=== PATIENT | male | born 1955 | race Caucasian/White ===

== ENCOUNTER 2020-12-14 08:55 | Outpatient (REF) | payer OTHER, SELFPAY ==
--- NOTE | ~2020-12-14 | XR_ITS ---
EXAMINATION: XR knee standing BI, XR knee LT 2V CLINICAL INFORMATION: Reason for Exam M25.569 - Pain in unspecified knee COMPARISON: None available at the time of this dictation. TECHNIQUE: Bilateral standing, left lateral patella sunrise view. FINDINGS: BONES: No fracture or dislocation is present. JOINTS: Mild narrowing of joint spaces suggest mild degenerative osteoarthritis. There are probably postoperative changes of from prior ACL repair. SOFT TISSUE: There is a small knee joint effusion. XR/XR knee LT 2V IMPRESSION: Mild degenerative osteoarthritis Small left knee joint effusion.
--- NOTE | ~2020-12-14 | XR_ITS ---
EXAMINATION: XR knee standing BI, XR knee LT 2V CLINICAL INFORMATION: Reason for Exam M25.569 - Pain in unspecified knee COMPARISON: None available at the time of this dictation. TECHNIQUE: Bilateral standing, left lateral patella sunrise view. FINDINGS: BONES: No fracture or dislocation is present. JOINTS: Mild narrowing of joint spaces suggest mild degenerative osteoarthritis. There are probably postoperative changes of from prior ACL repair. SOFT TISSUE: There is a small knee joint effusion. XR/XR knee standing BI IMPRESSION: Mild degenerative osteoarthritis Small left knee joint effusion.
== END 2020-12-14 08:56 | disposition home or self-care (01) ==
LOC: HO.HOSX 08:55
PROVIDERS: Visit Provider Orthopaedic Surgery
DX: M25.562 Pain in left knee (principal); M25.561 Pain in right knee; Z98.890 Other specified postprocedural states
CPT/HCPCS: 73560; 73565

== ENCOUNTER 2021-01-09 13:55 | Outpatient (REF) | payer OTHER, SELFPAY ==
--- NOTE | ~2021-01-09 | MR_ITS ---
EXAMINATION: MR KNEE WITHOUT CONTRAST, LEFT CLINICAL INFORMATION: Z98.890 - Other specified postprocedural states, history of ACL reconstruction. COMPARISON: None. TECHNIQUE: MRI of the knee without contrast was performed using routine sequences on a high-field scanner. FINDINGS: MENISCI: Medial Meniscus: There is a longitudinal tear along the peripheral, capsular margin of the posterior horn and body of the medial meniscus, consistent with a meniscocapsular injury/ramp lesion. Lateral Meniscus: There is absence of much of the posterior horn of the lateral meniscus near the root insertion, most likely the result of a prior meniscal tear status post partial meniscectomy. The posterior horn remains attached to the ligament of Howe. There is partial extrusion of the meniscal body. LIGAMENTS: Cruciate: ACL graft is completely disrupted at its mid substance with surrounding edema signal. Punctate foci marked metallic artifact in this region, consistent with prior surgery. PCL is intact. Collateral: Thickening of the MCL proximally may be due to scar tissue from prior surgery. LCL complex is normal. EXTENSOR MECHANISM: Quadriceps and patellar tendons are intact. Postsurgical changes of prior arthroscopy are evident within the Hoffa's fat pad. ARTICULAR CARTILAGE/BONE: Patellofemoral Compartment: Mild chondral surface irregularity is present at the lateral patellar facet. No discrete chondral defects. Trochlear cartilage appears normal. Normal trochlear morphology. Medial Compartment: Normal. Lateral Compartment: There is a small focal high-grade chondral defect at the lateral femoral condyle weightbearing surface measuring 4 x 5 mm in area with mild underlying marrow edema and cortical irregularity. Minimal chondral fissuring is present at the posterior margin of the lateral tibial plateau. No acute fractures. JOINT FLUID AND BURSAE: Small joint effusion. No Hooks's cyst. MR/MR knee LT wo con IMPRESSION: 1. Complete tear of the ACL graft. 2. Peripheral longitudinal meniscocapsular tear at the posterior horn and body of the medial meniscus, consistent with a ramp lesion. 3. Chronic defect in the posterior horn of the lateral meniscus at the root insertion from a prior partial meniscectomy. Meniscal body is partially extruded. No new tears. 4. Small 4 x 5 mm high-grade chondral defect at the lateral femoral condyle weightbearing surface. Minimal chondral fissuring at the posterior margin of the lateral tibial plateau. 5. Small joint effusion.
== END 2021-01-09 13:56 | disposition home or self-care (01) ==
LOC: HO.MRI 13:55
PROVIDERS: Visit Provider Orthopaedic Surgery
DX: Z98.890 Other specified postprocedural states (principal)
CPT/HCPCS: 73721

== ENCOUNTER → 2021-01-17 08:31 | Outpatient (BNVA) | payer OTHER, SELFPAY | PROVIDERS: PCP Internal Medicine Endocrinology, Diabetes & Metabolism; Visit Provider Orthopaedic Surgery ==

== ENCOUNTER 2021-03-15 08:12 | Outpatient (REF) | payer OTHER, SELFPAY ==
[2021-03-15 10:26] LABS: MANUAL DIFF FLAG NO
[2021-03-15 10:27] LABS: Eosinophils Absolute Auto 0.1 X10*3/uL (0.0-0.4); Eosinophils Percent Auto 2.6 % (0-4); Hematocrit 46.2 % (42-52); Hemoglobin 15.3 g/dl (14.0-18.0); Mean Corpuscular HGB Conc 33.1 g/dl (31.0-36.0); Mean Corpuscular Hemoglobin 30.8 pg (27.0-33.0); Mean Platelet Volume 9.1 fL (9.4-12.4); Monocytes Absolute Auto 0.5 X10*3/uL (0.1-1.2); Monocytes Percent Auto 11.5 % (2-11); Neutrophils Absolute Auto 2.5 X10*3/uL (2.0-8.3); Neutrophils Percent Auto 60.9 % (45-73); Platelet Count 226 X10*3/uL (160-400); Red Blood Count 4.97 X10*6/uL (4.60-5.80); Red Cell Distribution Width 13.8 % (11.0-16.0); White Blood Count 4.2 X10*3/uL (4.8-10.8)
[2021-03-15 11:23] LABS: Alanine Aminotransferase 22 U/L (0-40); Albumin Level 4.3 g/dL (3.5-5.0); Alkaline Phosphatase 78 U/L (39-117); Anion Gap 12 (12-20); Aspartate Amino Transferase 30 U/L (5-37); Bilirubin Total 0.6 mg/dL (0.0-1.0); Blood Urea Nitrogen 18 mg/dL (9-16); Calcium 9.6 mg/dL (8.4-10.2); Carbon Dioxide 30 mmol/L (22-29); Chloride 102 mmol/L (96-108); Cholesterol 184 mg/dL; Estimated Glomerular Filt Rate > 60; Glucose Fasting 91 mg/dL (60-99); HDL Cholesterol 55 mg/dL; LDL Cholesterol Calculated 119 mg/dl; Potassium 4.5 mmol/L (3.3-5.1); Sodium 139 mmol/L (135-145); Total Protein 7.4 g/dL (6.5-8.0); Triglycerides 53 mg/dL
[2021-03-15 11:36] LABS: TSH reflex Free T4 1.85 uIU/mL (0.32-4.0)
== END 2021-03-15 08:13 | disposition home or self-care (01) ==
LOC: HO.WFDLDS 08:12
PROVIDERS: Visit Provider Family Medicine
DX: Z00.00 Encounter for general adult medical examination without abnormal findings (principal)
CPT/HCPCS: 36415; 80053; 80061; 84443; 85025

== ENCOUNTER 2021-03-29 09:00 | Outpatient (RCR) | payer OTHER, SELFPAY | END 2021-07-19 14:48 | disposition home or self-care (01) | LOC: HO.PTWFD 09:00 | PROVIDERS: Visit Provider Orthopaedic Surgery | DX: T84.89XA Other specified complication of internal orthopedic prosthetic devices, implants and grafts, initial encounter (principal) | CPT/HCPCS: 97110; 97116; 97162; 97530 ==

== ENCOUNTER 2021-05-08 08:15 | Outpatient (REF) | payer OTHER, SELFPAY ==
[2021-05-08 10:23] LABS: MANUAL DIFF FLAG NO
[2021-05-08 10:28] LABS: Eosinophils Absolute Auto 0.1 X10*3/uL (0.0-0.4); Eosinophils Percent Auto 1.8 % (0-4); Hematocrit 44.1 % (42-52); Hemoglobin 14.7 g/dl (14.0-18.0); Imm Gran Abs Auto 0.01 X10*3/uL (0.00-0.03); Imm Gran Pct Auto 0.3 % (0.0-0.4); Lymphocytes Absolute Auto 0.8 X10*3/uL (1.2-4.9); Mean Corpuscular HGB Conc 33.3 g/dl (31.0-36.0); Mean Corpuscular Hemoglobin 31.4 pg (27.0-33.0); Mean Corpuscular Volume 94.2 fL (80-98); Mean Platelet Volume 9.1 fL (9.4-12.4); Monocytes Absolute Auto 0.5 X10*3/uL (0.1-1.2); Monocytes Percent Auto 11.9 % (2-11); Neutrophils Absolute Auto 2.5 X10*3/uL (2.0-8.3); Platelet Count 215 X10*3/uL (160-400); Red Blood Count 4.68 X10*6/uL (4.60-5.80); Red Cell Distribution Width 13.6 % (11.0-16.0); White Blood Count 3.9 X10*3/uL (4.8-10.8)
[2021-05-08 11:17] LABS: Erythrocyte Sedimentation Rate 77 MM/HR (0-15)
[2021-05-09 10:41] LABS: Myeloperoxidase Antibody <1.0 AI; Proteinase 3 PR3 Antibodies <1.0 AI
== END 2021-05-08 08:16 | disposition home or self-care (01) ==
LOC: HO.LAB 08:15
PROVIDERS: PCP Family Medicine; Visit Provider Hospitalist
DX: J45.50 Severe persistent asthma, uncomplicated (principal); J44.9 Chronic obstructive pulmonary disease, unspecified; B44.81 Allergic bronchopulmonary aspergillosis
CPT/HCPCS: 36415; 82785; 85025; 85652; 86003; 86021; 87070; 87205

== ENCOUNTER 2021-05-17 08:59 | Outpatient (REF) | payer OTHER, SELFPAY ==
[2021-05-22 15:11] LABS: Testosterone, Total 439 ng/dL (250-1100)
== END 2021-05-17 09:00 | disposition home or self-care (01) ==
LOC: HO.WFDLDS 08:59
PROVIDERS: PCP Family Medicine; Visit Provider Urology
DX: E29.1 Testicular hypofunction (principal)
CPT/HCPCS: 36415; 84403

== ENCOUNTER → 2021-05-29 08:23 | Outpatient (BNVA) | payer OTHER, SELFPAY | PROVIDERS: PCP Family Medicine; Visit Provider Urology ==

== ENCOUNTER 2021-06-18 09:08 | Outpatient (REF) | payer OTHER, SELFPAY ==
--- NOTE | ~2021-06-18 | XR_ITS ---
EXAMINATION: XR CHEST CLINICAL INFORMATION: COPD COMPARISON: None TECHNIQUE: 2 views of the chest were obtained. FINDINGS: The cardiac and mediastinal contours are normal. The lungs are well-inflated. There may be scarring or subsegmental atelectasis retrosternally on the lateral view. The lungs are otherwise clear. There is no pleural effusion or pneumothorax. There are old right anterior rib fractures. There are degenerative changes of the spine. XR/XR chest 2V IMPRESSION: Well-inflated lungs. Retrosternal scarring or subsegmental atelectasis seen on the lateral view.
== END 2021-06-18 09:09 | disposition home or self-care (01) ==
LOC: HO.XRAY 09:08
PROVIDERS: PCP Family Medicine; Visit Provider Hospitalist
DX: J45.50 Severe persistent asthma, uncomplicated (principal); B44.81 Allergic bronchopulmonary aspergillosis; J44.9 Chronic obstructive pulmonary disease, unspecified; Z79.899 Other long term (current) drug therapy
CPT/HCPCS: 71046

== ENCOUNTER 2021-06-26 08:56 | Outpatient (REF) | payer OTHER, SELFPAY ==
--- NOTE | 2021-06-26 10:07 | PFT_ITS ---
INDICATION: Asthma. SPIROMETRY: The FEV1 to FVC of 67% with an FEV1 of 2.03 L, which is 91% predicted and an FVC of 4.49 L, which is 100% predicted. No significant response to bronchodilators noted. Maximum voluntary ventilation 109% predicted. LUNG VOLUMES: Total lung capacity 101% predicted with a residual volume of 95% predicted. DIFFUSION CAPACITY: DLCO 76% predicted. Flow volume loop appears to be suggestive of a concavity of the expiratory limb, which is consistent with an obstructive physiology. COMPARISONS: None available. INTERPRETATION: There is an obstructive ventilatory defect consistent with mild COPD. The patient likely has asthma, COPD overlap syndrome. No significant response to bronchodilators noted. Normal maximum voluntary ventilation. Lung volumes are within normal limits. In addition to that, the patient does have a mild diffusion impairment. Clinical correlation warranted. MD SANDRA Berumen/CHANEL / [id number]
== END 2021-06-26 08:57 | disposition home or self-care (01) ==
LOC: HO.RESP 08:56
PROVIDERS: PCP Family Medicine; Visit Provider Hospitalist
DX: J44.9 Chronic obstructive pulmonary disease, unspecified (principal); B44.81 Allergic bronchopulmonary aspergillosis
CPT/HCPCS: 94060; 94727; 94729

== ENCOUNTER → 2021-08-14 08:56 | Outpatient (BNVA) | payer OTHER, SELFPAY | PROVIDERS: PCP Family Medicine; Visit Provider Hospitalist | DX: B44.81 Allergic bronchopulmonary aspergillosis (principal); J45.909 Unspecified asthma, uncomplicated; J44.9 Chronic obstructive pulmonary disease, unspecified ==

== ENCOUNTER 2021-08-22 06:27 | Day surgery (SDC) | payer OTHER, SELFPAY ==
[2021-08-21 09:19] VITALS: BMI 22.5
--- NOTE | 2021-08-21 09:34 | P.CONAN_ITS ---
Documented by User: Reena Zelaya NP 08/21/21 09:35 HPI - Anesthesia Eval Consult details Narrative: 65yo M for Bronchoscopy Fiberoptic PMFSH Active Problems Active Problems: All Active Problems (Updated 08/21/21 @ 09:24 by Abbie Juarez RN) Essential hypertension (Acute) Laboratory examination ordered as part of a routine general medical examination (Acute) Allergic bronchopulmonary aspergillosis (Acute) Asthma (Acute) Annual physical exam (Acute) Screening for prostate cancer (Acute) Screening for colon cancer (Acute) Hypogonadism in male (Acute) Asthma-COPD overlap syndrome (Acute) ABPA (allergic bronchopulmonary aspergillosis) (Acute) Asthma (Acute) ACL graft tear (Acute) Hx of anterior cruciate ligament tear reconstruction (Acute ~01/05/13) Past Medical History Medical History (Updated 08/21/21 @ 09:24 by Abbie Juarez RN) ABPA (allergic bronchopulmonary aspergillosis) ACL graft tear Asthma-COPD overlap syndrome Hypertension Surgical History Surgical History Hx of anterior cruciate ligament tear reconstruction (~01/05/13) Social History Social History Housing: House Alcohol intake: never Patient Tobacco Use Status: Never used Tobacco e-Cigarette/Vaping Use: Never Used Use of substances other than those prescribed or required for medical reasons: No Are you DNR?: No Advance Directives: No Advance Directives Information Provided: Yes Recently lost weight without trying: No Nutrition Risks: No Nutritional Risk service: No Current occupational status: retired Meds Allergies Allergy/AdvReac Type Severity Reaction Status Date / Time Doxycycline Hyclate Allergy Intermediate redness Uncoded 08/14/21 09:05 and itching Home Medications Medication Instructions Recorded Confirmed Last Taken Type fexofenadine 180 mg tablet 180 mg PO DAILY 12/14/20 Unknown History fluticasone propionate 50 1 spray INTRANASAL DAILY 12/14/20 Unknown History mcg/actuation nasal spray,suspension montelukast 10 mg tablet 10 mg PO BEDTIME 12/14/20 Unknown History pantoprazole 40 mg tablet,delayed 40 mg PO DAILY 12/14/20 Unknown History release triamterene 37.5 1 cap PO DAILY 12/14/20 Unknown History mg-hydrochlorothiazide 25 mg capsule immun glob G 8 SUBCUT 03/08/21 Unknown History gram/40mL(20%)-gly-IgA over 50 mcg/mL subcutaneous soln (Cuvitru) umeclidinium 62.5 mcg/actuation 1 inh INHALATION DAILY 05/08/21 Unknown History blister powder for inhalation (Incruse Ellipta) dupilumab 300 mg/2 mL subcutaneous mg SUBCUT 08/14/21 Unknown History syringe loteprednol etabonate 0.5 % eye drp OPHTHALMIC (EYE) 08/14/21 Unknown History gel drops Exam Exam Date and Time: August 21, 2021 0934 Height,Weight and Vital Signs: Height 5 ft 8 in Weight 67.132 kg Pertinent Lab Results Pertinent Lab Results: Laboratory Tests 03/15/21 05/08/21 08:50 09:55 WBC 3.9 L Hgb 14.7 Hct 44.1 Plt Count 215 Sodium 139 Potassium 4.5 Chloride 102 Carbon Dioxide 30 H BUN 18 H Creatinine 1.09 Narrative Narrative: PFT 06/2021 INTERPRETATION:? There is an obstructive ventilatory defect consistent with mild COPD.? The patient likely has asthma, COPD overlap syndrome.? No significant response to bronchodilators noted.? Normal maximum voluntary ventilation.? Lung volumes are within normal limits.? In addition to that, the patient does have a mild diffusion impairment.? Clinical correlation warranted. Assessment and Plan Assessment Anesthesia Assessment: Chart Reviewed Documented by User: Bruce Blackburn 08/22/21 07:46 [facility] Past Medical History Medical History (Updated 08/21/21 @ 09:24 by Abbie Juarez RN) ABPA (allergic bronchopulmonary aspergillosis) ACL graft tear Asthma-COPD overlap syndrome Hypertension Functional capacity: independent ambulation Family History Family history of problems with anesthesia: No Surgical History Surgical History Hx of anterior cruciate ligament tear reconstruction (~01/05/13) History of Problems with Anesthesia: No Social History Social History Housing: House Alcohol intake: never Patient Tobacco Use Status: Never used Tobacco e-Cigarette/Vaping Use: Never Used Use of substances other than those prescribed or required for medical reasons: No Are you DNR?: No Advance Directives: No Advance Directives Information Provided: Yes Recently lost weight without trying: No Nutrition Risks: No Nutritional Risk service: No Current occupational status: retired Meds Allergies Allergy/AdvReac Type Severity Reaction Status Date / Time Doxycycline Hyclate Allergy Intermediate redness Uncoded 08/14/21 09:05 and itching Home Medications Medication Instructions Recorded Confirmed Last Taken Type fexofenadine 180 mg tablet 180 mg PO DAILY 12/14/20 Unknown History fluticasone propionate 50 1 spray INTRANASAL DAILY 12/14/20 Unknown History mcg/actuation nasal spray,suspension montelukast 10 mg tablet 10 mg PO BEDTIME 12/14/20 Unknown History pantoprazole 40 mg tablet,delayed 40 mg PO DAILY 12/14/20 Unknown History release triamterene 37.5 1 cap PO DAILY 12/14/20 Unknown History mg-hydrochlorothiazide 25 mg capsule immun glob G 8 SUBCUT 03/08/21 Unknown History gram/40mL(20%)-gly-IgA over 50 mcg/mL subcutaneous soln (Cuvitru) umeclidinium 62.5 mcg/actuation 1 inh INHALATION DAILY 05/08/21 Unknown History blister powder for inhalation (Incruse Ellipta) dupilumab 300 mg/2 mL subcutaneous mg SUBCUT 08/14/21 Unknown History syringe loteprednol etabonate 0.5 % eye drp OPHTHALMIC (EYE) 08/14/21 Unknown History gel drops Exam Airway Mallampati Class: II TM Dist: >3cm Neck ROM: Full Loose/Missing/Broken Teeth: Yes Heart: rrr Lungs: bl breath sounds Assessment and Plan Final Anesthetic Review Family History of Problems with Anesthesia: No History of Problems with Anesthesia: No NPO: Yes ASA Class: III Final Preanesthetic Review: Meds/Allgs Chart Reviewed Patient Risk: Intermediate Procedure Risk: Intermediate Anesthetic Plan Anesthetic Plan: GA Disposition: Standard PACU
[2021-08-22] VITALS (9 sets, daily range): BP systolic 110–150; BP diastolic 50–92; PULSE 46–61; RESP 13–20; TEMP 36.2–36.6; O2SAT 97–100; BMI 22.1
[2021-08-22] MEDS: Lactated Ringers 1,000 ML 100 ML IVCONT (07:03)
[2021-08-22] MEDS: Albuterol/Iprat 2.5/0.5MG 3 ML AMPUL.NEB INHALE (07:33)
--- NOTE | 2021-08-22 07:35 | PC.NURSE ---
receiving resp treatment
--- NOTE | 2021-08-22 08:10 | MHC.SHP ---
Pre-Procedural Eval Section A Date of Service: 08/22/21 The patient is an INPATIENT: No Changes since office visit: Yes Patient answered all questions; No Cold of Flu in the past 2 weeks, No New Medical Problems and No Changes in Medication Section B Chief Complaint: aspergillosis Relevant Family History (Specify if Yes): No Allergies: Allergies Allergy/AdvReac Type Severity Reaction Status Date / Time Doxycycline Hyclate Allergy Intermediate redness Uncoded 08/14/21 09:05 and itching Plan I have reviewed the history and physical and performed a pertinent physical examination on my patient. No changes have occurred unless specified.
--- NOTE | 2021-08-22 09:27 | PM.OP ---
Brief Operative Note Date of Service: 08/22/21 Pre-op diagnosis: Asthma Post-op diagnosis: same Procedure: Bronchoscopy with BAL and brushigs Implants: Surgeon: Justin Conley MD Anesthesia: GLMA Was an Desizing Machine Operator Head End used for this Procedure?: No Estimated blood loss (mL): 0 Pathology: none sent Condition: stable Disposition: same day
--- NOTE | 2021-08-22 11:11 | OP_ITS ---
SURGEON: Justin Conley MD PREOPERATIVE DIAGNOSIS: Asthma. POSTOPERATIVE DIAGNOSIS: Asthma. PROCEDURE PERFORMED: Bronchoscopy with BAL and brushings and washings. ESTIMATED BLOOD LOSS: COMPLICATIONS: ANESTHESIA: ASSISTANTS: SPECIMENS: FOAM FABRICATOR: None. DESCRIPTION OF PROCEDURE: After the patient was adequately sedated and LMA in place, the flexible digital bronchoscope was inserted to the level of the larynx. The larynx appeared to be inflamed, likely from chronic coughing. The vocal cords did move symmetrically to the midline without any lesions or masses. After instilling lidocaine, the bronchoscope was then passed to the vocal cords to the level of the trachea. The trachea appeared to be patent with some evidence of chondromas and some evidence of chronic inflammation. After instilling additional lidocaine, the bronchoscope was then passed to the entire tracheobronchial tree that was examined up to the subsegmental level. The patient did again have evidence of chronic bronchitis, moderate amount of mucoid secretions primarily in the left mainstem bronchus, also in the right lower lobe. The bronchoscope was navigated to the lingula, where a BAL was done with 50 mL of normal saline recovering back around 20 mL, demonstrating clear fluid with mucus plugs noted. Subsequently after that, a microscopic brush was introduced into the left lower lobe, sent to microbiology. After that using washings, all the segments were washed with saline. The patient was noted to have a significant mucoid impaction in the right lower lobe. Could not be suctioned through the regular catheter, so therefore had to remove the bronchoscopy and clear the mucus out of the bronchoscopy that way. After that, we were able to clear out all the mucus out cleaning of the airways. Again, no endobronchial lesions or masses, although he did have blotches of areas of inflammation and chronic changes consistent with bronchiectasis, evidence of diverticula from the chronic airway disease as well noted. No significant trachea or bronchomalacia appreciated which is reassuring. The bronchoscope was then removed. The total endoscopic time approximately about 12 minutes. The patient tolerated the procedure well. Vital signs were stable throughout the procedure. INTERPRETATION: 1. Bronchoalveolar lavage from the left upper lobe. 2. Bilateral lung washings for both microbiology and cytology sent. 3. Left lower lobe microscopic brush. Justin Conley MD MR/MODL / [id number]
[2021-08-22 14:54] LABS: Neutrophils Bronchial 10 %; RBC Bronchial Washing 3 MM*3; WBC Bronchial Washing 46 MM*3
[2021-08-22 14:55] LABS: Lymphocytes Bronchial 11 %; Monocytes Bronchial 4 %; Other Bronchial 75 %
== END 2021-08-22 10:33 | disposition home or self-care (01) ==
PROVIDERS: PCP Family Medicine; Visit Provider Hospitalist
PROC: 0BJ08ZZ Inspection of Tracheobronchial Tree, Via Natural or Artificial Opening Endoscopic (ICD-10-PCS; CPT 31622; principal; 2021-08-22 08:00)
DX: B44.81 Allergic bronchopulmonary aspergillosis (principal); J45.50 Severe persistent asthma, uncomplicated; J44.9 Chronic obstructive pulmonary disease, unspecified; R09.3 Abnormal sputum; R07.89 Other chest pain; R70.0 Elevated erythrocyte sedimentation rate; Z79.899 Other long term (current) drug therapy; R09.89 Other specified symptoms and signs involving the circulatory and respiratory systems; U09.9 Post COVID-19 condition, unspecified
CPT/HCPCS: 31624; 31623; 87071; 87102; 87116; 87205; 88112; 89051; 94640; J0171; J2250; J2405; J3010

== ENCOUNTER → 2021-08-28 10:06 | Outpatient (BNVA) | payer OTHER, SELFPAY | PROVIDERS: PCP Family Medicine; Visit Provider Hospitalist ==

== ENCOUNTER 2021-10-04 10:27 | Outpatient (REF) | payer OTHER, SELFPAY ==
[2021-10-04 13:41] LABS: Blood Urea Nitrogen 22 mg/dL (9-16); Estimated Glomerular Filt Rate > 60
[2021-10-07 13:36] LABS: Immunoglobulin G 1181 mg/dL (600-1540)
== END 2021-10-04 10:28 | disposition home or self-care (01) ==
LOC: HO.WFDLDS 10:27
PROVIDERS: Visit Provider Allergy & Immunology
DX: D80.1 Nonfamilial hypogammaglobulinemia (principal)
CPT/HCPCS: 36415; 82565; 82784; 84520

== ENCOUNTER → 2021-10-08 10:07 | Outpatient (BNVA) | payer MEDICARE, OTHER, SELFPAY | PROVIDERS: PCP Family Medicine; Visit Provider Hospitalist | DX: J44.9 Chronic obstructive pulmonary disease, unspecified (principal); J45.50 Severe persistent asthma, uncomplicated; B44.81 Allergic bronchopulmonary aspergillosis | CPT/HCPCS: 99212 ==

== ENCOUNTER → 2021-11-14 10:38 | Outpatient (BNVA) | payer MEDICARE, OTHER, SELFPAY | PROVIDERS: PCP Family Medicine; Visit Provider Hospitalist | DX: Z23 Encounter for immunization (principal); J45.909 Unspecified asthma, uncomplicated | CPT/HCPCS: 90471; 90670; 99211 ==

== ENCOUNTER 2022-01-07 10:40 | Outpatient (REF) | payer MEDICARE, OTHER, SELFPAY ==
[2022-01-07 13:44] LABS: Blood Urea Nitrogen 26 mg/dL (9-16); Estimated Glomerular Filt Rate > 60
[2022-01-09 14:36] LABS: Immunoglobulin G 1128 mg/dL (600-1540)
== END 2022-01-07 10:41 | disposition home or self-care (01) ==
LOC: HO.WFDLDS 10:40
PROVIDERS: Visit Provider Allergy & Immunology
DX: D80.1 Nonfamilial hypogammaglobulinemia (principal)
CPT/HCPCS: 36415; 82565; 82784; 84520

== ENCOUNTER 2022-01-14 10:02 | Outpatient (REF) | payer MEDICARE, OTHER, SELFPAY ==
[2022-01-14 11:31] LABS: MANUAL DIFF FLAG NO
[2022-01-14 11:34] LABS: Basophils Absolute Auto 0.1 X10*3/uL (0.0-0.2); Basophils Percent Auto 1.2 % (0-2); Eosinophils Absolute Auto 0.1 X10*3/uL (0.0-0.4); Eosinophils Percent Auto 1.2 % (0-4); Hemoglobin 15.1 g/dl (14.0-18.0); Imm Gran Abs Auto 0.01 X10*3/uL (0.00-0.03); Imm Gran Pct Auto 0.2 % (0.0-0.4); Lymphocytes Absolute Auto 0.6 X10*3/uL (1.2-4.9); Lymphocytes Percent Auto 14.8 % (20-40); Mean Corpuscular HGB Conc 33.6 g/dl (31.0-36.0); Mean Corpuscular Hemoglobin 30.9 pg (27.0-33.0); Mean Corpuscular Volume 92.2 fL (80.0-98.0); Mean Platelet Volume 8.7 fL (9.4-12.4); Monocytes Absolute Auto 0.4 X10*3/uL (0.1-1.2); Monocytes Percent Auto 8.1 % (2-11); Neutrophils Absolute Auto 3.2 x10*3/uL (2.0-8.3); Neutrophils Percent Auto 74.5 % (45-73); Platelet Count 221 X10*3/uL (160-400); Red Blood Count 4.88 X10*6/uL (4.60-5.80); Red Cell Distribution Width 12.3 % (11.0-16.0); White Blood Count 4.3 X10*3/uL (4.8-10.8)
[2022-01-14 12:29] LABS: Erythrocyte Sedimentation Rate 6 MM/HR (0-15)
[2022-01-16 14:56] LABS: IgA 203 mg/dL (70-320); IgG 1227 mg/dL (600-1540); IgM 98 mg/dL (50-300)
[2022-01-20 14:36] LABS: Asperg fumigatus Precip Abs NEGATIVE (NEGATIVE); Micropoly faeni Abs NEGATIVE (NEGATIVE); Pigeon serum Abs NEGATIVE (NEGATIVE); Saccharo pora viridis Abs NEGATIVE (NEGATIVE); Thermo candidus Abs NEGATIVE (NEGATIVE); Thermoa vulgaris #1 NEGATIVE (NEGATIVE)
== END 2022-01-14 10:03 | disposition home or self-care (01) ==
LOC: HO.LAB 10:02
PROVIDERS: PCP Family Medicine; Visit Provider Hospitalist
DX: J45.50 Severe persistent asthma, uncomplicated (principal); J44.9 Chronic obstructive pulmonary disease, unspecified; B44.81 Allergic bronchopulmonary aspergillosis; R91.8 Other nonspecific abnormal finding of lung field; I10 Essential (primary) hypertension; Z88.1 Allergy status to other antibiotic agents
CPT/HCPCS: 36415; 82784; 82785; 85025; 85652; 86003; 86331; 86606; 86609; 99212

== ENCOUNTER 2022-04-09 10:38 | Outpatient (REF) | payer MEDICARE, OTHER, SELFPAY ==
[2022-04-09 15:02] LABS: TSH reflex Free T4 1.24 uIU/mL (0.32-4.0)
[2022-04-09 15:06] LABS: Alanine Aminotransferase 22 U/L (0-40); Albumin Level 4.2 g/dL (3.5-5.0); Alkaline Phosphatase 73 U/L (39-117); Anion Gap 13 (12-20); Aspartate Amino Transferase 28 U/L (5-37); Bilirubin Total 0.6 mg/dL (0.0-1.0); Blood Urea Nitrogen 20 mg/dL (9-16); Calcium 8.9 mg/dL (8.4-10.2); Carbon Dioxide 25 mmol/L (22-29); Chloride 105 mmol/L (96-108); Cholesterol 176 mg/dL; Estimated Glomerular Filt Rate 58; Glucose Fasting 111 mg/dL (60-99); HDL Cholesterol 55 mg/dL; LDL Cholesterol Calculated 109 mg/dl; Sodium 139 mmol/L (135-145); Triglycerides 60 mg/dL
[2022-04-09 15:12] LABS: Blood Urea Nitrogen 19 mg/dL (9-16); Estimated Glomerular Filt Rate > 60
[2022-04-11 11:22] LABS: Immunoglobulin G 1068 mg/dL (600-1540)
== END 2022-04-09 10:39 | disposition home or self-care (01) ==
LOC: HO.WFDLDS 10:38
PROVIDERS: Allergy & Immunology; Visit Provider Family Medicine
DX: D80.1 Nonfamilial hypogammaglobulinemia (principal)
CPT/HCPCS: 36415; 80053; 80061; 82565; 82784; 84443; 84520

== ENCOUNTER 2022-04-11 08:49 | Outpatient (REF) | payer MEDICARE, OTHER, SELFPAY ==
[2022-04-11 14:17] LABS: Cortisol Random 10.5 ug/dL
== END 2022-04-11 08:50 | disposition home or self-care (01) ==
LOC: HO.WFDLDS 08:49
PROVIDERS: Visit Provider Family Medicine
DX: Z00.00 Encounter for general adult medical examination without abnormal findings (principal)
CPT/HCPCS: 36415; 82533

== ENCOUNTER → 2022-05-26 12:58 | Outpatient (BNVA) | payer MEDICARE, OTHER, SELFPAY | PROVIDERS: PCP Family Medicine; Visit Provider Hospitalist | DX: J45.50 Severe persistent asthma, uncomplicated (principal); B44.81 Allergic bronchopulmonary aspergillosis; J44.9 Chronic obstructive pulmonary disease, unspecified | CPT/HCPCS: 99212 ==

== ENCOUNTER 2022-07-15 10:37 | Outpatient (REF) | payer MEDICARE, OTHER, SELFPAY ==
[2022-07-15 14:49] LABS: Blood Urea Nitrogen 22 mg/dL (9-16); Estimated Glomerular Filt Rate > 60
[2022-07-15 15:12] LABS: Prostate Specific Antigen Scr 0.74 ng/mL (<0.05-4.0)
[2022-07-16 14:47] LABS: Immunoglobulin G 1226 mg/dL (600-1540)
== END 2022-07-15 10:38 | disposition home or self-care (01) ==
LOC: HO.WFDLDS 10:37
PROVIDERS: Allergy & Immunology; Visit Provider Family Medicine
DX: Z12.5 Encounter for screening for malignant neoplasm of prostate (principal); D80.1 Nonfamilial hypogammaglobulinemia
CPT/HCPCS: 36415; 82565; 82784; 84153; 84520

== ENCOUNTER 2022-08-05 14:18 | Outpatient (REF) | payer MEDICARE, OTHER, SELFPAY ==
[2022-08-05 15:03] LABS: Influenza A PCR NEGATIVE (Negative); Influenza B PCR NEGATIVE (Negative); Resp Syncy Virus RNA Qual PCR NEGATIVE (Negative); SARS COV2 PCR INHOUSE NEGATIVE (Negative)
== END 2022-08-05 14:19 | disposition home or self-care (01) ==
LOC: HO.LNP 14:18
PROVIDERS: Visit Provider Nurse Practitioner Family
DX: Z20.822 Contact with and (suspected) exposure to COVID-19 (principal); J45.901 Unspecified asthma with (acute) exacerbation
CPT/HCPCS: 0241U

== ENCOUNTER 2022-08-09 11:24 | Emergency (ER) | payer MEDICARE, OTHER, SELFPAY ==
--- NOTE | ~2022-08-09 | XR_ITS ---
EXAMINATION: XR CHEST CLINICAL INFORMATION: Cough, difficulty breathing COMPARISON: 06/18/2021 TECHNIQUE: 2 views of the chest were obtained. FINDINGS: Lungs are well-inflated and without evidence of acute disease. Again noted is a linear opacity of focal scar in the retrosternal area, either within anterior right or left upper lobe. No airspace disease. Cardiac silhouette is normal size and contour. The pulmonary vascular pattern is normal. Skeletal findings include old healed fractures of right anterior fifth and sixth ribs. No acute osseous abnormality. XR/XR chest 2V IMPRESSION: No evidence of pneumonia. No acute cardiopulmonary findings compared to 06/18/2021.
[2022-08-09 11:32] VITALS: BP 172/85; PULSE 93; RESP 18; TEMP 36.7; O2SAT 98; BMI 22.1
--- NOTE | 2022-08-09 11:32 | ED_ITS ---
HPI - SOB/Dyspnea General Chief Complaint: General Medical Stated Complaint: diff breathing Time Seen by Provider: 08/09/22 14:49 Related Data Home Medications Medication Instructions Recorded Confirmed fexofenadine 180 mg tablet 180 mg PO DAILY 12/14/20 11/14/21 immun glob G 8 subcut 03/08/21 11/14/21 gram/40mL(20%)-gly-IgA over 50 mcg/mL subcutaneous soln (Cuvitru) loteprednol etabonate 0.5 % eye drp ophthalmic (eye) 08/14/21 11/14/21 gel drops tezepelumab-ekko 210 mg/1.91 mL 210 mg subcut Q4W 08/05/22 (110 mg/mL) subcutaneous syringe (Tezspire) Previous Rx's Medication Instructions Recorded fluticasone propionate 50 2 spray intranasal DAILY 90 days 01/14/22 mcg/actuation nasal #3 ea spray,suspension pantoprazole 40 mg tablet,delayed 40 mg PO DAILY 90 days #90 tabs 01/15/22 release triamterene 37.5 1 cap PO DAILY 90 days #90 caps 01/15/22 mg-hydrochlorothiazide 25 mg capsule budesonide 0.5 mg/2 mL suspension 0.5 mg (2 mL) inhalation BID #360 02/25/22 for nebulization mL montelukast 10 mg tablet 10 mg PO BEDTIME 90 days #90 tabs 02/25/22 roflumilast 500 mcg tablet 500 mcg PO DAILY #30 tabs 05/26/22 (Daliresp) albuterol sulfate 90 mcg/actuation 2 puff inhalation Q4-6H PRN 05/27/22 aerosol inhaler (ProAir HFA) shortness of breath or wheezing 30 days #8.5 grams sodium chloride 3 % for 4 ml inhalation BID 30 days #240 mL 05/27/22 nebulization Incruse Ellipta 62.5 mcg/actuation 1 inh inhalation DAILY #30 ea 06/09/22 powder for inhalation (umeclidinium) albuterol sulfate 2.5 mg/3 mL 2.5 mg (3 mL) inhalation Q4H PRN 06/09/22 (0.083 %) solution for nebulization for wheezing #525 mL diltiazem HCl 180 mg 180 mg PO DAILY 3 months #90 caps 06/09/22 capsule,extended release 24 hr arformoterol 15 mcg/2 mL solution 2 ml inhalation Q12H #120 mL 07/08/22 for nebulization prednisone 20 mg tablet 40 mg PO DAILY 5 days #10 tabs 08/05/22 prednisone 20 mg tablet See Taper PO DAILY #35 tabs 08/09/22 Allergies Allergy/AdvReac Type Severity Reaction Status Date / Time Doxycycline Hyclate Allergy Intermediate redness Uncoded 08/05/22 09:38 and itching PMFSH Past Medical History Medical History ABPA (allergic bronchopulmonary aspergillosis) Asthma-COPD overlap syndrome Hypertension Surgical History History of bronchoscopy (~2020) History of repair of anterior cruciate ligament of left knee (~2012) Social History Social History Housing: House Alcohol intake: never Patient Tobacco Use Status: Never used Tobacco Smoked in Last 30 Days: No e-Cigarette/Vaping Use: Never Used Second Hand Smoke Exposure: No Use of substances other than those prescribed or required for medical reasons: No Advance Directives: No service: No Current occupational status: retired Current occupational exposures/hazards: No Cognitive needs: No Hearing needs: No Vision needs: No Physical Exam Vital Signs: Vital Signs: Last Vital Signs Temp 98.2 F 08/09/22 15:15 Pulse 62 08/09/22 16:44 Resp 16 08/09/22 16:44 BP 145/86 H 08/09/22 16:44 Pulse Ox 98 08/09/22 16:44 O2 Del Method 08/09/22 16:44 BMI result Body Mass Index 22.1 Course Course Course Narrative: This is a rapid medical exam. Additional HPI/ROS/PE deferred to primary provider. 66 yo male with history of asthma/COPD overlap syndrome, HTN, [employer] here with complaints of cough, wheezing x 4-5 days. Tested for flu/covid/rsv 08/05 when seen by PCP in office. Started on prednisone 40mg daily. Not helping. Feels he needs IV steroids. NO CP/SOB/fever. VSS. Declined testing for covid today. Would like CXR. Medications Administered Discontinued Medications Generic Name Dose Route Start Last Admin Trade Name Roseann PRN Reason Stop Dose Admin Methylprednisolone Sodium Succinate 125 mg 08/09/22 15:38 08/09/22 15:44 Methylprednisolone Sod Succ 125 Mg/2 Ml Vial IVPUSH 08/09/22 15:39 125 mg ONCE ONE Administration MDM - SOB/Dyspnea Lab Data Result diagrams: 08/09/22 15:32 08/09/22 15:32 Labs: Lab Results 08/09/22 08/09/22 Range/Units 15:32 15:32 WBC 11.9 H (4.8-10.8) X10*3/uL RBC 5.32 (4.60-5.80) X10*6/uL Hgb 16.1 (14.0-18.0) g/dl Hct 46.8 (42.0-52.0) % MCV 88.0 (80.0-98.0) fL MCH 30.3 (27.0-33.0) pg MCHC 34.4 (31.0-36.0) g/dl RDW 12.7 (11.0-16.0) % Plt Count 303 D (160-400) X10*3/uL MPV 8.7 L (9.4-12.4) fL Immature Gran % (Auto) 0.6 H (0.0-0.4) % Neut % (Auto) 89.5 H (45-73) % Lymph % (Auto) 4.6 L (20-40) % [place] % (Auto) 5.1 (2-11) % Eos % (Auto) 0.0 (0-4) % Baso % (Auto) 0.2 (0-2) % Lymph # (Auto) 0.6 L (1.2-4.9) X10*3/uL [place] # (Auto) 0.6 (0.1-1.2) X10*3/uL Eos # (Auto) 0.0 (0.0-0.4) X10*3/uL Baso # (Auto) 0.0 (0.0-0.2) X10*3/uL Abs Immat Gran (auto) 0.07 H (0.00-0.03) X10*3/uL Absolute Neuts (auto) 10.7 H (2.0-8.3) x10*3/uL Absolute Nucleated RBC 0.000 (0.0-0.012) X10*3/uL Nucleated RBC % (auto) 0.0 (0.0-0.2) /100WBC Sodium 134 L (135-145) mmol/L Potassium 3.8 (3.3-5.1) mmol/L Chloride 99 (96-108) mmol/L Carbon Dioxide 24 (22-29) mmol/L Anion Gap 15 (12-20) BUN 26 H (9-16) mg/dL Creatinine 0.98 (0.5-1.4) mg/dL Estim Creat Clear Calc 72.3 Estimated GFR > 60 Random Glucose 104 (60-115) mg/dL Calcium 10.4 H D (8.4-10.2) mg/dL Discharge Plan Discharge Clinical Impression: ABPA (allergic bronchopulmonary aspergillosis), Asthma, URI (upper respiratory infection) Patient Disposition: Home, Self-Care Instructions: Acute Bronchitis (ED) Prescriptions: New prednisone 20 mg tablet See Taper PO DAILY Qty: 35 0RF Taper: Prednisone 40 mg daily for 9 Days and 0 Hour 40 mg every other day for 7 Days and 0 Hour No Action pantoprazole 40 mg tablet,delayed release (DR/EC) 40 mg PO DAILY 90 Days Qty: 90 2RF triamterene-hydrochlorothiazid 37.5-25 mg capsule 1 cap PO DAILY 90 Days Qty: 90 2RF budesonide 0.5 mg/2 mL suspension for nebulization 0.5 mg inhalation BID Qty: 360 3RF montelukast 10 mg tablet 10 mg PO BEDTIME 90 Days Qty: 90 3RF sodium chloride 3 % solution for nebulization 4 ml inhalation BID 30 Days Qty: 240 11RF Incruse Ellipta 62.5 mcg/actuation blister with device 1 inh inhalation DAILY Qty: 30 3RF albuterol sulfate 2.5 mg /3 mL (0.083 %) solution for nebulization 2.5 mg inhalation Q4H PRN (Reason: for wheezing) Qty: 525 0RF diltiazem HCl 180 mg capsule,extended release 24hr 180 mg PO DAILY 90 Days Qty: 90 1RF arformoterol 15 mcg/2 mL solution for nebulization 2 ml inhalation Q12H Qty: 120 3RF albuterol sulfate [ProAir HFA] 90 mcg/actuation HFA aerosol inhaler 2 puff inhalation Q4-6H PRN (Reason: shortness of breath or wheezing) 30 Days Qty: 8.5 6RF Cuvitru 8 gram/40 mL (20 %) solution subcut Rx Instructions: 16 grams twice a week Tezspire 210 mg/1.91 mL (110 mg/mL) syringe 210 mg subcut Q4W prednisone 20 mg tablet 40 mg PO DAILY 5 Days Qty: 10 0RF fexofenadine 180 mg tablet 180 mg PO DAILY loteprednol etabonate 0.5 % drops,gel ophthalmic (eye) Daliresp 500 mcg tablet 500 mcg PO DAILY Qty: 30 11RF fluticasone propionate 50 mcg/actuation spray,suspension 2 spray intranasal DAILY 90 Days Qty: 3 3RF Interventions: ED Discharge Assessment Last Done: 08/09/22 16:57 Discharge Date/Time: 08/09/22 16:57
--- NOTE | 2022-08-09 14:51 | ED.SOB ---
HPI - SOB/Dyspnea General Chief Complaint: General Medical Stated Complaint: diff breathing Time Seen by Provider: 08/09/22 14:49 Source: patient History of Present Illness HPI Narrative: 66-year-old male with a past medical history of allergic bronchopulmonary aspergillosis presents to the emergency department today with shortness of breath. Patient states that he has had an asthma exacerbation this week. Was started on prednisone several days ago but not improving. the patient denies fevers or shaking chills. MD elicited complaint: shortness of breath, cough and asthma attack Onset (ago): day(s) Timing: constant Severity: moderate Exacerbating factors: nothing Relieving factors: nothing Known history of: other ( ABPA) Associated symptoms: denies other symptoms Related Data Home oxygen amount: none Home Medications Medication Instructions Recorded Confirmed fexofenadine 180 mg tablet 180 mg PO DAILY 12/14/20 11/14/21 immun glob G 8 subcut 03/08/21 11/14/21 gram/40mL(20%)-gly-IgA over 50 mcg/mL subcutaneous soln (Cuvitru) loteprednol etabonate 0.5 % eye drp ophthalmic (eye) 08/14/21 11/14/21 gel drops tezepelumab-ekko 210 mg/1.91 mL 210 mg subcut Q4W 08/05/22 (110 mg/mL) subcutaneous syringe (Tezspire) Previous Rx's Medication Instructions Recorded fluticasone propionate 50 2 spray intranasal DAILY 90 days 01/14/22 mcg/actuation nasal #3 ea spray,suspension pantoprazole 40 mg tablet,delayed 40 mg PO DAILY 90 days #90 tabs 01/15/22 release triamterene 37.5 1 cap PO DAILY 90 days #90 caps 01/15/22 mg-hydrochlorothiazide 25 mg capsule budesonide 0.5 mg/2 mL suspension 0.5 mg (2 mL) inhalation BID #360 02/25/22 for nebulization mL montelukast 10 mg tablet 10 mg PO BEDTIME 90 days #90 tabs 02/25/22 roflumilast 500 mcg tablet 500 mcg PO DAILY #30 tabs 05/26/22 (Daliresp) albuterol sulfate 90 mcg/actuation 2 puff inhalation Q4-6H PRN 05/27/22 aerosol inhaler (ProAir HFA) shortness of breath or wheezing 30 days #8.5 grams sodium chloride 3 % for 4 ml inhalation BID 30 days #240 mL 05/27/22 nebulization Incruse Ellipta 62.5 mcg/actuation 1 inh inhalation DAILY #30 ea 06/09/22 powder for inhalation (umeclidinium) albuterol sulfate 2.5 mg/3 mL 2.5 mg (3 mL) inhalation Q4H PRN 06/09/22 (0.083 %) solution for nebulization for wheezing #525 mL diltiazem HCl 180 mg 180 mg PO DAILY 3 months #90 caps 06/09/22 capsule,extended release 24 hr arformoterol 15 mcg/2 mL solution 2 ml inhalation Q12H #120 mL 07/08/22 for nebulization prednisone 20 mg tablet 40 mg PO DAILY 5 days #10 tabs 08/05/22 Allergies Allergy/AdvReac Type Severity Reaction Status Date / Time Doxycycline Hyclate Allergy Intermediate redness Uncoded 08/05/22 09:38 and itching Review of Systems Review of Systems: Constitutional: Denies chills and Denies fever(s) Eyes: Denies blurry vision and Denies diplopia ENT: Denies dizziness, Denies nasal congestion and Denies sore throat Cardiovascular: Denies chest pain, Denies syncope and Denies rapid heart rate Respiratory: Denies cough and Denies wheezing Gastrointestinal: Denies diarrhea, Denies nausea and Denies vomiting Genitourinary: No vaginal bleeding. No discharge. Musculoskeletal: Denies back pain and Denies myalgias Neuro: Denies dizziness and Denies syncope Allergic/Immunologic: Denies wheezing, rash PMFSH Past Medical History Medical History ABPA (allergic bronchopulmonary aspergillosis) Asthma-COPD overlap syndrome Hypertension Surgical History History of bronchoscopy (~2020) History of repair of anterior cruciate ligament of left knee (~2012) Social History Social History Housing: House Alcohol intake: never Patient Tobacco Use Status: Never used Tobacco Smoked in Last 30 Days: No e-Cigarette/Vaping Use: Never Used Second Hand Smoke Exposure: No Use of substances other than those prescribed or required for medical reasons: No Advance Directives: No service: No Current occupational status: retired Current occupational exposures/hazards: No Cognitive needs: No Hearing needs: No Vision needs: No Physical Exam Vital Signs: Vital Signs: Last Vital Signs Temp 98.2 F 08/09/22 15:15 Pulse 70 08/09/22 15:15 Resp 18 08/09/22 15:15 BP 159/96 H 08/09/22 15:15 Pulse Ox 97 08/09/22 15:15 O2 Del Method 08/09/22 11:32 BMI result Body Mass Index 22.1 vital signs are stable and normal Const: General: cooperative, healthy appearing, comfortable and no acute distress Orientation/consciousness: patient oriented x3 HEENT: Head: Yes normal to inspection, Yes normocephalic and Yes atraumatic Ears: external ears normal General nose exam: Normal external nose present Face and sinus: Yes normal facial exam Mouth: Normal oral and palatal mucosa present Neck: Neck: Yes normal visual inspection and Yes full ROM Chest: Chest palpation & inspection: normal inspection of the chest Resp: Effort & Inspection: normal respiratory effort, able to speak in complete sentences and no cough Cardio: Rate: regular rate Rhythm: regular rhythm Back/Spine/Pelvis: Cervical Spine: normal cervical lordosis and cervical ROM normal Skin: General skin exam: no rashes or lesions noted, no mottling and no pallor Neuro: General: patient oriented x3 Cranial nerves: Yes CN's II-XII intact bilaterally Gait exam (Neuro): Normal gait present Medications Administered Discontinued Medications Generic Name Dose Route Start Last Admin Trade Name Lalitoq PRN Reason Stop Dose Admin Methylprednisolone Sodium Succinate 125 mg 08/09/22 15:38 08/09/22 15:44 Methylprednisolone Sod Succ 125 Mg/2 Ml Vial IVPUSH 08/09/22 15:39 125 mg ONCE ONE Administration MDM - SOB/Dyspnea MDM Narrative Medical decision making narrative: 66-year-old male with history of ABPA presenting to the ER with persistent URI symptoms. Finished a short course of steroids, although with possibility of ABPA exacerbation will need additional. Plan would be to discharge home on additional steroids provided laboratory studies are unremarkable. 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 Lab Data Attestation: I reviewed the patient's lab results. Result diagrams: 08/09/22 15:32 12/03/22 15:32 Labs: Lab Results 08/09/22 08/09/22 Range/Units 15:32 15:32 WBC 11.9 H (4.8-10.8) X10*3/uL RBC 5.32 (4.60-5.80) X10*6/uL Hgb 16.1 (14.0-18.0) g/dl Hct 46.8 (42.0-52.0) % MCV 88.0 (80.0-98.0) fL MCH 30.3 (27.0-33.0) pg MCHC 34.4 (31.0-36.0) g/dl RDW 12.7 (11.0-16.0) % Plt Count 303 D (160-400) X10*3/uL MPV 8.7 L (9.4-12.4) fL Immature Gran % (Auto) 0.6 H (0.0-0.4) % Neut % (Auto) 89.5 H (45-73) % Lymph % (Auto) 4.6 L (20-40) % Whiteside % (Auto) 5.1 (2-11) % Eos % (Auto) 0.0 (0-4) % Baso % (Auto) 0.2 (0-2) % Lymph # (Auto) 0.6 L (1.2-4.9) X10*3/uL Whiteside # (Auto) 0.6 (0.1-1.2) X10*3/uL Eos # (Auto) 0.0 (0.0-0.4) X10*3/uL Baso # (Auto) 0.0 (0.0-0.2) X10*3/uL Abs Immat Gran (auto) 0.07 H (0.00-0.03) X10*3/uL Absolute Neuts (auto) 10.7 H (2.0-8.3) x10*3/uL Absolute Nucleated RBC 0.000 (0.0-0.012) X10*3/uL Nucleated RBC % (auto) 0.0 (0.0-0.2) /100WBC Sodium 134 L (135-145) mmol/L Potassium 3.8 (3.3-5.1) mmol/L Chloride 99 (96-108) mmol/L Carbon Dioxide 24 (22-29) mmol/L Anion Gap 15 (12-20) BUN 26 H (9-16) mg/dL Creatinine 0.98 (0.5-1.4) mg/dL Estim Creat Clear Calc 72.3 Estimated GFR > 60 Random Glucose 104 (60-115) mg/dL Calcium 10.4 H D (8.4-10.2) mg/dL Imaging Data Chest x-ray: My impression: I have visualized the chest x-ray which shows no acute pulmonary disease. This study is pending radiologist's interpretation. Radiologist's impression: IMPRESSION: No evidence of pneumonia. No acute cardiopulmonary findings compared to 06/18/2021 Discharge Plan Discharge Clinical Impression: ABPA (allergic bronchopulmonary aspergillosis), Asthma, URI (upper respiratory infection) Patient Disposition: Home, Self-Care Instructions: Acute Bronchitis (ED) Prescriptions: No Action pantoprazole 40 mg tablet,delayed release (DR/EC) 40 mg PO DAILY 90 Days Qty: 90 2RF triamterene-hydrochlorothiazid 37.5-25 mg capsule 1 cap PO DAILY 90 Days Qty: 90 2RF budesonide 0.5 mg/2 mL suspension for nebulization 0.5 mg inhalation BID Qty: 360 3RF montelukast 10 mg tablet 10 mg PO BEDTIME 90 Days Qty: 90 3RF sodium chloride 3 % solution for nebulization 4 ml inhalation BID 30 Days Qty: 240 11RF Incruse Ellipta 62.5 mcg/actuation blister with device 1 inh inhalation DAILY Qty: 30 3RF albuterol sulfate 2.5 mg /3 mL (0.083 %) solution for nebulization 2.5 mg inhalation Q4H PRN (Reason: for wheezing) Qty: 525 0RF diltiazem HCl 180 mg capsule,extended release 24hr 180 mg PO DAILY 90 Days Qty: 90 1RF arformoterol 15 mcg/2 mL solution for nebulization 2 ml inhalation Q12H Qty: 120 3RF albuterol sulfate [ProAir HFA] 90 mcg/actuation HFA aerosol inhaler 2 puff inhalation Q4-6H PRN (Reason: shortness of breath or wheezing) 30 Days Qty: 8.5 6RF Cuvitru 8 gram/40 mL (20 %) solution subcut Rx Instructions: 16 grams twice a week Tezspire 210 mg/1.91 mL (110 mg/mL) syringe 210 mg subcut Q4W prednisone 20 mg tablet 40 mg PO DAILY 5 Days Qty: 10 0RF fexofenadine 180 mg tablet 180 mg PO DAILY loteprednol etabonate 0.5 % drops,gel ophthalmic (eye) Daliresp 500 mcg tablet 500 mcg PO DAILY Qty: 30 11RF fluticasone propionate 50 mcg/actuation spray,suspension 2 spray intranasal DAILY 90 Days Qty: 3 3RF
[2022-08-09 15:15] VITALS: BP 159/96; PULSE 70; RESP 18; TEMP 36.8; O2SAT 97
[2022-08-09 15:38] LABS: MANUAL DIFF FLAG NO
[2022-08-09 15:39] LABS: Basophils Percent Auto 0.2 % (0-2); Hematocrit 46.8 % (42.0-52.0); Hemoglobin 16.1 g/dl (14.0-18.0); Imm Gran Abs Auto 0.07 X10*3/uL (0.00-0.03); Imm Gran Pct Auto 0.6 % (0.0-0.4); Lymphocytes Absolute Auto 0.6 X10*3/uL (1.2-4.9); Lymphocytes Percent Auto 4.6 % (20-40); Mean Corpuscular HGB Conc 34.4 g/dl (31.0-36.0); Mean Corpuscular Hemoglobin 30.3 pg (27.0-33.0); Mean Platelet Volume 8.7 fL (9.4-12.4); Monocytes Absolute Auto 0.6 X10*3/uL (0.1-1.2); Monocytes Percent Auto 5.1 % (2-11); Neutrophils Absolute Auto 10.7 x10*3/uL (2.0-8.3); Neutrophils Percent Auto 89.5 % (45-73); Platelet Count 303 X10*3/uL (160-400); Red Blood Count 5.32 X10*6/uL (4.60-5.80); Red Cell Distribution Width 12.7 % (11.0-16.0); White Blood Count 11.9 X10*3/uL (4.8-10.8)
[2022-08-09] MEDS: methylPREDNISolone Sod Succ 125 MG/2 ML VIAL IVPUSH (15:44)
[2022-08-09 15:50] LABS: Anion Gap 15 (12-20); Blood Urea Nitrogen 26 mg/dL (9-16); Calcium 10.4 mg/dL (8.4-10.2); Carbon Dioxide 24 mmol/L (22-29); Chloride 99 mmol/L (96-108); Creatinine Clr Calc Pharmacy 72.3; Estimated Glomerular Filt Rate > 60; Glucose Random 104 mg/dL (60-115); Potassium 3.8 mmol/L (3.3-5.1); Sodium 134 mmol/L (135-145)
[2022-08-09 16:44] VITALS: BP 145/86; PULSE 62; RESP 16; O2SAT 98
== END 2022-08-09 16:57 | disposition home or self-care (01) ==
PROVIDERS: Emergency Provider Emergency Medicine; PCP Family Medicine
DX: B44.81 Allergic bronchopulmonary aspergillosis (principal); J06.9 Acute upper respiratory infection, unspecified; J45.909 Unspecified asthma, uncomplicated
CPT/HCPCS: 36415; 71046; 80048; 85025; 96374; 99284; J2930

== ENCOUNTER → 2022-08-15 13:48 | Outpatient (BNVA) | payer MEDICARE, OTHER, SELFPAY | PROVIDERS: PCP Family Medicine; Visit Provider Hospitalist | DX: J45.51 Severe persistent asthma with (acute) exacerbation (principal); B44.81 Allergic bronchopulmonary aspergillosis; J44.9 Chronic obstructive pulmonary disease, unspecified; Z79.52 Long term (current) use of systemic steroids; Z79.899 Other long term (current) drug therapy | CPT/HCPCS: 96372; 99212; J2930 ==

== ENCOUNTER 2022-09-11 13:54 | Emergency (ER) | payer MEDICARE, OTHER, SELFPAY ==
--- NOTE | ~2022-09-11 | XR_ITS ---
EXAMINATION: XR CHEST CLINICAL INFORMATION: Cough/congestion COMPARISON: 08/09/2022 TECHNIQUE: Frontal view of the chest was obtained. FINDINGS: No significant abnormality is noted involving the heart, lungs, mediastinum, bony thorax or soft tissues. Some minimal atelectasis is present at the left lung base and some very mild peribronchial thickening may be present. XR/XR chest 1V IMPRESSION: No acute intrathoracic disease.
[2022-09-11 15:26] VITALS: BP 144/93; PULSE 69; RESP 20; TEMP 37; O2SAT 98; BMI 22.1
--- NOTE | 2022-09-11 15:59 | ECG_ITS ---
Test Reason : CHEST PAIN SOB Blood Pressure : / mmHG Vent. Rate : 064 BPM Atrial Rate : 064 BPM P-R Int : 166 ms QRS Dur : 092 ms QT Int : 422 ms P-R-T Axes : 046 -12 018 degrees QTc Int : 435 ms Normal sinus rhythm Normal ECG No previous ECGs available Referred By: Luz Marina Barrios Electronically Signed By:BARRY COLON
[2022-09-11 16:17] LABS: Influenza A PCR NEGATIVE (Negative); Influenza B PCR NEGATIVE (Negative); Resp Syncy Virus RNA Qual PCR NEGATIVE (Negative); SARS COV2 PCR INHOUSE NEGATIVE (Negative)
[2022-09-11] MEDS: 0.9 % Sodium Chloride 1,000 ML 999 ML IVCONT (16:22)
[2022-09-11 16:29] LABS: MANUAL DIFF FLAG NO
[2022-09-11] MEDS: methylPREDNISolone Sod Succ 125 MG/2 ML VIAL IVPUSH (16:36)
[2022-09-11] MEDS: Magnesium Sulfate/H2O 2 GM/50 ML PIGGYBACK IV (16:36)
[2022-09-11 16:41] LABS: Basophils Percent Auto 0.4 % (0-2); Eosinophils Percent Auto 0.2 % (0-4); Imm Gran Abs Auto 0.02 X10*3/uL (0.00-0.03); Imm Gran Pct Auto 0.4 % (0.0-0.4); Lymphocytes Absolute Auto 0.4 X10*3/uL (1.2-4.9); Lymphocytes Percent Auto 7.9 % (20-40); Mean Corpuscular HGB Conc 33.3 g/dl (31.0-36.0); Mean Corpuscular Hemoglobin 30.6 pg (27.0-33.0); Mean Corpuscular Volume 91.8 fL (80.0-98.0); Mean Platelet Volume 8.6 fL (9.4-12.4); Monocytes Absolute Auto 0.5 X10*3/uL (0.1-1.2); Monocytes Percent Auto 9.5 % (2-11); Neutrophils Absolute Auto 4.3 x10*3/uL (2.0-8.3); Neutrophils Percent Auto 81.6 % (45-73); Platelet Count 222 X10*3/uL (160-400); Red Cell Distribution Width 13.4 % (11.0-16.0); White Blood Count 5.3 X10*3/uL (4.8-10.8)
--- NOTE | 2022-09-11 16:44 | PC.NURSE ---
pt a&ox3, vss, medicated per provider order, ivf running. no new orders at this time.
[2022-09-11 16:46] LABS: Alanine Aminotransferase 36 U/L (0-40); Albumin Level 4.1 g/dL (3.5-5.0); Alkaline Phosphatase 80 U/L (39-117); Anion Gap 13 (12-20); Aspartate Amino Transferase 28 U/L (5-37); Bilirubin Total 0.3 mg/dL (0.0-1.0); Blood Urea Nitrogen 24 mg/dL (9-16); Calcium 9.3 mg/dL (8.4-10.2); Carbon Dioxide 25 mmol/L (22-29); Chloride 105 mmol/L (96-108); Creatinine Clr Calc Pharmacy 69.4; Estimated Glomerular Filt Rate > 60; Glucose Random 98 mg/dL (60-115); Sodium 139 mmol/L (135-145); Total Protein 6.8 g/dL (6.5-8.0)
[2022-09-11 16:50] LABS: INTERNATIONAL NORM RATIO 0.9 (0.9-1.1); Prothrombin Time 10.8 SEC (10.0-13.1)
[2022-09-11] MEDS: Albuterol Sulfate 7.5 MG, Albuterol Sulfate (0.083%) 2.5 MG 10 MG INHALE (16:51)
[2022-09-11] MEDS: Ipratropium Bromide 0.5 MG/2.5 ML SOLUTION INHALE (16:52)
[2022-09-11 16:53] VITALS: RESP 18; O2SAT 95
--- NOTE | 2022-09-11 17:35 | ED.ASTHMA ---
HPI - Asthma General Chief Complaint: Upper Respiratory Symptoms Stated Complaint: flu like symptoms Time Seen by Provider: 09/11/22 15:43 Source: patient Mode of arrival: ambulatory Limitations: no limitations History of Present Illness HPI Narrative: 66yoM with a past medical history of hypertension, asthma with COPD overlap, who is presenting to the ER with complaints of 3 days of shortness of breath/productive cough with wheezing. Reports that he has been using his albuterol inhaler and nebulizers at home and no symptomatic relief. Reports that when he was seen here approximately 1 month ago he has similar presentation and was given IV Solu-Medrol and a breathing treatment reports his symptoms improved. He denies any fevers, chills, dizziness, headaches, nasal congestion/rhinorrhea, sore throat, ear pain, trouble swallowing, chest pain, dyspnea on exertion, orthopnea, palpitations, paresthesias, nausea/vomiting/diarrhea constipation, black or bloody stools, lower extremity edema or calf tenderness, recent travel or sick contacts or any other symptoms complaints or concerns at this time. MD complaint: asthma attack , shortness of breath and wheezing Onset (ago): day(s) (3) Severity: severe and worse than usual Context: none known Associated symptoms: productive cough Asthma History: adult onset, history of frequent attacks and history of prior ED visit Treatments Prior to Arrival: inhaled bronchodilator Related Data Current Asthma Therapy: inhaled bronchodilator Home Medications Medication Instructions Recorded Confirmed fexofenadine 180 mg tablet 180 mg PO DAILY 12/14/20 11/14/21 immun glob G 8 subcut 03/08/21 11/14/21 gram/40mL(20%)-gly-IgA over 50 mcg/mL subcutaneous soln (Cuvitru) loteprednol etabonate 0.5 % eye drp ophthalmic (eye) 08/14/21 11/14/21 gel drops tezepelumab-ekko 210 mg/1.91 mL 210 mg subcut Q4W 08/05/22 (110 mg/mL) subcutaneous syringe (Tezspire) Previous Rx's Medication Instructions Recorded fluticasone propionate 50 2 spray intranasal DAILY 90 days 01/14/22 mcg/actuation nasal #3 ea spray,suspension pantoprazole 40 mg tablet,delayed 40 mg PO DAILY 90 days #90 tabs 01/15/22 release triamterene 37.5 1 cap PO DAILY 90 days #90 caps 01/15/22 mg-hydrochlorothiazide 25 mg capsule budesonide 0.5 mg/2 mL suspension 0.5 mg (2 mL) inhalation BID #360 02/25/22 for nebulization mL montelukast 10 mg tablet 10 mg PO BEDTIME 90 days #90 tabs 02/25/22 roflumilast 500 mcg tablet 500 mcg PO DAILY #30 tabs 05/26/22 (Daliresp) albuterol sulfate 90 mcg/actuation 2 puff inhalation Q4-6H PRN 05/27/22 aerosol inhaler (ProAir HFA) shortness of breath or wheezing 30 days #8.5 grams sodium chloride 3 % for 4 ml inhalation BID 30 days #240 mL 05/27/22 nebulization Incruse Ellipta 62.5 mcg/actuation 1 inh inhalation DAILY #30 ea 06/09/22 powder for inhalation (umeclidinium) albuterol sulfate 2.5 mg/3 mL 2.5 mg (3 mL) inhalation Q4H PRN 06/09/22 (0.083 %) solution for nebulization for wheezing #525 mL diltiazem HCl 180 mg 180 mg PO DAILY 3 months #90 caps 06/09/22 capsule,extended release 24 hr arformoterol 15 mcg/2 mL solution 2 ml inhalation Q12H #120 mL 07/08/22 for nebulization prednisone 20 mg tablet 40 mg PO DAILY 5 days #10 tabs 08/05/22 prednisone 20 mg tablet See Taper PO DAILY #35 tabs 08/09/22 azithromycin 500 mg tablet 500 mg PO DAILY 5 days #5 tabs 08/11/22 levofloxacin 500 mg tablet 500 mg PO DAILY 10 days #10 tabs 08/15/22 albuterol sulfate 0.63 mg/3 mL 0.63 mg (3 mL) inhalation QID PRN 09/11/22 solution for nebulization shortness of breath or wheezing #75 mL albuterol sulfate 90 mcg/actuation 1 inh inhalation QID PRN shortness 09/11/22 aerosol inhaler of breath or wheezing #8.5 grams azithromycin 250 mg tablet See Rx Instructions PO .COMPLEX #6 09/11/22 tabs cefuroxime axetil 500 mg tablet 500 mg PO BID 7 days #14 tabs 09/11/22 codeine 10 mg-guaifenesin 100 mg/5 5 ml PO Q6H PRN cold symptoms #120 09/11/22 mL oral liquid (Guaifenesin AC) mL prednisone 20 mg tablet 40 mg PO DAILY inflammation 5 days 09/11/22 #10 tabs Allergies Allergy/AdvReac Type Severity Reaction Status Date / Time Doxycycline Hyclate Allergy Intermediate redness Uncoded 08/15/22 14:07 and itching Review of Systems Review of Systems: Constitutional : denies med noncompliance, no history of PE or DVT, denies recent travel, No Fever, No Chills ENT/Mouth : No Hoarseness, No sore throat, No Rhinorrhea, No Nasal congestion, No Sinus Pressure, No Ear Pain, No stridor, Eyes: No Redness, No Discharge, No Vision Changes Cardiovascular : No Chest Pain, + SOB, No Dyspnea on Exertion, No Edema, no pleurisy, Respiratory : + Cough, + wheezing, + Sputum, no stridor, no hemoptysis, Gastrointestinal : No Nausea, No Vomiting, No Diarrhea, No abdominal Pain Genitourinary : No Dysuria, No Hematuria Musculoskeletal : No joint pain/swelling, No Myalgias Extremities: no extremity swelling /pain Skin : No rash, no itching, no swelling Neuro : No Weakness, No Numbness, No Headache, No Dizziness, No Paresthesias Psych : No anxiety, depression Heme/Lymph: No Bruising, No Bleeding Endocrine : No Polyuria, No Polydipsia Yes all other systems are reviewed and are negative PMFSH Past Medical History Attestation statement: The following information was validated with the patient. Source: old records reviewed and nursing notes reviewed Medical History ABPA (allergic bronchopulmonary aspergillosis) Asthma-COPD overlap syndrome Hypertension Surgical History History of bronchoscopy (~2020) History of repair of anterior cruciate ligament of left knee (~2012) Social History Social History Housing: House Alcohol intake: never Patient Tobacco Use Status: Never used Tobacco e-Cigarette/Vaping Use: Never Used Second Hand Smoke Exposure: No Advance Directives: No Advance Directives Information Provided: No service: No Current occupational status: retired Current occupational exposures/hazards: No Cognitive needs: No Hearing needs: No Vision needs: No Physical Exam Vital Signs: Vital Signs: Last Vital Signs Temp 98.6 F 09/11/22 15:26 Pulse 69 09/11/22 15:26 Resp 18 09/11/22 16:53 BP 144/93 H 09/11/22 15:26 Pulse Ox 98 09/11/22 15:26 O2 Del Method 09/11/22 15:26 BMI result Body Mass Index 22.1 Vital signs reviewed. Blood pressure 144/93. Pulse normal. Respiration normal. Oxygen normal. Temperature normal. Appearance: Alert. Oriented X3. In acute respiratory distress Head: Normal external exam. Normocephalic. Atraumatic. Eyes: PERRLA. EOMI. Conjunctiva and sclera normal. Eyelids normal. ENT: EAC normal. TM's Normal. Pharynx normal. Uvula midline. Moist mucous membranes. No lesions/ulcerations or masses noted on the tongue. Normal voice. No trismus noted. No drooling noted. No muffled voice noted. Neck: Normal inspection. Neck supple. FROM. No adenopathy. Thyroid Normal. No meningeal signs. CVS: Normal heart rate and rhythm. Heart sound normal. Pulses normal throughout. No murmurs/rales/gallops. Respiratory: Patient acute respiratory distress with decreased breath sounds and inspiratory and expiratory wheezing throughout with rhonchi noted. Painless inspiration. No rales noted. Chest is nontender. No accessory muscle usage noted. No tracheal tugging noted. No signs of trauma noted. Abdomen: Soft and nontender. Back: Full range of motion noted. Nontender. Skin: Skin warm and dry. Normal skin color. Normal skin turgor. No rashes/lesions/lacerations noted. Extremities: Extremities exhibit normal range of motion and nontender. No lower extremity edema or calf tenderness is noted. Neuro: Oriented X 3. No motor deficit. No sensory deficit. Reflexes normal. Normal steady gait. No focal neuro deficits noted. CN's II-XII intact bilaterally? Vascular: + radial pulses. Normal cap refill. No cyanosis noted to upper extremity nails Course Course Course Narrative: 66yoM with a past medical history of hypertension, asthma with COPD overlap, who is presenting to the ER with complaints of 3 days of shortness of breath/productive cough with wheezing. Reports that he has been using his albuterol inhaler and nebulizers at home and no symptomatic relief. Reports that when he was seen here approximately 1 month ago he has similar presentation and was given IV Solu-Medrol and a breathing treatment reports his symptoms improved. On exam patient is in acute respiratory distress with decreased breath sounds and inspiratory and expiratory wheezing throughout. With rhonchi noted. No rales noted. CV RRR. There is no lower extremity edema or calf tenderness noted. Vital signs are stable within normal limits including oxygen at 98% on room air. This patient presents with dyspnea, most likely secondary to asthma with COPD overlap exacerbation. Differential diagnosis includes bronchospasm with bronchitis or pneumonia. Presentation not consistent with acute cardiac etiologies to include ACS, CHF, pericardial effusion / tamponade . Presentation not consistent with acute respiratory etiologies to include acute PE, pneumothorax , allergic etiologies. Presentation also not consistent with non-cardiopulmonary causes to include toxidromes, metabolic etiologies such as acidemia or electrolyte derangements, sepsis, neurologic causes (i.e. demyelinating diseases). Labs obtained and patient's BUN 24. Otherwise all other labs are within normal limits. Patient negative for COVID/RSV/flu. Chest x-ray within normal limits. EKG is normal sinus rhythm with ventricular rate of 64 with a normal TX interval normal QRS duration normal QT/QTC interval no acute ischemic change are noted. Therefore at this time patient reports he feels much better after the hour long breathing treatment, 125 mg of Solu-Medrol, 2 g of magnesium and a L of IV fluids. 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 Patient understands agrees with this plan. Medications Administered Generic Name Dose Route Start Last Admin Trade Name Freq PRN Reason Stop Dose Admin Magnesium Sulfate 2 gm in 50 mls @ 25 mls/hr 09/11/22 15:59 09/11/22 17:28 Magnesium Sulfate/H2o IV 09/11/22 17:58 Infused ONCE ONE Infusion Discontinued Medications Generic Name Dose Route Start Last Admin Trade Name Freq PRN Reason Stop Dose Admin Albuterol Sulfate 7.5 mg/ 10 mg 09/11/22 16:47 09/11/22 16:51 Albuterol Sulfate 2.5 mg INHALE 09/11/22 16:48 10 mg ONCE ONE Administration Sodium Chloride 1,000 mls @ 999 mls/hr 09/11/22 16:00 09/11/22 16:22 Ns IVCONT 09/11/22 17:00 999 mls/hr .Q1H1M ANTHONY Administration Ipratropium [place] 0.5 mg 09/11/22 16:47 09/11/22 16:52 Ipratropium [place] 0.5 Mg/2.5 Ml Solution INHALE 09/11/22 16:48 0.5 mg ONCE ONE Administration Methylprednisolone Sodium Succinate 125 mg 09/11/22 15:59 09/11/22 16:36 Methylprednisolone Sod Succ 125 Mg/2 Ml Vial IVPUSH 09/11/22 16:00 125 mg ONCE ONE Administration Medical Decision Making Lab Data [facility] Lab Attestation statement: I reviewed the patient's lab results. Result Diagrams: 09/11/22 16:21 09/11/22 16:21 Labs: Lab Results 09/11/22 09/11/22 09/11/22 Range/Units 15:32 16:21 16:21 WBC 5.3 (4.8-10.8) X10*3/uL RBC 4.90 (4.60-5.80) X10*6/uL Hgb 15.0 (14.0-18.0) g/dl Hct 45.0 (42.0-52.0) % MCV 91.8 (80.0-98.0) fL MCH 30.6 (27.0-33.0) pg MCHC 33.3 (31.0-36.0) g/dl RDW 13.4 (11.0-16.0) % Plt Count 222 D (160-400) X10*3/uL MPV 8.6 L (9.4-12.4) fL Immature Gran % (Auto) 0.4 (0.0-0.4) % Neut % (Auto) 81.6 H (45-73) % Lymph % (Auto) 7.9 L (20-40) % [place] % (Auto) 9.5 (2-11) % Eos % (Auto) 0.2 (0-4) % Baso % (Auto) 0.4 (0-2) % Lymph # (Auto) 0.4 L (1.2-4.9) X10*3/uL [place] # (Auto) 0.5 (0.1-1.2) X10*3/uL Eos # (Auto) 0.0 (0.0-0.4) X10*3/uL Baso # (Auto) 0.0 (0.0-0.2) X10*3/uL Abs Immat Gran (auto) 0.02 (0.00-0.03) X10*3/uL Absolute Neuts (auto) 4.3 (2.0-8.3) x10*3/uL Absolute Nucleated RBC 0.000 (0.0-0.012) X10*3/uL Nucleated RBC % (auto) 0.0 (0.0-0.2) /100WBC PT 10.8 (10.0-13.1) SEC INR 0.9 (0.9-1.1) Sodium (135-145) mmol/L Potassium (3.3-5.1) mmol/L Chloride (96-108) mmol/L Carbon Dioxide (22-29) mmol/L Anion Gap (12-20) BUN (9-16) mg/dL Creatinine (0.5-1.4) mg/dL Estim Creat Clear Calc Estimated GFR Random Glucose (60-115) mg/dL Calcium (8.4-10.2) mg/dL Magnesium (1.6-2.6) mg/dL Total Bilirubin (0.0-1.0) mg/dL AST (5-37) U/L ALT (0-40) U/L Alkaline Phosphatase (39-117) U/L Total Protein (6.5-8.0) g/dL Albumin (3.5-5.0) g/dL Influenza Type A (PCR) NEGATIVE (Negative) Influenza Type B (PCR) NEGATIVE (Negative) RSV RNA Qual (PCR) NEGATIVE (Negative) SARS-CoV-2 RNA (RT-PCR) NEGATIVE (Negative) 09/11/22 Range/Units 16:21 WBC (4.8-10.8) X10*3/uL RBC (4.60-5.80) X10*6/uL Hgb (14.0-18.0) g/dl Hct (42.0-52.0) % MCV (80.0-98.0) fL MCH (27.0-33.0) pg MCHC (31.0-36.0) g/dl RDW (11.0-16.0) % Plt Count (160-400) X10*3/uL MPV (9.4-12.4) fL Immature Gran % (Auto) (0.0-0.4) % Neut % (Auto) (45-73) % Lymph % (Auto) (20-40) % [place] % (Auto) (2-11) % Eos % (Auto) (0-4) % Baso % (Auto) (0-2) % Lymph # (Auto) (1.2-4.9) X10*3/uL [place] # (Auto) (0.1-1.2) X10*3/uL Eos # (Auto) (0.0-0.4) X10*3/uL Baso # (Auto) (0.0-0.2) X10*3/uL Abs Immat Gran (auto) (0.00-0.03) X10*3/uL Absolute Neuts (auto) (2.0-8.3) x10*3/uL Absolute Nucleated RBC (0.0-0.012) X10*3/uL Nucleated RBC % (auto) (0.0-0.2) /100WBC PT (10.0-13.1) SEC INR (0.9-1.1) Sodium 139 (135-145) mmol/L Potassium 4.0 (3.3-5.1) mmol/L Chloride 105 (96-108) mmol/L Carbon Dioxide 25 (22-29) mmol/L Anion Gap 13 (12-20) BUN 24 H (9-16) mg/dL Creatinine 1.02 (0.5-1.4) mg/dL Estim Creat Clear Calc 69.4 Estimated GFR > 60 Random Glucose 98 (60-115) mg/dL Calcium 9.3 D (8.4-10.2) mg/dL Magnesium 2.0 (1.6-2.6) mg/dL Total Bilirubin 0.3 (0.0-1.0) mg/dL AST 28 (5-37) U/L ALT 36 (0-40) U/L Alkaline Phosphatase 80 (39-117) U/L Total Protein 6.8 (6.5-8.0) g/dL Albumin 4.1 (3.5-5.0) g/dL Influenza Type A (PCR) (Negative) Influenza Type B (PCR) (Negative) RSV RNA Qual (PCR) (Negative) SARS-CoV-2 RNA (RT-PCR) (Negative) Independent Interpretation I performed an independent interpretation of an: EKG ( EKG is normal sinus rhythm with ventricular rate of 64 with a normal TX interval normal QRS duration normal QT/QTC interval no acute ischemic change are noted.) and Plain X-Ray Interpretation: Chest x-ray revealed FINDINGS: No significant abnormality is noted involving the heart, lungs, mediastinum, bony thorax or soft tissues. Some minimal atelectasis is present at the left lung base and some very mild peribronchial thickening may be present. XR/XR chest 1V IMPRESSION: No acute intrathoracic disease. Radiology Impression Discussion of test interpretation with radiology: I have reviewed the radiologist's reading. External Record Review External record reviewed: Inpatient record, Office record, Outpatient record, Prior outpatient labs, Prior outpatient radiology, Primary care record and Outside ED record Prescription Management I considered prescription management with: Antibiotic Critical Care Time Critical Care Time Critical Care Time: Yes Total Critical Care Time: 60 Attestation: I personally attest to this time spent taking care of the patient Discharge Plan Discharge Clinical Impression: Asthma-COPD overlap syndrome, Acute bronchitis with bronchospasm Patient Disposition: Home, Self-Care Instructions: Acute Bronchitis (ED), COPD (Chronic Obstructive Pulmonary Disease) (ED) Prescriptions: New albuterol sulfate 0.63 mg/3 mL solution for nebulization 0.63 mg inhalation QID PRN (Reason: shortness of breath or wheezing) Qty: 75 0RF azithromycin 250 mg tablet See Rx Instructions .ROUTE .COMPLEX Qty: 6 0RF Rx Instructions: take 500 mg today (day 1), then 250 mg for 4 days (days 2-5) prednisone 20 mg tablet 40 mg PO DAILY 5 Days Qty: 10 0RF codeine-guaifenesin [Guaifenesin AC] 10-100 mg/5 mL liquid 5 ml PO Q6H PRN (Reason: cold symptoms) Qty: 120 0RF cefuroxime axetil 500 mg tablet 500 mg PO BID 7 Days Qty: 14 0RF albuterol sulfate 90 mcg/actuation HFA aerosol inhaler 1 inh inhalation QID PRN (Reason: shortness of breath or wheezing) Qty: 8.5 0RF No Action pantoprazole 40 mg tablet,delayed release (DR/EC) 40 mg PO DAILY 90 Days Qty: 90 2RF triamterene-hydrochlorothiazid 37.5-25 mg capsule 1 cap PO DAILY 90 Days Qty: 90 2RF budesonide 0.5 mg/2 mL suspension for nebulization 0.5 mg inhalation BID Qty: 360 3RF montelukast 10 mg tablet 10 mg PO BEDTIME 90 Days Qty: 90 3RF sodium chloride 3 % solution for nebulization 4 ml inhalation BID 30 Days Qty: 240 11RF Incruse Ellipta 62.5 mcg/actuation blister with device 1 inh inhalation DAILY Qty: 30 3RF albuterol sulfate 2.5 mg /3 mL (0.083 %) solution for nebulization 2.5 mg inhalation Q4H PRN (Reason: for wheezing) Qty: 525 0RF diltiazem HCl 180 mg capsule,extended release 24hr 180 mg PO DAILY 90 Days Qty: 90 1RF arformoterol 15 mcg/2 mL solution for nebulization 2 ml inhalation Q12H Qty: 120 3RF azithromycin 500 mg tablet 500 mg PO DAILY 5 Days Qty: 5 0RF prednisone 20 mg tablet See Taper PO DAILY Qty: 35 0RF Taper: Prednisone 40 mg daily for 9 Days and 0 Hour 40 mg every other day for 7 Days and 0 Hour albuterol sulfate [ProAir HFA] 90 mcg/actuation HFA aerosol inhaler 2 puff inhalation Q4-6H PRN (Reason: shortness of breath or wheezing) 30 Days Qty: 8.5 6RF Cuvitru 8 gram/40 mL (20 %) solution subcut Rx Instructions: 16 grams twice a week Tezspire 210 mg/1.91 mL (110 mg/mL) syringe 210 mg subcut Q4W prednisone 20 mg tablet 40 mg PO DAILY 5 Days Qty: 10 0RF fexofenadine 180 mg tablet 180 mg PO DAILY loteprednol etabonate 0.5 % drops,gel ophthalmic (eye) Daliresp 500 mcg tablet 500 mcg PO DAILY Qty: 30 11RF levofloxacin 500 mg tablet 500 mg PO DAILY 10 Days Qty: 10 0RF fluticasone propionate 50 mcg/actuation spray,suspension 2 spray intranasal DAILY 90 Days Qty: 3 3RF Referrals: Joseph Leslie MD [Primary Care Provider] - 2 days
== END 2022-09-11 17:59 | disposition home or self-care (01) ==
PROVIDERS: Physician Assistant Medical; Emergency Provider Emergency Medicine Emergency Medical Services; PCP Family Medicine
DX: J44.1 Chronic obstructive pulmonary disease with (acute) exacerbation (principal); J20.9 Acute bronchitis, unspecified; R07.89 Other chest pain; R06.02 Shortness of breath; Z20.822 Contact with and (suspected) exposure to COVID-19; Z79.899 Other long term (current) drug therapy
CPT/HCPCS: 0241U; 36415; 71045; 80053; 83735; 85025; 85610; 93005; 94640; 96365; 96375; 99284; J2930; J3475

== ENCOUNTER 2022-09-15 21:37 | Emergency (ER) | payer MEDICARE, OTHER, SELFPAY ==
--- NOTE | ~2022-09-15 | CT_ITS ---
EXAMINATION: CT CHEST WITH CONTRAST CLINICAL INFORMATION: History of aspergillosis. Upper respiratory infection. COMPARISON: Radiograph 09/11/2022 TECHNIQUE: Multidetector volumetric CT imaging of the chest was obtained after the administration of 65 mL of Omnipaque 350 intravenous contrast without immediate adverse reactions. Axial MIP volume rendering provided. Sagittal and coronal reformatted images were obtained. This CT examination was performed using dose optimization techniques as appropriate, variously including the following: *Automated exposure control *Adjustment of mA and/or kV according to patient size (this includes techniques or standardized protocols for targeted exams where dose is matched to indication/reason for exam; i.e. extremities or head) *Use of iterative reconstruction technique DLP: 274 mGy-cm FINDINGS: [place] MACHINE OPERATOR: Unremarkable. LUNGS: The central airways are patent. A few bronchial filling defects are seen. No dense consolidation. Minimal pleural thickening at the lung apices. Area of scarring seen along the minor fissure anteriorly at the right middle lobe. Cluster of calcified nodules at the left base near the diaphragm. Additional scattered calcified granulomata throughout the lungs. MEDIASTINUM: Normal heart size. No pericardial effusion. No mediastinal lymphadenopathy. PLEURA: There is no pleural effusion. No pneumothorax. AXILLA: No lymphadenopathy. UPPER ABDOMEN: Simple cyst seen in the left lobe of the liver. No acute findings. OSSEOUS STRUCTURES: No acute or suspicious osseous abnormality. Mild degenerative changes of the spine. CT/CT chest w IV con IMPRESSION: No acute pulmonary finding. No consolidation. Evidence of prior granulomatous disease. Fleischner guidelines were followed.
[2022-09-15 21:42] VITALS: BP 144/95; PULSE 72; RESP 18; TEMP 36.7; O2SAT 97; BMI 22.1
--- NOTE | 2022-09-15 23:48 | ED.URI ---
HPI - URI/Sore Throat General Chief Complaint: Upper Respiratory Symptoms Stated Complaint: SOB Time Seen by Provider: 09/15/22 23:38 Source: patient Mode of arrival: ambulatory Limitations: no limitations History of Present Illness HPI Narrative: 66-year-old male presents with worsening upper respiratory symptoms. He was evaluated on 09/11/2022 and diagnosed with acute bronchitis with bronchospasm and given antibiotics and supportive medications. Patient states that the symptoms have worsened. MD elicited complaint: cough and other (Respiratory congestion) Pertinent past history: COPD, asthma and other (Aspergillosis) Onset (ago): day(s) Consistency: progressively worsening Severity: moderate Description of mucous: clear Able to tolerate fluids by mouth: Yes Exacerbating factors: exertion and deep breaths Relieving factors: nothing Associated symptoms: nasal congestion, cough and shortness of breath Treatments prior to arrival: antibiotics Related Data Home Medications Medication Instructions Recorded Confirmed fexofenadine 180 mg tablet 180 mg PO DAILY 12/14/20 11/14/21 immun glob G 8 subcut 03/08/21 11/14/21 gram/40mL(20%)-gly-IgA over 50 mcg/mL subcutaneous soln (Cuvitru) loteprednol etabonate 0.5 % eye drp ophthalmic (eye) 08/14/21 11/14/21 gel drops tezepelumab-ekko 210 mg/1.91 mL 210 mg subcut Q4W 08/05/22 (110 mg/mL) subcutaneous syringe (Tezspire) Previous Rx's Medication Instructions Recorded fluticasone propionate 50 2 spray intranasal DAILY 90 days 01/14/22 mcg/actuation nasal #3 ea spray,suspension pantoprazole 40 mg tablet,delayed 40 mg PO DAILY 90 days #90 tabs 01/15/22 release triamterene 37.5 1 cap PO DAILY 90 days #90 caps 01/15/22 mg-hydrochlorothiazide 25 mg capsule budesonide 0.5 mg/2 mL suspension 0.5 mg (2 mL) inhalation BID #360 02/25/22 for nebulization mL montelukast 10 mg tablet 10 mg PO BEDTIME 90 days #90 tabs 02/25/22 roflumilast 500 mcg tablet 500 mcg PO DAILY #30 tabs 05/26/22 (Daliresp) albuterol sulfate 90 mcg/actuation 2 puff inhalation Q4-6H PRN 05/27/22 aerosol inhaler (ProAir HFA) shortness of breath or wheezing 30 days #8.5 grams sodium chloride 3 % for 4 ml inhalation BID 30 days #240 mL 05/27/22 nebulization Incruse Ellipta 62.5 mcg/actuation 1 inh inhalation DAILY #30 ea 06/09/22 powder for inhalation (umeclidinium) albuterol sulfate 2.5 mg/3 mL 2.5 mg (3 mL) inhalation Q4H PRN 06/09/22 (0.083 %) solution for nebulization for wheezing #525 mL diltiazem HCl 180 mg 180 mg PO DAILY 3 months #90 caps 06/09/22 capsule,extended release 24 hr arformoterol 15 mcg/2 mL solution 2 ml inhalation Q12H #120 mL 07/08/22 for nebulization prednisone 20 mg tablet 40 mg PO DAILY 5 days #10 tabs 08/05/22 prednisone 20 mg tablet See Taper PO DAILY #35 tabs 08/09/22 azithromycin 500 mg tablet 500 mg PO DAILY 5 days #5 tabs 08/11/22 levofloxacin 500 mg tablet 500 mg PO DAILY 10 days #10 tabs 08/15/22 albuterol sulfate 0.63 mg/3 mL 0.63 mg (3 mL) inhalation QID PRN 09/11/22 solution for nebulization shortness of breath or wheezing #75 mL albuterol sulfate 90 mcg/actuation 1 inh inhalation QID PRN shortness 09/11/22 aerosol inhaler of breath or wheezing #8.5 grams azithromycin 250 mg tablet See Rx Instructions PO .COMPLEX #6 09/11/22 tabs cefuroxime axetil 500 mg tablet 500 mg PO BID 7 days #14 tabs 09/11/22 codeine 10 mg-guaifenesin 100 mg/5 5 ml PO Q6H PRN cold symptoms #120 09/11/22 mL oral liquid (Guaifenesin AC) mL prednisone 20 mg tablet 40 mg PO DAILY inflammation 5 days 09/11/22 #10 tabs Allergies Allergy/AdvReac Type Severity Reaction Status Date / Time Doxycycline Hyclate Allergy Intermediate redness Uncoded 08/15/22 14:07 and itching Review of Systems Review of Systems: Constitutional: No Fever, No Chills ENT/Mouth: Positive Hoarseness, No sore throat, No Rhinorrhea Eyes: No Redness, No Discharge, No Vision Changes Cardiovascular: No Chest Pain, positive SOB, positive Dyspnea on Exertion, No Edema Respiratory: positive Cough, No Sputum, positive Wheezing, Gastrointestinal: No Nausea, No Vomiting, No Diarrhea, No abdominal Pain Genitourinary: No Dysuria, No Hematuria Musculoskeletal: No joint pain, No Myalgias Skin: No rash Neuro: No Weakness, No Numbness, No Headache Yes all other systems are reviewed and are negative [facility] Past Medical History Attestation statement: The following information was validated with the patient. Source: old records reviewed Medical History ABPA (allergic bronchopulmonary aspergillosis) Asthma-COPD overlap syndrome Hypertension Surgical History History of bronchoscopy (~2020) History of repair of anterior cruciate ligament of left knee (~2012) Social History Social History Housing: House Alcohol intake: never Patient Tobacco Use Status: Never used Tobacco e-Cigarette/Vaping Use: Never Used Second Hand Smoke Exposure: No Advance Directives: No Advance Directives Information Provided: Yes service: No Current occupational status: retired Current occupational exposures/hazards: No Cognitive needs: No Hearing needs: No Vision needs: No Physical Exam Vital Signs: Vital Signs: Last Vital Signs Temp 98.4 F 09/15/22 23:49 Pulse 68 09/16/22 00:08 Resp 20 09/16/22 00:08 BP 143/87 H 09/15/22 23:49 Pulse Ox 96 09/15/22 23:49 O2 Del Method 09/15/22 23:49 BMI result Body Mass Index 22.1 Appearance: Alert. Oriented X3. No acute distress. Eyes: Pupils equal, round and reactive to light. ENT: Pharynx normal. Neck: Normal inspection. Neck supple. CVS: Normal heart rate and rhythm. Pulses normal. Respiratory: No respiratory distress. Expiratory wheezing throughout. Abdomen: Soft and nontender. Skin: Skin warm and dry. Normal skin color. Normal skin turgor. Extremities: No edema. Gait well balanced well coordinated. Neuro: No motor deficit. No sensory deficit. Cranial nerves 2-12 intact. Course Course Course Narrative: A 66-year-old male presents with upper respiratory symptoms, was treated on 09/11/2022 with antibiotics, guaifenesin with codeine, and albuterol. Patient does have a significant respiratory history, has a history of aspergillosis, COPD and asthma, is followed at [facility] for Aspergillus. Patient is an established patient of Dr. Conley, has an appointment on Thursday. Patient is concerned his respiratory symptoms has not improved. Lung sounds have expiratory wheezing, will give albuterol neb. patient is on prednisone and took his dose on 09/15/2022. Based on patient's history, I feel CT scan is necessary to rule out pneumonia. Will order labs, and respiratory viral panel. Labs are negative for acute findings. BUN 33, order for 2 L of fluid. Will give dexamethasone 10 mg IV push. 02:30 CT scan is negative for acute findings. 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 I do not feel that this patient requires further antibiotics, will give dexamethasone and he has completed his prednisone course. Patient is mildly hypertensive, heart rate is 68 with regular rhythm, even unlabored respirations at 20 breaths per minute. Patient is afebrile, and has an O2 sat of 98% on room air. Patient is not in respiratory distress, and feels comfortable being discharged home. Patient verbalized understanding of and agrees to plan of care discharge home. Verbalized understanding of signs symptoms indicate need for emergent intervention. Medications Administered Generic Name Dose Route Start Last Admin Trade Name Freq PRN Reason Stop Dose Admin Sodium Chloride 1,000 mls @ 999 mls/hr 09/16/22 02:00 09/16/22 02:11 Ns IVCONT 09/16/22 03:00 999 mls/hr .Q1H1M ANTHONY Administration Sodium Chloride 1,000 mls @ 999 mls/hr 09/16/22 02:00 09/16/22 02:12 Ns IVCONT 09/16/22 03:00 999 mls/hr .Q1H1M ANTHONY Administration Discontinued Medications Generic Name Dose Route Start Last Admin Trade Name Freq PRN Reason Stop Dose Admin Albuterol Sulfate 7.5 mg/ 10 mg 09/15/22 23:42 01/10/23 00:07 Albuterol Sulfate 2.5 mg INHALE 09/15/22 23:43 10 mg ONCE ONE Administration Dexamethasone Sodium Phosphate 10 mg 09/16/22 01:57 09/16/22 02:11 Dexamethasone Sod Phosphate 10 Mg/Ml Vial IVPUSH 09/16/22 01:58 10 mg ONCE ONE Administration Iohexol 65 ml 09/16/22 01:17 09/16/22 01:18 Iohexol 350 Mg/Ml 100 Ml Infus..Btl IV 09/16/22 01:18 65 ml ONCE ONE Administration Medical Decision Making Differential Diagnosis Differential Diagnoses: The differential diagnosis associated with the presentation includes Pneumonia, Legionella, RSV, Aspergillus, COVID, influenza Admission/Observation Consideration of admission/observation: Escalation of care including admission/observation considered If patient's O2 sat declines or has acute findings and CT scan will consider admission. Lab Data MDM Lab Attestation statement: I reviewed the patient's lab results. 09/16/22 00:10 09/16/22 00:10 Labs: Lab Results 09/16/22 09/16/22 09/16/22 Range/Units 00:10 00:10 00:10 WBC 10.7 (4.8-10.8) X10*3/uL RBC 4.88 (4.60-5.80) X10*6/uL Hgb 15.0 (14.0-18.0) g/dl Hct 43.6 (42.0-52.0) % MCV 89.3 (80.0-98.0) fL MCH 30.7 (27.0-33.0) pg MCHC 34.4 (31.0-36.0) g/dl RDW 13.3 (11.0-16.0) % Plt Count 280 D (160-400) X10*3/uL MPV 8.5 L (9.4-12.4) fL Immature Gran % (Auto) 2.1 H (0.0-0.4) % Neut % (Auto) 75.0 H (45-73) % Lymph % (Auto) 12.5 L (20-40) % Elliott % (Auto) 10.1 (2-11) % Eos % (Auto) 0.0 (0-4) % Baso % (Auto) 0.3 (0-2) % Lymph # (Auto) 1.3 (1.2-4.9) X10*3/uL Elliott # (Auto) 1.1 (0.1-1.2) X10*3/uL Eos # (Auto) 0.0 (0.0-0.4) X10*3/uL Baso # (Auto) 0.0 (0.0-0.2) X10*3/uL Abs Immat Gran (auto) 0.23 H (0.00-0.03) X10*3/uL Absolute Neuts (auto) 8.0 (2.0-8.3) x10*3/uL Absolute Nucleated RBC 0.000 (0.0-0.012) X10*3/uL Nucleated RBC % (auto) 0.0 (0.0-0.2) /100WBC Sodium 140 (135-145) mmol/L Potassium 4.0 (3.3-5.1) mmol/L Chloride 106 (96-108) mmol/L Carbon Dioxide 23 (22-29) mmol/L Anion Gap 15 (12-20) BUN 33 H (9-16) mg/dL Creatinine 1.02 (0.5-1.4) mg/dL Estim Creat Clear Calc 69.4 Estimated GFR > 60 Random Glucose 115 (60-115) mg/dL Calcium 9.8 (8.4-10.2) mg/dL Magnesium 2.3 (1.6-2.6) mg/dL Influenza Type A (PCR) NEGATIVE (Negative) Influenza Type B (PCR) NEGATIVE (Negative) RSV RNA Qual (PCR) NEGATIVE (Negative) SARS-CoV-2 RNA (RT-PCR) NEGATIVE (Negative) Independent Interpretation I performed an independent interpretation of an: CT Scan Radiology Impression Discussion of test interpretation with radiology: I have reviewed the radiologist's reading. Radiologist Impression: CT CHEST WITH CONTRAST CLINICAL INFORMATION: History of aspergillosis. Upper respiratory infection.? COMPARISON: Radiograph 09/11/2022? TECHNIQUE: Multidetector volumetric CT imaging of the chest was obtained after the administration of 65 mL of Omnipaque 350 intravenous contrast without immediate adverse reactions. Axial MIP volume rendering provided. Sagittal and coronal reformatted images were obtained. This CT examination was performed using dose optimization techniques as appropriate, variously including the following: *Automated exposure control *Adjustment of mA and/or kV according to patient size (this includes techniques or standardized protocols for targeted exams where dose is matched to indication/reason for exam; i.e. extremities or head) *Use of iterative reconstruction technique DLP: 274 mGy-cm FINDINGS: [place] MACHINE OPERATOR: Unremarkable. LUNGS: The central airways are patent. A few bronchial filling defects are seen. No dense consolidation. Minimal pleural thickening at the lung apices. Area of scarring seen along the minor fissure anteriorly at the right middle lobe. Cluster of calcified nodules at the left base near the diaphragm. Additional scattered calcified granulomata throughout the lungs. MEDIASTINUM: Normal heart size. No pericardial effusion. No mediastinal lymphadenopathy.? PLEURA: There is no pleural effusion. No pneumothorax.? AXILLA: No lymphadenopathy.? UPPER ABDOMEN: Simple cyst seen in the left lobe of the liver. No acute findings.? OSSEOUS STRUCTURES: No acute or suspicious osseous abnormality. Mild degenerative changes of the spine.? CT/CT chest w IV con IMPRESSION: No acute pulmonary finding. No consolidation. Evidence of prior granulomatous disease. ? Fleischner guidelines were followed. External Record Review External record reviewed: Outpatient record and Prior outpatient labs Discharge Plan Discharge Clinical Impression: Asthma-COPD overlap syndrome, Upper respiratory infection Patient Disposition: Home, Self-Care Instructions: COPD (Chronic Obstructive Pulmonary Disease) (ED), Upper Respiratory Infection (ED) Additional Instructions: You were evaluated for upper respiratory symptoms. Please continue the medications that were prescribed to you by your your prior provider. Follow-up with pulmonology as scheduled. Your CT scan of the chest was negative for acute findings. Your BUN was slightly elevated at 33, we gave 2 L of fluids for rehydration. We gave you 10 mg of IV dexamethasone. This medication should last for about 3 days. Continue with nebulizer treatments as needed. Thank you for choosing this emergency department for evaluation. Please follow-up with primary care physician as needed. Return to the emergency department for any new, concerning, or worsening symptoms. Prescriptions: No Action pantoprazole 40 mg tablet,delayed release (DR/EC) 40 mg PO DAILY 90 Days Qty: 90 2RF triamterene-hydrochlorothiazid 37.5-25 mg capsule 1 cap PO DAILY 90 Days Qty: 90 2RF budesonide 0.5 mg/2 mL suspension for nebulization 0.5 mg inhalation BID Qty: 360 3RF montelukast 10 mg tablet 10 mg PO BEDTIME 90 Days Qty: 90 3RF sodium chloride 3 % solution for nebulization 4 ml inhalation BID 30 Days Qty: 240 11RF Incruse Ellipta 62.5 mcg/actuation blister with device 1 inh inhalation DAILY Qty: 30 3RF albuterol sulfate 2.5 mg /3 mL (0.083 %) solution for nebulization 2.5 mg inhalation Q4H PRN (Reason: for wheezing) Qty: 525 0RF diltiazem HCl 180 mg capsule,extended release 24hr 180 mg PO DAILY 90 Days Qty: 90 1RF arformoterol 15 mcg/2 mL solution for nebulization 2 ml inhalation Q12H Qty: 120 3RF azithromycin 500 mg tablet 500 mg PO DAILY 5 Days Qty: 5 0RF prednisone 20 mg tablet See Taper PO DAILY Qty: 35 0RF Taper: Prednisone 40 mg daily for 9 Days and 0 Hour 40 mg every other day for 7 Days and 0 Hour albuterol sulfate 0.63 mg/3 mL solution for nebulization 0.63 mg inhalation QID PRN (Reason: shortness of breath or wheezing) Qty: 75 0RF azithromycin 250 mg tablet See Rx Instructions .ROUTE .COMPLEX Qty: 6 0RF Rx Instructions: take 500 mg today (day 1), then 250 mg for 4 days (days 2-5) prednisone 20 mg tablet 40 mg PO DAILY 5 Days Qty: 10 0RF codeine-guaifenesin [Guaifenesin AC] 10-100 mg/5 mL liquid 5 ml PO Q6H PRN (Reason: cold symptoms) Qty: 120 0RF cefuroxime axetil 500 mg tablet 500 mg PO BID 7 Days Qty: 14 0RF albuterol sulfate 90 mcg/actuation HFA aerosol inhaler 1 inh inhalation QID PRN (Reason: shortness of breath or wheezing) Qty: 8.5 0RF albuterol sulfate [ProAir HFA] 90 mcg/actuation HFA aerosol inhaler 2 puff inhalation Q4-6H PRN (Reason: shortness of breath or wheezing) 30 Days Qty: 8.5 6RF Cuvitru 8 gram/40 mL (20 %) solution subcut Rx Instructions: 16 grams twice a week Tezspire 210 mg/1.91 mL (110 mg/mL) syringe 210 mg subcut Q4W prednisone 20 mg tablet 40 mg PO DAILY 5 Days Qty: 10 0RF fexofenadine 180 mg tablet 180 mg PO DAILY loteprednol etabonate 0.5 % drops,gel ophthalmic (eye) Daliresp 500 mcg tablet 500 mcg PO DAILY Qty: 30 11RF levofloxacin 500 mg tablet 500 mg PO DAILY 10 Days Qty: 10 0RF fluticasone propionate 50 mcg/actuation spray,suspension 2 spray intranasal DAILY 90 Days Qty: 3 3RF Referrals: Justin Conley MD [Physician] - 1 week (Worsening upper respiratory symptoms)
[2022-09-15 23:49] VITALS: BP 143/87; PULSE 66; RESP 16; TEMP 36.9; O2SAT 96
[2022-09-16] MEDS: Albuterol Sulfate 7.5 MG, Albuterol Sulfate (0.083%) 2.5 MG 10 MG INHALE (00:07)
[2022-09-16 00:08] VITALS: PULSE 68; RESP 20; O2SAT 97
[2022-09-16 00:17] LABS: Basophils Percent Auto 0.3 % (0-2); Hematocrit 43.6 % (42.0-52.0); Imm Gran Abs Auto 0.23 X10*3/uL (0.00-0.03); Imm Gran Pct Auto 2.1 % (0.0-0.4); Lymphocytes Absolute Auto 1.3 X10*3/uL (1.2-4.9); Lymphocytes Percent Auto 12.5 % (20-40); MANUAL DIFF FLAG NO; Mean Corpuscular HGB Conc 34.4 g/dl (31.0-36.0); Mean Corpuscular Hemoglobin 30.7 pg (27.0-33.0); Mean Corpuscular Volume 89.3 fL (80.0-98.0); Mean Platelet Volume 8.5 fL (9.4-12.4); Monocytes Absolute Auto 1.1 X10*3/uL (0.1-1.2); Monocytes Percent Auto 10.1 % (2-11); Platelet Count 280 X10*3/uL (160-400); Red Blood Count 4.88 X10*6/uL (4.60-5.80); Red Cell Distribution Width 13.3 % (11.0-16.0); White Blood Count 10.7 X10*3/uL (4.8-10.8)
[2022-09-16 00:50] LABS: Anion Gap 15 (12-20); Blood Urea Nitrogen 33 mg/dL (9-16); Calcium 9.8 mg/dL (8.4-10.2); Carbon Dioxide 23 mmol/L (22-29); Chloride 106 mmol/L (96-108); Creatinine Clr Calc Pharmacy 69.4; Estimated Glomerular Filt Rate > 60; Glucose Random 115 mg/dL (60-115); Magnesium 2.3 mg/dL (1.6-2.6); Sodium 140 mmol/L (135-145)
[2022-09-16 00:54] LABS: Influenza A PCR NEGATIVE (Negative); Influenza B PCR NEGATIVE (Negative); Resp Syncy Virus RNA Qual PCR NEGATIVE (Negative); SARS COV2 PCR INHOUSE NEGATIVE (Negative)
[2022-09-16] MEDS: iohexoL 350 MG/ML 100 ML INFUS..BTL 65 ML IV (01:18)
[2022-09-16] MEDS: 0.9 % Sodium Chloride 1,000 ML 999 ML IVCONT ×2 (02:11→02:12)
[2022-09-16] MEDS: dexAMETHasone sod phosphate 10 MG/ML VIAL IVPUSH (02:11)
== END 2022-09-16 04:04 | disposition home or self-care (01) ==
PROVIDERS: Nurse Practitioner Family; Emergency Provider Internal Medicine; PCP Family Medicine
DX: J44.9 Chronic obstructive pulmonary disease, unspecified (principal); J06.9 Acute upper respiratory infection, unspecified; I10 Essential (primary) hypertension; Z20.822 Contact with and (suspected) exposure to COVID-19; Z20.828 Contact with and (suspected) exposure to other viral communicable diseases
CPT/HCPCS: 0241U; 36415; 71260; 80048; 83735; 85025; 94640; 96361; 96374; 99284; J1100; Q9967

== ENCOUNTER → 2022-09-19 09:01 | Outpatient (BNVA) | payer MEDICARE, OTHER, SELFPAY | PROVIDERS: PCP Family Medicine; Visit Provider Hospitalist | DX: J45.51 Severe persistent asthma with (acute) exacerbation (principal); B44.81 Allergic bronchopulmonary aspergillosis; J44.9 Chronic obstructive pulmonary disease, unspecified; Z79.52 Long term (current) use of systemic steroids; Z79.899 Other long term (current) drug therapy | CPT/HCPCS: 94640; 96372; 99212; J2930 ==

== ENCOUNTER → 2022-09-29 10:21 | Outpatient (BNVA) | payer MEDICARE, OTHER, SELFPAY | PROVIDERS: PCP Family Medicine; Visit Provider Hospitalist | DX: J45.51 Severe persistent asthma with (acute) exacerbation (principal); J44.9 Chronic obstructive pulmonary disease, unspecified; B44.81 Allergic bronchopulmonary aspergillosis | CPT/HCPCS: 99212 ==

== ENCOUNTER 2022-10-17 08:32 | Outpatient (REF) | payer MEDICARE, OTHER, SELFPAY ==
[2022-10-17 08:46] LABS: MANUAL DIFF FLAG NO
[2022-10-17 08:55] LABS: Basophils Percent Auto 0.9 % (0-2); Eosinophils Percent Auto 0.9 % (0-4); Hematocrit 48.5 % (42.0-52.0); Hemoglobin 16.3 g/dl (14.0-18.0); Imm Gran Abs Auto 0.04 X10*3/uL (0.00-0.03); Imm Gran Pct Auto 0.9 % (0.0-0.4); Lymphocytes Absolute Auto 1.2 X10*3/uL (1.2-4.9); Lymphocytes Percent Auto 26.7 % (20-40); Mean Corpuscular HGB Conc 33.6 g/dl (31.0-36.0); Mean Corpuscular Hemoglobin 30.8 pg (27.0-33.0); Mean Corpuscular Volume 91.5 fL (80.0-98.0); Mean Platelet Volume 8.3 fL (9.4-12.4); Monocytes Absolute Auto 0.6 X10*3/uL (0.1-1.2); Monocytes Percent Auto 12.5 % (2-11); Neutrophils Absolute Auto 2.6 x10*3/uL (2.0-8.3); Neutrophils Percent Auto 58.1 % (45-73); Platelet Count 287 X10*3/uL (160-400); White Blood Count 4.5 X10*3/uL (4.8-10.8)
[2022-10-17 09:24] LABS: Alanine Aminotransferase 90 U/L (0-40); Albumin Level 4.3 g/dL (3.5-5.0); Alkaline Phosphatase 73 U/L (39-117); Anion Gap 13 (12-20); Aspartate Amino Transferase 47 U/L (5-37); Bilirubin Direct < 0.2 mg/dL (0.0-0.5); Bilirubin Total 0.5 mg/dL (0.0-1.0); Blood Urea Nitrogen 31 mg/dL (9-16); Calcium 9.5 mg/dL (8.4-10.2); Carbon Dioxide 29 mmol/L (22-29); Chloride 103 mmol/L (96-108); Estimated Glomerular Filt Rate 59; Glucose Random 94 mg/dL (60-115); Potassium 4.2 mmol/L (3.3-5.1); Sodium 141 mmol/L (135-145)
[2022-10-17 09:43] LABS: Cortisol Random 6.3 ug/dL
[2022-10-17 09:45] LABS: Erythrocyte Sedimentation Rate 9 MM/HR (0-15)
[2022-10-20 14:59] LABS: Immunoglobulin G Subclass 1 465 mg/dL (382-929); Immunoglobulin G Subclass 2 363 mg/dL (241-700); Immunoglobulin G Subclass 3 26 mg/dL (22-178); Immunoglobulin G Subclass 4 26.1 mg/dL (4-86); Immunoglobulin G Total 931 mg/dL (600-1540)
[2022-10-20 15:14] LABS: Myeloperoxidase Antibody <1.0 AI; Proteinase 3 PR3 Antibodies <1.0 AI
[2022-10-21 14:18] LABS: Immunoglobulin E 10 kU/L (<OR=114)
== END 2022-10-17 08:33 | disposition home or self-care (01) ==
LOC: HO.LAB 08:32
PROVIDERS: Visit Provider Hospitalist
DX: J44.9 Chronic obstructive pulmonary disease, unspecified (principal); B44.81 Allergic bronchopulmonary aspergillosis
CPT/HCPCS: 36415; 80048; 80076; 82533; 82784; 82785; 85025; 85652; 86021

== ENCOUNTER → 2022-10-29 09:01 | Outpatient (BNVA) | payer MEDICARE, OTHER, SELFPAY | PROVIDERS: Visit Provider Hospitalist | DX: J44.9 Chronic obstructive pulmonary disease, unspecified (principal); J45.50 Severe persistent asthma, uncomplicated; B44.81 Allergic bronchopulmonary aspergillosis; E27.40 Unspecified adrenocortical insufficiency; R74.01 Elevation of levels of liver transaminase levels; Z79.899 Other long term (current) drug therapy | CPT/HCPCS: 99212 ==

== ENCOUNTER 2022-11-13 07:53 | Outpatient (REF) | payer MEDICARE, OTHER, SELFPAY ==
[2022-11-13 08:09] LABS: MANUAL DIFF FLAG NO
[2022-11-13 08:22] LABS: Basophils Percent Auto 0.7 % (0-2); Eosinophils Absolute Auto 0.1 X10*3/uL (0.0-0.4); Eosinophils Percent Auto 1.1 % (0-4); Hematocrit 46.4 % (42.0-52.0); Hemoglobin 15.3 g/dl (14.0-18.0); Imm Gran Abs Auto 0.02 X10*3/uL (0.00-0.03); Imm Gran Pct Auto 0.4 % (0.0-0.4); Lymphocytes Absolute Auto 1.2 X10*3/uL (1.2-4.9); Lymphocytes Percent Auto 21.8 % (20-40); Mean Corpuscular Hemoglobin 30.3 pg (27.0-33.0); Mean Corpuscular Volume 91.9 fL (80.0-98.0); Mean Platelet Volume 8.5 fL (9.4-12.4); Monocytes Absolute Auto 0.6 X10*3/uL (0.1-1.2); Monocytes Percent Auto 10.6 % (2-11); Neutrophils Absolute Auto 3.7 x10*3/uL (2.0-8.3); Neutrophils Percent Auto 65.4 % (45-73); Platelet Count 233 X10*3/uL (160-400); Red Blood Count 5.05 X10*6/uL (4.60-5.80); Red Cell Distribution Width 14.3 % (11.0-16.0); White Blood Count 5.6 X10*3/uL (4.8-10.8)
[2022-11-13 09:03] LABS: Alanine Aminotransferase 38 U/L (0-40); Albumin Level 4.2 g/dL (3.5-5.0); Alkaline Phosphatase 65 U/L (39-117); Anion Gap 11 (12-20); Aspartate Amino Transferase 32 U/L (5-37); Bilirubin Direct 0.2 mg/dL (0.0-0.5); Bilirubin Total 0.8 mg/dL (0.0-1.0); Blood Urea Nitrogen 26 mg/dL (9-16); Calcium 9.3 mg/dL (8.4-10.2); Carbon Dioxide 32 mmol/L (22-29); Chloride 104 mmol/L (96-108); Estimated Glomerular Filt Rate 58; Glucose Random 78 mg/dL (60-115); Potassium 4.1 mmol/L (3.3-5.1); Sodium 143 mmol/L (135-145); Total Protein 6.7 g/dL (6.5-8.0)
[2022-11-13 11:56] LABS: Cortisol Random 5.2 ug/dL
[2022-11-15 01:49] LABS: SARS-COV-2 IgG Spike, Semi-Qnt >150.00 index (<1.00)
== END 2022-11-13 07:54 | disposition home or self-care (01) ==
LOC: HO.LAB 07:53
PROVIDERS: PCP Family Medicine; Visit Provider Hospitalist
DX: J45.51 Severe persistent asthma with (acute) exacerbation (principal); R74.01 Elevation of levels of liver transaminase levels; Z01.84 Encounter for antibody response examination
CPT/HCPCS: 36415; 80048; 80076; 82533; 85025; 86769

== ENCOUNTER → 2022-11-20 10:51 | Outpatient (BNVA) | payer MEDICARE, OTHER, SELFPAY | PROVIDERS: PCP Family Medicine; Visit Provider Hospitalist | DX: J44.9 Chronic obstructive pulmonary disease, unspecified (principal); J45.50 Severe persistent asthma, uncomplicated; B44.81 Allergic bronchopulmonary aspergillosis; R74.01 Elevation of levels of liver transaminase levels; E27.40 Unspecified adrenocortical insufficiency; D80.1 Nonfamilial hypogammaglobulinemia; Z79.899 Other long term (current) drug therapy | CPT/HCPCS: 99212 ==

== ENCOUNTER 2023-01-06 11:03 | Outpatient (REF) | payer MEDICARE, OTHER, SELFPAY ==
[2023-01-06 14:29] LABS: Blood Urea Nitrogen 18 mg/dL (9-16); Estimated Glomerular Filt Rate > 60
[2023-01-09 07:54] LABS: Immunoglobulin G 1111 mg/dL (600-1540)
== END 2023-01-06 11:04 | disposition home or self-care (01) ==
LOC: HO.WFDLDS 11:03
PROVIDERS: Visit Provider Allergy & Immunology
DX: D80.1 Nonfamilial hypogammaglobulinemia (principal)
CPT/HCPCS: 36415; 82565; 82784; 84520

== ENCOUNTER → 2023-02-04 08:54 | Outpatient (BNVA) | payer MEDICARE, OTHER, SELFPAY | PROVIDERS: PCP Family Medicine; Visit Provider Nurse Practitioner Family | DX: J44.9 Chronic obstructive pulmonary disease, unspecified (principal); J45.901 Unspecified asthma with (acute) exacerbation | CPT/HCPCS: 96372; 99212; J2930 ==

== ENCOUNTER → 2023-02-09 15:27 | Outpatient (BNVA) | payer MEDICARE, OTHER, SELFPAY | PROVIDERS: PCP Family Medicine; Visit Provider Hospitalist ==

== ENCOUNTER 2023-02-09 15:50 | Outpatient (REF) | payer OTHER, SELFPAY | END 2023-02-09 15:51 | disposition home or self-care (01) | LOC: HO.MDS 15:50 | PROVIDERS: Visit Provider Hospitalist | DX: J45.901 Unspecified asthma with (acute) exacerbation (principal) | CPT/HCPCS: 96374; 99212; J2930 ==

== ENCOUNTER 2023-02-10 13:53 | Outpatient (REF) | payer OTHER, SELFPAY | END 2023-02-10 13:54 | disposition home or self-care (01) | LOC: HO.MDS 13:53 | PROVIDERS: PCP Family Medicine; Visit Provider Hospitalist | DX: J45.901 Unspecified asthma with (acute) exacerbation (principal) | CPT/HCPCS: 96374; J2930 ==

== ENCOUNTER 2023-02-11 14:14 | Outpatient (REF) | payer MEDICARE, OTHER, SELFPAY | END 2023-02-11 14:15 | disposition home or self-care (01) | LOC: HO.MDS 14:14 | PROVIDERS: Visit Provider Hospitalist | DX: J45.901 Unspecified asthma with (acute) exacerbation (principal) | CPT/HCPCS: 96374; J2930 ==

== ENCOUNTER 2023-02-12 03:25 | Inpatient (IN) | payer MEDICARE, OTHER, SELFPAY ==
[2023-02-12] VITALS (9 sets, daily range): BP systolic 140–170; BP diastolic 71–101; PULSE 58–72; RESP 14–18; TEMP 36.4–37; O2SAT 96–98; BMI 23.0; BMI 22.8
--- NOTE | ~2023-02-12 | XR_ITS ---
EXAMINATION: XR CHEST CLINICAL INFORMATION: Respiratory distress COMPARISON: 09/11/2022 TECHNIQUE: 2 views of the chest were obtained. FINDINGS: The lungs are well expanded. Minimal opacity at the left lung base. No pleural effusion or pneumothorax. The cardiomediastinal silhouette is within normal limits. No acute osseous abnormality. Mild degenerative changes of the spine. XR/XR chest 2V IMPRESSION: Minimal opacity at the left lung base could represent atelectasis or pneumonia.
[2023-02-12 04:35] LABS: Influenza A PCR NEGATIVE (Negative); Influenza B PCR NEGATIVE (Negative); Resp Syncy Virus RNA Qual PCR NEGATIVE (Negative); SARS COV2 PCR INHOUSE NEGATIVE (Negative)
--- NOTE | 2023-02-12 04:39 | ED_ITS ---
HPI - Asthma General Chief Complaint: Asthma Stated Complaint: trouble breathing, flu like symptoms Time Seen by Provider: 02/12/23 04:27 Source: patient Mode of arrival: ambulatory Limitations: no limitations History of Present Illness HPI Narrative: Patient comes to the emergency room complaining of an asthma exacerbation. Patient states that he has significant history of asthma/COPD overlap, allergic bronchopulmonary aspergillosis. Patient sees Dr. Conley from pulmonology. Patient is currently on a prednisone taper. Patient states that last week he needed 3 doses of IM Solu-Medrol in addition to the p.o. prednisone. Patient is on p.o. Bactrim . Patient states fall he does not feel well, states that he feels that he is getting sicker, and he does get very sick quickly. Related Data Home Medications Medication Instructions Recorded Confirmed fexofenadine 180 mg tablet 180 mg PO DAILY 12/14/20 02/04/23 immun glob G 8 subcut 03/08/21 02/04/23 gram/40mL(20%)-gly-IgA over 50 mcg/mL subcutaneous soln (Cuvitru) loteprednol etabonate 0.5 % eye drp ophthalmic (eye) 08/14/21 02/04/23 gel drops tezepelumab-ekko 210 mg/1.91 mL 210 mg subcut Q4W 08/05/22 02/04/23 (110 mg/mL) subcutaneous syringe (Tezspire) nebulizers 11/20/22 02/04/23 Previous Rx's Medication Instructions Recorded budesonide 0.5 mg/2 mL suspension 0.5 mg (2 mL) inhalation BID #360 02/25/22 for nebulization mL montelukast 10 mg tablet 10 mg PO BEDTIME 90 days #90 tabs 02/25/22 roflumilast 500 mcg tablet 500 mcg PO DAILY #30 tabs 05/26/22 (Daliresp) sodium chloride 3 % for 4 ml inhalation BID 30 days #240 mL 05/27/22 nebulization diltiazem HCl 180 mg 180 mg PO DAILY 3 months #90 caps 06/09/22 capsule,extended release 24 hr albuterol sulfate 0.63 mg/3 mL 0.63 mg (3 mL) inhalation QID PRN 09/11/22 solution for nebulization shortness of breath or wheezing #75 mL albuterol sulfate 90 mcg/actuation 1 inh inhalation QID PRN shortness 09/11/22 aerosol inhaler of breath or wheezing #8.5 grams codeine 10 mg-guaifenesin 100 mg/5 5 ml PO Q6H PRN cold symptoms #120 09/11/22 mL oral liquid (Guaifenesin AC) mL voriconazole 200 mg tablet 200 mg PO Q12H #60 tabs 09/29/22 Incruse Ellipta 62.5 mcg/actuation See Rx Instructions .Route 10/24/22 powder for inhalation .COMPLEX #30 ea (umeclidinium) arformoterol 15 mcg/2 mL solution 2 ml inhalation Q12H #120 mL 10/30/22 for nebulization triamterene 37.5 1 cap PO DAILY 90 days #90 caps 10/30/22 mg-hydrochlorothiazide 25 mg capsule albuterol sulfate 2.5 mg/3 mL 2.5 mg (3 mL) inhalation Q4H PRN 01/23/23 (0.083 %) solution for nebulization for wheezing #525 mL fluticasone propionate 50 2 spray intranasal DAILY #48 mL 01/23/23 mcg/actuation nasal spray,suspension pantoprazole 40 mg tablet,delayed 40 mg PO DAILY 90 days #90 tabs 01/27/23 release prednisone 10 mg tablet See Rx Instructions PO DAILY 18 02/04/23 days #63 tabs sulfamethoxazole 800 1 tab PO Q12H 14 days #28 tabs 02/04/23 mg-trimethoprim 160 mg tablet (Bactrim DS) cefpodoxime 200 mg tablet 200 mg PO BID #20 tabs 02/09/23 Allergies Allergy/AdvReac Type Severity Reaction Status Date / Time Doxycycline Hyclate Allergy Intermediate redness Uncoded 02/09/23 15:40 and itching Review of Systems Review of Systems: Constitutional : No Weight loss, No Fever, No Chills, No Night Sweats, No Fatigue, No Malaise ENT/Mouth : No Hearing loss, No Ear Pain, No Nasal Congestion, No Sinus Pain, No Hoarseness, No sore throat, No Rhinorrhea, No Swallowing Difficulty Eyes: No Eye Pain, No Swelling, No Redness, No Foreign Body, No Discharge, No Vision Changes Cardiovascular : No Chest Pain, No SOB, No Dyspnea on Exertion, No Orthopnea, No Edema, No Palpitations Respiratory : Complaining of coughing, wheezing, tightness, dyspnea at rest and with exertion Gastrointestinal : No Nausea, No Vomiting, No Diarrhea, No Constipation, No abdominal Pain, No Hematochezia, No Melena Genitourinary : no irregular bleeding, No Dysuria, No Urinary Frequency, No Hematuria, No Urinary Incontinence, No Urgency, No Flank Pain, No Urinary Flow Changes, No Hesitancy Musculoskeletal : No joint pain, No Myalgias, No Joint Swelling Skin : No Skin Lesions, No rash Neuro : No Weakness, No Numbness, No Paresthesias, No Loss of Consciousness, No Dizziness, No Headache Psych : No Anxiety/Panic, No Depression, No SI/HI/AH/VH, No Social Issues, Heme/Lymph: No Bruising, No Bleeding,No Lymphadenopathy Endocrine : No Polyuria, No Polydipsia, No Temperature Intolerance PMFSH Past Medical History Medical History ABPA (allergic bronchopulmonary aspergillosis) Adrenal insufficiency Asthma-COPD overlap syndrome Hypertension Hypogammaglobulinemia Transaminitis Surgical History History of bronchoscopy (~2020) History of repair of anterior cruciate ligament of left knee (~2012) Social History Social History Housing: House Alcohol intake: never Patient Tobacco Use Status: Never used Tobacco Smoked in Last 30 Days: No e-Cigarette/Vaping Use: Never Used Second Hand Smoke Exposure: No Use of substances other than those prescribed or required for medical reasons: No Advance Directives: No Advance Directives Information Provided: No service: No Current occupational status: retired Current occupational exposures/hazards: No Cognitive needs: No Hearing needs: No Vision needs: No Physical Exam Vital Signs: Vital Signs: Last Vital Signs Temp 97.7 F 02/12/23 05:58 Pulse 58 02/12/23 05:58 Resp 14 02/12/23 05:58 BP 149/83 H 02/12/23 05:58 Pulse Ox 97 02/12/23 05:58 O2 Del Method Room Air 02/12/23 05:58 BMI result Body Mass Index 23.0 Const: Other: Appearance: Alert. Oriented X3. No acute distress. Eyes: Pupils equal, round and reactive to light. ENT: Pharynx normal. Neck: Normal inspection. Neck supple. No lymph nodes noted. No crepitus CVS: Normal heart rate and rhythm. Pulses normal. Normal S1 and S2 Respiratory: No respiratory distress. Moderate air movement, rales present in bilateral lung hernandez Abdomen: Soft and nontender. No rigidity. No distention. Skin: Skin warm and dry. Normal skin color. Normal skin turgor. Extremities: No lower extremity edema. No Lacerations. No Rash Neuro: Oriented X 3. No motor deficit. No sensory deficit. Moving all extremities. No slurred speech. CN 2 through 12 grossly intact Psych: calm, cooperative, normal affect Course Course Course Narrative: -all of patient's labs are pending Medical Decision Making Medical Decision Making MDM Narrative: -patient's chest x-ray shows a possible left lung base atelectasis versus pneumonia, given the patient's symptoms and significant pulmonary history, we will go ahead and treat with IV antibiotics -blood pressure stable, not tachycardic, no fever, sepsis not suspected. -chest x-ray shows pneumonia, patient has a significant pulmonary medical history. Patient states that he has history of getting significantly sick and hypoxic very quickly with pneumonia. Although patient is not hypoxic, he seems significantly short of breath. Patient does not feel well. -I discussed the patient with Dr. Chris for admission. This will be passed on to the day team. Consult Healthcare Provider Management of the patient was discussed with: Hospitalist Lab Data [facility] Lab Attestation statement: I reviewed the patient's lab results. 02/12/23 04:44 02/12/23 04:44 Labs: Lab Results 02/12/23 02/12/23 02/12/23 Range/Units 03:42 04:44 04:44 WBC 12.9 H (4.8-10.8) X10*3/uL RBC 5.17 (4.60-5.80) X10*6/uL Hgb 15.7 (14.0-18.0) g/dl Hct 45.9 (42.0-52.0) % MCV 88.8 (80.0-98.0) fL MCH 30.4 (27.0-33.0) pg MCHC 34.2 (31.0-36.0) g/dl RDW 12.7 (11.0-16.0) % Plt Count 261 (160-400) X10*3/uL MPV 8.6 L (9.4-12.4) fL Immature Gran % (Auto) 1.6 H (0.0-0.4) % Neut % (Auto) 93.5 H (45-73) % Lymph % (Auto) 2.7 L (20-40) % [place] % (Auto) 1.9 L (2-11) % Eos % (Auto) 0.1 (0-4) % Baso % (Auto) 0.2 (0-2) % Lymph # (Auto) 0.4 L (1.2-4.9) X10*3/uL [place] # (Auto) 0.3 (0.1-1.2) X10*3/uL Eos # (Auto) 0.0 (0.0-0.4) X10*3/uL Baso # (Auto) 0.0 (0.0-0.2) X10*3/uL Abs Immat Gran (auto) 0.20 H (0.00-0.03) X10*3/uL Absolute Neuts (auto) 12.0 H (2.0-8.3) x10*3/uL Absolute Nucleated RBC 0.000 (0.0-0.012) X10*3/uL Nucleated RBC % (auto) 0.0 (0.0-0.2) /100WBC Smear Tech's Comments VERIFIED VBG pH (7.32-7.43) VBG pCO2 mmHg VBG pO2 mmHg VBG HCO3 (22-26) mmol/L VBG O2 Saturation % VBG Base Excess mmol/L Sodium 136 (135-145) mmol/L Potassium 4.6 (3.3-5.1) mmol/L Chloride 101 (96-108) mmol/L Carbon Dioxide 24 (22-29) mmol/L Anion Gap 16 (12-20) BUN 32 H (9-16) mg/dL Creatinine 1.14 (0.5-1.4) mg/dL Estim Creat Clear Calc 65.4 Estimated GFR > 60 Random Glucose 131 H (60-115) mg/dL Lactic Acid (0.5-2.0) mmol/L Calcium 9.8 (8.4-10.2) mg/dL Total Bilirubin 0.5 (0.0-1.0) mg/dL Direct Bilirubin 0.2 (0.0-0.5) mg/dL AST 42 H (5-37) U/L ALT 79 H (0-40) U/L Alkaline Phosphatase 75 (39-117) U/L Total Protein 7.0 (6.5-8.0) g/dL Albumin 4.1 (3.5-5.0) g/dL Influenza Type A (PCR) NEGATIVE (Negative) Influenza Type B (PCR) NEGATIVE (Negative) RSV RNA Qual (PCR) NEGATIVE (Negative) SARS-CoV-2 RNA (RT-PCR) NEGATIVE (Negative) 02/12/23 02/12/23 Range/Units 04:44 04:57 WBC (4.8-10.8) X10*3/uL RBC (4.60-5.80) X10*6/uL Hgb (14.0-18.0) g/dl Hct (42.0-52.0) % MCV (80.0-98.0) fL MCH (27.0-33.0) pg MCHC (31.0-36.0) g/dl RDW (11.0-16.0) % Plt Count (160-400) X10*3/uL MPV (9.4-12.4) fL Immature Gran % (Auto) (0.0-0.4) % Neut % (Auto) (45-73) % Lymph % (Auto) (20-40) % [place] % (Auto) (2-11) % Eos % (Auto) (0-4) % Baso % (Auto) (0-2) % Lymph # (Auto) (1.2-4.9) X10*3/uL [place] # (Auto) (0.1-1.2) X10*3/uL Eos # (Auto) (0.0-0.4) X10*3/uL Baso # (Auto) (0.0-0.2) X10*3/uL Abs Immat Gran (auto) (0.00-0.03) X10*3/uL Absolute Neuts (auto) (2.0-8.3) x10*3/uL Absolute Nucleated RBC (0.0-0.012) X10*3/uL Nucleated RBC % (auto) (0.0-0.2) /100WBC Smear Tech's Comments VBG pH 7.49 H (7.32-7.43) VBG pCO2 38 mmHg VBG pO2 47 mmHg VBG HCO3 29 H (22-26) mmol/L VBG O2 Saturation 79.0 % VBG Base Excess 6.2 mmol/L Sodium (135-145) mmol/L Potassium (3.3-5.1) mmol/L Chloride (96-108) mmol/L Carbon Dioxide (22-29) mmol/L Anion Gap (12-20) BUN (9-16) mg/dL Creatinine (0.5-1.4) mg/dL Estim Creat Clear Calc Estimated GFR Random Glucose (60-115) mg/dL Lactic Acid 3.6 H* (0.5-2.0) mmol/L Calcium (8.4-10.2) mg/dL Total Bilirubin (0.0-1.0) mg/dL Direct Bilirubin (0.0-0.5) mg/dL AST (5-37) U/L ALT (0-40) U/L Alkaline Phosphatase (39-117) U/L Total Protein (6.5-8.0) g/dL Albumin (3.5-5.0) g/dL Influenza Type A (PCR) (Negative) Influenza Type B (PCR) (Negative) RSV RNA Qual (PCR) (Negative) SARS-CoV-2 RNA (RT-PCR) (Negative) Radiology Impression Discussion of test interpretation with radiology: I have reviewed the radiologist's reading. Radiologist Impression: FINDINGS: The lungs are well expanded. Minimal opacity at the left lung base. No pleural effusion or pneumothorax. The cardiomediastinal silhouette is within normal limits. No acute osseous abnormality. Mild degenerative changes of the spine. XR/XR chest 2V IMPRESSION: Minimal opacity at the left lung base could represent atelectasis or pneumonia. Critical Care Time Critical Care Time Critical Care Time: Yes Total Critical Care Time: 66 Attestation: I have personally provided critical care time. Time includes review of lab data, radiology results, discussion with consultants, and monitoring for potential de compensation. Intervention performed as documented. Discharge Plan Discharge Clinical Impression: Pneumonia Patient Disposition: Admitted As Inpatient
[2023-02-12 05:01] LABS: Basophils Percent Auto 0.2 % (0-2); Eosinophils Percent Auto 0.1 % (0-4); Hematocrit 45.9 % (42.0-52.0); Hemoglobin 15.7 g/dl (14.0-18.0); Imm Gran Pct Auto 1.6 % (0.0-0.4); Lymphocytes Absolute Auto 0.4 X10*3/uL (1.2-4.9); Lymphocytes Percent Auto 2.7 % (20-40); Mean Corpuscular HGB Conc 34.2 g/dl (31.0-36.0); Mean Corpuscular Hemoglobin 30.4 pg (27.0-33.0); Mean Corpuscular Volume 88.8 fL (80.0-98.0); Mean Platelet Volume 8.6 fL (9.4-12.4); Monocytes Absolute Auto 0.3 X10*3/uL (0.1-1.2); Monocytes Percent Auto 1.9 % (2-11); Neutrophils Percent Auto 93.5 % (45-73); Platelet Count 261 X10*3/uL (160-400); Red Blood Count 5.17 X10*6/uL (4.60-5.80); Red Cell Distribution Width 12.7 % (11.0-16.0); SCAN SMEAR FLAG 1; White Blood Count 12.9 X10*3/uL (4.8-10.8)
[2023-02-12 05:02] LABS: MANUAL DIFF FLAG SCAN
[2023-02-12 05:04] LABS: Venous Blood Gas Refer to POC result
[2023-02-12 05:06] LABS: VBG Base Excess 6.2 mmol/L; VBG HCO3 29 mmol/L (22-26); VBG pCO2 38 mmHg; VBG pH 7.49 (7.32-7.43); VBG pO2 47 mmHg
[2023-02-12 05:15] LABS: Lactic Acid 3.6 mmol/L (0.5-2.0)
[2023-02-12 05:24] LABS: Alanine Aminotransferase 79 U/L (0-40); Albumin Level 4.1 g/dL (3.5-5.0); Alkaline Phosphatase 75 U/L (39-117); Anion Gap 16 (12-20); Aspartate Amino Transferase 42 U/L (5-37); Bilirubin Direct 0.2 mg/dL (0.0-0.5); Bilirubin Total 0.5 mg/dL (0.0-1.0); Blood Urea Nitrogen 32 mg/dL (9-16); Calcium 9.8 mg/dL (8.4-10.2); Carbon Dioxide 24 mmol/L (22-29); Chloride 101 mmol/L (96-108); Creatinine Clr Calc Pharmacy 65.4; Estimated Glomerular Filt Rate > 60; Glucose Random 131 mg/dL (60-115); Potassium 4.6 mmol/L (3.3-5.1); Sodium 136 mmol/L (135-145)
[2023-02-12 05:26] LABS: SLIDE REVIEW VERIFIED
[2023-02-12 06:59] LABS: Reflex Lactate? Lactic Acid Added
[2023-02-12 07:30] LABS: ~Lactic Acid-LAB USE ONLY 3.2 mmol/L (0.5-2.0)
--- NOTE | 2023-02-12 08:44 | PHA.MEDREC ---
Pharmacy Consult ? Medication Reconciliation Pharmacy has completed the medication reconciliation. Spoke to patient to confirm meds. Patient states he takes both Daliresp and montelukast.
--- NOTE | 2023-02-12 08:52 | P.HPHOSP_ITS ---
History of Present Illness Date of Service: 02/12/23 Chief Complaint: Shortness of breath 67 year old mona with severe persistent asthma, h/o ABPA (allergic bronchopulmonary aspergillosis), Adrenal insufficiency, Asthma-COPD overlap syndrome , Hypertension, Hypogammaglobulinemia, Transaminitis who presents to [facility] ED with shortness of breath, he has been sick lately and over a week ago around 02/04 was prescribed prednisone taper and antibiotics and didn't feel better and so for the last 2 days he has been given IV solumedrol and still not better and comes to the ED with cough, SOB, O2 sat of 98, WBC is 12, CXR show minimal opacity that is being interpreted as pneumonia and is being admitted for that Review of Systems Review of Systems: No, +cough, congestion, no chest pain Yes all other systems are reviewed and are negative [facility] Medical History ABPA (allergic bronchopulmonary aspergillosis) Adrenal insufficiency Asthma-COPD overlap syndrome Hypertension Hypogammaglobulinemia Transaminitis Surgical History History of bronchoscopy (~2020) History of repair of anterior cruciate ligament of left knee (~2012) Social History Housing: House Alcohol intake: never Patient Tobacco Use Status: Never used Tobacco Smoked in Last 30 Days: No e-Cigarette/Vaping Use: Never Used Second Hand Smoke Exposure: No Use of substances other than those prescribed or required for medical reasons: No Advance Directives: No Advance Directives Information Provided: No service: No Current occupational status: retired Current occupational exposures/hazards: No Cognitive needs: No Hearing needs: No Vision needs: No Meds Allergies Allergy/AdvReac Type Severity Reaction Status Date / Time Doxycycline Hyclate Allergy Intermediate redness Uncoded 02/09/23 15:40 and itching Active Medications: Current Medications Albuterol Sulfate (Albuterol Sulfate (0.083%) 2.5 Mg/3 Ml Vial.Neb) 2.5 mg INHALE Q4H PRN PRN Reason: for wheezing Diltiazem HCl (Diltiazem Hcl Cd 180 Mg Cap.Er.24h) 180 mg PO DAILY ANTHONY; Protocol Fluticasone Propionate (Fluticasone Propionate Nasal 16 Gm [place]) 2 spray NOSTRIL-B DAILY [facility] Levofloxacin (Levaquin) 750 mg in 150 mls @ 100 mls/hr IV Q24H [facility] Montelukast Sodium (Montelukast Sodium 10 Mg Tablet) 10 mg PO BEDTIME [facility] Non-Formulary Medication (Arformoterol) 2 ml INHALE Q12H [facility] Non-Formulary Medication (Budesonide) 0.5 mg INHALE BID [facility] Non-Formulary Medication (Fexofenadine) 180 mg PO DAILY [facility] Non-Formulary Medication (Loteprednol Etabonate) 1 drop EYE-BOTH BID PRN PRN Reason: Dry Eyes Non-Formulary Medication (Pantoprazole) 40 mg PO DAILY@0630 [facility] Non-Formulary Medication (Roflumilast [Daliresp]) 500 mcg PO DAILY [facility] Non-Formulary Medication (Tezepelumab-Ekko [Tezspire]) 210 mg SUBCUT Q4W [facility] Non-Formulary Medication (Umeclidinium [Incruse Ellipta]) 1 inhalation INHALE DAILY [facility] Prednisone (Prednisone 10 Mg Tablet) 0 mg PO DAILY [facility] Sodium Chloride (Sodium Chloride 3 % Inhalation 15 Ml Vial.Neb) 4 ml INHALE BID [facility] Triamterene/Hydrochlorothiazide (Triamterene/Hctz 37.5/25 Tablet) 1 tab PO DAILY [facility]; Protocol Trimethoprim/Sulfamethoxazole (Sulfamethox/Trimeth 800/160 Tablet) 1 tab PO Q12H [facility] Home Medications Medication Instructions Recorded Confirmed Last Taken Type fexofenadine 180 mg tablet 180 mg PO DAILY 12/14/20 02/12/23 02/11/23 History immun glob G 8 80 ml subcut Q2W 03/08/21 02/12/23 02/06/23 History gram/40mL(20%)-gly-IgA over 50 mcg/mL subcutaneous soln (Cuvitru) loteprednol etabonate 0.5 % eye 1 drp ophthalmic (eye) BID PRN Dry 08/14/21 02/12/23 Unknown History gel drops Eyes tezepelumab-ekko 210 mg/1.91 mL 210 mg subcut Q4W 08/05/22 02/12/23 01/24/23 History (110 mg/mL) subcutaneous syringe (Tezspire) nebulizers 11/20/22 02/04/23 Unknown History pantoprazole 40 mg tablet,delayed 40 mg PO DAILY@0630 02/12/23 02/12/23 02/11/23 History release umeclidinium 62.5 mcg/actuation 1 inh inhalation DAILY 02/12/23 02/12/23 02/11/23 History blister powder for inhalation (Incruse Ellipta) Physical Exam Vital Signs and Narrative: Vital Signs: Last Vital Signs Temp 97.7 F 02/12/23 05:58 Pulse 58 02/12/23 05:58 Resp 14 02/12/23 05:58 BP 149/83 H 02/12/23 05:58 Pulse Ox 97 02/12/23 05:58 O2 Del Method Room Air 02/12/23 05:58 BMI result Body Mass Index 23.0 Const: Other: Constitutional: Alert, in no distress, overweight. Mental Status: Oriented to person, place and time. Eyes: Pupils are equal, round and reactive to light. Ear, Nose and Throat: Oropharynx clear, mucous membranes moist. Ears and nose without eformities. Trachea midline. Respiratory: Clear to auscultation. No wheezing, rales or rhonchi. Cardiovascular: S1 S2 regular. No murmurs, rubs or gallops. Gastrointestinal: Abdomen soft, non-tender, non-distended. Normal bowel sounds.? Neurologic: Cranial nerves II-XII grossly intact. No focal neurological deficits. Moves all extremities spontaneously.? Skin: No rashes or lesions.? Musculoskeletal: No cyanosis or clubbing. Psychiatric: Normal mood and affect? Results Labs 02/12/23 04:44 02/12/23 04:44 Labs: Laboratory Results - last 24 hr 02/12/23 02/12/23 02/12/23 03:42 04:44 04:44 MCV 88.8 MCH 30.4 MCHC 34.2 RDW 12.7 Plt Count 261 MPV 8.6 L Immature Gran % (Auto) 1.6 H Neut % (Auto) 93.5 H Lymph % (Auto) 2.[address] [place] % (Auto) 1.9 L Eos % (Auto) 0.1 Baso % (Auto) 0.2 Lymph # (Auto) 0.[address] [place] # (Auto) 0.3 Eos # (Auto) 0.0 Baso # (Auto) 0.0 Abs Immat Gran (auto) 0.20 H Absolute Neuts (auto) 12.0 H Absolute Nucleated RBC 0.000 Nucleated RBC % (auto) 0.0 Smear Tech's Comments VERIFIED VBG pH VBG pCO2 VBG pO2 VBG HCO3 VBG O2 Saturation VBG Base Excess Anion Gap 16 Estim Creat Clear Calc 65.4 Estimated GFR > 60 Random Glucose 131 H Lactic Acid Lactic Acid F/U @ 2Hr Calcium 9.8 Total Bilirubin 0.5 Direct Bilirubin 0.2 AST 42 H ALT 79 H Alkaline Phosphatase 75 Total Protein 7.0 Albumin 4.1 Influenza Type A (PCR) NEGATIVE Influenza Type B (PCR) NEGATIVE RSV RNA Qual (PCR) NEGATIVE SARS-CoV-2 RNA (RT-PCR) NEGATIVE 02/12/23 02/12/23 02/12/23 04:44 04:57 07:14 MCV MCH MCHC RDW Plt Count MPV Immature Gran % (Auto) Neut % (Auto) Lymph % (Auto) [place] % (Auto) Eos % (Auto) Baso % (Auto) Lymph # (Auto) [place] # (Auto) Eos # (Auto) Baso # (Auto) Abs Immat Gran (auto) Absolute Neuts (auto) Absolute Nucleated RBC Nucleated RBC % (auto) Smear Tech's Comments VBG pH 7.49 H VBG pCO2 38 VBG pO2 47 VBG HCO3 29 H VBG O2 Saturation 79.0 VBG Base Excess 6.2 Anion Gap Estim Creat Clear Calc Estimated GFR Random Glucose Lactic Acid 3.6 H* Lactic Acid F/U @ 2Hr 3.2 H* Calcium Total Bilirubin Direct Bilirubin AST ALT Alkaline Phosphatase Total Protein Albumin Influenza Type A (PCR) Influenza Type B (PCR) RSV RNA Qual (PCR) SARS-CoV-2 RNA (RT-PCR) Imaging Radiologist's Impressions: Impressions Chest X-Ray 02/12/23 03:40 IMPRESSION: Minimal opacity at the left lung base could represent atelectasis or pneumonia. Assessment and Plan (1) Pneumonia: Status: Acute Plan 67 year old mona with severe persistent asthma, h/o ABPA (allergic bronchopulmonary aspergillosis), Adrenal insufficiency, Asthma-COPD overlap syndrome , Hypertension, Hypogammaglobulinemia, Transaminitis who presents to th e ED with shortness of breath, he has been sick lately and over a week ago around 02/04 was prescribed prednisone taper and antibiotics and didn't feel better and so for the last 2 days he has been given IV solumedrol and still not better and comes to the ED with cough, SOB, O2 sat of 98, WBC is 12, CXR show minimal opacity that is being interpreted as pneumonia 1/PNA--Treat with IV Levaquin 2/Severe Persistent Asthma (SPA) with exacerbation -bronchodilors by Neb -IV Solumedrol -Pulmonology consult 3/HTN--continue maxide dvt prophy lovenox admission for at least 2 midnights for PNA treatment Time Spent With Patient Time: Total time managing care of this patient today ____ minutes. Quality Stroke Does the patient have a stroke diagnosis?: No VTE Prior VTE?: No VTE Risk Level:: Medical - moderate - high VTE Device Contraindication: Treatment Not Indicated VTE Drug Contraindication: N/A - Med Ordered
[2023-02-12 09:17] LABS: Reflex Lactate? 2 Y
[2023-02-12] MEDS: levoFLOXacin/D5W 750 MG/150 ML PIGGYBACK 100 MG IV (10:02)
[2023-02-12] MEDS: dilTIAZem HCL CD 180 MG CAP.ER.24H PO (10:03)
[2023-02-12] MEDS: predniSONE 10 MG TABLET PO (10:03)
[2023-02-12] MEDS: Sulfamethox/Trimeth 800/160 TABLET 1 TAB PO ×2 (10:04→19:49)
[2023-02-12] MEDS: methylPREDNISolone Sod Succ 40 MG/ML VIAL 60 MG IVPUSH ×3 (10:04→19:49)
[2023-02-12 10:06] LABS: ~Lactic Acid-LAB USE ONLY 3.3 mmol/L (0.5-2.0)
[2023-02-12] MEDS: Lactated Ringers 1,000 ML 150 ML IVCONT ×3 (11:28→19:50)
[2023-02-12] MEDS: Albuterol Sulfate (0.083%) 2.5 MG/3 ML VIAL.NEB INHALE ×3 (12:02→19:42)
--- NOTE | 2023-02-12 15:53 | PC.NURSE ---
Pt admitted to 362 from the ED. pt presented with complaints of asthma exacerbation . pt reports he was seen and started on abx and steroids prior to presenting to the ER . respirations are even and unlabored not requiring oxygen at this time . will monitor
[2023-02-12] MEDS: Sodium Chloride 3 % Inhalation 15 ML VIAL.NEB 4 ML INHALE (19:46)
[2023-02-12] MEDS: Montelukast Sodium 10 MG TABLET PO (19:50)
[2023-02-13] VITALS (8 sets, daily range): BP systolic 123–168; BP diastolic 59–80; PULSE 57–77; RESP 18; TEMP 36–37.2; O2SAT 94–98
--- NOTE | 2023-02-13 01:56 | MHC.PIE ---
p; blood cx + for [facility]. note; pt on levaquin i; dr feldman notified e; will cont to monitor
[2023-02-13] MEDS: methylPREDNISolone Sod Succ 40 MG/ML VIAL 60 MG IVPUSH ×4 (02:17→23:21)
[2023-02-13] MEDS: Lactated Ringers 1,000 ML 150 ML IVCONT ×4 (02:17→23:23)
[2023-02-13] MEDS: Omeprazole 20 MG CAPSULE.DR PO (06:25)
[2023-02-13] MEDS: levoFLOXacin/D5W 750 MG/150 ML PIGGYBACK 100 MG IV (07:51)
[2023-02-13] MEDS: Loratadine 10 MG TABLET PO (08:31)
[2023-02-13] MEDS: Enoxaparin Sodium 40 MG/0.4 ML SYRINGE SUBCUT (08:31)
[2023-02-13] MEDS: dilTIAZem HCL CD 180 MG CAP.ER.24H PO (08:31)
[2023-02-13] MEDS: predniSONE 10 MG TABLET PO (08:31)
[2023-02-13] MEDS: Triamterene/HCTZ 37.5/25 TABLET 1 TAB PO (08:31)
[2023-02-13] MEDS: Sulfamethox/Trimeth 800/160 TABLET 1 TAB PO ×2 (08:32→23:20)
[2023-02-13] MEDS: Albuterol Sulfate (0.083%) 2.5 MG/3 ML VIAL.NEB INHALE ×4 (08:40→19:55)
--- NOTE | 2023-02-13 09:45 | P.PNIM_ITS ---
Subjective Subjective Date of Service: 02/13/23 Interval History: f/u on PNA, still doesn't feel good Review of Systems No, +cough, congestion, no chest pain Physical Exam Vital Signs: Vital Signs: Last Vital Signs Temp 98.7 F 02/13/23 07:14 Pulse 72 02/13/23 08:43 Resp 18 02/13/23 08:43 BP 127/59 L 02/13/23 07:14 Pulse Ox 96 02/13/23 07:14 O2 Del Method Room Air 02/13/23 07:14 BMI result Body Mass Index 22.8 Const: Other: General: AO X 3, no acute distress Resp: diffuse rhonchi CVS: S1,S2,RRR GI: +BS, NT, no distention Skin: No rash Neuro: motor grossly intact Psych: appropriate affect Objective Data Active Medications Acetaminophen (Acetaminophen 325 Mg Tablet) 650 mg PO Q6H PRN PRN Reason: Pain, Mild (Pain Scale 1-3) Albuterol Sulfate (Albuterol Sulfate (0.083%) 2.5 Mg/3 Ml Vial.Neb) 2.5 mg INHALE Q4H PRN PRN Reason: for wheezing Albuterol Sulfate (Albuterol Sulfate (0.083%) 2.5 Mg/3 Ml Vial.Neb) 2.5 mg INHALE RQ4H WHILE AWAKE [facility] Last Admin: 02/13/23 08:40 Dose: 2.5 mg Documented By: AMOR Albuterol Sulfate (Albuterol Sulfate (0.083%) 2.5 Mg/3 Ml Vial.Neb) 2.5 mg INHALE Q2H PRN PRN Reason: Shortness of Breath/Wheezing Diltiazem HCl (Diltiazem Hcl Cd 180 Mg Cap.Er.24h) 180 mg PO DAILY ANTHONY; Protoc ol Last Admin: 02/13/23 08:31 Dose: 180 mg Documented By: LUIS MIGUEL Enoxaparin Sodium (Enoxaparin Sodium 40 Mg/0.4 Ml Syringe) 40 mg SUBCUT Q24H [facility] Last Admin: 02/13/23 08:31 Dose: 40 mg Documented By: LUIS MIGUEL Fluticasone Propionate (Fluticasone Propionate Nasal 16 Gm [place]) 2 spray NOSTRIL-B DAILY [facility] Last Admin: 02/12/23 10:18 Dose: Not Given Documented By: GINETTE Non-Admin Reason: Med Not Available Levofloxacin (Levaquin) 750 mg in 150 mls @ 100 mls/hr IV Q24H [facility] Last Infusion: 02/13/23 09:38 Dose: 0 mls/hr Documented By: LUIS MIGUEL Lactated Ringer's (Lr) 1,000 mls @ 150 mls/hr IVCONT .Q6H40M [facility] Last Admin: 02/13/23 09:37 Dose: 150 mls/hr Documented By: LUIS MIGUEL Loratadine (Loratadine 10 Mg Tablet) 10 mg PO DAILY [facility] Last Admin: 02/13/23 08:31 Dose: 10 mg Documented By: LUIS MIGUEL Magnesium Hydroxide (Milk Of Magnesia 30 Ml Oral.Susp) 30 ml PO DAILY PRN PRN Reason: Constipation Methylprednisolone Sodium Succinate (Methylprednisolone Sod Succ 40 Mg/Ml Vial) 60 mg IVPUSH Q6H [facility] Last Admin: 02/13/23 08:30 Dose: 60 mg Documented By: LUIS MIGUEL Comments: [id number] Montelukast Sodium (Montelukast Sodium 10 Mg Tablet) 10 mg PO BEDTIME [facility] Last Admin: 02/12/23 19:50 Dose: 10 mg Documented By: SINDY Non-Formulary Medication (Arformoterol) 2 ml INHALE Q12H [facility] Non-Formulary Medication (Budesonide) 0.5 mg INHALE BID [facility] Non-Formulary Medication (Roflumilast [Daliresp]) 500 mcg PO DAILY [facility] Omeprazole (Omeprazole 20 Mg Capsule.Dr) 20 mg PO DAILY@0630 [facility] Last Admin: 02/13/23 06:25 Dose: 20 mg Documented By: SINDY Ondansetron HCl (Ondansetron Hcl 4 Mg/2 Ml Vial) 4 mg IVPUSH Q8H PRN PRN Reason: Nausea and Vomiting Prednisolone Acetate (Prednisolone Acetate 1 % Oph Susp 5 Ml Drpbtl) 1 drop EYE-BOTH BID PRN PRN Reason: Dry Eyes Prednisone (Prednisone 10 Mg Tablet) 0 mg PO DAILY [facility] Last Admin: 02/13/23 08:31 Dose: 30 mg Documented By: LUIS MIGUEL Sodium Chloride (Sodium Chloride 3 % Inhalation 15 Ml Vial.Neb) 4 ml INHALE BID [facility] Last Admin: 02/13/23 08:41 Dose: Not Given Documented By: AMOR Non-Admin Reason: unable to scan Sodium Chloride (0.9 % Sodium Chloride Flush 3 Ml Syringe) 3 ml IVFLUSH QSHIFT [facility] Last Admin: 02/13/23 07:30 Dose: Not Given Documented By: LUIS MIGUEL Non-Admin Reason: IV Running Tiotropium Medan[place] (Tiotropium [place]anales 2.5 Mcg Inhaler) 2 puff INHALE RDAILY [facility] Last Admin: 02/13/23 08:11 Dose: Not Given Documented By: AMOR Non-Admin Reason: med unavail pharmacy called Triamterene/Hydrochlorothiazide (Triamterene/Hctz 37.5/25 Tablet) 1 tab PO DAILY [facility]; Protocol Last Admin: 02/13/23 08:31 Dose: 1 tab Documented By: LUIS MIGUEL Trimethoprim/Sulfamethoxazole (Sulfamethox/Trimeth 800/160 Tablet) 1 tab PO BID [facility] Last Admin: 02/13/23 08:32 Dose: 1 tab Documented By: LUIS MIGUEL Labs 02/12/23 04:44 02/12/23 04:44 Labs: Laboratory Results - last 24 hr 02/12/23 09:39 Lactic Acid F/U @ 4Hr 3.3 H* Microbiology Microbiology Results: Microbiology 02/12/23 04:47 Blood Culture - Preliminary Blood - Venous Prelim: GPC Gram Stain only 02/12/23 04:47 Blood Culture - Preliminary Blood - Venous No growth after 24 hours. Assessment and Plan (1) Pneumonia: Status: Acute Plan 67 year old mona with severe persistent asthma, h/o ABPA (allergic bronchopulmonary aspergillosis), Adrenal insufficiency, Asthma-COPD overlap syndrome , Hypertension, Hypogammaglobulinemia, Transaminitis who presents to the ED with shortness of breath, he has been sick lately and over a week ago around 02/04 was prescribed prednisone taper and antibiotics and didn't feel better and so for the last 2 days he has been given IV solumedrol and still not better and comes to the ED with cough, SOB, O2 sat of 98, WBC is 12, CXR show minimal opacity that is being interpreted as pneumonia 1/PNA--Treat with IV Levaquin 2/Severe Persistent Asthma (SPA) with exacerbation -blood culture, 1/2 GPCCI -bronchodilors by Neb -IV Solumedrol -discussed with pulmonary, getting sputum culture and add Vanco for gram positive bacteremia which will probably turned out to be contamination 3/HTN--continue maxide dvt prophy lovenox Need for inpatient: PNA, bacteremia in immunocompromised patient Time Spent With Patient Time: Total time managing care of this patient today ____ minutes. Quality Stroke Does the patient have a stroke diagnosis?: No VTE Prior VTE?: No VTE Risk Level:: Medical - moderate - high VTE Device Contraindication: Treatment Not Indicated VTE Drug Contraindication: N/A - Med Ordered
--- NOTE | 2023-02-13 10:32 | MHC.CM.PN ---
PT REPORTS HE LIVES WITH HIS AND IS INDEPENDENT WITH HIS CARE HE HAS A NEBULIZER FOR DME AND AND TAKES IVIG TREATMENT Q TWO WEEKS, WHICH HE SELF-ADMINISTERS PT HAS NO HOME SERVICES PT SAYS HE HAS A HCP NAMING HIS , COPY REQUESTED PCP: ANAHI WOLF IMM DELIVERED CURRENT DC PLAN IS HOME WITH NO SERVICES PER MD ROUNDS, PT MAY DC LATER TODAY TO TRANSPORT
[2023-02-13] MEDS: Sodium Chloride 3 % Inhalation 15 ML VIAL.NEB 4 ML INHALE (19:58)
[2023-02-13] MEDS: Montelukast Sodium 10 MG TABLET PO (23:20)
[2023-02-13] MEDS: 0.9 % Sodium Chloride Flush 3 ML SYRINGE IVFLUSH (23:21)
[2023-02-14] MEDS: methylPREDNISolone Sod Succ 40 MG/ML VIAL 60 MG IVPUSH ×2 (02:43→09:06)
[2023-02-14 03:06] VITALS: BP 138/65; PULSE 63; RESP 16; TEMP 36.1; O2SAT 96
[2023-02-14] MEDS: Lactated Ringers 1,000 ML 150 ML IVCONT (05:53)
[2023-02-14] MEDS: Omeprazole 20 MG CAPSULE.DR PO (05:53)
[2023-02-14 07:55] VITALS: BP 160/90; PULSE 65; RESP 18; TEMP 36.4; O2SAT 96
[2023-02-14] MEDS: levoFLOXacin/D5W 750 MG/150 ML PIGGYBACK 150 MG IV (08:19)
[2023-02-14] MEDS: dilTIAZem HCL CD 180 MG CAP.ER.24H PO (08:19)
[2023-02-14] MEDS: Enoxaparin Sodium 40 MG/0.4 ML SYRINGE SUBCUT (08:19)
--- NOTE | 2023-02-14 08:44 | PM.DS ---
DS: Providers Provider Date of Service: 02/14/23 Date of admission: 02/12/23 08:53 Primary care physician: Joseph Leslie MD DS: Diagnosis Discharge Diagnosis (1) Pneumonia: Status: Acute DS: Summary Hospital Course Hospital Course: Chief Complaint: Shortness of breath 67 year old mona with severe persistent asthma, h/o ABPA (allergic bronchopulmonary aspergillosis),? Adrenal insufficiency, Asthma-COPD overlap syndrome , Hypertension, Hypogammaglobulinemia, Transaminitis who presents to the ED with shortness of breath, he has been sick lately and? over a week ago around 02/04 was prescribed prednisone taper and antibiotics and didn't feel better and so for the last 2 days he has been given IV solumedrol and still not better and comes to the ED with cough, SOB, O2 sat of 98, WBC is 12, CXR show minimal opacity that is being interpreted as pneumonia and is being admitted for that Hospital course: Patient presented as above with shortness of breath, cough and has been ill for quite sometime and treated on outpatient basis with antibiotics and steroid but continued to feel unwell, CXR in ED showed a small infiltrate consistent with PNA, he was started on Iv Levaquin, bronchodilators and IV steroid by Neb for exacerbation of copd/asthma overlap syndrome. Overall is feeling much, he will be discharge with oral Levaquin to complete course of antibiotics for pneumonia and Prednisone princess for asthma/copd overlap syndrome and to follow up with Dr. Corrales ([facility]) on Saturday 02/17 Time Spent with Patient Time attestation: Total time managing care of this patient today ____ minutes. Discharge coordination time: Greater than 30 minutes Quality: Safe Use of Opioids Does Pt have an Active Cancer Diagnosis on the Problem List?: No Quality: Stroke Does the patient have a stroke diagnosis?: No Physical Exam Vital Signs: Vital Signs: Last Vital Signs Temp 97.6 F 02/14/23 07:55 Pulse 65 02/14/23 07:55 Resp 18 02/14/23 07:55 BP 160/90 H 02/14/23 07:55 Pulse Ox 96 02/14/23 07:55 O2 Del Method Room Air 02/14/23 07:55 BMI result Body Mass Index 22.8 DS: Data Data Completed and Pending Labs on day of discharge: Preliminary micro results at discharge 02/12/23 04:47 Blood Culture - Preliminary Blood - Venous No growth after 48 hours. Discharge Plan Discharge Anticipated Discharge Date/Time: 02/14/23 08:46 Patient Disposition: Home, Self-Care Discharge Diagnosis: Pneumonia, asthma/copd exacerbation Referrals: Joseph Leslie MD [Primary Care Provider] - 1 Week Discharge Medications: New prednisone 10 mg tablet See Taper PO DIRECTED Qty: 20 0RF Taper: Prednisone 40 mg daily for 3 Days and 0 Hour 30 mg daily for 3 Days and 0 Hour 20 mg daily for 3 Days and 0 Hour 10 mg daily for 3 Days and 0 Hour Rx Instructions: see taper instructions levofloxacin 750 mg tablet 750 mg PO DAILY 2 Days Qty: 2 0RF Continued budesonide 0.5 mg/2 mL suspension for nebulization 0.5 mg inhalation BID Qty: 360 3RF montelukast 10 mg tablet 10 mg PO BEDTIME 90 Days Qty: 90 3RF sodium chloride 3 % solution for nebulization 4 ml inhalation BID 30 Days Qty: 240 11RF diltiazem HCl 180 mg capsule,extended release 24hr 180 mg PO DAILY 90 Days Qty: 90 1RF arformoterol 15 mcg/2 mL solution for nebulization 2 ml inhalation Q12H Qty: 120 3RF triamterene-hydrochlorothiazid 37.5-25 mg capsule 1 cap PO DAILY 90 Days Qty: 90 2RF albuterol sulfate 2.5 mg /3 mL (0.083 %) solution for nebulization 2.5 mg inhalation Q4H PRN (Reason: for wheezing) Qty: 525 0RF fluticasone propionate 50 mcg/actuation spray,suspension 2 spray intranasal DAILY Qty: 48 3RF Rx Instructions: 2 sprays into each nostril pantoprazole 40 mg tablet,delayed release (DR/EC) 40 mg PO DAILY@0630 Incruse Ellipta 62.5 mcg/actuation blister with device 1 inh inhalation DAILY Cuvitru 8 gram/40 mL (20 %) solution 80 ml subcut Q2W Rx Instructions: 16 grams twice a week Tezspire 210 mg/1.91 mL (110 mg/mL) syringe 210 mg subcut Q4W Rx Instructions: NEXT DOSE: 02/24/23 fexofenadine 180 mg tablet 180 mg PO DAILY loteprednol etabonate 0.5 % drops,gel 1 drp ophthalmic (eye) BID PRN (Reason: Dry Eyes) Daliresp 500 mcg tablet 500 mcg PO DAILY Qty: 30 11RF (DME) nebulizers Misc See Rx Instructions .Route Rx Instructions: As directed prednisone 10 mg tablet See Rx Instructions PO DAILY 18 Days Qty: 63 0RF Rx Instructions: 02/12/23 - 40MG; 02/13-02/15 -30MG; 02/16-02/18 - 20MG; 02/19-02/21 - 10MG PO DAILY Discontinued sulfamethoxazole-trimethoprim [Bactrim DS] 800-160 mg tablet 1 tab PO Q12H 14 Days Qty: 28 0RF cefpodoxime 200 mg tablet 200 mg PO BID Qty: 20 0RF Rx Instructions: must administer with a meal/food Discharge Orders: Discharge Order (Routine); Ordered 02/14/23 Ordered By: Rinku Lino Diet: Advance to usual diet Activity on Discharge: As tolerated Stand Alone Forms: Patient Portal Discharge page Care Plan Goals: Full recovery from pneumonia Health Concerns: pneumonia asthma/copd exacerbaion Plan of Treatment: Take Levaquin for pneumonia Take Prednisone for asthma/copd follow up with Dr. Conley on 02/17 Assessment: as above
[2023-02-14] MEDS: predniSONE 10 MG TABLET PO (09:00)
[2023-02-14] MEDS: Loratadine 10 MG TABLET PO (09:00)
[2023-02-14] MEDS: Triamterene/HCTZ 37.5/25 TABLET 1 TAB PO (09:01)
[2023-02-14] MEDS: Sulfamethox/Trimeth 800/160 TABLET 1 TAB PO (09:01)
[2023-02-14] MEDS: Sodium Chloride 3 % Inhalation 15 ML VIAL.NEB 4 ML INHALE (09:07)
[2023-02-14] MEDS: Albuterol Sulfate (0.083%) 2.5 MG/3 ML VIAL.NEB INHALE (09:08)
[2023-02-14 09:09] VITALS: PULSE 76; RESP 18; O2SAT 95
== END 2023-02-14 11:00 | disposition home or self-care (01) | DRG 202 ==
LOC: HO.ED 04:47 → HO.EDOVER 08:59 → HO.S3 13:17
PROVIDERS: Admitting Provider Internal Medicine; Emergency Provider Emergency Medicine; PCP Family Medicine; Visit Provider Internal Medicine
DX: J45.51 Severe persistent asthma with (acute) exacerbation (principal); J18.9 Pneumonia, unspecified organism; D80.1 Nonfamilial hypogammaglobulinemia; E87.21 Acute metabolic acidosis; D84.9 Immunodeficiency, unspecified; I10 Essential (primary) hypertension; Z20.822 Contact with and (suspected) exposure to COVID-19; Z79.620 Long term (current) use of immunosuppressive biologic; Z79.899 Other long term (current) drug therapy
CPT/HCPCS: 0241U; 36415; 71046; 80048; 80076; 82803; 83605; 85025; 87040; 87077; 87205; 94640; 96374; 99285; J1650; J1956; J2920; J2930

== ENCOUNTER → 2023-02-17 09:53 | Outpatient (BNVA) | payer MEDICARE, OTHER, SELFPAY | PROVIDERS: PCP Family Medicine; Visit Provider Hospitalist | DX: J44.9 Chronic obstructive pulmonary disease, unspecified (principal); J18.9 Pneumonia, unspecified organism; B44.81 Allergic bronchopulmonary aspergillosis; E27.40 Unspecified adrenocortical insufficiency; D80.1 Nonfamilial hypogammaglobulinemia | CPT/HCPCS: 99212 ==

== ENCOUNTER 2023-02-18 10:32 | Outpatient (REF) | payer MEDICARE, OTHER, SELFPAY | END 2023-02-18 10:33 | disposition home or self-care (01) | LOC: HO.LNP 10:32 | PROVIDERS: Visit Provider Hospitalist | DX: J18.9 Pneumonia, unspecified organism (principal) | CPT/HCPCS: 87070; 87116; 87205; 87206 ==

== ENCOUNTER 2023-02-20 09:29 | Outpatient (REF) | payer MEDICARE, OTHER, SELFPAY | END 2023-02-20 09:30 | disposition home or self-care (01) | LOC: HO.LNP 09:29 | PROVIDERS: Visit Provider Hospitalist | DX: J18.9 Pneumonia, unspecified organism (principal) | CPT/HCPCS: 87070; 87205 ==

== ENCOUNTER 2023-04-16 09:48 | Outpatient (AMB) | payer MEDICARE, OTHER, SELFPAY ==
[2023-04-16 09:58] VITALS: BP 118/70; PULSE 52; O2SAT 98; BMI 22.1
--- NOTE | 2023-04-16 09:58 | A.OFFVIS_ITS ---
Intake Vital Signs 04/16/23 09:58 Height 5 ft 9 in Weight 149 lb 14.629 oz BMI 22.1 BP 118/70 Blood Pressure Location Lt brachial Position Sitting Pulse 52 Pulse Source Pulse Oximeter Pulse Oximetry (%) 98 Oxygen Delivery Method Room Air Intake Visit Reasons: copd Clerk Required: No Allergies Doxycycline Hyclate Allergy (Intermediate, Uncoded 04/16/23 10:01) redness and itching HPI HPI Comments History of Present Illness Details The patient is a 67-year-old gentleman with history severe asthma and allergic bronchopulmonary aspergillosis. Apparently every 6 back in 2004 requiring significant doses of prednisone. Was diagnosed to time. Was in 2014 when he became very sick in the went to [facility] [place] was admitted to [facility]. At the time was diagnosed with allergic bronchopulmonary aspergillosis and spent prolonged period on prednisone. He was also placed on itraconazole. The patient has now been followed closely at [facility]. He is currently on Dupixent which has appears to be effective for him. He also continues on maintenance therapy. Continues to have shortness of breath. 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 Lately he has been noticing increased chest tightness and coughing. He is trying to avoid prednisone. When he was on prednisone for many years he did develop a lot of the complications from the prednisone and now has been able come off it. Unfortunately, in July 2020 was diagnosed with COVID-19 and since then his respiratory status also been affected adversely. Today in the office he has significant wheezing and rhonchi. Will given 2 DuoNeb treatments. Will try to maximize his respiratory therapy by switching him to nebulized therapy. The patient also needs aggressive chest physical therapy. 10/08/2021 the patient is here for pulmonary follow-up visit. Overall he is doing well. We did review of the microbiology from the bronchoscopy specimens and no evidence of any Aspergillus at this point therefore is reassuring we do not have to treating. The likely mold found is colonizing and likely just from inhaling sports. His other fungal cultures were negative which is reassuring. And also his BAL did not demonstrate any significant inflammatory changes concerning for active inflammation due to ABPM. The patient did start Daliresp. Tolerating it well at 250 mcg. He 1st start with half a dose. Denies any significant GI symptoms. He has been getting a little drowsy. Therefore he started taking the medication at nighttime. He is wondering if the drowsiness could be from the medication. At this point is less likely, but is still needs to be considered. He is going to continue using the 250 mcg dose to get used to it and hopefully he can increase to 500 mcg and 6-8 weeks once he is better. 01/14/2022 the patient is here for a pulmonary follow-up visit. Overall he is doing relatively well. He continues to have coughing episodes specially at nighttime. He did follow up in [place] with his service desk specialist. They rec ommended he have a barium swallow and treat his reflux disease and sleep elevated. I did emphasize that these are very important things. He is going to do the reflux diet sleep elevated. He is going to monitor the symptoms and will hold off on the barium swallow this time. he seems to be tolerating the Daliresp. He does not want to increase the dose because of the risk of the mood disorders. Will continue with the Daliresp to treat the chronic bronchitis and avoid prednisone. He continues on the nebulized therapy. Continues to exercise regularly. While he is running he is able to expectorate a lot of phlegm. Will have the patient undergo blood work at this time to assess his allergy levels. He continues to Dupixent which appears to have been very effective for him. He has tried and failed Xolair in the past. Will still consider the possibility of Trezspire if he continues to be symptomatic. 05/25/2022 the patient is here for a pulmonary follow-up visit. Since we last spoke did have an exacerbation back in January while he was in [place]. He was evaluated at a local hospital where he was diagnosed with a asthma exacerbation and placed on a prednisone taper. His symptoms did improve. He is concerned because he still having significant symptoms in the springtime and now also will have worsening symptoms in the fall. Primarily due to allergies. He is getting allergy shots at this time he is also currently on Dupixent. He has already tried and failed Xolair and now does not appear to be completely responding to the Dupixent. Therefore, the patient would like to go ahead and changes biologic to Tezspire. we have been speaking about this now for about a year. He is ready to make that change since he still having significant symptoms. Since he is already getting allergy shots through [facility] I do believe that the best thing to do was for him to get the TSLP biologic therapy also with [facility]. I did give information about the medication and will also will send a message to his sales operations assistant. The patient also has been responding well to the Daliresp. Will go ahead and maximize the FX by increasing to the therapeutic dose of 500 mcg. The patient continues with nebulized therapy. He is still requiring his short-acting beta agonist on a daily basis, however. 08/15/2022 the patient is here for a sick visit. Recently started developing worsening respiratory symptoms chest congestion chest tightness and wheezing. His symptoms were severe decided to go to the ER for further evaluation tear. There he had a chest x-ray demonstrating no acute disease although evidence of bronchitis noted. The patient was started on prednisone 40 mg. although that was not enough and therefore we increasing to 60 mg. 60 mg felt too hard for him to tolerate so therefore he did bring it down quickly. He also completed a course of azithromycin for 5 days. However, he still having some difficulties. Still having shortness of breath and chest congestion. Hard time expectorating. Therefore will go ahead and given Solu-Medrol in the office and increase his antibiotic coverage to Levaquin. He is an avid runner and athlete. Therefore he understands he needs to monitor closely for any evidence of tendinitis. He is also going to start probiotics while on the medication. If the patientis no better he needs to get intouch with our office. 09/19/2022 the patient is here for sick visit. Patient has been feeling awful now for the last several weeks. He went to the ER there he had CT scan of the chest which is reassuring. Does have evidence of bronchitis and calcified pulmonary nodules. He was placed on prednisone in addition to azithromycin and also given a course of levofloxacin. Although his symptoms are only getting worse. He called and we had to increase his prednisone to 60 mg. Continues to have significant wheezing chest tightness. He just does not feel good. The prednisone is making feel worse as well. In the office we did 2 nebulized treatments to Ayaan. He was able to expectorate some mucus out of the lungs. The mucus since to be darker in color. We did try to get a sputum for culture but it was too much saliva in it. Therefore he will try to bring some mucus soon. The patient does have a history of aspergillosis in addition to chronic airway disease with ABPA. Therefore will start him on voriconazole in addition to that the patient will be started on Bactrim to treat for Staph aureus which is the only organism that he was not treated for. We did given Solu-Medrol in the office in addition to the DuoNebs. We talked about going to the ER but the patient at this point is hemodynamically stable. If he fails the current outpatient regimen that he should go to the ER for failing outpatient therapy. 09/29/2022 she the patient is here for a pulmonary follow-up visit. He finally starting to feel better. He is down to 10 mg of prednisone. He continues on the voriconazole and also continues on the Bactrim. His chest congestion is improving. His mucus is clearing up. He still has some wheezing and rhonchi specially in the right lung so therefore he should continue holding off on arturo rgy shots. He may have to restart his immunotherapy once he is stable to he continues on his biologic therapy. At this point we do not have any sputum cultures available to guide therapy. He did have a CT scan of the chest that we personally reviewed in the office. Appears to have some bronchiectatic changes. Also has some calcified nodular densities in the right middle lobe and also in the left lower lobe consistent with granulomas. He has responded well to the antifungal therapy. He does have a history of ABPA. Will go ahead and treated for total 6-8 weeks son's again tolerated. It also would extend the Bactrim to treat for potential staff for least 3 weeks. Once the patient has also completed with the prednisone he will have blood work including assessing his cortisol level. He is wondering if he should be on low-dose prednisone. That is not unreasonable if she needs it but hopeful that he can come off completely. She the patient also continues with his subcutaneous IgG infusions. He does that every 2 weeks. Will go ahead and check his trough levels to make sure that he is getting adequate therapy. 10/29/2022 the patient is here for a pulmonary follow-up visit. He continues to feel better. He is now off the prednisone. Continues on voriconazole. Continues on his nebulized therapy. He did have blood work done his LFTs were slightly elevated. He denies any significant abdominal discomfort or nausea. Sometimes he does have some transient symptoms but is not sure if it is from the other medications. Will have to monitor closely his LFTs. He will have repeat PFTs in the next few weeks. Will see if he can continue the voriconazole for now. If he develops any worsening GI symptoms he is to stop the medicine and call immediately. His other blood work included a random cortisol level that was low. will go ahead and repeat that also in the coming weeks to see if he has any increased cortisol production. If he continues to be low that he will b enefit from an Endocrinology consultation. The patient is also concerned about COVID-19. She has had multiple vaccinations in addition to the most recent booster in May. He does have immune deficiency. Therefore, will check his titers with his next blood work. 11/21/2022 the patient is here for a pulmonary follow-up visit. He continues to feel better. He is now off the prednisone and also will stop the voriconazole. He continues on his respiratory therapy as prescribed. The patient did have blood work which we reviewed. The patient was very stop his with his IgG spike protein titers being so elevated. In addition to this his cortisol level continues to be low however. Clinically he is doing well so therefore will continue to monitor for now. No need for exogenous corticosteroids at this time is as long as he is feels well. He continues on the biologic therapy. He does have follow-up with his court stenographer from [facility] in the coming weeks. I will make sure to have all the information available for him. As far as the blood work his LFTs have normalized which is reassuring. His kidney function she has a little bit off but I do believe that he does have some degree of dehydration. I did request that he started drinking more water fluids to try to improve this. 02/09/2023 The patitnt is here for a sick visit. +sick contact. Worsening cough and wheezing. severe. Was seen in the office and started on Prednisone and started on Bactrim. Has not been any better. Having significant weezing. Sputum is yellowish in color. He did bring a sample but is no longer good. We will try to have him bring another sample. In the meantime he is still having significant wheezing. We will have him start IV solumedrol 125mg x 3 days. 02/17/2023 the patient is here for a hospital follow-up visit. He was briefly hospitalized after no improvement after an aggressive outpatient respiratory regimen. The patient went to the hospital was placed on a additional IV steroids and his antibiotics were switched over to Levaquin in the continue Bactrim. Respiratory status improved. One of the blood cultures was positive for aerococcus viridans. This is likely to be an infection. He was starting to feel better although now after being on some motion Solu-Medrol he has a he has washed out. He has had issues with renal insufficiency. Now he is on 20 mg of prednisone. Will try to slowly decrease by 2.5 mg every week untill down to 10 mg by the next time that I see him. He is going to continue with current respiratory therapy. He will have 3 more days of Bactrim. Once he has completed I am hopeful that he can get a sputum culture to make sure that his clear all the infections in his lungs. 04/16/2023 the patient is here for pulmonary follow-up visit. Overall he is doing better. She continues to be on 5 mg of prednisone. I do believe that with his sister adrenal insufficiency this is a good idea. The patient uses [facility] in the past but subsequently retired. Will go ahead and refer him to a different water quality specialist. Patient has been on chronic steroids for his underlying respiratory disease. He continues on the biologic therapy. Continues with respiratory therapy. I did evaluate his CT scan that he had last demonstrating some bronchiectatic changes. The patient does have significant allergic bronchopulmonary aspergillosis. Therefore will request a percussion vest to better geriatric assistant with mucus clearance. He has been using Acapella valve for many years. At this point will go ahead and optimize his bronchopulmonary hygiene. He has been exercising more often able to cycle regularly. COUNTS INCLUDE 234 BEDS AT THE [facility] Medical History (Updated 04/16/23 @ 13:05 by Justin Conley MD) ABPA (allergic bronchopulmonary aspergillosis) Adrenal insufficiency Asthma-COPD overlap syndrome Bronchiectasis Hypertension Hypogammaglobulinemia Transaminitis Surgical History History of bronchoscopy (~2020) History of repair of anterior cruciate ligament of left knee (~2012) Social History Household Members: Spouse Housing: House Do you presently have visiting nurse or other home services: Yes Alcohol intake: never Patient Tobacco Use Status: Never used Tobacco e-Cigarette/Vaping Use: Never Used Second Hand Smoke Exposure: No service: No Current occupational status: retired Current occupational exposures/hazards: No Cognitive needs: No Hearing needs: No Vision needs: No Review of Systems Const Denies chills, Denies excessive sweating, Reports fatigue, Denies fever(s), Denies headache(s) and Denies night sweats Eyes Denies dry eyes, Denies irritation and Denies itchy eyes ENT Reports Normal hearing present, Denies headache(s), Denies nasal congestion, Denies nasal discharge, Denies post nasal drip and Denies sore throat Card Denies chest pain, Denies chest pain at rest, Denies chest pain with activity and Denies leg edema Resp Denies change in phlegm color, Reports chest congestion, Reports cough, Denies excessive phlegm production, Denies pain on inspiration, Denies pain with cough, Denies stridor and Reports wheezing Musc Denies myalgias Neuro Reports Normal hearing present and Denies headache(s) Endo Denies excessive sweating and Reports fatigue Pedrito/Lymph Denies lymphadenopathy Aller/Immun Denies itchy eyes, Denies seasonal rhinorrhea and Reports wheezing Physical Exam Vital Signs: Last Vital Signs Pulse 52 04/16/23 09:58 BP 118/70 04/16/23 09:58 Pulse Ox 98 04/16/23 09:58 Oxygen Delivery Method Room Air 04/16/23 09:58 BMI result Body Mass Index 22.1 Const General: alert HEENT General nose exam: Abnormal external nose present and Nasal discharge present Eyes Pupils: Equal, round and reactive pupils present Neck Neck: Yes normal visual inspection, Yes full ROM and Yes no lymphadenopathy Chest Chest palpation & inspection: normal inspection of the chest Resp Auscultation: no rhonchi, wheezes expiratory wheezes and diminished lung sounds Cardio Rate: regular rate Rhythm: regular rhythm Heart sounds: S1 normal heart sound present and S2 normal heart sound present GI Palpation (GI): Soft to palpation and nontender Auscultation: normal bowel sounds General: Yes no CVA tenderness Back/Spine/Pelvis Back: no CVA tenderness Skin General skin exam: rashes and/or lesions noted Neuro Cranial nerves: Yes Equal, round and reactive pupils present and Yes Normal hearing present Psych Affect: Sad affect present and Anxious affect present Assessment & Plan Assessment & Plan (1) Pneumonia: Code(s): J18.9 - Pneumonia, unspecified organism (2) ABPA (allergic bronchopulmonary aspergillosis): Code(s): B44.81 - Allergic bronchopulmonary aspergillosis (3) Asthma-COPD overlap syndrome: Code(s): J44.9 - Chronic obstructive pulmonary disease, unspecified (4) Adrenal insufficiency: Code(s): E27.40 - Unspecified adrenocortical insufficiency (5) Hypogammaglobulinemia: Code(s): D80.1 - Nonfamilial hypogammaglobulinemia (6) Bronchiectasis: Code(s): J47.9 - Bronchiectasis, uncomplicated Plan Prednisone 5mg daily Daliresp 500mcg continue Tezspire Q4 weeks IVIG with [facility] Continue budesonide 0.5 mg twice a day via nebulizer Continue Brovana via nebulizer twice a day Continue Incruse daily Short-acting beta agonist as needed requesting percussion vest for CPT for for his ABPA and bronchiectasis. Hypertonic saline 3% nebs BID Reflux diet/HOB elevated monitor cortisol levels, still low, but clinically well F/U in 3 months Orders: Orders Cortisol Random Today J18.9 - Pneumonia, unspecified organism Complete Blood Count Auto Diff Today J18.9 - Pneumonia, unspecified organism Erythrocyte Sedimentation Rate Today J18.9 - Pneumonia, unspecified organism Referrals Endocrinology Referral E27.40 - Unspecified adrenocortical insufficiency Medications: Discontinued pantoprazole 40 mg PO DAILY 90 days 90 tabs 2RF Incruse Ellipta 62.5 mcg/actuation INHALE 1 PUFF ONCE DAILY 30 ea 3RF NS Coding Level of Care Code Est Pt Level 5 (16939) Diagnoses Pneumonia J18.9 ABPA (allergic bronchopulmonary aspergillosis) B44.81 Asthma-COPD overlap syndrome J44.9 Adrenal insufficiency E27.40 Hypogammaglobulinemia D80.1 Bronchiectasis J47.9 Time Spent (min) 45
== END 2023-04-16 10:26 | disposition home or self-care (01) ==
PROVIDERS: PCP Family Medicine; Visit Provider Hospitalist
DX: J18.9 Pneumonia, unspecified organism (principal); B44.81 Allergic bronchopulmonary aspergillosis; J44.9 Chronic obstructive pulmonary disease, unspecified; E27.40 Unspecified adrenocortical insufficiency; D80.1 Nonfamilial hypogammaglobulinemia; J47.9 Bronchiectasis, uncomplicated
CPT/HCPCS: 99215

== ENCOUNTER → 2023-04-16 09:48 | Outpatient (BNVA) | payer MEDICARE, OTHER, SELFPAY | PROVIDERS: PCP Family Medicine; Visit Provider Hospitalist | DX: J47.0 Bronchiectasis with acute lower respiratory infection (principal); J18.9 Pneumonia, unspecified organism; B44.81 Allergic bronchopulmonary aspergillosis; E27.40 Unspecified adrenocortical insufficiency; D80.1 Nonfamilial hypogammaglobulinemia; I10 Essential (primary) hypertension; Z12.5 Encounter for screening for malignant neoplasm of prostate | CPT/HCPCS: 36415; 80053; 80061; 81003; 82043; 82533; 82565; 82784; 84153; 84443; 84520; 85025; 85652; 99212 ==

== ENCOUNTER 2023-04-16 11:06 | Outpatient (REF) | payer MEDICARE, OTHER, SELFPAY ==
[2023-04-16 14:41] LABS: MANUAL DIFF FLAG NO
[2023-04-16 15:15] LABS: Blood Urea Nitrogen 22 mg/dL (9-16); Estimated Glomerular Filt Rate > 60
[2023-04-16 15:16] LABS: Basophils Absolute Auto 0.1 X10*3/uL (0.0-0.2); Basophils Percent Auto 0.9 % (0-2); Eosinophils Percent Auto 0.7 % (0-4); Hematocrit 44.6 % (42.0-52.0); Imm Gran Abs Auto 0.04 X10*3/uL (0.00-0.03); Imm Gran Pct Auto 0.7 % (0.0-0.4); Lymphocytes Percent Auto 18.2 % (20-40); Mean Corpuscular HGB Conc 33.6 g/dl (31.0-36.0); Mean Corpuscular Hemoglobin 31.1 pg (27.0-33.0); Mean Corpuscular Volume 92.3 fL (80.0-98.0); Mean Platelet Volume 9.5 fL (9.4-12.4); Monocytes Absolute Auto 0.5 X10*3/uL (0.1-1.2); Monocytes Percent Auto 9.2 % (2-11); Neutrophils Percent Auto 70.3 % (45-73); Platelet Count 239 X10*3/uL (160-400); Red Blood Count 4.83 X10*6/uL (4.60-5.80); Red Cell Distribution Width 13.9 % (11.0-16.0); White Blood Count 5.7 X10*3/uL (4.8-10.8)
[2023-04-16 15:17] LABS: Appearance Urine Clear; Color Urine Yellow; Glucose Urine UA Negative (Negative); Leukocyte Esterase Urine Negative (Negative); Nitrite Urine Negative (Negative); Urine Blood Negative (Negative); Urine Ketones Negative (Negative); Urine Protein Negative (Neg-Trace)
[2023-04-16 15:23] LABS: Alanine Aminotransferase 36 U/L (0-40); Albumin Level 4.1 g/dL (3.5-5.0); Alkaline Phosphatase 63 U/L (39-117); Anion Gap 11 (12-20); Aspartate Amino Transferase 31 U/L (5-37); Bilirubin Total 0.6 mg/dL (0.0-1.0); Blood Urea Nitrogen 22 mg/dL (9-16); Calcium 9.8 mg/dL (8.4-10.2); Carbon Dioxide 30 mmol/L (22-29); Chloride 102 mmol/L (96-108); Cholesterol 188 mg/dL; Estimated Glomerular Filt Rate > 60; Glucose Fasting 81 mg/dL (60-99); HDL Cholesterol 52 mg/dL; LDL Cholesterol Calculated 87 mg/dl; Sodium 140 mmol/L (135-145); Total Protein 7.1 g/dL (6.5-8.0); Triglycerides 246 mg/dL
[2023-04-16 15:38] LABS: Cortisol Random 5.9 ug/dL; TSH reflex Free T4 0.87 uIU/mL (0.32-4.0)
[2023-04-16 15:40] LABS: Prostate Specific Antigen Scr 0.88 ng/mL (<0.05-4.0)
[2023-04-16 16:29] LABS: Erythrocyte Sedimentation Rate 5 MM/HR (0-15)
[2023-04-16 16:50] LABS: Creatinine Urine 97.56 mg/dL; Microalbumin Urine < 5.0 mg/L
[2023-04-20 10:14] LABS: Immunoglobulin G 1013 mg/dL (600-1540)
== END 2023-04-16 11:07 | disposition home or self-care (01) ==
LOC: HO.WFDLDS 11:06
PROVIDERS: Allergy & Immunology; Hospitalist; Visit Provider Family Medicine
DX: Z13.89 Encounter for screening for other disorder (principal)
CPT/HCPCS: 36415; 80053; 80061; 81003; 82043; 82533; 82565; 82784; 84153; 84443; 84520; 85025; 85652

== ENCOUNTER 2023-06-03 08:43 | Outpatient (AMB) | payer MEDICARE, OTHER, SELFPAY ==
[2023-06-03 08:46] VITALS: BP 128/70; PULSE 60; RESP 12; TEMP 36.2; O2SAT 99; BMI 22.1
--- NOTE | 2023-06-03 08:46 | A.OFFPC_ITS ---
Vital Signs 06/03/23 08:46 Height 5 ft 9 in Weight 150 lb BMI 22.1 BP 128/70 Blood Pressure Location Lt brachial Position Sitting Respiration 12 Pulse 60 Pulse Source Pulse Oximeter Temp 97.1 F Temp Source Temporal Artery Scan Pulse Oximetry (%) 99 Oxygen Delivery Method Room Air Intake Visit Reasons: CPE with f/u labs and health maintenance Intake Note: Patient currently has no concerns. 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 Accompanied by: Self / Same As Patient Allergies Doxycycline Hyclate Allergy (Intermediate, Uncoded 04/16/23 10:01) redness and itching Tobacco use date assessed: 06/03/23 Fall risk assessment: No Falls in past year Last assessed Fall Risk: 06/03/23 Dental Screening Dental Screen Date: 06/03/23 Did you have a dental visit in the last 12 months?: Yes Did you have a dental problem in the last 6 months where you did not have access to dental care?: No Was dental information given to patient?: Patient has dentist HPI CPE with f/u labs and health maintenance HPI Details 67 y/o male presents for an extended exa m with f/u labs and health maintenance. Labs were drawn 04/16/23. Reviewed labs with pt. Triglycerides 246. TC 188. LDL 87. HDL 52. Potassium low at 3.0. PFSH Medical History Bronchiectasis Hypogammaglobulinemia Adrenal insufficiency Transaminitis Asthma-COPD overlap syndrome ABPA (allergic bronchopulmonary aspergillosis) Hypertension Surgical History History of bronchoscopy (~2020) History of repair of anterior cruciate ligament of left knee (~2012) Social History Household Members: Spouse Housing: House Do you presently have visiting nurse or other home services: Yes Alcohol intake: never Patient Tobacco Use Status: Never used Tobacco e-Cigarette/Vaping Use: Never Used Second Hand Smoke Exposure: No service: No Current occupational status: retired Current occupational exposures/hazards: No Cognitive needs: No Hearing needs: No Vision needs: No Questionnaire PHQ-9 Over the last 2 weeks, how often have you been bothered by any of the following problems? 1. Little interest or pleasure in doing things: not at all 2. Feeling down, depressed, or hopeless: not at all 3. Trouble falling or staying asleep, or sleeping too much: not at all 4. Feeling tired or having little energy: not at all 5. Poor appetite or overeating: not at all 6. Feeling bad about yourself - or that you are a failure or have let yourself or your family down: not at all 7. Trouble concentrating on things, such as reading the newspaper or watching television: not at all 8. Moving or speaking so slowly that other people could have noticed. Or the opposite - being so fidgety or restless that you have been moving around a lot more than usual: not at all 9. Thoughts that you would be better off or of hurting yourself in some way: not at all Total score: 0 Depression Screening Interpretation: Negative Source: Developed by Drs. Miky Puckett, Terrie Dong, Dustin Sherwood and colleagues, with an educational juan manuel from [employer]. Thrive Questionnaire Date Thrive assessed: 06/03/23 I am a: Patient What is your living situation today?: I have a steady place to live Within the past 12 months, did the food you bought not last and you didn't have the money to get more?: Never true Within the past 12 months, did you worry whether your food would run out before you got money to buy more?: Never true Do you have trouble paying for medicines?: No Do you have trouble getting transportation to medical appointments?: No Do you have trouble paying your heating and electricity bill?: No Do you have trouble taking care of your child, family member or friend?: No Do you have trouble with day-to-day activities such as bathing, preparing meals, shopping, managing finances, etc.?: No Are you currently unemployed and looking for a job?: No Are you interested in more education?: No Please select the resources that you would like help with: None Currently or been in a relationship where the following occur: no concerns r eported AUDIT C Alcohol Use Questionnaire (AUDIT-C) 1. How often do you have a drink containing alcohol?: Monthly or less 2. How many drinks containing alcohol do you have on a typical day when you are drinking?: 1 or 2 3. How often do you have six or more drinks on one occasion?: Never Total Score: 1 AUSTIN-7 AMB Questionnaire AUSTIN-7 Date AUSTIN - 7 assessed: 06/03/23 Feeling nervous, anxious, or on edge: 0 = Not at all Not being able to stop or control worryin = Not at all Worrying too much about different things: 0 = Not at all Trouble relaxin = Not at all Being so restless that it is hard to sit still: 0 = Not at all Becoming easily annoyed or irritable: 0 = Not at all Feeling afraid as if something awful might happen: 0 = Not at all Total AUSTIN-7 score (0-4 normal; 5-9 mild; 10-14 moderate; 15-21 severe): 0 Source: Developed by Drs. Miky Puckett, Terrie Dong, Dustin Sherwood and colleagues, with an educational juan manuel from [employer]. ACT Questionnaire In the past 4 weeks, how much of the time did your asthma keep you from getting as much done at work, school or at home?: A little of the time During the past 4 weeks, how often have you had shortness of breath?: 3-6 times a week During the past 4 weeks, how often did your asthma symptoms wake you up at night or earlier than usual in the morning?: 2-3 nights a week During the past 4 weeks, how often have you had to use your rescue inhaler or nebulizer medication?: More than 3 times per day How would you rate your asthma control during the past 4 weeks?: Somewhat controlled Score: 13 Review of Systems Const Denies chills, Denies fatigue, Denies fever(s), Denies headache(s) and Denies weakness Eyes Denies change in vision ENT Denies dizziness, Denies headache(s), Denies hearing loss, Denies nasal congestion, Denies sinus pain, Denies sinus pressure and Denies sore throat Card Denies chest pain, Denies lightheadedness, Denies dyspnea and Denies other (palpitations) Resp Denies cough, Denies dyspnea and Denies wheezing GI Denies abdominal pain, Denies melena, Denies hematochezia, Denies change in bowel habits, Denies dyspepsia and Denies nausea Denies hematuria and Denies dysuria Musc Denies abnormal gait, Denies myalgias, Denies arthralgias, Denies numbness and Denies tingling Skin/Breast Denies rash, Denies unusual bruising and Denies wounds Neuro Denies abnormal gait, Denies dizziness, Denies headache(s), Denies memory loss, Denies numbness, Denies Sensory deficit (Neuro), Denies tingling and Denies weakness Psych Denies anxiety, Denies depression and Denies memory loss Endo Denies cold intolerance, Denies fatigue, Denies heat intolerance, Denies polydipsia and Denies polyuria Pedrito/Lymph Denies easy bleeding and Denies easy bruising Aller/Immun Denies wheezing Physical exam (Primary Care) Vital Signs: Last Vital Signs Temp 97.1 F 06/03/23 08:46 Pulse 60 06/03/23 08:46 Resp 12 06/03/23 08:46 BP 128/70 06/03/23 08:46 Pulse Ox 99 06/03/23 08:46 Oxygen Delivery Method Room Air 06/03/23 08:46 BMI result Body Mass Index 22.1 Tobacco/Smoking Status: Tobacco use Status Tobacco use date assessed 06/03/23 06/03/23 08:54 Patient Tobacco Use Status Never used Tobacco 06/03/23 08:54 e-Cigarette/Vaping Use Never Used 06/03/23 08:54 PHQ-9: PHQ-9 Score PHQ-9: Total score 0 06/03/23 09:23 Depression Screening Interpretation: Negative Thrive Assessment: Date of Thrive Assessment Date Thrive assessed 06/03/23 06/03/23 08:54 Currently or been in a relationship where the following occur: no concerns reported Const General: no acute distress, well developed, alert and awake Nutritional Appearance: well nourished Orientation/consciousness: patient oriented x3 HENMT Head: Yes normocephalic and Yes atraumatic Ears: hearing grossly normal bilaterally and TM's normal bilaterally General nose exam: Normal external nose present and Normal nares present Mouth: Normal oral and palatal mucosa present and moist mucous membranes Teeth and gingiva: dentition normal Throat: Yes posterior oropharynx normal Eyes General: appearance normal, both eyes and all related structures Pupils: Equal, round and reactive pupils present and Pupil accommodation reflex normal EOM: EOMs intact bilaterally Neck Neck: Yes normal visual inspection, Yes no lymphadenopathy and Yes trachea midline Thyroid: Thyroid normal Carotids: no bruits Lymphatic: no lymphadenopathy noted Chest Chest palpation & inspection: normal inspection of the chest Resp Effort & Inspection: normal respiratory effort Auscultation: clear to auscultation bilaterally Cardio Rate: regular rate Rhythm: regular rhythm Heart sounds: S1 normal heart sound present, S2 normal heart sound present, no gallops, no murmurs and no rubs Bruits: no abdominal aortic bruits and no carotid bruits GI Palpation (GI): No Abdominal aortic bruit present, Soft to palpation, nontender, No hepatosplenomegaly present and No Rebound tenderness present Auscultation: normal bowel sounds General: Yes no CVA tenderness Back/Spine/Pelvis Back: no CVA tenderness Cervical Spine: cervical ROM normal and No Cervical spine tenderness Thoracic/Lumbar Spine: thoraco-lumbar ROM normal, No pain with thoraco-lumbar ROM, No thoracic spinal tenderness and No lumbar spinal tenderness Skin Lesions: no lesions Rashes: no rashes Trauma: no lacerations or abrasions Wounds: no wounds Nails: normal Neuro General: patient oriented x3 Cranial nerves: Yes Equal, round and reactive pupils present Cognition (Neuro): normal cognition Gait exam (Neuro): Normal gait present Motor exam (neuro): 5/5 motor strength present throughout Sensory Exam: No Sensory deficit (Neuro) Deep tendon reflexes (DTR's): Right patellar reflex intensity grade: 2+ and Left patellar reflex intensity grade: 2+ Extrem General: Yes normal to inspection and No edema Psych Appearance: grossly normal Affect: normal affect Attitude: cooperative Thought process: Normal thought process present Assessment and Plan Assessment & Plan (1) Essential hypertension: Code(s): I10 - Essential (primary) hypertension Plan: Blood pressure is controlled. Goal is less than 140/90 Continue current medication regimen (2) Hypokalemia: Code(s): E87.6 - Hypokalemia Plan: Mild hypokalemia in April. We can follow-up on this with his next blood draw (3) Allergic bronchopulmonary aspergillosis: Code(s): B44.81 - Allergic bronchopulmonary aspergillosis Plan: In numerous bronchitis exacerbations and recent pneumonia with sepsis. Numerous infections Follow-up with Dr. Conley and Dr. Estrada (4) Hypertriglyceridemia: Code(s): E78.1 - Pure hyperglyceridemia Plan: Patient may not Have been fasting. (5) Screening for colon cancer: Code(s): Z12.11 - Encounter for screening for malignant neoplasm of colon Plan: Repeating lipids patient says he had a colonoscopy with Matthew Yo about 6 years ago and was told to follow-up in 10 years. Up-to-date Will request report (6) Screening for prostate cancer: Code(s): Z12.5 - Encounter for screening for malignant neoplasm of prostate Plan: PSA (7) Osteoporosis: Code(s): M81.0 - Age-related osteoporosis without current pathological fracture Plan: Patient notes he was told he was at risk for fractures years ago after bone density testing. He is at high risk for osteoporosis and worsening of this condition due to factors such as frequent steroid use and use of PPIs (8) Immunization counseling: Code(s): Z71.85 - Encounter for immunization safety counseling Plan: He is due for or a high-dose flu shot and will get This at his pharmacy He had a pneumonia shot last year at each 66 and is due for a 2nd pneumonia shot this year Also recommended COVID booster and RSV. (9) Adult general medical exam: Code(s): Z00.00 - Encounter for general adult medical examination without abnormal findings Plan: 67-year-old male presents for extended exam. Orders: Orders XR DEXA axial skeleton Today M81.0 - Age-related osteoporosis without current pathological fracture Comprehensive [place]. Panel Fast Today Z00.00 - Encounter for general adult medical examination without abnormal findings Lipid Panel Today Z00.00 - Encounter for general adult medical examination without abnormal findings Coding Level of Care Code Est Pt Level 4 (96726) Diagnoses Essential hypertension I10 Hypokalemia E87.6 Allergic bronchopulmonary aspergillosis B44.81 Hypertriglyceridemia E78.1 Screening for colon cancer Z12.11 Screening for prostate cancer Z12.5 Osteoporosis M81.0 Immunization counseling Z71.85 Adult general medical exam Z00.00
== END 2023-06-03 10:08 | disposition home or self-care (01) ==
PROVIDERS: PCP Family Medicine; Visit Provider Family Medicine
DX: Z00.00 Encounter for general adult medical examination without abnormal findings (principal); I10 Essential (primary) hypertension; E87.6 Hypokalemia; B44.81 Allergic bronchopulmonary aspergillosis; E78.1 Pure hyperglyceridemia; M81.0 Age-related osteoporosis without current pathological fracture; Z71.85 Encounter for immunization safety counseling
CPT/HCPCS: 99397

== ENCOUNTER 2023-06-19 08:00 | Outpatient (REF) | payer MEDICARE, OTHER, SELFPAY ==
--- NOTE | ~2023-06-19 | MM_ITS ---
EXAMINATION: BONE DENSITOMETRY CLINICAL INDICATION: Age-related osteoporosis without current pathological fracture. COMPARISON: This is the patient's baseline examination. TECHNIQUE: Using a Qinti DXA System (software version: 13.1) manufactured by [employer], dual-energy x-ray absorptiometry was performed of the lumbar spine and left hip. The images are of good technical quality. Summary results are attached. FINDINGS: LEFT FEMUR, NECK: BMD 0.906 g/cm2, Z-score 0.1, T-score -1.3, osteopenia. LEFT FEMUR, TOTAL: BMD 1.062 g/cm2, Z-score 0.5, T-score -0.3, normal. AP SPINE L1-L4: BMD 1.156 g/cm2, Z-score 0.3, T-score -0.5, normal. IDENTIFIED RISK FACTORS: Glucocorticoids (chronic). HISTORY OF FRACTURE: None listed. MEDICATIONS: None listed. MM/XR DEXA axial skeleton IMPRESSION: 1. DIAGNOSIS: Osteopenia based on the lowest T-score value of -1.3 in the femoral neck applying World Health Organization criteria. 2. 10-YEAR FRACTURE RISK PREDICTION, FRAX: Major osteoporotic fracture (clinical spine, forearm, hip or shoulder) 8.5%. Hip fracture 1.5%. 3. Treatment Recommendations: NOF guidelines recommend consideration for treatment in postmenopausal women and men age 50 and older presenting with the following: -A hip or vertebral (clinical or morphometric) fracture. -T-score less than or equal to -2.5 at the femoral neck or spine after appropriate evaluation to exclude secondary causes. -Low bone mass at the hip or spine and a 10-year fracture probability by FRAX of greater than or equal to 3% for hip fracture or greater than or equal to 20% for major osteoporotic fracture based on the [place] adapted WHO algorithm. 4. Other Recommendations: All treatment decisions require clinical judgment and consideration of individual patient factors, including patient preferences, comorbidities, previous drug use, risk factors not captured in the FRAX model (e.g. frailty, falls, vitamin D deficiency, increased bone turnover, interval significant decline in bone density) and possible under or overestimation of fracture risk by FRAX. Additional medical evaluation for secondary cause of low bone mineral density may be appropriate. FUTURE SCAN RECOMMENDATION: People with diagnosed cases of osteoporosis or at high risk for fracture should have regular bone mineral density tests. For patients eligible for Medicare, routine testing is allowed once every 2 years. The testing frequency can be increased to one year for patients who have rapidly progressing disease, those who are receiving or discontinuing medical therapy to restore bone mass, or have additional risk factors.
== END 2023-06-19 08:01 | disposition home or self-care (01) ==
LOC: HO.MAMMO 08:00
PROVIDERS: PCP Family Medicine; Visit Provider Family Medicine
DX: Z13.820 Encounter for screening for osteoporosis (principal); M81.0 Age-related osteoporosis without current pathological fracture
CPT/HCPCS: 77080

== ENCOUNTER 2023-06-26 08:53 | Outpatient (REF) | payer MEDICARE, OTHER, SELFPAY ==
[2023-06-26 11:29] LABS: MANUAL DIFF FLAG NO
[2023-06-26 11:50] LABS: Basophils Percent Auto 0.8 % (0-2); Eosinophils Absolute Auto 0.1 X10*3/uL (0.0-0.4); Hemoglobin 15.8 g/dl (14.0-18.0); Imm Gran Abs Auto 0.01 X10*3/uL (0.00-0.03); Imm Gran Pct Auto 0.2 % (0.0-0.4); Lymphocytes Percent Auto 19.7 % (20-40); Mean Corpuscular HGB Conc 33.6 g/dl (31.0-36.0); Mean Corpuscular Hemoglobin 31.5 pg (27.0-33.0); Mean Corpuscular Volume 93.8 fL (80.0-98.0); Mean Platelet Volume 9.1 fL (9.4-12.4); Monocytes Absolute Auto 0.6 X10*3/uL (0.1-1.2); Monocytes Percent Auto 11.4 % (2-11); Neutrophils Absolute Auto 3.4 x10*3/uL (2.0-8.3); Neutrophils Percent Auto 66.9 % (45-73); Platelet Count 248 X10*3/uL (160-400); Red Blood Count 5.01 X10*6/uL (4.60-5.80); Red Cell Distribution Width 12.5 % (11.0-16.0); White Blood Count 5.1 X10*3/uL (4.8-10.8)
[2023-06-26 12:08] LABS: Alanine Aminotransferase 31 U/L (0-40); Albumin Level 4.2 g/dL (3.5-5.0); Alkaline Phosphatase 55 U/L (39-117); Anion Gap 15 (12-20); Aspartate Amino Transferase 30 U/L (5-37); Bilirubin Total 0.8 mg/dL (0.0-1.0); Blood Urea Nitrogen 18 mg/dL (9-16); Calcium 9.8 mg/dL (8.4-10.2); Carbon Dioxide 28 mmol/L (22-29); Chloride 101 mmol/L (96-108); Cholesterol 195 mg/dL (<200); Estimated Glomerular Filt Rate > 60; Glucose Fasting 82 mg/dL (60-99); HDL Cholesterol 61 mg/dL (>40); LDL Cholesterol Calculated 120 mg/dL (<100); Potassium 3.6 mmol/L (3.3-5.1); Sodium 140 mmol/L (135-145); Triglycerides 73 mg/dL (<150)
[2023-06-26 12:13] LABS: Blood Urea Nitrogen 18 mg/dL (9-16); Estimated Glomerular Filt Rate > 60
[2023-06-29 16:03] LABS: Immunoglobulin G 1052 mg/dL (600-1540)
== END 2023-06-26 08:54 | disposition home or self-care (01) ==
LOC: HO.WFDLDS 08:53
PROVIDERS: Allergy & Immunology; Visit Provider Family Medicine
DX: Z00.00 Encounter for general adult medical examination without abnormal findings (principal)
CPT/HCPCS: 36415; 80053; 80061; 82565; 82784; 84520; 85025

== ENCOUNTER 2023-07-29 11:12 | Outpatient (AMB) | payer MEDICARE, OTHER, SELFPAY ==
--- NOTE | 2023-07-29 11:18 | A.OFFPC_ITS ---
Vital Signs 07/29/23 11:19 Height 5 ft 9 in Weight 151 lb 6 oz BMI 22.4 BP 120/64 Blood Pressure Location Lt brachial Position Sitting Pulse 58 Pulse Source Pulse Oximeter Pulse Oximetry (%) 98 Oxygen Delivery Method Room Air Intake Visit Reasons: f/u chronic conditions Intake Note: Patient is here to follow up on chronic conditions, and is concerned about tick bite on upper right side of body. Allergies Doxycycline Hyclate Allergy (Intermediate, Uncoded 07/29/23 11:24) redness and itching Tobacco use date assessed: 07/29/23 Fall risk assessment: No Falls in past year Last assessed Fall Risk: 07/29/23 HPI f/u chronic conditions HPI Details 67 y/o male presents to f/u lab work inc luding lipids, potassium and f/u bone density testing. Risk for worsening osteoporosis due to frequent need for steroids and PPI use. Labs were drawn 06/26/23. Reviewed labs with pt. Triglycerides 73. TC 195. LDL 120. HDL 61. Potassium levels improved. Pt has complaints of a tick bite on upper R side of body. Pt positive for osteopenia. [facility] Medical History Bronchiectasis Hypogammaglobulinemia Adrenal insufficiency Transaminitis Asthma-COPD overlap syndrome ABPA (allergic bronchopulmonary aspergillosis) Hypertension Surgical History History of bronchoscopy (~2020) History of repair of anterior cruciate ligament of left knee (~2012) Household Members: Spouse Housing: House Do you presently have visiting nurse or other home services: Yes Alcohol intake: never Patient Tobacco Use Status: Never used Tobacco e-Cigarette/Vaping Use: Never Used Second Hand Smoke Exposure: No service: No Current occupational status: retired Current occupational exposures/hazards: No Cognitive needs: No Hearing needs: No Vision needs: No Questionnaire Thrive Questionnaire Date Thrive assessed: 06/03/23 AUSTIN-7 AMB Questionnaire AUSTIN-7 Date AUSTIN - 7 assessed: 06/03/23 Source: Developed by Drs. Miky Puckett, Terrie Dong, Dustin Sherwood and colleagues, with an educational juan manuel from [employer]. Review of Systems Const Denies chills, Denies fatigue, Denies fever(s), Denies headache(s) and Denies weakness ENT Denies dizziness and Denies headache(s) Card Denies dyspnea Resp Denies cough, Denies dyspnea, Denies wheezing and Denies other (shortness of breath) Musc Denies numbness and Denies tingling Neuro Denies dizziness, Denies headache(s), Denies numbness, Denies tingling and Denies weakness Psych Denies anxiety and Denies depression Endo Denies fatigue Aller/Immun Denies wheezing Physical exam (Primary Care) Vital Signs: Last Vital Signs Pulse 58 07/29/23 11:19 BP 120/64 07/29/23 11:19 Pulse Ox 98 07/29/23 11:19 Oxygen Delivery Method Room Air 07/29/23 11:19 BMI result Body Mass Index 22.4 Tobacco/Smoking Status: Tobacco use Status Tobacco use date assessed 07/29/23 07/29/23 11:27 Patient Tobacco Use Status Never used Tobacco 07/29/23 11:27 e-Cigarette/Vaping Use Never Used 07/29/23 11:27 Thrive Assessment: Date of Thrive Assessment Date Thrive assessed 06/03/23 07/29/23 11:27 Const General: well developed; No acute distress Nutritional Appearance: well nourished Orientation/consciousness: patient oriented x3 HENMT Head: Yes normocephalic and Yes atraumatic Eyes General: appearance normal, both eyes and all related structures Pupils: Equal, round and reactive pupils present EOM: EOMs intact bilaterally Resp Effort & Inspection: normal respiratory effort Neuro General: patient oriented x3 and gait normal Cranial nerves: Yes Equal, round and reactive pupils present Psych Affect: normal affect Assessment and Plan Assessment & Plan (1) Tick bite: Code(s): W57.XXXA - Bitten or stung by nonvenomous insect and other nonvenomous arthropods, initial encounter Plan: Tick?bite?and?patient?is?uncertain?how?long?this?was?attached Will?give?him?a?prophylactic?dose?of?doxycycline?and check?Lyme?titers?next?week. Complicated?patient?as?he?has?dominique e?immune?suppression?and?has?had?some?issues?with?doxycycline?at?longer?courses. If?positive?will?refer?him?to?ID (2) Screening for osteoporosis: Code(s): Z13.820 - Encounter for screening for osteoporosis Plan: Patient?positive?for?osteopenia Continue?calcium?and?vitamin-D Encouraged?weight-bearing?exercise (3) Hypertriglyceridemia: Code(s): E78.1 - Pure hyperglyceridemia Plan: Triglycerides?now?within?normal?range (4) Hypokalemia: Code(s): E87.6 - Hypokalemia Plan: Hypokalemia?has?resolved (5) Osteopenia: Code(s): M85.80 - Other specified disorders of bone density and structure, unspecified site Plan: As?above Orders: Orders Lyme IgG/IgM w/reflex to WB Today W57.XXXA - Bitten or stung by nonvenomous insect and other nonvenomous arthropods, initial encounter Medications: New doxycycline hyclate 200 mg (2 x 100 mg) PO ONCE 2 tabs 0RF 1 day Coding Level of Care Code Est Pt Level 4 (08762) Diagnoses Tick bite W57.XXXA Screening for osteoporosis Z13.820 Hypertriglyceridemia E78.1 Hypokalemia E87.6 Osteopenia M85.80
[2023-07-29 11:19] VITALS: BP 120/64; PULSE 58; O2SAT 98; BMI 22.4
== END 2023-07-29 12:42 | disposition home or self-care (01) ==
PROVIDERS: PCP Family Medicine; Visit Provider Family Medicine
DX: T63.481A Toxic effect of venom of other arthropod, accidental (unintentional), initial encounter (principal); Z13.820 Encounter for screening for osteoporosis; E78.1 Pure hyperglyceridemia; E87.6 Hypokalemia; M85.80 Other specified disorders of bone density and structure, unspecified site
CPT/HCPCS: 99214

== ENCOUNTER 2023-08-03 09:58 | Outpatient (REF) | payer MEDICARE, OTHER, SELFPAY ==
[2023-08-04 07:58] LABS: Lyme Abs Screen <0.90 index
== END 2023-08-03 09:59 | disposition home or self-care (01) ==
LOC: HO.WFDLDS 09:58
PROVIDERS: Visit Provider Family Medicine
DX: T14.8XXA Other injury of unspecified body region, initial encounter (principal); W57.XXXA Bitten or stung by nonvenomous insect and other nonvenomous arthropods, initial encounter; Y93.9 Activity, unspecified; Y92.9 Unspecified place or not applicable; Y99.9 Unspecified external cause status
CPT/HCPCS: 36415; 86617; 86618

== ENCOUNTER 2023-10-09 08:58 | Outpatient (REF) | payer MEDICARE, OTHER, SELFPAY ==
[2023-10-09 11:31] LABS: MANUAL DIFF FLAG NO
[2023-10-09 11:50] LABS: Basophils Absolute Auto 0.1 X10*3/uL (0.0-0.2); Basophils Percent Auto 1.1 % (0-2); Eosinophils Absolute Auto 0.1 X10*3/uL (0.0-0.4); Eosinophils Percent Auto 2.1 % (0-4); Hematocrit 45.1 % (42.0-52.0); Hemoglobin 15.1 g/dl (14.0-18.0); Imm Gran Abs Auto 0.02 X10*3/uL (0.00-0.03); Imm Gran Pct Auto 0.4 % (0.0-0.4); Lymphocytes Absolute Auto 0.6 X10*3/uL (1.2-4.9); Lymphocytes Percent Auto 12.4 % (20-40); Mean Corpuscular HGB Conc 33.5 g/dl (31.0-36.0); Mean Corpuscular Hemoglobin 30.9 pg (27.0-33.0); Mean Corpuscular Volume 92.2 fL (80.0-98.0); Mean Platelet Volume 8.9 fL (9.4-12.4); Monocytes Absolute Auto 0.4 X10*3/uL (0.1-1.2); Neutrophils Absolute Auto 3.5 x10*3/uL (2.0-8.3); Platelet Count 254 X10*3/uL (160-400); Red Blood Count 4.89 X10*6/uL (4.60-5.80); Red Cell Distribution Width 13.2 % (11.0-16.0); White Blood Count 4.7 X10*3/uL (4.8-10.8)
[2023-10-09 11:51] LABS: Appearance Urine Clear; Color Urine Yellow; Glucose Urine UA Negative (Negative); Leukocyte Esterase Urine Negative (Negative); Nitrite Urine Negative (Negative); Specific Gravity - Urine 1.015 (1.005-1.025); Urine Blood Negative (Negative); Urine Ketones Negative (Negative); Urine Protein Negative (Neg-Trace)
[2023-10-09 12:28] LABS: Prostate Specific Antigen Scr 0.87 ng/mL (<0.05-4.0)
[2023-10-09 12:33] LABS: Cholesterol 167 mg/dL (<200); HDL Cholesterol 58 mg/dL (>40); LDL Cholesterol Calculated 92 mg/dL (<100); Triglycerides 85 mg/dL (<150)
[2023-10-09 12:39] LABS: Creatinine Urine 74.92 mg/dL; TSH reflex Free T4 0.96 uIU/mL (0.32-4.0)
== END 2023-10-09 08:59 | disposition home or self-care (01) ==
LOC: HO.WFDLDS 08:58
PROVIDERS: Visit Provider Family Medicine
DX: Z00.00 Encounter for general adult medical examination without abnormal findings (principal); Z12.5 Encounter for screening for malignant neoplasm of prostate; I10 Essential (primary) hypertension
CPT/HCPCS: 36415; 80061; 81003; 82043; 82570; 84153; 84443; 85025

== ENCOUNTER 2023-10-12 09:51 | Outpatient (REF) | payer MEDICARE, OTHER, SELFPAY ==
[2023-10-12 15:33] LABS: Alanine Aminotransferase 42 U/L (0-40); Albumin Level 3.9 g/dL (3.5-5.0); Alkaline Phosphatase 59 U/L (39-117); Anion Gap 10 (12-20); Aspartate Amino Transferase 36 U/L (5-37); Bilirubin Total 0.5 mg/dL (0.0-1.0); Blood Urea Nitrogen 21 mg/dL (9-16); Calcium 9.3 mg/dL (8.4-10.2); Carbon Dioxide 31 mmol/L (22-29); Chloride 104 mmol/L (96-108); Estimated Glomerular Filt Rate > 60; Glucose Fasting 88 mg/dL (60-99); Potassium 3.5 mmol/L (3.3-5.1); Sodium 141 mmol/L (135-145); Total Protein 6.8 g/dL (6.5-8.0)
[2023-10-20 17:00] LABS: IgE Antibody (Anti-IgE IgG) 15 ng/mL (<168)
== END 2023-10-12 09:52 | disposition home or self-care (01) ==
LOC: HO.WFDLDS 09:51
PROVIDERS: Visit Provider Family Medicine
DX: Z00.00 Encounter for general adult medical examination without abnormal findings (principal); J44.9 Chronic obstructive pulmonary disease, unspecified; J47.9 Bronchiectasis, uncomplicated; B44.81 Allergic bronchopulmonary aspergillosis; D80.1 Nonfamilial hypogammaglobulinemia; E27.40 Unspecified adrenocortical insufficiency; Z79.52 Long term (current) use of systemic steroids
CPT/HCPCS: 36415; 80053; 83520; 99212

== ENCOUNTER 2023-10-12 11:13 | Outpatient (AMB) | payer MEDICARE, OTHER, SELFPAY ==
[2023-10-12 11:19] VITALS: BP 132/78; PULSE 74; O2SAT 99; BMI 22.9
--- NOTE | 2023-10-12 11:19 | A.OFFVIS_ITS ---
Intake Vital Signs 10/12/23 11:19 Height 5 ft 9 in Weight 155 lb BMI 22.9 BP 132/78 Blood Pressure Location Rt brachial Position Sitting Pulse 74 Pulse Source Pulse Oximeter Pulse Oximetry (%) 99 Oxygen Delivery Method Room Air Intake Visit Reasons: Asthma Client Program Manager Required: No Allergies Doxycycline Hyclate Allergy (Intermediate, Uncoded 10/12/23 11:22) redness and itching HPI HPI Comments History of Present Illness Details The patient is a 67-year-old gentleman with history severe asthma and allergic bronchopulmonary aspergillosis. Apparently every 6 back in 2004 requiring significant doses of prednisone. Was diagnosed to time. Was in 2014 when he became very sick in the went to [facility] in was admitted to [facility]. At the time was diagnosed with allergic bronchopulmonary aspergillosis and spent prolonged period on prednisone. He was also placed on itraconazole. The patient has now been followed closely at [facility]. He is currently on Dupixent which has appears to be effective for him. He also continues on maintenance therapy. Continues to have shortness of breath. 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 Lately he has been noticing increased chest tightness and coughing. He is trying to avoid prednisone. When he was on prednisone for many years he did develop a lot of the complications from the prednisone and now has been able come off it. Unfortunately, in July 2020 was diagnosed with COVID-19 and since then his respiratory status also been affected adversely. Today in the office he has significant wheezing and rhonchi. Will given 2 DuoNeb treatments. Will try to maximize his respiratory therapy by switching him to nebulized therapy. The patient also needs aggressive chest physical therapy. 10/08/2021 the patient is here for pulmo jose angely follow-up visit. Overall he is doing well. We did review of the microbiology from the bronchoscopy specimens and no evidence of any Aspergillus at this point therefore is reassuring we do not have to treating. The likely mold found is colonizing and likely just from inhaling sports. His other fungal cultures were negative which is reassuring. And also his BAL did not demonstrate any significant inflammatory changes concerning for active inflammation due to ABPM. The patient did start Daliresp. Tolerating it well at 250 mcg. He 1st start with half a dose. Denies any significant GI symptoms. He has been getting a little drowsy. Therefore he started taking the medication at nighttime. He is wondering if the drowsiness could be from the medication. At this point is less likely, but is still needs to be considered. He is going to continue using the 250 mcg dose to get used to it and hopefully he can increase to 500 mcg and 6-8 weeks once he is better. 01/14/2022 the patient is here for a pulmonary follow-up visit. Overall he is doing relatively well. He continues to have coughing episodes specially at nighttime. He did follow up in [place] with his admission specialist. They recommended he have a barium swallow and treat his reflux disease and sleep elevated. I did emphasize that these are very important things. He is going to do the reflux diet sleep elevated. He is going to monitor the symptoms and will hold off on the barium swallow this time. he seems to be tolerating the Daliresp. He does not want to increase the dose because of the risk of the mood disorders. Will continue with the Daliresp to treat the chronic bronchitis and avoid prednisone. He continues on the nebulized therapy. Continues to exercise regularly. While he is running he is able to expectorate a lot of phlegm. Will have the patient undergo blood work at this time to assess his allergy levels. He continues to Dupixent which appears to have been very effective for him. He has tried and failed Xolair in the past. Will still consider the possibility of Trezspire if he continues to be symptomatic. 05/25/2022 the patient is here for a pulmonary follow-up visit. Since we last spoke did have an exacerbation back in January while he was in [place]. He was evaluated at a local hospital where he was diagnosed with a asthma exacerbation and placed on a prednisone taper. His symptoms did improve. He is concerned because he still having significant symptoms in the springtime and now also will have worsening symptoms in the fall. Primarily due to allergies. He is getting allergy shots at this time he is also currently on Dupixent. He has already tried and failed Xolair and now does not appear to be completely responding to the Dupixent. Therefore, the patient would like to go ahead and changes biologic to Tezspire. we have been speaking about this now for about a year. He is ready to make that change since he still having significant symptoms. Since he is already getting allergy shots through [facility] I do believe that the best thing to do was for him to get the TSLP biologic therapy also with [facility]. I did give information about the medication and will also will send a message to his transportation dispatcher. The patient also has been responding well to the Daliresp. Will go ahead and maximize the FX by increasing to the therapeutic dose of 500 mcg. The patient continues with nebulized therapy. He is still requiring his short-acting beta agonist on a daily basis, however. 08/15/2022 the patient is here for a sick visit. Recently started developing worsening respiratory symptoms chest congestion chest tightness and wheezing. His symptoms were severe decided to go to the ER for further evaluation tear. There he had a chest x-ray demonstrating no acute disease although evidence of bronchitis noted. The patient was started on prednisone 40 mg. although that was not enough and therefore we increasing to 60 mg. 60 mg felt too hard for him to tolerate so therefore he did bring it down quickly. He also completed a course of azithromycin for 5 days. However, he still having some difficulties. Still having shortness of breath and chest congestion. Hard time expectorating. Therefore will go ahead and given Solu-Medrol in the office and increase his antibiotic coverage to Levaquin. He is an avid runner and athlete. Therefore he understands he needs to monitor closely for any evidence of tendinitis. He is also going to start probiotics while on the medication. If the patientis no better he needs to get intouch with our office. 09/19/2022 the patient is here for sick v isit. Patient has been feeling awful now for the last several weeks. He went to the ER there he had CT scan of the chest which is reassuring. Does have evidence of bronchitis and calcified pulmonary nodules. He was placed on prednisone in addition to azithromycin and also given a course of levofloxacin. Although his symptoms are only getting worse. He called and we had to increase his prednisone to 60 mg. Continues to have significant wheezing chest tightness. He just does not feel good. The prednisone is making feel worse as well. In the office we did 2 nebulized treatments to DuoNeb. He was able to expectorate some mucus out of the lungs. The mucus since to be darker in color. We did try to get a sputum for culture but it was too much saliva in it. Therefore he will try to bring some mucus soon. The patient does have a history of aspergillosis in addition to chronic airway disease with ABPA. Therefore will start him on voriconazole in addition to that the patient will be started on Bactrim to treat for Staph aureus which is the only organism that he was not treated for. We did given Solu-Medrol in the office in addition to the DuoNebs. We talked about going to the ER but the patient at this point is hemodynamically stable. If he fails the current outpatient regimen that he should go to the ER for failing outpatient therapy. 09/29/2022 she the patient is here for a pulmonary follow-up visit. He finally starting to feel better. He is down to 10 mg of prednisone. He continues on the voriconazole and also continues on the Bactrim. His chest congestion is improving. His mucus is clearing up. He still has some wheezing and rhonchi specially in the right lung so therefore he should continue holding off on allergy shots. He may have to restart his immunotherapy once he is stable to he continues on his biologic therapy. At this point we do not have any sputum cultures available to guide therapy. He did have a CT scan of the chest that we personally reviewed in the office. Appears to have some bronchiectatic changes. Also has some calcified nodular densities in the right middle lobe and also in the left lower lobe consistent with granulomas. He has responded well to the antifungal therapy. He does have a history of ABPA. Will go ahead and treated for total 6-8 weeks son's again tolerated. It also would extend the Bactrim to treat for potential staff for least 3 weeks. Once the patient has also completed with the prednisone he will have blood work including assessing his cortisol level. He is wondering if he should be on low-dose prednisone. That is not unreasonable if she needs it but hopeful that he can come off completely. She the patient also continues with his subcutaneous IgG infusions. He does that every 2 weeks. Will go ahead and check his trough levels to make sure that he is getting adequate therapy. 10/29/2022 the patient is here for a pulm onary follow-up visit. He continues to feel better. He is now off the prednisone. Continues on voriconazole. Continues on his nebulized therapy. He did have blood work done his LFTs were slightly elevated. He denies any significant abdominal discomfort or nausea. Sometimes he does have some transient symptoms but is not sure if it is from the other medications. Will have to monitor closely his LFTs. He will have repeat PFTs in the next few weeks. Will see if he can continue the voriconazole for now. If he develops any worsening GI symptoms he is to stop the medicine and call immediately. His other blood work included a random cortisol level that was low. will go ahead and repeat that also in the coming weeks to see if he has any increased cortisol production. If he continues to be low that he will benefit from an Endocrinology consultation. The patient is also concerned about COVID-19. She has had multiple vaccinations in addition to the most recent booster in May. He does have immune deficiency. Therefore, will check his titers with his next blood work. 11/21/2022 the patient is here for a pulm onary follow-up visit. He continues to feel better. He is now off the prednisone and also will stop the voriconazole. He continues on his respiratory therapy as prescribed. The patient did have blood work which we reviewed. The patient was very stop his with his IgG spike protein titers being so elevated. In addition to this his cortisol level continues to be low however. Clinically he is doing well so therefore will continue to monitor for now. No need for exogenous corticosteroids at this time is as long as he is feels well. He continues on the biologic therapy. 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 I will make sure to have all the information available for him. As far as the blood work his LFTs have normalized which is reassuring. His kidney function she has a little bit off but I do believe that he does have some degree of dehydration. I did request that he started drinking more water fluids to try to improve this. 02/09/2023 The patitnt is here for a sick visit. +sick contact. Worsening cough and wheezing. severe. Was seen in the office and started on Prednisone and started on Bactrim. Has not been any better. Having significant weezing. Sputum is yellowish in color. He did bring a sample but is no longer good. We will try to have him bring another sample. In the meantime he is still having significant wheezing. We will have him start IV solumedrol 125mg x 3 days. 02/17/2023 the patient is here for a hosp ital follow-up visit. He was briefly hospitalized after no improvement after an aggressive outpatient respiratory regimen. The patient went to the hospital was placed on a additional IV steroids and his antibiotics were switched over to Levaquin in the continue Bactrim. Respiratory status improved. One of the blood cultures was positive for aerococcus viridans. This is likely to be an infection. He was starting to feel better although now after being on some motion Solu-Medrol he has a he has washed out. He has had issues with renal insufficiency. Now he is on 20 mg of prednisone. Will try to slowly decrease by 2.5 mg every week untill down to 10 mg by the next time that I see him. He is going to continue with current respiratory therapy. He will have 3 more days of Bactrim. Once he has completed I am hopeful that he can get a sputum culture to make sure that his clear all the infections in his lungs. 04/16/2023 the patient is here for pulmon lukas follow-up visit. Overall he is doing better. She continues to be on 5 mg of prednisone. I do believe that with his sister adrenal insufficiency this is a good idea. The patient uses [facility] in the past but subsequently retired. Will go ahead and refer him to a different ruby on rails consultant. Patient has been on chronic steroids for his underlying respiratory disease. He continues on the biologic therapy. Continues with respiratory therapy. I did evaluate his CT scan that he had last demonstrating some bronchiectatic changes. The patient does have significant allergic bronchopulmonary aspergillosis. 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 He has been using Acapella valve for many years. At this point will go ahead and optimize his bronchopulmonary hygiene. He has been exercising more often able to cycle regularly. 10/12/2023 the patient is here for a pulmo fern follow-up visit. He has been doing very well. He is continued on 7.5 mg of prednisone. He had been on 5 mg of prednisone but then he got sick in August did increase it up to 15 mg. on 7.5 mg he seems to be doing well. He continues on the Tezspire and also continues w ith his nebulized therapy along with his percussion vest has been very effective for him. The patient was evaluated by Endocrinology. They do feel that he has some degree of adrenal insufficiency. In the meantime we have to find the lowest most effective dose prednisone. He did have a bone density test that already demonstrated osteopenia. Therefore did provide him with 1 mg tablets of prednisone is going to start cutting down slowly to hopefully get down to 5 mg daily. Once he if she is the 5 mg dose we can work on decreasing slightly lower down but slowly to avoid any rebound effects. The patient also has been actively exercising and skiing. When dusky he does take 15 mg of prednisone. We did talk about trying to limited to 10 mg of prednisone for those periods of time. He did have an appointment in [place] and has another appointment sometime in December with the pulmonology department there. Therefore will follow-up in April. I did review his last CT scan that he had back in 2022 no evidence of any active disease at that point, Did have some areas of scarring pleural thickening and calcified pulmonary nodules. The patient is already vaccinated with RSV COVID and flu and is up-to-date with his pneumonia vaccine as well. [facility] Medical History Bronchiectasis Hypogammaglobulinemia Adrenal insufficiency Transaminitis Asthma-COPD overlap syndrome ABPA (allergic bronchopulmonary aspergillosis) Hypertension Surgical History History of bronchoscopy (~2020) History of repair of anterior cruciate ligament of left knee (~2012) Social History Household Members: Spouse Housing: House Do you presently have visiting nurse or other home services: Yes Alcohol intake: never Patient Tobacco Use Status: Never used Tobacco e-Cigarette/Vaping Use: Never Used Second Hand Smoke Exposure: No service: No Current occupational status: retired Current occupational exposures/hazards: No Cognitive needs: No Hearing needs: No Vision needs: No Review of Systems Const Denies chills, Denies excessive sweating, Reports fatigue, Denies fever(s), Denies headache(s) and Denies night sweats Eyes Denies dry eyes, Denies irritation and Denies itchy eyes ENT Reports Normal hearing present, Denies headache(s), Denies nasal congestion, Denies nasal discharge, Denies post nasal drip and Denies sore throat Card Denies chest pain, Denies chest pain at rest, Denies chest pain with activity and Denies leg edema Resp Denies change in phlegm color, Reports chest congestion, Reports cough, Denies excessive phlegm production, Denies pain on inspiration, Denies pain with cough, Denies stridor and Reports wheezing Musc Denies myalgias Neuro Reports Normal hearing present and Denies headache(s) Endo Denies excessive sweating and Reports fatigue Pedrito/Lymph Denies lymphadenopathy Aller/Immun Denies itchy eyes, Denies seasonal rhinorrhea and Reports wheezing Physical Exam Vital Signs: Last Vital Signs Pulse 74 10/12/23 11:19 BP 132/78 10/12/23 11:19 Pulse Ox 99 10/12/23 11:19 Oxygen Delivery Method Room Air 10/12/23 11:19 BMI result Body Mass Index 22.9 Const General: alert HEENT General nose exam: Abnormal external nose present and Nasal discharge present Eyes Pupils: Equal, round and reactive pupils present Neck Neck: Yes normal visual inspection, Yes full ROM and Yes no lymphadenopathy Chest Chest palpation & inspection: normal inspection of the chest Resp Effort & Inspection: normal respiratory effort Auscultation: no rhonchi, no wheezes and diminished lung sounds Cardio Rate: regular rate Rhythm: regular rhythm Heart sounds: S1 normal heart sound present and S2 normal heart sound present GI Palpation (GI): Soft to palpation and nontender Auscultation: normal bowel sounds General: Yes no CVA tenderness Back/Spine/Pelvis Back: no CVA tenderness Skin General skin exam: rashes and/or lesions noted Neuro Cranial nerves: Yes Equal, round and reactive pupils present and Yes Normal hearing present Psych Affect: Sad affect present and Anxious affect present Results Reviewed Results Reviewed: personally reviewed CT chest 09/2022 +granulommas Assessment & Plan Assessment & Plan (1) ABPA (allergic bronchopulmonary aspergillosis): Code(s): B44.81 - Allergic bronchopulmonary aspergillosis (2) Asthma-COPD overlap syndrome: Code(s): J44.9 - Chronic obstructive pulmonary disease, unspecified (3) Adrenal insufficiency: Code(s): E27.40 - Unspecified adrenocortical insufficiency (4) Hypogammaglobulinemia: Code(s): D80.1 - Nonfamilial hypogammaglobulinemia (5) Bronchiectasis: Code(s): J47.9 - Bronchiectasis, uncomplicated Qualifiers: Bronchiectasis type: uncomplicated Qualified Code(s): J47.9 - Bronchiectasis, uncomplicated Plan Prednisone 7.5mg daily, will taper slowly to 5mg daily Daliresp 500mcg continue Tezspire Q4 weeks IVIG with [facility] Continue budesonide 0.5 mg twice a day via nebulizer Continue Brovana via nebulizer twice a day Continue Incruse daily Short-acting beta agonist as needed requesting percussion vest for CPT for for his ABPA and bronchiectasis. Hypertonic saline 3% nebs BID Reflux diet/HOB elevated F/U in 6 months Medications: New prednisone 5 mg (5 x 1 mg) PO DAILY 30 days 150 tabs 4RF Coding Level of Care Code Est Pt Level 5 (83211) Diagnoses ABPA (allergic bronchopulmonary aspergillosis) B44.81 Asthma-COPD overlap syndrome J44.9 Adrenal insufficiency E27.40 Hypogammaglobulinemia D80.1 Bronchiectasis without complication J47.9 Bronchiectasis type: uncomplicated Time Spent (min) 45
== END 2023-10-12 11:51 | disposition home or self-care (01) ==
PROVIDERS: PCP Family Medicine; Visit Provider Hospitalist
DX: B44.81 Allergic bronchopulmonary aspergillosis (principal); J44.9 Chronic obstructive pulmonary disease, unspecified; E27.40 Unspecified adrenocortical insufficiency; D80.1 Nonfamilial hypogammaglobulinemia
CPT/HCPCS: 99215

== ENCOUNTER 2024-01-13 08:51 | Outpatient (REF) | payer MEDICARE, OTHER, SELFPAY ==
[2024-01-13 11:53] LABS: Blood Urea Nitrogen 23 mg/dL (9-16); Estimated Glomerular Filt Rate > 60
[2024-01-14 14:13] LABS: Immunoglobulin G 917 mg/dL (600-1540)
== END 2024-01-13 08:52 | disposition home or self-care (01) ==
LOC: HO.WFDLDS 08:51
PROVIDERS: Visit Provider Allergy & Immunology
DX: D80.1 Nonfamilial hypogammaglobulinemia (principal)
CPT/HCPCS: 36415; 82565; 82784; 84520

== ENCOUNTER 2024-03-29 08:40 | Outpatient (REF) | payer MEDICARE, OTHER, SELFPAY ==
[2024-03-29 11:51] LABS: Blood Urea Nitrogen 24 mg/dL (9-16); Estimated Glomerular Filt Rate > 60
[2024-03-29 12:14] LABS: Cortisol Random 6.4 ug/dL
[2024-03-30 15:42] LABS: Immunoglobulin A 150 mg/dL (70-320); Immunoglobulin G 1141 mg/dL (600-1540); Immunoglobulin M 79 mg/dL (50-300)
== END 2024-03-29 08:41 | disposition home or self-care (01) ==
LOC: HO.WFDLDS 08:40
PROVIDERS: Visit Provider Allergy & Immunology
DX: D80.1 Nonfamilial hypogammaglobulinemia (principal)
CPT/HCPCS: 36415; 82533; 82565; 82784; 84520

== ENCOUNTER 2024-04-13 11:21 | Outpatient (AMB) | payer MEDICARE, OTHER, SELFPAY ==
[2024-04-13 11:32] VITALS: PULSE 59; O2SAT 99; BMI 22.4
--- NOTE | 2024-04-13 11:32 | A.OFFVIS_ITS ---
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 Apparently every 6 back in 2004 requiring significant doses of prednisone. Was diagnosed to time. Was in 2014 when he became very sick in the went to [facility] in was admitted to [facility]. At the time was diagnosed with allergic bronchopulmonary aspergillosis and spent prolonged period on prednisone. He was also placed on itraconazole. The patient has now been followed closely at [facility]. He is currently on Dupixent which has appears to be effective for him. He also continues on maintenance therapy. Continues to have shortness of breath. 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 Lately he has been noticing increased chest tightness and coughing. He is trying to avoid prednisone. When he was on prednisone for many years he did develop a lot of the complications from the prednisone and now has been able come off it. Unfortunately, in July 2020 was diagnosed with COVID-19 and since then his respiratory status also been affected adversely. Today in the office he has significant wheezing and rhonchi. Will given 2 DuoNeb treatments. Will try to maximize his respiratory therapy by switching him to nebulized therapy. The patient also needs aggressive chest physical therapy. 10/08/2021 the patient is here for pulmonary follow-up visit. Overall he is doing well. We did review of the microbiology from the bronchoscopy specimens and no evidence of any Aspergillus at this point therefore is reassuring we do not have to treating. The likely mold found is colonizing and likely just from inhaling sports. His other fungal cultures were negative which is reassuring. And also his BAL did not demonstrate any significant inflammatory changes concerning for active inflammation due to ABPM. The patient did start Daliresp. Tolerating it well at 250 mcg. He 1st start with half a dose. Denies any significant GI symptoms. He has been getting a little drowsy. Therefore he started taking the medication at nighttime. He is wondering if the drowsiness could be from the medication. At this point is less likely, but is still needs to be considered. He is going to continue using the 250 mcg dose to get used to it and hopefully he can increase to 500 mcg and 6-8 weeks once he is better. 01/14/2022 the patient is here for a pulmonary follow-up visit. Overall he is doing relatively well. He continues to have coughing episodes specially at nighttime. He did follow up in [place] with his product development specialist. They recommended he have a barium swallow and treat his reflux disease and sleep elevated. I did emphasize that these are very important things. He is going to do the reflux diet sleep elevated. He is going to monitor the symptoms and will hold off on the barium swallow this time. he seems to be tolerating the Daliresp. He does not want to increase the dose because of the risk of the mood disorders. Will continue with the Daliresp to treat the chronic bronchitis and avoid prednisone. He continues on the nebulized therapy. Continues to exercise regularly. While he is running he is able to expectorate a lot of phlegm. Will have the patient undergo blood work at this time to assess his allergy levels. He continues to Dupixent which appears to have been very effective for him. He has tried and failed Xolair in the past. Will still consider the possibility of Trezspire if he continues to be symptomatic. 05/25/2022 the patient is here for a pulmonary follow-up visit. Since we last spoke did have an exacerbation back in January while he was in [place]. He was evaluated at a local hospital where he was diagnosed with a asthma exacerbation and placed on a prednisone taper. His symptoms did improve. He is concerned because he still having significant symptoms in the springtime and now also will have worsening symptoms in the fall. Primarily due to allergies. He is getting allergy shots at this time he is also currently on Dupixent. He has already tried and failed Xolair and now does not appear to be completely responding to the Dupixent. Therefore, the patient would like to go ahead and changes biologic to Tezspire. we have been speaking about this now for about a year. He is ready to make that change since he still having significant symptoms. Since he is already getting allergy shots through [facility] I do believe that the best thing to do was for him to get the TSLP biologic therapy also with [facility]. I did give information about the medication and will also will send a message to his bookbinding machine operator. The patient also has been responding well to the Daliresp. Will go ahead and maximize the FX by increasing to the therapeutic dose of 500 mcg. The patient continues with nebulized therapy. He is still requiring his short-acting beta agonist on a daily basis, however. 08/15/2022 the patient is here for a sick visit. Recently started developing worsening respiratory symptoms chest congestion chest tightness and wheezing. His symptoms were severe decided to go to the ER for further evaluation tear. There he had a chest x-ray demonstrating no acute disease although evidence of bronchitis noted. The patient was started on prednisone 40 mg. although that was not enough and therefore we increasing to 60 mg. 60 mg felt too hard for him to tolerate so therefore he did bring it down quickly. He also completed a course of azithromycin for 5 days. However, he still having some difficulties. Still having shortness of breath and chest congestion. Hard time expectorating. Therefore will go ahead and given Solu-Medrol in the office and increase his antibiotic coverage to Levaquin. He is an avid runner and athlete. Therefore he understands he needs to monitor closely for any evidence of tendinitis. He is also going to start probiotics while on the medication. If the patientis no better he needs to get intouch with our office. 09/19/2022 the patient is here for sick visit. Patient has been feeling awful now for the last several weeks. He went to the ER there he had CT scan of the chest which is reassuring. Does have evidence of bronchitis and calcified pulmonary nodules. He was placed on prednisone in addition to azithromycin and also given a course of levofloxacin. Although his symptoms are only getting worse. He called and we had to increase his prednisone to 60 mg. Continues to have significant wheezing chest tightness. He just does not feel good. The prednisone is making feel worse as well. In the office we did 2 nebulized treatments to DuoNeb. He was able to expectorate some mucus out of the lungs. The mucus since to be darker in color. We did try to get a sputum for culture but it was too much saliva in it. Therefore he will try to bring some mucus soon. The patient does have a history of aspergillosis in addition to chronic airway disease with ABPA. Therefore will start him on voriconazole in addition to that the patient will be started on Bactrim to treat for Staph aureus which is the only organism that he was not treated for. We did given Solu-Medrol in the office in addition to the DuoNebs. We talked about going to the ER but the patient at this point is hemodynamically stable. If he fails the current outpatient regimen that he should go to the ER for failing outpatient therapy. 09/29/2022 she the patient is here for a pulmonary follow-up visit. He finally s tarting to feel better. He is down to 10 mg of prednisone. He continues on the voriconazole and also continues on the Bactrim. His chest congestion is improving. His mucus is clearing up. He still has some wheezing and rhonchi specially in the right lung so therefore he should continue holding off on allergy shots. He may have to restart his immunotherapy once he is stable to he continues on his biologic therapy. At this point we do not have any sputum cultures available to guide therapy. He did have a CT scan of the chest that we personally reviewed in the office. Appears to have some bronchiectatic changes. Also has some calcified nodular densities in the right middle lobe and also in the left lower lobe consistent with granulomas. He has responded well to the antifungal therapy. He does have a history of ABPA. Will go ahead and treated for total 6-8 weeks son's again tolerated. It also would extend the Bactrim to treat for potential staff for least 3 weeks. Once the patient has also completed with the prednisone he will have blood work including assessing his cortisol level. He is wondering if he should be on low-dose prednisone. That is not unreasonable if she needs it but hopeful that he can come off completely. She the patient also continues with his subcutaneous IgG infusions. He does that every 2 weeks. Will go ahead and check his trough levels to make sure that he is getting adequate therapy. 10/29/2022 the patient is here for a pulmonary follow-up visit. He continues to feel better. He is now off the prednisone. Continues on voriconazole. Continues on his nebulized therapy. He did have blood work done his LFTs were slightly elevated. He denies any significant abdominal discomfort or nausea. Sometimes he does have some transient symptoms but is not sure if it is from the other medications. Will have to monitor closely his LFTs. He will have repeat PFTs in the next few weeks. Will see if he can continue the voriconazole for now. If he develops any worsening GI symptoms he is to stop the medicine and call immediately. His other blood work included a random cortisol level that was low. will go ahead and repeat that also in the coming weeks to see if he has any increased cortisol production. If he continues to be low that he will benefit from an Endocrinology consultation. The patient is also concerned about COVID-19. She has had multiple vaccinations in addition to the most recent booster in May. He does have immune deficiency. Therefore, will check his titers with his next blood work. 11/21/2022 the patient is here for a pulmonary follow-up visit. He continues to feel better. He is now off the prednisone and also will stop the voriconazole. He continues on his respiratory therapy as prescribed. The patient did have blood work which we reviewed. The patient was very stop his with his IgG spike protein titers being so elevated. In addition to this his cortisol level continues to be low however. Clinically he is doing well so therefore will continue to monitor for now. No need for exogenous corticosteroids at this time is as long as he is feels well. He continues on the biologic therapy. He does have follow-up with his residential finish carpenter from [facility] in the coming weeks. I will make sure to have all the information available for him. As far as the blood work his LFTs have normalized which is reassuring. His kidney function she has a little bit off but I do believe that he does have some degree of dehydration. I did request that he started drinking more water fluids to try to improve this. 02/09/2023 The patitnt is here for a sick visit. +sick contact. Worsening cough and wheezing. severe. Was seen in the office and started on Prednisone and started on Bactrim. Has not been any better. Having significant weezing. Sputum is yellowish in color. He did bring a sample but is no longer good. We will try to have him bring another sample. In the meantime he is still having significant wheezing. We will have him start IV solumedrol 125mg x 3 days. 02/17/2023 the patient is here for a hospital follow-up visit. He was briefly hospitalized after no improvement after an aggressive outpatient respiratory regimen. The patient went to the hospital was placed on a additional IV steroids and his antibiotics were switched over to Levaquin in the continue Leola trim. Respiratory status improved. One of the blood cultures was positive for aerococcus viridans. This is likely to be an infection. He was starting to feel better although now after being on some motion Solu-Medrol he has a he has washed out. He has had issues with renal insufficiency. Now he is on 20 mg of prednisone. Will try to slowly decrease by 2.5 mg every week untill down to 10 mg by the next time that I see him. He is going to continue with current respiratory therapy. He will have 3 more days of Bactrim. Once he has completed I am hopeful that he can get a sputum culture to make sure that his clear all the infections in his lungs. 04/16/2023 the patient is here for pulmonary follow-up visit. Overall he is doing better. She continues to be on 5 mg of prednisone. I do believe that with his sister adrenal insufficiency this is a good idea. The patient uses [facility] in the past but subsequently retired. Will go ahead and refer him to a different image archivist. Patient has been on chronic steroids for his underlying respiratory disease. He continues on the biologic therapy. Continues with respiratory therapy. I did evaluate his CT scan that he had last demonstrating some bronchiectatic changes. The patient does have significant allergic bronchopulmonary aspergillosis. Therefore will request a percussion vest to better tax assistant with mucus clearance. He has been using Acapella valve for many years. At this point will go ahead and optimize his bronchopulmonary hygiene. He has been exercising more often able to cycle regularly. 10/12/2023 the patient is here for a pulmonary follow-up visit. He has been doing very well. He is continued on 7.5 mg of prednisone. He had been on 5 mg of prednisone but then he got sick in August did increase it up to 15 mg. on 7.5 mg he seems to be doing well. He continues on the Tezspire and also continues with his nebulized therapy along with his percussion vest has been very effective for him. The patient was evaluated by Endocrinology. They do feel that he has some degree of adrenal insufficiency. In the meantime we have to find the lowest most effective dose prednisone. He did have a bone density test that already demonstrated osteopenia. Therefore did provide him with 1 mg tablets of prednisone is going to start cutting down slowly to hopefully get down to 5 mg daily. Once he if she is the 5 mg dose we can work on decreasing slightly lower down but slowly to avoid any rebound effects. The patient also has been actively exercising and skiing. When dusky he does take 15 mg of prednisone. We did talk about trying to limited to 10 mg of prednisone for those periods of time. He did have an appointment in [place] and has another appointment sometime in December with the pulmonology department there. Therefore will follow-up in April. I did review his last CT scan that he had back in 2022 no evidence of any active disease at that point, Did have some areas of scarring pleural thickening and calcified pulmonary nodules. The patient is already vaccinated with RSV COVID and flu and is up-to-date with his pneumonia vaccine as well. 04/13/2024 the patient is here for a pulmonary follow-up visit. The patient overall has been doing well the summer. Typically the goldberg a good time for him. He usually healthier. He has followed up closely with allergy. He continues on the Tezspire injections with good effect. He has been able to cut down the prednisone down to 4 mg a day. Sometimes if he is going to doing extremely his exercise event or program he may take additional. This will be okay as he is stressing his body. He did have a bone density test showing osteopenia though he is be careful with steroid use. When he does not want have to happen as he does not want to go on high doses of steroids if we can keep him on a small dose. Will try to find the lowest most effective dose, however. Right now his respiratory exam is reassuring with no wheezing. I do believe he can slowly cut down by 0.5 mg of the prednisone to the ideal dose of 2.5 mg daily. The last time he had his cortisol levels that were still low normal so therefore there is some room. The patient will have to go slow to minimize and acclimate to the lower dose. He continues with the other respiratory therapy with good effect. He is biking a lot which is reassuring and is clearing up a lot of mucus when he is biking. Will plan to follow-up in the fall when he typically has a hard time. Will have to adjust the prednisone then. [facility] Medical History Bronchiectasis Hypogammaglobulinemia Adrenal insufficiency Transaminitis Asthma-COPD overlap syndrome ABPA (allergic bronchopulmonary aspergillosis) Hypertension Surgical History History of bronchoscopy (~2020) History of repair of anterior cruciate ligament of left knee (~2012) Social History Household Members: Spouse Housing: House Do you presently have visiting nurse or other home services: Yes Alcohol intake: never Patient Tobacco Use Status: Never used Tobacco e-Cigarette/Vaping Use: Never Used Second Hand Smoke Exposure: No service: No Current occupational status: retired Current occupational exposures/hazards: No Cognitive needs: No Hearing needs: No Vision needs: No Review of Systems Const Denies chills, Denies excessive sweating, Denies fever(s), Denies headache(s) and Denies night sweats Eyes Denies dry eyes, Denies irritation and Denies itchy eyes ENT Reports Normal hearing present, Denies headache(s), Denies nasal congestion, Denies nasal discharge, Denies post nasal drip and Denies sore throat Card Denies chest pain, Denies chest pain at rest, Denies chest pain with activity and Denies leg edema Resp Denies change in phlegm color, Reports chest congestion, Reports cough, Denies excessive phlegm production, Denies pain on inspiration, Denies pain with cough, Denies stridor and Reports wheezing Musc Denies myalgias Neuro Reports Normal hearing present and Denies headache(s) Endo Denies excessive sweating Pedrito/Lymph Denies lymphadenopathy Aller/Immun Denies itchy eyes, Denies seasonal rhinorrhea and Reports wheezing Physical Exam Vital Signs: Last Vital Signs Pulse 59 04/13/24 11:32 Pulse Ox 99 04/13/24 11:32 Oxygen Delivery Method Room Air 04/13/24 11:32 BMI result Body Mass Index 22.4 Const General: alert HEENT General nose exam: Abnormal external nose present and Nasal discharge present Eyes Pupils: Equal, round and reactive pupils present Neck Neck: Yes normal visual inspection, Yes full ROM and Yes no lymphadenopathy Chest Chest palpation & inspection: normal inspection of the chest Resp Effort & Inspection: normal respiratory effort Auscultation: no rhonchi, no wheezes and diminished lung sounds Cardio Rate: regular rate Rhythm: regular rhythm Heart sounds: S1 normal heart sound present and S2 normal heart sound present GI Palpation (GI): Soft to palpation and nontender Auscultation: normal bowel sounds General: Yes no CVA tenderness Back/Spine/Pelvis Back: no CVA tenderness Skin General skin exam: rashes and/or lesions noted Neuro Cranial nerves: Yes Equal, round and reactive pupils present and Yes Normal hearing present Psych Affect: Sad affect present and Anxious affect present Results Reviewed Results Reviewed: [address] [address] [address] Scan Report Signed Patient: Leo Honeycutt MR#: [id number] : 1955 Acct:[id number] Age/Sex: 66 / M ADM Date: 09/15/22 Loc: .ED Attending Dr: Ordering Physician: Ethel Jimenez NP Date of Service: 09/16/22 Procedure(s): CT chest w IV con Accession Number(s): [id number] cc: Ethel Jimenez NP~ EXAMINATION: CT CHEST WITH CONTRAST CLINICAL INFORMATION: History of aspergillosis. Upper respiratory infection. COMPARISON: Radiograph 09/11/2022 TECHNIQUE: Multidetector volumetric CT imaging of the chest was obtained after the administration of 65 mL of Omnipaque 350 intravenous contrast without immediate adverse reactions. Axial MIP volume rendering provided. Sagittal and coronal reformatted images were obtained. This CT examination was performed using dose optimization techniques as appropriate, variously including the following: *Automated exposure control *Adjustment of mA and/or kV according to patient size (this includes techniques or standardized protocols for targeted exams where dose is matched to indication/reason for exam; i.e. extremities or head) *Use of iterative reconstruction technique DLP: 274 mGy-cm FINDINGS: NUCLEAR REACTOR OPERATOR: Unremarkable. LUNGS: The central airways are patent. A few bronchial filling defects are seen. No dense consolidation. Minimal pleural thickening at the lung apices. Area of scarring seen along the minor fissure anteriorly at the right middle lobe. Cluster of calcified nodules at the left base near the diaphragm. Additional scattered calcified granulomata throughout the lungs. MEDIASTINUM: Normal heart size. No pericardial effusion. No mediastinal lymphadenopathy. PLEURA: There is no pleural effusion. No pneumothorax. AXILLA: No lymphadenopathy. UPPER ABDOMEN: Simple cyst seen in the left lobe of the liver. No acute findings. OSSEOUS STRUCTURES: No acute or suspicious osseous abnormality. Mild degenerative changes of the spine. CT/CT chest w IV con IMPRESSION: No acute pulmonary finding. No consolidation. Evidence of prior granulomatous disease. Fleischner guidelines were followed. Dictated By: Maged Sahu MD Signed By: <Electronically signed by Maged Sahu MD in OV> 09/16/22130 DD/ 4 TD/TT: Hardwood Floor Installation Helper: MARGARITA Assessment & Plan Assessment & Plan (1) ABPA (allergic bronchopulmonary aspergillosis): Code(s): B44.81 - Allergic bronchopulmonary aspergillosis Category: Medical (2) Asthma-COPD overlap syndrome: Code(s): J44.9 - Chronic obstructive pulmonary disease, unspecified Category: Medical (3) Adrenal insufficiency: Code(s): E27.40 - Unspecified adrenocortical insufficiency Category: Medical (4) Hypogammaglobulinemia: Code(s): D80.1 - Nonfamilial hypogammaglobulinemia Category: Medical (5) Bronchiectasis: Code(s): J47.9 - Bronchiectasis, uncomplicated Category: Medical Qualifiers: Bronchiectasis type: uncomplicated Qualified Code(s): J47.9 - Bronchiectasis, uncomplicated Plan Prednisone 4mg daily, slowly taper by .5mg to 2.5mg Daliresp 500mcg continue Tezspire Q4 weeks IVIG with Allergy Continue budesonide 0.5 mg twice a day via nebulizer Continue Brovana via nebulizer twice a day Continue Incruse daily Short-acting beta agonist as needed requesting percussion vest for CPT for for his ABPA and bronchiectasis. Hypertonic saline 3% nebs BID Reflux diet/HOB elevated F/U in 2-3 months Coding Level of Care Code Est Pt Level 5 (11916) Complex EM visit Add On G2211 Diagnoses ABPA (allergic bronchopulmonary aspergillosis) B44.81 Asthma-COPD overlap syndrome J44.9 Adrenal insufficiency E27.40 Hypogammaglobulinemia D80.1 Bronchiectasis without complication J47.9 Bronchiectasis type: uncomplicated Time Spent (min) 45
== END 2024-04-13 12:00 | disposition home or self-care (01) ==
PROVIDERS: PCP Family Medicine; Visit Provider Hospitalist
DX: B44.81 Allergic bronchopulmonary aspergillosis (principal); J44.9 Chronic obstructive pulmonary disease, unspecified; E27.40 Unspecified adrenocortical insufficiency; D80.1 Nonfamilial hypogammaglobulinemia; J47.9 Bronchiectasis, uncomplicated
CPT/HCPCS: 99215; G2211

== ENCOUNTER → 2024-04-13 11:21 | Outpatient (BNVA) | payer MEDICARE, OTHER, SELFPAY | PROVIDERS: PCP Family Medicine; Visit Provider Hospitalist | DX: J44.9 Chronic obstructive pulmonary disease, unspecified (principal); J47.9 Bronchiectasis, uncomplicated; B44.81 Allergic bronchopulmonary aspergillosis; E27.40 Unspecified adrenocortical insufficiency; D80.1 Nonfamilial hypogammaglobulinemia | CPT/HCPCS: 99212 ==

== ENCOUNTER 2024-05-10 13:43 | Outpatient (REF) | payer MEDICARE, OTHER, SELFPAY | END 2024-05-10 13:44 | disposition home or self-care (01) | LOC: HO.LAB 13:43 | PROVIDERS: PCP Family Medicine; Visit Provider Hospitalist | DX: J47.9 Bronchiectasis, uncomplicated (principal) | CPT/HCPCS: 87070; 87205 ==

== ENCOUNTER 2024-06-07 09:08 | Outpatient (AMB) | payer MEDICARE, OTHER, SELFPAY ==
[2024-06-07 09:13] VITALS: BP 118/60; PULSE 67; O2SAT 98; BMI 21.3
--- NOTE | 2024-06-07 09:13 | A.OFFVIS_ITS ---
Vital Signs 06/07/24 09:13 Height 5 ft 9 in Weight 144 lb 6.444 oz BMI 21.3 BP 118/60 Blood Pressure Location Lt brachial Position Sitting Pulse 67 Pulse Source Pulse Oximeter Pulse Oximetry (%) 98 Oxygen Delivery Method Room Air Intake Visit Reasons: Asthma Landcare Facilitator Required: No Allergies Doxycycline Hyclate Allergy (Intermediate, Uncoded 06/07/24 09:15) redness and itching HPI Comments Details: The patient is a 68-year-old gentleman with history severe asthma and allergic bronchopulmonary aspergillosis. Apparently every 6 back in 2004 requiring significant doses of prednisone. Was diagnosed to time. Was in 2014 when he became very sick in the went to [facility] [place] was admitted to [facility]. At the time was diagnosed with allergic bronchopulmonary aspergillosis and spent prolonged period on prednisone. He was also placed on itraconazole. The patient has now been followed closely at [facility]. He is currently on Dupixent which has appears to be effective for him. He also continues on maintenance therapy. Continues to have shortness of breath. 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 Lately he has been noticing increased chest tightness and coughing. He is trying to avoid prednisone. When he was on prednisone for many years he did develop a lot of the complications from the prednisone and now has been able come off it. Unfortunately, in July 2020 was diagnosed with COVID-19 and since then his respiratory status also been affected adversely. Today in the office he has significant wheezing and rhonchi. Will given 2 DuoNeb treatments. Will try to maximize his respiratory therapy by switching him to nebulized therapy. The patient also needs aggressive chest physical therapy. 10/08/2021 the patient is here for pulmonary follow-up visit. Overall he is doing well. We did review of the microbiology from the bronchoscopy specimens and no evidence of any Aspergillus at this point therefore is reassuring we do not have to treating. The likely mold found is colonizing and likely just from inhaling sports. His other fungal cultures were negative which is reassuring. And also his BAL did not demonstrate any significant inflammatory changes concerning for active inflammation due to ABPM. The patient did start Daliresp. Tolerating it well at 250 mcg. He 1st start with half a dose. Denies any significant GI symptoms. He has been getting a little drowsy. Therefore he started taking the medication at nighttime. He is wondering if the drowsiness could be from the medication. At this point is less likely, but is still needs to be considered. He is going to continue using the 250 mcg dose to get used to it and hopefully he can increase to 500 mcg and 6-8 weeks once he is better. 01/14/2022 the patient is here for a pulmonary follow-up visit. Overall he is doing relatively well. He continues to have coughing episodes specially at nighttime. He did follow up in [place] with his media relations specialist. They recommended he have a barium swallow and treat his reflux disease and sleep elevated. I did emphasize that these are very important things. He is going to do the reflux diet sleep elevated. He is going to monitor the symptoms and will hold off on the barium swallow this time. he seems to be tolerating the Daliresp. He does not want to increase the dose because of the risk of the mood disorders. Will continue with the Daliresp to treat the chronic bronchitis and avoid prednisone. He continues on the nebulized therapy. Continues to exercise regularly. While he is running he is able to expectorate a lot of phlegm. Will have the patient undergo blood work at this time to assess his allergy levels. He continues to Dupixent which appears to have been very effective for him. He has tried and failed Xolair in the past. Will still consider the possibility of Trezspire if he continues to be symptomatic. 05/25/2022 the patient is here for a pulmonary follow-up visit. Since we last spoke did have an exacerbation back in January while he was in [place]. He was evaluated at a local hospital where he was diagnosed with a asthma exacerbation and placed on a prednisone taper. His symptoms did improve. He is concerned because he still having significant symptoms in the springtime and now also will have worsening symptoms in the fall. Primarily due to allergies. He is getting allergy shots at this time he is also currently on Dupixent. He has already tried and failed Xolair and now does not appear to be completely responding to the Dupixent. Therefore, the patient would like to go ahead and changes biologic to Tezspire. we have been speaking about this now for about a year. He is ready to make that change since he still having significant symptoms. Since he is already getting allergy shots through [facility] I do believe that the best thing to do was for him to get the TSLP biologic therapy also with [facility]. I did give information about the medication and will also will send a message to his makeup artist. The patient also has been responding well to the Daliresp. Will go ahead and maximize the FX by increasing to the therapeutic dose of 500 mcg. The patient continues with nebulized therapy. He is still requiring his short-acting beta agonist on a daily basis, however. 08/15/2022 the patient is here for a sick visit. Recently started developing worsening respiratory symptoms chest congestion chest tightness and wheezing. His symptoms were severe decided to go to the ER for further evaluation tear. There he had a chest x-ray demonstrating no acute disease although evidence of bronchitis noted. The patient was started on prednisone 40 mg. although that was not enough and therefore we increasing to 60 mg. 60 mg felt too hard for him to tolerate so therefore he did bring it down quickly. He also completed a course of azithromycin for 5 days. However, he still having some difficulties. Still having shortness of breath and chest congestion. Hard time expectorating. Therefore will go ahead and given Solu-Medrol in the office and increase his antibiotic coverage to Levaquin. He is an avid runner and athlete. Therefore he understands he needs to monitor closely for any evidence of tendinitis. He is also going to start probiotics while on the medication. If the patientis no better he needs to get intouch with our office. 09/19/2022 the patient is here for sick visit. Patient has been feeling awful now for the last several weeks. He went to the ER there he had CT scan of the chest which is reassuring. Does have evidence of bronchitis and calcified pulmonary nodules. He was placed on prednisone in addition to azithromycin and also given a course of levofloxacin. Although his symptoms are only getting worse. He called and we had to increase his prednisone to 60 mg. Continues to have significant wheezing chest tightness. He just does not feel good. The prednisone is making feel worse as well. In the office we did 2 nebulized treatments to DuoNeb. He was able to expectorate some mucus out of the lungs. The mucus since to be darker in color. We did try to get a sputum for culture but it was too much saliva in it. Therefore he will try to bring some mucus soon. The patient does have a history of aspergillosis in addition to chronic airway disease with ABPA. Therefore will start him on voriconazole in addition to that the patient will be started on Bactrim to treat for Staph aureus which is the only organism that he was not treated for. We did given Solu-Medrol in the office in addition to the DuoNebs. We talked about going to the ER but the patient at this point is hemodynamically stable. If he fails the current outp atient regimen that he should go to the ER for failing outpatient therapy. 09/29/2022 she the patient is here for a pulmonary follow-up visit. He finally starting to feel better. He is down to 10 mg of prednisone. He continues on the voriconazole and also continues on the Bactrim. His chest congestion is improving. His mucus is clearing up. He still has some wheezing and rhonchi specially in the right lung so therefore he should continue holding off on allergy shots. He may have to restart his immunotherapy once he is stable to he continues on his biologic therapy. At this point we do not have any sputum cultures available to guide therapy. He did have a CT scan of the chest that we personally reviewed in the office. Appears to have some bronchiectatic changes. Also has some calcified nodular densities in the right middle lobe and also in the left lower lobe consistent with granulomas. He has responded well to the antifungal therapy. He does have a history of ABPA. Will go ahead and treated for total 6-8 weeks son's again tolerated. It also would extend the Bactrim to treat for potential staff for least 3 weeks. Once the patient has also completed with the prednisone he will have blood work including assessing his cortisol level. He is wondering if he should be on low-dose prednisone. That is not unreasonable if she needs it but hopeful that he can come off completely. She the patient also continues with his subcutaneous IgG infusions. He does that every 2 weeks. Will go ahead and check his trough levels to make sure that he is getting adequate therapy. 10/29/2022 the patient is here for a pulmonary follow-up visit. He continues to feel better. He is now off the prednisone. Continues on voriconazole. Continues on his nebulized therapy. He did have blood work done his LFTs were slightly elevated. He denies any significant abdominal discomfort or nausea. Sometimes he does have some transient symptoms but is not sure if it is from the other medications. Will have to monitor closely his LFTs. He will have repeat PFTs in the next few weeks. Will see if he can continue the voriconazole for now. If he develops any worsening GI symptoms he is to stop the medicine and call immediately. His other blood work included a random cortisol level that was low. will go ahead and repeat that also in the coming weeks to see if he has any increased cortisol production. If he continues to be low that he will benefit from an Endocrinology consultation. The patient is also concerned about COVID-19. She has had multiple vaccinations in addition to the most recent booster in May. He does have immune deficiency. Therefore, will check his titers with his next blood work. 11/21/2022 the patient is here for a pulmonary follow-up visit. He continues to feel better. He is now off the prednisone and also will stop the voriconazole. He continues on his respiratory therapy as prescribed. The patient did have blood work which we reviewed. The patient was very stop his with his IgG spike protein titers being so elevated. In addition to this his cortisol level continues to be low however. Clinically he is doing well so therefore will continue to monitor for now. No need for exogenous corticosteroids at this time is as long as he is feels well. He continues on the biologic therapy. He does have follow-up with his tavern keeper from [facility] in the coming weeks. I will make sure to have all the information available for him. As far as the blood work his LFTs have normalized which is reassuring. His kidney function she has a little bit off but I do believe that he does have some degree of dehydration. I did request that he started drinking more water fluids to try to improve this. 02/09/2023 The patitnt is here for a sick visit. +sick contact. Worsening cough and wheezing. severe. Was seen in the office and started on Prednisone and started on Bactrim. Has not been any better. Having significant weezing. Sputum is yellowish in color. He did bring a sample but is no longer good. We will try to have him bring another sample. In the meantime he is still having significant wheezing. We will have him start IV solumedrol 125mg x 3 days. 02/17/2023 the patient is here for a hospital follow-up visit. He was briefly hospitalized after no improvement after an aggressive outpatient respiratory regimen. The patient went to the hospital was placed on a additional IV steroids and his antibiotics were switched over to Levaquin in the continue Bactrim. Respiratory status improved. One of the blood cultures was positive for aerococcus viridans. This is likely to be an infection. He was starting to feel better although now after being on some motion Solu-Medrol he has a he has washed out. He has had issues with renal insufficiency. Now he is on 20 mg of prednisone. Will try to slowly decrease by 2.5 mg every week untill down to 10 mg by the next time that I see him. He is going to continue with current respiratory therapy. He will have 3 more days of Bactrim. Once he has completed I am hopeful that he can get a sputum culture to make sure that his clear all the infections in his lungs. 04/16/2023 the patient is here for pulmonary follow-up visit. Overall he is doing better. She continues to be on 5 mg of prednisone. I do believe that with his sister adrenal insufficiency this is a good idea. The patient uses [facility] in the past but subsequently retired. Will go ahead and refer him to a different assistant statistician. Patient has been on chronic steroids for his underlying respiratory disease. He continues on the biologic therapy. Continues with respiratory therapy. I did evaluate his CT scan that he had last demonstrating some bronchiectatic changes. The patient does have significant allergic bronchopulmonary aspergillosis. Therefore will request a percussion vest to better senior administrative assistant with mucus clearance. He has been using Acapella valve for many years. At this point will go ahead and optimize his bronchopulmonary hygiene. He has been exercising more often able to cycle regularly. 10/12/2023 the patient is here for a pulmonary follow-up visit. He has been doing very well. He is continued on 7.5 mg of prednisone. He had been on 5 mg of prednisone but then he got sick in August did increase it up to 15 mg. on 7.5 mg he seems to be doing well. He continues on the Tezspire and also continues with his nebulized therapy along with his percussion vest has been very effective for him. The patient was evaluated by Endocrinology. They do feel that he has some degree of adrenal insufficiency. In the meantime we have to find the lowest most effective dose prednisone. He did have a bone density test that already demonstrated osteopenia. Therefore did provide him with 1 mg tablets of prednisone is going to start cutting down slowly to hopefully get down to 5 mg daily. Once he if she is the 5 mg dose we can work on decreasing slightly lower down but slowly to avoid any rebound effects. The patient also has been actively exercising and skiing. When dusky he does take 15 mg of prednisone. We did talk about trying to limited to 10 mg of prednisone for those periods of time. He did have an appointment in [place] and has another appointment sometime in December with the pulmonology department there. Therefore will follow-up in April. I did review his last CT scan that he had back in 2022 no evidence of any active disease at that point, Did have some areas of scarring pleural thickening and calcified pulmonary nodules. The patient is already vaccinated with RSV COVID and flu and is up-to-date with his pneumonia vaccine as well. 04/13/2024 the patient is here for a pulmonary follow-up visit. The patient overall has been doing well the summer. Typically the goldberg a good time for him. He usually healthier. He has followed up closely with allergy. He continues on the Tezspire injections with good effect. He has been able to cut down the prednisone down to 4 mg a day. Sometimes if he is going to doing extremely his exercise event or program he may take additional. This will be okay as he is stressing his body. He did have a bone density test showing osteopenia though he is be careful with steroid use. When he does not want have to happen as he does not want to go on high doses of steroids if we can keep him on a small dose. Will try to find the lowest most effective dose, however. Right now his respiratory exam is reassuring with no wheezing. I do believe he can slowly cut down by 0.5 mg of the prednisone to the ideal dose of 2.5 mg daily. The last time he had his cortisol levels that were still low normal so therefore there is some room. The patient will have to go slow to minimize and acclimate to the lower dose. He continues with the other respiratory therapy with good effect. He is biking a lot which is reassuring and is clearing up a lot of mucus when he is biking. Will plan to follow-up in the fall when he typically has a hard time. Will have to adjust the prednisone then. 06/07/2024 the patient is here for a pulmonary follow-up visit. Overall he is doing okay. Since we last spoke did call with worsening chest congestion. We did give him a course of levofloxacin that did help him. He still bringing up some phlegm. He did show me a sample. Appears to be a little bit frothy in nature. I did provide him with a sputum cup in order to be able to give us a sample if it continues to persist if it worsens specially. Right now will keep him off antibiotics. The patient continues be on prednisone 5 mg since he is recovering after his illness. He does not have a rescue inhaler I now. He does not feel like albuterol helps him enough. Therefore I did recommend he can try Combivent see if this provides him additional relief. He can use it as needed and also before exercise. He is already taking a long-acting muscarinic antagonist but will be reasonable just to try and see if this is effective for him. The patient does not have a history of glaucoma. He continues on the test prior injections. The been affecting beneficial. [facility] Medical History Bronchiectasis Hypogammaglobulinemia Adrenal insufficiency Transaminitis Asthma-COPD overlap syndrome ABPA (allergic bronchopulmonary aspergillosis) Hypertension Surgical History History of bronchoscopy (~2020) History of repair of anterior cruciate ligament of left knee (~2012) Social History Household Members: Spouse Housing: House Do you presently have visiting nurse or other home services: Yes Alcohol intake: never Patient Tobacco Use Status: Never used Tobacco e-Cigarette/Vaping Use: Never Used Second Hand Smoke Exposure: No service: No Current occupational status: retired Current occupational exposures/hazards: No Cognitive needs: No Hearing needs: No Vision needs: No Review of Systems Const Denies chills, Denies excessive sweating, Denies fever(s), Denies headache(s) and Denies night sweats Eyes Denies dry eyes, Denies irritation and Denies itchy eyes ENT Reports Normal hearing present, Denies headache(s), Denies nasal congestion, Denies nasal discharge, Denies post nasal drip and Denies sore throat Card Denies chest pain, Denies chest pain at rest, Denies chest pain with activity and Denies leg edema Resp Denies change in phlegm color, Reports chest congestion, Reports cough, Denies excessive phlegm production, Denies pain on inspiration, Denies pain with cough, Denies stridor and Reports wheezing Musc Denies myalgias Neuro Reports Normal hearing present and Denies headache(s) Endo Denies excessive sweating Pedrito/Lymph Denies lymphadenopathy Aller/Immun Denies itchy eyes, Denies seasonal rhinorrhea and Reports wheezing Physical Exam Vital Signs: Last Vital Signs Pulse 67 06/07/24 09:13 BP 118/60 06/07/24 09:13 Pulse Ox 98 06/07/24 09:13 Oxygen Delivery Method Room Air 06/07/24 09:13 BMI result Body Mass Index 21.3 Const General: alert HEENT General nose exam: Abnormal external nose present and Nasal discharge present Eyes Pupils: Equal, round and reactive pupils present Neck Neck: Yes normal visual inspection, Yes full ROM and Yes no lymphadenopathy Chest Chest palpation & inspection: normal inspection of the chest Resp Effort & Inspection: normal respiratory effort Auscultation: no rhonchi, no wheezes and diminished lung sounds Cardio Rate: regular rate Rhythm: regular rhythm Heart sounds: S1 normal heart sound present and S2 normal heart sound present GI Palpation (GI): Soft to palpation and nontender Auscultation: normal bowel sounds General: Yes no CVA tenderness Back/Spine/Pelvis Back: no CVA tenderness Skin General skin exam: rashes and/or lesions noted Neuro Cranial nerves: Yes Equal, round and reactive pupils present and Yes Normal hearing present Psych Affect: Sad affect present and Anxious affect present Assessment & Plan Assessment & Plan (1) ABPA (allergic bronchopulmonary aspergillosis): Code(s): B44.81 - Allergic bronchopulmonary aspergillosis Category: Medical (2) Asthma-COPD overlap syndrome: Code(s): J44.9 - Chronic obstructive pulmonary disease, unspecified Category: Medical (3) Adrenal insufficiency: Code(s): E27.40 - Unspecified adrenocortical insufficiency Category: Medical (4) Hypogammaglobulinemia: Code(s): D80.1 - Nonfamilial hypogammaglobulinemia Category: Medical (5) Bronchiectasis: Code(s): J47.9 - Bronchiectasis, uncomplicated Category: Medical Qualifiers: Bronchiectasis type: uncomplicated Qualified Code(s): J47.9 - Bronchiectasis, uncomplicated Plan Prednisone 5mg daily, slowly taper by .5mg Daliresp 500mcg continue Tezspire Q4 weeks IVIG with [facility] Continue budesonide 0.5 mg twice a day via nebulizer Continue Brovana via nebulizer twice a day Continue Incruse daily Start Combivent percussion vest for CPT for for his ABPA and bronchiectasis. Hypertonic saline 3% nebs BID Reflux diet/HOB elevated F/U in 2-3 months Orders: Orders Sputum Cult + Gram stain Today J47.9 - Bronchiectasis, uncomplicated Medications: New ipratropium-albuterol 20-100 mcg/actuation (Combivent Respimat) space evenly during waking hours 1 puff inhalation QID 4 grams 6RF 30 days Refilled umeclidinium 62.5 mcg/actuation (Incruse Ellipta) 1 inh inhalation DAILY 30 ea 11RF Coding Level of Care Code Est Pt Level 4 (84334) Complex EM visit Add On G2211 Diagnoses ABPA (allergic bronchopulmonary aspergillosis) B44.81 Asthma-COPD overlap syndrome J44.9 Adrenal insufficiency E27.40 Hypogammaglobulinemia D80.1 Bronchiectasis without complication J47.9 Bronchiectasis type: uncomplicated Time Spent (min) 18
== END 2024-06-07 09:47 | disposition home or self-care (01) ==
PROVIDERS: PCP Family Medicine; Visit Provider Hospitalist
DX: B44.81 Allergic bronchopulmonary aspergillosis (principal); J44.9 Chronic obstructive pulmonary disease, unspecified; E27.40 Unspecified adrenocortical insufficiency; D80.1 Nonfamilial hypogammaglobulinemia; J47.9 Bronchiectasis, uncomplicated
CPT/HCPCS: 99214; G2211

== ENCOUNTER → 2024-06-07 09:08 | Outpatient (BNVA) | payer MEDICARE, OTHER, SELFPAY | PROVIDERS: PCP Family Medicine; Visit Provider Hospitalist | DX: B44.81 Allergic bronchopulmonary aspergillosis (principal); J47.9 Bronchiectasis, uncomplicated; J44.9 Chronic obstructive pulmonary disease, unspecified; E27.40 Unspecified adrenocortical insufficiency; D80.1 Nonfamilial hypogammaglobulinemia; Z79.52 Long term (current) use of systemic steroids | CPT/HCPCS: 99212 ==

== ENCOUNTER 2024-06-08 08:54 | Outpatient (AMB) | payer MEDICARE, OTHER, SELFPAY ==
--- NOTE | 2024-06-08 09:11 | A.OFFPC_ITS ---
Vital Signs 06/08/24 09:21 Height 5 ft 9 in Weight 145 lb 4 oz BMI 21.4 BP 120/66 Blood Pressure Location Rt brachial Position Sitting Respiration 12 Pulse 73 Pulse Source Pulse Oximeter Temp 98.6 F Temp Source Oral Pulse Oximetry (%) 99 Oxygen Delivery Method Room Air Intake Visit Reasons: CPE WITH F/U LABS & HEALTH MAINTENANCE Intake Note: CPE Allergies Doxycycline Hyclate Allergy (Intermediate, Uncoded 06/08/24 09:21) redness and itching Tobacco use date assessed: 07/29/23 Dental Screening Dental Screen Date: 06/03/23 HPI CPE WITH F/U LABS & HEALTH MAINTENANCE HPI Details 68 y/o male presents for an extended exa m with f/u labs and health maintenance. No recent labs to review. Blood pressure today 120/66, 73p. Continues to f/u with pulmonology for allergic bronchopulmonary aspergillosis, asthma-COPD overlap syndrome. Notes he had gotten an allergy shot yesterday 06/07/24. Notes he has not taken albuterol and his budesonide this morning. Notes last colonoscopy was around with Matthew Pacheco. Does not remember when he has gotten his pneumonia shot. [facility] Medical History Bronchiectasis Hypogammaglobulinemia Adrenal insufficiency Transaminitis Asthma-COPD overlap syndrome ABPA (allergic bronchopulmonary aspergillosis) Hypertension Surgical History History of bronchoscopy (~2020) History of repair of anterior cruciate ligament of left knee (~2012) Social History Household Members: Spouse Housing: House Do you presently have visiting nurse or other home services: Yes Alcohol intake: never Patient Tobacco Use Status: Never used Tobacco e-Cigarette/Vaping Use: Never Used Second Hand Smoke Exposure: No service: No Current occupational status: retired Current occupational exposures/hazards: No Cognitive needs: No Hearing needs: No Vision needs: No Questionnaire PHQ-9 Over the last 2 weeks, how often have you been bothered by any of the following problems? 1. Little interest or pleasure in doing things: not at all 2. Feeling down, depressed, or hopeless: not at all 3. Trouble falling or staying asleep, or sleeping too much: not at all 4. Feeling tired or having little energy: not at all 5. Poor appetite or overeating: not at all 6. Feeling bad about yourself - or that you are a failure or have let yourself or your family down: not at all 7. Trouble concentrating on things, such as reading the newspaper or watching television: not at all 8. Moving or speaking so slowly that other people could have noticed. Or the opposite - being so fidgety or restless that you have been moving around a lot more than usual: not at all 9. Thoughts that you would be better off or of hurting yourself in some way: not at all Total score: 0 Depression Screening Interpretation: Negative Depression Screening Done: Yes 48195 - PHQ-9 Billing: Yes Source: Developed by Drs. Miky Puckett, Terrie Dong, Dustin Sherwood and colleagues, with an educational juan manuel from [email or web address]. Thrive Questionnaire Date Thrive assessed: 06/08/24 I am a: Patient What is your living situation today?: I have a steady place to live Within the past 12 months, did the food you bought not last and you didn't have the money to get more?: Never true Within the past 12 months, did you worry whether your food would run out before you got money to buy more?: Never true Do you have trouble paying for medicines?: No Do you have trouble getting transportation to medical appointments?: No Do you have trouble paying your heating and electricity bill?: No Do you have trouble taking care of your child, family member or friend?: No Do you have trouble with day-to-day activities such as bathing, preparing meals, shopping, managing finances, etc.?: No Are you currently unemployed and looking for a job?: No Are you interested in more education?: No Please select the resources that you would like help with: None Currently or been in a relationship where the following occur: No concerns reported THRIVE Score: 0 AUDIT C Alcohol Use Questionnaire (AUDIT-C) 1. How often do you have a drink containing alcohol?: Never 3. How often do you have six or more drinks on one occasion?: Never Total Score: 0 AUSTIN-7 AMB Questionnaire AUSTIN-7 Date AUSTIN - 7 assessed: 06/08/24 Feeling nervous, anxious, or on edge: 0 = Not at all Not being able to stop or control worryin = Not at all Worrying too much about different things: 0 = Not at all Trouble relaxin = Not at all Being so restless that it is hard to sit still: 0 = Not at all Becoming easily annoyed or irritable: 0 = Not at all Feeling afraid as if something awful might happen: 0 = Not at all Total AUSTIN-7 score (0-4 normal; 5-9 mild; 10-14 moderate; 15-21 severe): 0 Source: Developed by Drs. Miky Puckett, Terrie Dong, Dustin Sherwood and colleagues, with an educational juan manuel from [email or web address]. AUSTIN-7 Assessment Billing AUSTIN-7 Assessment Tool: AUSTIN-7 Assessment 32044 ACT Questionnaire In the past 4 weeks, how much of the time did your asthma keep you from getting as much done at work, school or at home?: None of the time During the past 4 weeks, how often have you had shortness of breath?: 1-2 times a week During the past 4 weeks, how often did your asthma symptoms wake you up at night or earlier than usual in the morning?: Not at all During the past 4 weeks, how often have you had to use your rescue inhaler or nebulizer medication?: 2-3 times a week How would you rate your asthma control during the past 4 weeks?: Somewhat controlled ACT Interpretation: Positive Score: 20 Review of Systems Const Denies chills, Denies fatigue, Denies fever(s), Denies headache(s) and Denies weakness Eyes Denies change in vision ENT Denies dizziness, Denies headache(s), Denies hearing loss, Denies nasal con gestion, Denies sinus pain, Denies sinus pressure and Denies sore throat Card Denies chest pain, Denies lightheadedness, Denies dyspnea and Denies other (palpitations) Resp Denies cough, Denies dyspnea and Denies wheezing GI Denies abdominal pain, Denies melena, Denies hematochezia, Denies change in bowel habits, Denies dyspepsia and Denies nausea Denies hematuria and Denies dysuria Musc Denies abnormal gait, Denies myalgias, Denies arthralgias, Denies numbness and Denies tingling Skin/Breast Denies rash, Denies unusual bruising and Denies wounds Neuro Denies abnormal gait, Denies dizziness, Denies headache(s), Denies memory loss, Denies numbness, Denies Sensory deficit (Neuro), Denies tingling and Denies weakness Psych Denies anxiety, Denies depression and Denies memory loss Endo Denies cold intolerance, Denies fatigue, Denies heat intolerance, Denies polydipsia and Denies polyuria Pedrito/Lymph Denies easy bleeding and Denies easy bruising Aller/Immun Denies wheezing Physical exam (Primary Care) Vital Signs: Last Vital Signs Temp 98.6 F 06/08/24 09:21 Pulse 73 06/08/24 09:21 Resp 12 06/08/24 09:21 BP 120/66 06/08/24 09:21 Pulse Ox 99 06/08/24 09:21 Oxygen Delivery Method Room Air 06/08/24 09:21 BMI result Body Mass Index 21.4 Tobacco/Smoking Status: Tobacco use Status Tobacco use date assessed 07/29/23 06/08/24 09:12 Patient Tobacco Use Status Never used Tobacco 06/08/24 09:12 e-Cigarette/Vaping Use Never Used 06/08/24 09:12 PHQ-9: PHQ-9 Score PHQ-9: Total score 0 06/08/24 09:30 Depression Screening Interpretation: Negative Thrive Assessment: Date of Thrive Assessment Date Thrive assessed 06/08/24 06/08/24 09:24 Currently or been in a relationship where the following occur: No concerns reported Const General: no acute distress, well developed, alert and awake Nutritional Appearance: well nourished Orientation/consciousness: patient oriented x3 HENMT Head: Yes normocephalic and Yes atraumatic Ears: hearing grossly normal bilaterally and TM's normal bilaterally General nose exam: Normal external nose present and Normal nares present Mouth: Normal oral and palatal mucosa present and moist mucous membranes Teeth and gingiva: dentition normal Throat: Yes posterior oropharynx normal Eyes General: appearance normal, both eyes and all related structures Pupils: Equal, round and reactive pupils present and Pupil accommodation reflex normal EOM: EOMs intact bilaterally Neck Neck: Yes normal visual inspection, Yes no lymphadenopathy and Yes trachea midline Thyroid: Thyroid normal Carotids: no bruits Lymphatic: no lymphadenopathy noted Chest Chest palpation & inspection: normal inspection of the chest Resp Other: Diffused, coarse breath sounds and airway secretions Effort & Inspection: normal respiratory effort Auscultation: clear to auscultation bilaterally Cardio Rate: regular rate Rhythm: regular rhythm Heart sounds: S1 normal heart sound present, S2 normal heart sound present, no gallops, no murmurs and no rubs Bruits: no abdominal aortic bruits and no carotid bruits GI Palpation (GI): No Abdominal aortic bruit present, Soft to palpation, nontender, No hepatosplenomegaly present and No Rebound tenderness present Auscultation: normal bowel sounds General: Yes no CVA tenderness Back/Spine/Pelvis Back: no CVA tenderness Cervical Spine: cervical ROM normal and No Cervical spine tenderness Thoracic/Lumbar Spine: thoraco-lumbar ROM normal, No pain with thoraco-lumbar ROM, No thoracic spinal tenderness and No lumbar spinal tenderness Skin Lesions: no lesions Rashes: no rashes Trauma: no lacerations or abrasions Wounds: no wounds Nails: normal Neuro General: patient oriented x3 Cranial nerves: Yes Equal, round and reactive pupils present Cognition (Neuro): normal cognition Gait exam (Neuro): Normal gait present Motor exam (neuro): 5/5 motor strength present throughout Sensory Exam: No Sensory deficit (Neuro) Deep tendon reflexes (DTR's): Right patellar reflex intensity grade: 2+ and Left patellar reflex intensity grade: 2+ Extrem General: Yes normal to inspection and No edema Psych Appearance: grossly normal Affect: normal affect Attitude: cooperative Thought process: Normal thought process present Coding Level of Care Code Est Pt Level 4 (63076) Diagnoses Essential hypertension I10 Osteopenia M85.80 ABPA (allergic bronchopulmonary aspergillosis) B44.81 Immunization counseling Z71.85 History of squamous cell carcinoma Z85.89 Screening for prostate cancer Z12.5 Screening for colon cancer Z12.11 Adult general medical exam Z00.00 Additional Codes AUSTIN-7 Assessment Billing - AUSTIN-7 Assessment Tool: AUSTIN-7 Assessment 47110 ([id number]) Assessment & Plan Assessment & Plan (1) Essential hypertension: Code(s): I10 - Essential (primary) hypertension Category: Medical Plan: Blood?pressure?is?controlled.??Goal?is?less?than?140/90 Continue?current?medication (2) Osteopenia: Code(s): M85.80 - Other specified disorders of bone density and structure, unspecified site Category: Medical Plan: Patient?had?a?bone?density?last?year?for?screening?for?ost eoporosis?due?to?chronic?steroid?use. Bone?density?test?showed?osteopenia Will?continue?to?monitor?and?I?have?advised?good?sources?of?calcium?and?vitamin- D?and?weight-bearing?exercise. He?continues?significant?exercise?and?biking He?will?be?due?to?repeat?bone?density?test?next?year (3) ABPA (allergic bronchopulmonary aspergillosis): Code(s): B44.81 - Allergic bronchopulmonary aspergillosis Category: Medical Plan: Patient?is?on?chronic?steroids Followed?by?pulmonology,??Jarvis?and?has?a?specialist?in?[place]?with?upcom ing?appointment. 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 (5) History of squamous cell carcinoma: Code(s): Z85.89 - Personal history of malignant neoplasm of other organs and systems Category: Medical Plan: Recent?removal?of?squamous?cell?carcinoma?at?back?of?left?hand Follow-up?with?dermatology (6) Screening for prostate cancer: Code(s): Z12.5 - Encounter for screening for malignant neoplasm of prostate Category: Medical Plan: Due?for?PSA?which?is?ordered Will?review?at?telemedicine?appointment (7) Screening for colon cancer: Code(s): Z12.11 - Encounter for screening for malignant neoplasm of colon Category: Medical Plan: Patient?says?he?had?a?colonoscopy?around?2018?at?[place] Will?request?report?and?advise?him?on?follow-up (8) Adult general medical exam: Code(s): Z00.00 - Encounter for general adult medical examination without abnormal findings Category: Medical Plan: 68-year-old?male?presents?for?an?extended?exam Encouraged?healthy?diet?active?lifestyle?and?plenty?of?exercise Orders: Orders Prostate Specific Antigen Scr Today Z12.5 - Encounter for screening for malignant neoplasm of prostate UA and rflx microscopic Today Z00.00 - Encounter for general adult medical examination without abnormal findings Comprehensive [place]. Panel Fast Today Z00.00 - Encounter for general adult medical examination without abnormal findings Complete Blood Count Auto Diff Today Z00.00 - Encounter for general adult medical examination without abnormal findings Microalbumin, Random (w Creat) Today I10 - Essential (primary) hypertension Lipid Panel Today Z00.00 - Encounter for general adult medical examination without abnormal findings TSH reflex Free T4 Today Z00.00 - Encounter for general adult medical examination without abnormal findings
[2024-06-08 09:21] VITALS: BP 120/66; PULSE 73; RESP 12; TEMP 37; O2SAT 99; BMI 21.4
== END 2024-06-08 09:59 | disposition home or self-care (01) ==
PROVIDERS: PCP Family Medicine; Visit Provider Family Medicine
DX: I10 Essential (primary) hypertension (principal); M85.80 Other specified disorders of bone density and structure, unspecified site; B44.81 Allergic bronchopulmonary aspergillosis; Z71.85 Encounter for immunization safety counseling; Z85.89 Personal history of malignant neoplasm of other organs and systems; Z12.5 Encounter for screening for malignant neoplasm of prostate; Z12.11 Encounter for screening for malignant neoplasm of colon; Z00.00 Encounter for general adult medical examination without abnormal findings

== ENCOUNTER → 2024-06-08 08:54 | Outpatient (BNVA) | payer MEDICARE, OTHER, SELFPAY | PROVIDERS: PCP Family Medicine; Visit Provider Family Medicine | DX: Z00.00 Encounter for general adult medical examination without abnormal findings (principal); Z12.5 Encounter for screening for malignant neoplasm of prostate; I10 Essential (primary) hypertension; M85.80 Other specified disorders of bone density and structure, unspecified site; B44.81 Allergic bronchopulmonary aspergillosis; Z85.89 Personal history of malignant neoplasm of other organs and systems; Z71.85 Encounter for immunization safety counseling | CPT/HCPCS: 96127; 99212 ==

== ENCOUNTER 2024-06-14 08:06 | Outpatient (REF) | payer MEDICARE, OTHER, SELFPAY ==
[2024-06-14 10:47] LABS: MANUAL DIFF FLAG NO
[2024-06-14 10:53] LABS: Appearance Urine Clear; Color Urine Yellow; Glucose Urine UA Negative (Negative); Leukocyte Esterase Urine Negative (Negative); Nitrite Urine Negative (Negative); Specific Gravity - Urine >= 1.030 (1.005-1.025); UMIC TRIGGER UA YES; Urine Blood Negative (Negative); Urine Ketones Negative (Negative); Urine Protein 30 (1+) mg/dL (Neg-Trace)
[2024-06-14 11:00] LABS: Bacteria Urine None Seen (None Seen); Hyaline Casts Urine 0-2 /LPF (0-2); RBC Urine 0-2 /HPF (0-2); Squamous Epithelial Cell Urine 0-2 /HPF (0-2); WBC Urine 0-5 /HPF (0-5)
[2024-06-14 11:01] LABS: Basophils Percent Auto 0.7 % (0-2); Eosinophils Absolute Auto 0.1 X10*3/uL (0.0-0.4); Eosinophils Percent Auto 1.1 % (0-4); Hematocrit 44.3 % (42.0-52.0); Hemoglobin 14.8 g/dl (14.0-18.0); Imm Gran Abs Auto 0.01 X10*3/uL (0.00-0.03); Imm Gran Pct Auto 0.2 % (0.0-0.4); Lymphocytes Percent Auto 22.5 % (20-40); Mean Corpuscular HGB Conc 33.4 g/dl (31.0-36.0); Mean Corpuscular Hemoglobin 31.1 pg (27.0-33.0); Mean Corpuscular Volume 93.1 fL (80.0-98.0); Mean Platelet Volume 9.1 fL (9.4-12.4); Monocytes Absolute Auto 0.5 X10*3/uL (0.1-1.2); Monocytes Percent Auto 11.1 % (2-11); Neutrophils Absolute Auto 2.8 x10*3/uL (2.0-8.3); Neutrophils Percent Auto 64.4 % (45-73); Platelet Count 200 X10*3/uL (160-400); Red Blood Count 4.76 X10*6/uL (4.60-5.80); Red Cell Distribution Width 13.1 % (11.0-16.0); White Blood Count 4.4 X10*3/uL (4.8-10.8)
[2024-06-14 11:27] LABS: Creatinine Urine 231.02 mg/dL
[2024-06-14 11:33] LABS: Prostate Specific Antigen Scr 0.76 ng/mL (<0.05-4.0)
[2024-06-14 11:36] LABS: Alkaline Phosphatase 61 U/L (39-117); Anion Gap 12 (12-20); Aspartate Amino Transferase 37 U/L (5-37); Bilirubin Total 0.5 mg/dL (0.0-1.0); Blood Urea Nitrogen 19 mg/dL (9-16); Calcium 9.6 mg/dL (8.4-10.2); Carbon Dioxide 30 mmol/L (22-29); Chloride 103 mmol/L (96-108); Cholesterol 196 mg/dL (<200); Estimated Glomerular Filt Rate > 60; Glucose Fasting 91 mg/dL (60-99); HDL Cholesterol 68 mg/dL (>40); LDL Cholesterol Calculated 108 mg/dL (<100); Potassium 3.2 mmol/L (3.3-5.1); Sodium 142 mmol/L (135-145); Total Protein 7.1 g/dL (6.5-8.0); Triglycerides 104 mg/dL (<150)
[2024-06-14 11:45] LABS: TSH reflex Free T4 1.88 uIU/mL (0.32-4.0)
[2024-06-14 11:57] LABS: Alanine Aminotransferase 32 U/L (0-40)
== END 2024-06-14 08:07 | disposition home or self-care (01) ==
LOC: HO.WFDLDS 08:06
PROVIDERS: Visit Provider Family Medicine
DX: Z00.00 Encounter for general adult medical examination without abnormal findings (principal); Z12.5 Encounter for screening for malignant neoplasm of prostate; I10 Essential (primary) hypertension
CPT/HCPCS: 36415; 80053; 80061; 81001; 82043; 82570; 84153; 84443; 85025

== ENCOUNTER 2024-07-08 14:17 | Outpatient (AMB) | payer MEDICARE, OTHER, SELFPAY ==
--- NOTE | 2024-07-08 14:07 | A.OFFPC_ITS ---
Intake Visit Reasons: f/u CPE-labs and colonoscopy screening via tele Allergies Doxycycline Hyclate Allergy (Intermediate, Uncoded 07/08/24 14:08) redness and itching Tobacco use date assessed: 07/29/23 Dental Screening Dental Screen Date: 06/03/23 HPI f/u CPE-labs and colonoscopy screening via tele HPI Details 68 y/o male presents to f/u CPE-labs via telemedicine. Also reviewing screening for colon cancer. Labs drawn 06/14/24. Reviewed labs with pt. Triglycerides 104. TC 196. LDL 108. HDL 68. PSA 0.76. TSH 1.88. Potassium level mildly low at 3.2. PFSH Medical History Bronchiectasis Hypogammaglobulinemia Adrenal insufficiency Transaminitis Asthma-COPD overlap syndrome ABPA (allergic bronchopulmonary aspergillosis) Hypertension Surgical History History of bronchoscopy (~2020) History of repair of anterior cruciate ligament of left knee (~2012) Social History Household Members: Spouse Housing: House Do you presently have visiting nurse or other home services: Yes Alcohol intake: never Patient Tobacco Use Status: Never used Tobacco e-Cigarette/Vaping Use: Never Used Second Hand Smoke Exposure: No service: No Current occupational status: retired Current occupational exposures/hazards: No Cognitive needs: No Hearing needs: No Vision needs: No Questionnaire Thrive Questionnaire Date Thrive assessed: 06/08/24 AUSTIN-7 AMB Questionnaire AUSTIN-7 Date AUSTIN - 7 assessed: 06/08/24 Source: Developed by Drs. Miky Puckett, Terrie Dong, Dustin Sherwood and colleagues, with an educational juan manuel from [employer]. Review of Systems Const Denies chills, Denies fatigue, Denies fever(s), Denies headache(s) and Denies weakness ENT Denies dizziness and Denies headache(s) Card Denies dyspnea Resp Denies cough, Denies dyspnea, Denies wheezing and Denies other (shortness of breath) Musc Denies numbness and Denies tingling Neuro Denies dizziness, Denies headache(s), Denies numbness, Denies tingling and Denies weakness Psych Denies anxiety and Denies depression Endo Denies fatigue Aller/Immun Denies wheezing Physical exam (Primary Care) Tobacco/Smoking Status: Tobacco use Status Tobacco use date assessed 07/29/23 07/08/24 14:08 Patient Tobacco Use Status Never used Tobacco 07/08/24 14:08 e-Cigarette/Vaping Use Never Used 07/08/24 14:08 Thrive Assessment: Date of Thrive Assessment Date Thrive assessed 06/08/24 07/08/24 14:08 Telehealth Telehealth Telehealth Platform: Telephone Location of provider rendering services: practice address Location of patient: address on file Patient Identification confirmed using: Name, : Yes Telehealth method: voice only Patient verbally consented to treatment: Yes Patient verbally consented to billing insurance company: Yes Patient informed of any privacy concerns related to visit: Yes Minutes spent on Phone/Video with Pt.: 10 Coding Level of Care Code Tele Est Pt Level 2 (57018) Diagnoses Elevated LDL cholesterol level E78.00 Screening for colon cancer Z12.11 Screening for prostate cancer Z12.5 Hypokalemia E87.6 Assessment & Plan Assessment & Plan (1) Elevated LDL cholesterol level: Code(s): E78.00 - Pure hypercholesterolemia, unspecified Category: Medical Plan: Mildly?elevated?LDL?cholesterol. Encouraged?diet?low?in?saturated?fats?and?cholesterol (2) Screening for colon cancer: Code(s): Z12.11 - Encounter for screening for malignant neoplasm of colon Category: Medical Plan: Patient?feels?certain?he?had colonoscopy?around?2018?with a?teacher industrial arts?at?[place] (patient?says?Dr. Forde). I?was?unable?to?find?this?doctor's?name?on?a?quick?Internet?search. He?says?he?will?forward?the?report?to?me He?says?he?was?told?there?were?no?polyps?or?other?problems?and?he?was?told?to?fo llow-up?in?10?years (3) Screening for prostate cancer: Code(s): Z12.5 - Encounter for screening for malignant neoplasm of prostate Category: Medical Plan: PSA?was?within?normal?limits Will?continue?annual?screening (4) Hypokalemia: Code(s): E87.6 - Hypokalemia Category: Medical Plan: Potassium?was?mildly?low?possibly?due?to?his?hydrochlorothiazide Will?repeat?this?with?his?next?blood?draw. Orders: Orders Comprehensive [place]. Panel Fast Today E87.6 - Hypokalemia, Z00.00 - Encounter for general adult medical examination without abnormal findings
== END 2024-07-08 17:05 ==
LOC: HO.HMCFM 14:17
PROVIDERS: PCP Family Medicine; Visit Provider Family Medicine
DX: E78.00 Pure hypercholesterolemia, unspecified (principal); Z12.11 Encounter for screening for malignant neoplasm of colon; Z12.5 Encounter for screening for malignant neoplasm of prostate; E87.6 Hypokalemia

== ENCOUNTER → 2024-07-08 14:17 | Outpatient (BNVA) | payer MEDICARE, OTHER, SELFPAY | PROVIDERS: PCP Family Medicine; Visit Provider Family Medicine ==

== ENCOUNTER 2024-07-29 08:48 | Outpatient (REF) | payer MEDICARE, OTHER, SELFPAY ==
[2024-07-29 11:32] LABS: Blood Urea Nitrogen 18 mg/dL (9-16); Estimated Glomerular Filt Rate > 60
[2024-08-01 07:45] LABS: Immunoglobulin G 1049 mg/dL (600-1540)
== END 2024-07-29 08:49 | disposition home or self-care (01) ==
LOC: HO.WFDLDS 08:48
PROVIDERS: Visit Provider Allergy & Immunology
DX: D80.1 Nonfamilial hypogammaglobulinemia (principal)
CPT/HCPCS: 36415; 82565; 82784; 84520

== ENCOUNTER 2024-08-24 09:11 | Outpatient (AMB) | payer MEDICARE, OTHER, SELFPAY ==
[2024-08-24 09:13] VITALS: BP 140/68; PULSE 70; O2SAT 99
--- NOTE | 2024-08-24 09:13 | A.OFFVIS_ITS ---
Vital Signs 08/24/24 09:13 Weight 152 lb 1.903 oz BP 140/68 H Blood Pressure Location Lt brachial Position Sitting Pulse 70 Pulse Source Pulse Oximeter Pulse Oximetry (%) 99 Oxygen Delivery Method Room Air Intake Visit Reasons: Asthma Allergies Doxycycline Hyclate Allergy (Intermediate, Uncoded 08/24/24 09:16) redness and itching HPI Comments Details: The patient is a 68-year-old gentleman with history severe asthma and allergic bronchopulmonary aspergillosis. Apparently every 6 back in 2004 requiring significant doses of prednisone. Was diagnosed to time. Was in 2014 when he became very sick in the went to [facility] in was admitted to [facility]. At the time was diagnosed with allergic bronchopulmonary aspergillosis and spent prolonged period on prednisone. He was also placed on itraconazole. The patient has now been followed closely at [facility]. He is currently on Dupixent which has appears to be effective for him. He also continues on maintenance therapy. Continues to have shortness of breath. 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 Lately he has been noticing increased chest tightness and coughing. He is trying to avoid prednisone. When he was on prednisone for many years he did develop a lot of the complications from the prednisone and now has been able come off it. Unfortunately, in July 2020 was diagnosed with COVID-19 and since then his respiratory status also been affected adversely. Today in the office he has significant wheezing and rhonchi. Will given 2 DuoNeb treatments. Will try to maximize his respiratory therapy by switching him to nebulized therapy. The patient also needs aggressive chest physical therapy. 10/08/2021 the patient is here for pulmonary follow-up visit. Overall he is doing well. We did review of the microbiology from the bronchoscopy specimens and no evidence of any Aspergillus at this point therefore is reassuring we do not have to treating. The likely mold found is colonizing and likely just from inhaling sports. His other fungal cultures were negative which is reassuring. And also his BAL did not demonstrate any significant inflammatory changes concerning for active inflammation due to ABPM. The patient did start Daliresp. Tolerating it well at 250 mcg. He 1st start with half a dose. Denies any significant GI symptoms. He has been getting a little drowsy. Therefore he started taking the medication at nighttime. He is wondering if the drowsiness could be from the medication. At this point is less likely, but is still needs to be considered. He is going to continue using the 250 mcg dose to get used to it and hopefully he can increase to 500 mcg and 6-8 weeks once he is better. 01/14/2022 the patient is here for a pulmonary follow-up visit. Overall he is doing relatively well. He continues to have coughing episodes specially at nighttime. He did follow up in [place] with his oncology account specialist. They recommended he have a barium swallow and treat his reflux disease and sleep elevated. I did emphasize that these are very important things. He is going to do the reflux diet sleep elevated. He is going to monitor the symptoms and will hold off on the barium swallow this time. he seems to be tolerating the Daliresp. He does not want to increase the dose because of the risk of the mood disorders. Will continue with the Daliresp to treat the chronic bronchitis and avoid prednisone. He continues on the nebulized therapy. Continues to exercise regularly. While he is running he is able to expectorate a lot of phlegm. Will have the patient undergo blood work at this time to assess his allergy levels. He continues to Dupixent which appears to have been very effective for him. He has tried and failed Xolair in the past. Will still consider the possibility of Trezspire if he continues to be symptomatic. 05/25/2022 the patient is here for a pulmonary follow-up visit. Since we last spoke did have an exacerbation back in January while he was in [place]. He was evaluated at a local hospital where he was diagnosed with a asthma exacerbation and placed on a prednisone taper. His symptoms did improve. He is concerned because he still having significant symptoms in the springtime and now also will have worsening symptoms in the fall. Primarily due to allergies. He is getting allergy shots at this time he is also currently on Dupixent. He has already tried and failed Xolair and now does not appear to be completely responding to the Dupixent. Therefore, the patient would like to go ahead and changes biologic to Tezspire. we have been speaking about this now for about a year. He is ready to make that change since he still having significant symptoms. Since he is already getting allergy shots through [facility] I do believe that the best thing to do was for him to get the TSLP biologic therapy also with [facility]. I did give information about the medication and will also will send a message to his poultry grader. The patient also has been responding well to the Daliresp. Will go ahead and maximize the FX by increasing to the therapeutic dose of 500 mcg. The patient continues with nebulized therapy. He is still requiring his short-acting beta agonist on a daily basis, however. 08/15/2022 the patient is here for a sick visit. Recently started developing worsening respiratory symptoms chest congestion chest tightness and wheezing. His symptoms were severe decided to go to the ER for further evaluation tear. There he had a chest x-ray demonstrating no acute disease although evidence of bronchitis noted. The patient was started on prednisone 40 mg. although that was not enough and therefore we increasing to 60 mg. 60 mg felt too hard for him to tolerate so therefore he did bring it down quickly. He also completed a course of azithromycin for 5 days. However, he still having some difficulties. Still having shortness of breath and chest congestion. Hard time expectorating. Therefore will go ahead and given Solu-Medrol in the office and increase his antibiotic coverage to Levaquin. He is an avid runner and athlete. Therefore he understands he needs to monitor closely for any evidence of tendinitis. He is also going to start probiotics while on the medication. If the patientis no better he needs to get intouch with our office. 09/19/2022 the patient is here for sick visit. Patient has been feeling awful now for the last several weeks. He went to the ER there he had CT scan of the chest which is reassuring. Does have evidence of bronchitis and calcified pulmonary nodules. He was placed on prednisone in addition to azithromycin and also given a course of levofloxacin. Although his symptoms are only getting worse. He called and we had to increase his prednisone to 60 mg. Continues to have significant wheezing chest tightness. He just does not feel good. The prednisone is making feel worse as well. In the office we did 2 nebulized treatments to DuoNeb. He was able to expectorate some mucus out of the lungs. The mucus since to be darker in color. We did try to get a sputum for culture but it was too much saliva in it. Therefore he will try to bring some mucus soon. The patient does have a history of aspergillosis in addition to chronic airway disease with ABPA. Therefore will start him on voriconazole in addition to that the patient will be started on Bactrim to treat for Staph aureus which is the only organism that he was not treated for. We did given Solu-Medrol in the office in addition to the DuoNebs. We talked about going to the ER but the patient at this point is hemodynamically stable. If he fails the current outpatient regimen that he should go to the ER for failing outpatient therapy. 09/29/2022 she the patient is here for a pulmonary follow-up visit. He finally starting to feel better. He is down to 10 mg of prednisone. He continues on the voriconazole and also continues on the Bactrim. His chest congestion is improving. His mucus is clearing up. He still has some wheezing and rhonchi specially in the right lung so therefore he should continue holding off on allergy shots. He may have to restart his immunotherapy once he is stable to he continues on his biologic therapy. At this point we do not have any sputum cultures available to guide therapy. He did have a CT scan of the chest that we personally reviewed in the office. Appears to have some bronchiectatic changes. Also has some calcified nodular densities in the right middle lobe and also in the left lower lobe consistent with granulomas. He has responded well to the antifungal therapy. He does have a history of ABPA. Will go ahead and treated for total 6-8 weeks son's again tolerated. It also would extend the Bactrim to treat for potential staff for least 3 weeks. Once the patient has also completed with the prednisone he will have blood work including assessing his cortisol level. He is wondering if he should be on low-dose prednisone. That is not unreasonable if she needs it but hopeful that he can come off completely. She the patient also continues with his subcutaneous IgG infusions. He does that every 2 weeks. Will go ahead and check his trough levels to make sure that he is getting adequate therapy. 10/29/2022 the patient is here for a pulmonary follow-up visit. He continues to feel better. He is now off the prednisone. Continues on voriconazole. Continues on his nebulized therapy. He did have blood work done his LFTs were slightly elevated. He denies any significant abdominal discomfort or nausea. Sometimes he does have some transient symptoms but is not sure if it is from the other medications. Will have to monitor closely his LFTs. He will have repeat PFTs in the next few weeks. Will see if he can continue the voriconazole for now. If he develops any worsening GI symptoms he is to stop the medicine and call immediately. His other blood work included a random cortisol level that was low. will go ahead and repeat that also in the coming weeks to see if he has any increased cortisol production. If he continues to be low that he will benefit from an Endocrinology consultation. The patient is also concerned about COVID-19. She has had multiple vaccinations in addition to the most recent booster in May. He does have immune deficiency. Therefore, will check his titers with his next blood work. 11/21/2022 the patient is here for a pulmonary follow-up visit. He continues to feel better. He is now off the prednisone and also will stop the voriconazole. He continues on his respiratory therapy as prescribed. The patient did have blood work which we reviewed. The patient was very stop his with his IgG spike protein titers being so elevated. In addition to this his cortisol level continues to be low however. Clinically he is doing well so therefore will continue to monitor for now. No need for exogenous corticosteroids at this time is as long as he is feels well. He continues on the biologic therapy. He does have follow-up with his analytical clerk from [facility] in the coming weeks. I will make sure to have all the information available for him. As far as the blood work his LFTs have normalized which is reassuring. His kidney function she has a little bit off but I do believe that he does have some degree of dehydration. I did request that he started drinking more water fluids to try to improve this. 02/09/2023 The patitnt is here for a sick visit. +sick contact. Worsening cough and wheezing. severe. Was seen in the office and started on Prednisone and started on Bactrim. Has not been any better. Having significant weezing. Sputum is yellowish in color. He did bring a sample but is no longer good. We will try to have him bring another sample. In the meantime he is still having significant wheezing. We will have him start IV solumedrol 125mg x 3 days. 02/17/2023 the patient is here for a hospital follow-up visit. He was briefly ho spitalized after no improvement after an aggressive outpatient respiratory regimen. The patient went to the hospital was placed on a additional IV steroids and his antibiotics were switched over to Levaquin in the continue Bactrim. Respiratory status improved. One of the blood cultures was positive for aerococcus viridans. This is likely to be an infection. He was starting to feel better although now after being on some motion Solu-Medrol he has a he has washed out. He has had issues with renal insufficiency. Now he is on 20 mg of prednisone. Will try to slowly decrease by 2.5 mg every week untill down to 10 mg by the next time that I see him. He is going to continue with current respiratory therapy. He will have 3 more days of Bactrim. Once he has completed I am hopeful that he can get a sputum culture to make sure that his clear all the infections in his lungs. 04/16/2023 the patient is here for pulmonary follow-up visit. Overall he is doing better. She continues to be on 5 mg of prednisone. I do believe that with his sister adrenal insufficiency this is a good idea. The patient uses [facility] in the past but subsequently retired. Will go ahead and refer him to a different offset press operator apprentice. Patient has been on chronic steroids for his underlying respiratory disease. He continues on the biologic therapy. Continues with respiratory therapy. I did evaluate his CT scan that he had last demonstrating some bronchiectatic changes. The patient does have significant allergic bronchopulmonary aspergillosis. Therefore will request a percussion vest to better media center assistant with mucus clearance. He has been using Acapella valve for many years. At this point will go ahead and optimize his bronchopulmonary hygiene. He has been exercising more often able to cycle regularly. 10/12/2023 the patient is here for a pulmonary follow-up visit. He has been doing very well. He is continued on 7.5 mg of prednisone. He had been on 5 mg of prednisone but then he got sick in August did increase it up to 15 mg. on 7.5 mg he seems to be doing well. He continues on the Tezspire and also continues with his nebulized therapy along with his percussion vest has been very effective for him. The patient was evaluated by Endocrinology. They do feel that he has some degree of adrenal insufficiency. In the meantime we have to find the lowest most effective dose prednisone. He did have a bone density test that already demonstrated osteopenia. Therefore did provide him with 1 mg tablets of prednisone is going to start cutting down slowly to hopefully get madie n to 5 mg daily. Once he if she is the 5 mg dose we can work on decreasing slightly lower down but slowly to avoid any rebound effects. The patient also has been actively exercising and skiing. When dusky he does take 15 mg of prednisone. We did talk about trying to limited to 10 mg of prednisone for those periods of time. He did have an appointment in [place] and has another appointment sometime in December with the pulmonology department there. Therefore will follow-up in April. I did review his last CT scan that he had back in 2022 no evidence of any active disease at that point, Did have some areas of scarring pleural thickening and calcified pulmonary nodules. The patient is already vaccinated with RSV COVID and flu and is up-to-date with his pneumonia vaccine as well. 04/13/2024 the patient is here for a pulmonary follow-up visit. The patient overall has been doing well the summer. Typically the goldberg a good time for him. He usually healthier. He has followed up closely with allergy. He continues on the Tezspire injections with good effect. He has been able to cut down the prednisone down to 4 mg a day. Sometimes if he is going to doing extremely his exercise event or program he may take additional. This will be okay as he is stressing his body. He did have a bone density test showing osteopenia though he is be careful with steroid use. When he does not want have to happen as he does not want to go on high doses of steroids if we can keep him on a small dose. Will try to find the lowest most effective dose, however. Right now his respiratory exam is reassuring with no wheezing. I do believe he can slowly cut down by 0.5 mg of the prednisone to the ideal dose of 2.5 mg daily. The last time he had his cortisol levels that were still low normal so therefore there is some room. The patient will have to go slow to minimize and acclimate to the lower dose. He continues with the other respiratory therapy with good effect. He is biking a lot which is reassuring and is clearing up a lot of mucus when he is biking. Will plan to follow-up in the fall when he typically has a hard time. Will have to adjust the prednisone then. 06/07/2024 the patient is here for a pulmonary follow-up visit. Overall he is doing okay. Since we last spoke did call with worsening chest congestion. We did give him a course of levofloxacin that did help him. He still bringing up some phlegm. He did show me a sample. Appears to be a little bit frothy in nature. I did provide him with a sputum cup in order to be able to give us a sample if it continues to persist if it worsens specially. Right now will keep him off antibiotics. The patient continues be on prednisone 5 mg since he is recovering after his illness. He does not have a rescue inhaler I now. He does not feel like albuterol helps him enough. Therefore I did recommend he can try Combivent see if this provides him additional relief. He can use it as needed and also before exercise. He is already taking a long-acting muscarinic antagonist but will be reasonable just to try and see if this is effective for him. The patient does not have a history of glaucoma. He continues on the test prior injections. The been affecting beneficial. 08/24/2024 the patient is here for a pulmonary follow-up visit. Overall he is doing fairly well. He continues uses respiratory therapy as prescribed. This morning he did not use his nebulizer and he did feel increased chest tightness of his lungs during the day. He will take his nebulizers when he goes home. The patient did see his analytical clerk in [place] he did recommend he follow-up with endocrinology regarding the adrenal insufficiency. Hard to know exactly what the best doses for him. Currently he is on 4.5 mg prednisone. Sometimes he does stress dose and takes 10 mg specially if he is going to do a intensive exercise routine. He continues on the biologic therapy with good effect. He did not tolerate the Daliresp. Causes GI symptoms. Will go ahead and slowly wean that off. Although because of his underlying severe obstructive lung disease I do believe that adding Ohtuvayre would be a very effective option for him. Will go ahead and submitted to the insurance company for him to start the new nebulized therapy. [facility] Medical History (Reviewed 07/29/23 @ 11:26 by Destinee Palomino, [facility]) Bronchiectasis Hypogammaglobulinemia Adrenal insufficiency Transaminitis Asthma-COPD overlap syndrome ABPA (allergic bronchopulmonary aspergillosis) Hypertension Surgical History History of bronchoscopy (~2020) History of repair of anterior cruciate ligament of left knee (~2012) Social History Household Members: Spouse Housing: House Do you presently have visiting nurse or other home services: Yes Alcohol intake: never Patient Tobacco Use Status: Never used Tobacco e-Cigarette/Vaping Use: Never Used Second Hand Smoke Exposure: No service: No Current occupational status: retired Current occupational exposures/hazards: No Cognitive needs: No Hearing needs: No Vision needs: No Review of Systems Const Denies chills, Denies excessive sweating, Denies fever(s), Denies headache(s) and Denies night sweats Eyes Denies dry eyes, Denies irritation and Denies itchy eyes ENT Reports Normal hearing present, Denies headache(s), Denies nasal congestion, Denies nasal discharge, Denies post nasal drip and Denies sore throat Card Denies chest pain, Denies chest pain at rest, Denies chest pain with activity and Denies leg edema Resp Denies change in phlegm color, Reports chest congestion, Reports cough, Denies excessive phlegm production, Denies pain on inspiration, Denies pain with cough, Denies stridor and Reports wheezing Musc Denies myalgias Neuro Reports Normal hearing present and Denies headache(s) Endo Denies excessive sweating Pedrito/Lymph Denies lymphadenopathy Aller/Immun Denies itchy eyes, Denies seasonal rhinorrhea and Reports wheezing Physical Exam Vital Signs: Last Vital Signs Pulse 70 08/24/24 09:13 BP 140/68 H 08/24/24 09:13 Pulse Ox 99 08/24/24 09:13 Oxygen Delivery Method Room Air 08/24/24 09:13 Const General: alert HEENT General nose exam: Abnormal external nose present and Nasal discharge present Eyes Pupils: Equal, round and reactive pupils present Neck Neck: Yes normal visual inspection, Yes full ROM and Yes no lymphadenopathy Chest Chest palpation & inspection: normal inspection of the chest Resp Effort & Inspection: normal respiratory effort Auscultation: rhonchi, no wheezes and diminished lung sounds Cardio Rate: regular rate Rhythm: regular rhythm Heart sounds: S1 normal heart sound present and S2 normal heart sound present GI Palpation (GI): Soft to palpation and nontender Auscultation: normal bowel sounds General: Yes no CVA tenderness Back/Spine/Pelvis Back: no CVA tenderness Skin General skin exam: rashes and/or lesions noted Neuro Cranial nerves: Yes Equal, round and reactive pupils present and Yes Normal hearing present Psych Affect: Sad affect present and Anxious affect present Assessment & Plan Assessment & Plan (1) ABPA (allergic bronchopulmonary aspergillosis): Code(s): B44.81 - Allergic bronchopulmonary aspergillosis Category: Medical (2) Asthma-COPD overlap syndrome: Code(s): J44.9 - Chronic obstructive pulmonary disease, unspecified Category: Medical (3) Adrenal insufficiency: Code(s): E27.40 - Unspecified adrenocortical insufficiency Category: Medical (4) Hypogammaglobulinemia: Code(s): D80.1 - Nonfamilial hypogammaglobulinemia Category: Medical (5) Bronchiectasis: Code(s): J47.9 - Bronchiectasis, uncomplicated Category: Medical Qualifiers: Bronchiectasis type: uncomplicated Qualified Code(s): J47.9 - Bronchiectasis, uncomplicated Plan Prednisone 4.5mg daily, Follow up with Endocrine Daliresp 500mcg, will wean due to side effects start Ohtuvayre nebs continue Tezspire Q4 weeks IVIG with Allergy Continue budesonide 0.5 mg twice a day via nebulizer Continue Brovana via nebulizer twice a day Continue Incruse daily Combivent percussion vest for CPT for for his ABPA and bronchiectasis. Hypertonic saline 3% nebs BID Reflux diet/HOB elevated F/U in 2-3 months Medications: Refilled albuterol sulfate 2.5 mg (3 mL) inhalation Q4H PRN 1,575 mL 1RF for wheezing 90 days J44.9 - Chronic obstructive pulmonary disease, unspecified sodium chloride 3% 4 mL inhalation BID 240 mL 11RF 30 days Coding Level of Care Code Est Pt Level 4 (05917) Complex EM visit Add On G2211 Diagnoses ABPA (allergic bronchopulmonary aspergillosis) B44.81 Asthma-COPD overlap syndrome J44.9 Adrenal insufficiency E27.40 Hypogammaglobulinemia D80.1 Bronchiectasis without complication J47.9 Bronchiectasis type: uncomplicated Time Spent (min) 17
== END 2024-08-24 09:34 | disposition home or self-care (01) ==
PROVIDERS: PCP Family Medicine; Visit Provider Hospitalist
DX: B44.81 Allergic bronchopulmonary aspergillosis (principal); J44.9 Chronic obstructive pulmonary disease, unspecified; E27.40 Unspecified adrenocortical insufficiency; D80.1 Nonfamilial hypogammaglobulinemia; J47.9 Bronchiectasis, uncomplicated
CPT/HCPCS: 99214; G2211

== ENCOUNTER → 2024-08-24 09:11 | Outpatient (BNVA) | payer MEDICARE, OTHER, SELFPAY | PROVIDERS: PCP Family Medicine; Visit Provider Hospitalist | DX: J47.9 Bronchiectasis, uncomplicated (principal); J44.9 Chronic obstructive pulmonary disease, unspecified; D80.1 Nonfamilial hypogammaglobulinemia; E27.40 Unspecified adrenocortical insufficiency; B44.81 Allergic bronchopulmonary aspergillosis | CPT/HCPCS: 99212 ==

== ENCOUNTER 2024-10-03 11:20 | Outpatient (AMB) | payer MEDICARE, OTHER, SELFPAY ==
--- NOTE | 2024-10-03 11:44 | MHC.PC.OV ---
Vital Signs 10/03/24 11:46 Height 5 ft 9 in Weight 157 lb 8 oz BMI 23.3 BP 126/88 Blood Pressure Location Rt brachial Position Sitting Pulse 78 Pulse Source Pulse Oximeter Pulse Oximetry (%) 99 Oxygen Delivery Method Room Air Intake Visit Reasons: F/u ACL Knee injury Intake Note: Right knee pain. Knife Sharpener Required: No Allergies Doxycycline Hyclate Allergy (Intermediate, Uncoded 10/03/24 11:44) redness and itching Tobacco use date assessed: 10/03/24 Fall risk assessment: 1 Fall in past year Last assessed Fall Risk: 10/03/24 Dental Screening Dental Screen Date: 06/03/23 HPI HPI Comments History of Present Illness Details This is a 68 year old male with a past medical history of left ACL tear presenting for bilateral knee injury Patient was skiing last Thursday when he was clotheslined around the forehead. His upper body was held back has the lower part of the body lurched forward with skis coming out from under him. He immediately heard several pops in the right knee. [facility] who suspects acute tears of the ACL, LCL and MCL right knee and possible similar injuries to the left. He was given knee braces which he has been wearing. The knees particularly the right feels unstable. He is unable to twist the joints. Has considerable difficulty walking and bruising to the lateral right and lateral left knees. Using OTC pain relief. ROS see HPI PHYSICAL EXAM: GENERAL: Alert and oriented x 3. NAD EYES: EOMI. Anicteric. HENT: Moist mucous membranes. No scleral icterus. No cervical lymphadenopathy. LUNGS: Clear to auscultation bilaterally. CARDIOVASCULAR: Regular rate and rhythm. No murmur. No JVD. ABDOMEN: Soft, non-tender +bs EXTREMITIES: No edema. Non-tender. KNEES: Right lateral knee swelling and bruising, left lateral knee bruising. There is positive anterior drawer bilaterally more significant on right. Tenderness with minimal valgus, varus stress SKIN: No rashes or lesions. Warm. NEUROLOGIC: No focal neurological deficits. CN II-XII grossly intact PSYCHIATRIC: Cooperative. Appropriate mood and affect [facility] Medical History Bronchiectasis Hypogammaglobulinemia Adrenal insufficiency Transaminitis Asthma-COPD overlap syndrome ABPA (allergic bronchopulmonary aspergillosis) Hypertension Surgical History History of bronchoscopy (~2020) History of repair of anterior cruciate ligament of left knee (~2012) Social History Household Members: Spouse Housing: House Do you presently have visiting nurse or other home services: Yes Alcohol intake: never Patient Tobacco Use Status: Never used Tobacco e-Cigarette/Vaping Use: Never Used Second Hand Smoke Exposure: No service: No Current occupational status: retired Current occupational exposures/hazards: No Cognitive needs: No Hearing needs: No Vision needs: No Questionnaire PHQ-9 Over the last 2 weeks, how often have you been bothered by any of the following problems? 1. Little interest or pleasure in doing things: not at all 2. Feeling down, depressed, or hopeless: not at all 3. Trouble falling or staying asleep, or sleeping too much: not at all 4. Feeling tired or having little energy: not at all 5. Poor appetite or overeating: not at all 6. Feeling bad about yourself - or that you are a failure or have let yourself or your family down: not at all 7. Trouble concentrating on things, such as reading the newspaper or watching television: not at all 8. Moving or speaking so slowly that other people could have noticed. Or the opposite - being so fidgety or restless that you have been moving around a lot more than usual: not at all 9. Thoughts that you would be better off or of hurting yourself in some way: not at all Total score: 0 Source: Developed by Drs. Miky Puckett, Terrie Dong, Dustin Sherwood and colleagues, with an educational juan manuel from [employer]. Thrive Questionnaire Date Thrive assessed: 06/08/24 I am a: Patient What is your living situation today?: I have a steady place to live Within the past 12 months, did the food you bought not last and you didn't have the money to get more?: Often true Within the past 12 months, did you worry whether your food would run out before you got money to buy more?: Often true Do you have trouble paying for medicines?: No Do you have trouble getting transportation to medical appointments?: No Do you have trouble paying your heating and electricity bill?: No Do you have trouble taking care of your child, family member or friend?: No Do you have trouble with day-to-day activities such as bathing, preparing meals, shopping, managing finances, etc.?: No Are you currently unemployed and looking for a job?: No Are you interested in more education?: No Please select the resources that you would like help with: None Currently or been in a relationship where the following occur: No concerns reported THRIVE Score: 2 AUDIT C Alcohol Use Questionnaire (AUDIT-C) 1. How often do you have a drink containing alcohol?: Never Total Score: 0 AUSTIN-7 AMB Questionnaire AUSTIN-7 Date AUSTIN - 7 assessed: 06/08/24 Feeling nervous, anxious, or on edge: 0 = Not at all Not being able to stop or control worryin = Not at all Worrying too much about different things: 0 = Not at all Trouble relaxin = Not at all Being so restless that it is hard to sit still: 0 = Not at all Becoming easily annoyed or irritable: 0 = Not at all Feeling afraid as if something awful might happen: 0 = Not at all Total AUSTIN-7 score (0-4 normal; 5-9 mild; 10-14 moderate; 15-21 severe): 0 Source: Developed by Drs. Miky Puckett, Terrie Dong, Dustin Sherwood and colleagues, with an educational juan manuel from [employer]. Physical exam (Primary Care) Vital Signs: Last Vital Signs Pulse 78 10/03/24 11:46 BP 126/88 10/03/24 11:46 Pulse Ox 99 10/03/24 11:46 Oxygen Delivery Method Room Air 10/03/24 11:46 BMI result Body Mass Index 23.3 Tobacco/Smoking Status: Tobacco use Status Tobacco use date assessed 07/29/23 07/08/24 14:08 Patient Tobacco Use Status Never used Tobacco 07/08/24 14:08 e-Cigarette/Vaping Use Never Used 07/08/24 14:08 Thrive Assessment: Date of Thrive Assessment Date Thrive assessed 06/08/24 07/08/24 14:08 Currently or been in a relationship where the following occur: No concerns reported Coding Level of Care Code Est Pt Level 4 (34953) Diagnoses Rupture of anterior cruciate ligament of both knees, subsequent encounter S83.511D; S83.512D Laterality: bilateral Encounter type: subsequent encounter Assessment & Plan Assessment & Plan (1) ACL tear: Code(s): S83.519A - Sprain of anterior cruciate ligament of unspecified knee, initial encounter Category: Medical Qualifiers: Laterality: bilateral Encounter type: subsequent encounter Qualified Code(s): S83.511D - Sprain of anterior cruciate ligament of right knee, subsequent encounter; S83.512D - Sprain of anterior cruciate ligament of left knee, subsequent encounter Plan: Ski injury with evidence of bilateral ligament injuries. Needs bilateral MRIS, urgent ortho consults-orders placed Orders: Orders MR knee LT wo con Today R29.898 - Other symptoms and signs involving the musculoskeletal system, S83.429A - Sprain of lateral collateral ligament of unspecified knee, initial encounter, S83.519A - Sprain of anterior cruciate ligament of unspecified knee, initial encounter, V00.328A - Other snow-ski accident, initial encounter, Z87.828 - Personal history of other (healed) physical injury and trauma MR knee RT wo con Today R29.898 - Other symptoms and signs involving the musculoskeletal system, S83.429A - Sprain of lateral collateral ligament of unspecified knee, initial encounter, S83.519A - Sprain of anterior cruciate ligament of unspecified knee, initial encounter, V00.328A - Other snow-ski accident, initial encounter, Z87.828 - Personal history of other (healed) physical injury and trauma Referrals Orthopedics Referral R29.898 - Other symptoms and signs involving the musculoskeletal system, V00.328A - Other snow-ski accident, initial encounter, Z87.828 - Personal history of other (healed) physical injury and trauma
[2024-10-03 11:46] VITALS: BP 126/88; PULSE 78; O2SAT 99; BMI 23.3
--- OUTSIDE RECORDS SUMMARY | 2024-10-03 16:14 | XMS_ITS | Clinical Summary ---
Author Organization [facility] Address [address] [place] [address] Care Team Providers Care Inspector Plumbing Name Role Phone Unavailable Primary Care Provider Unavailabl e Surgical History Surgery Date Site/Laterality Comments TONSILLECTOMY PROCEDURE: HISTORICAL TONSILLECTOMY; COMMENT: Age 6 KNEE SURGERY 01/05/2013 PROCEDURE: HISTORICAL KNEE SURGERY; COMMENT: Dr Cristi hunt COLONOSCOPY 02/25/2008 PROCEDURE: HISTORICAL COLONOSCOPY; COMMENT: diverticulosis COLONOSCOPY 05/12/2018 PROCEDURE: HISTORICAL COLONOSCOPY; COMMENT: diverticulosis; no polyps. Medical History Medical History Date Comments Unspecified asthma(493.90) 09/28/2005 DX:Un specified asthma(493.90) Irritable bowel syndrome 09/28/2005 DX:Irri table bowel syndrome Essential hypertension, benign 10/19/2007 D X:Essential hypertension, benign Allergic rhinitis 10/19/2007 DX:Allergic rh initis Diverticulosis of colon (wit hout mention of hemorrhage) 02/25/2008 DX:Diverticulosis of colon ( without mention of hemorrhage); COMMENT: Incidental finding at colonoscopy 02/25/2008. Esophageal reflux 10/18/2005 DX:Esophageal reflux Family history of breast cancer DX:Family history of breast cancer; COMMENT: Pt negative My Risk 09/14/2014 Family History Medical History Relation Name Comments Other cancer Aunt 1 maternal aunt; breast cancer-bilateral Dementia Aunt 2 at age 96; paternal Hypertension Father ID [phone] Other: Other Maternal Grandfather - age 70; ? cancer type Other: Other Maternal Grandmother at 96 of [place] Other: Suicide Mother 1980; at age 47 Other: thyroid cancer Other 1 matern al first cousin Breast cancer Other 2 second primary at age 53-; cousin Lymphoma Other 3 paternal cousin -nonHodgkins Leukemia Paternal Grandfather - age 75 Breast cancer Paternal Grandmother Breast cancer Sister 1 second primary breast cancer at age 40 Breast cancer Sister 2 unilateral Stroke Uncle 1 paternal uncle Heart attack Uncle 2 ; paternal Relation Name Status Comments Aunt 1 Aunt 2 Father Maternal Grandfather Maternal Grandmother Mother Other 1 Other 2 Other 3 Paternal Grandfather Paternal Grandmother Sister 1 Sister 2 Uncle 1 Uncle 2 Social History Tobacco Use Types Packs/Day Years Used Date Smoking Tobacco: Never Smokeless Tobacco: Never Alcohol Use Standard Drinks/Week Comments Yes 0 (1 standard drink = 0.6 oz pur e alcohol) Sex and Gender Information Value Date Recorded Sex Assigned at Not on file Gender Identity Not on file Sexual Orientation Not on file Obstetrics History Plan of Treatment Health Maintenance Due Date Last Done Comments Pneumococcal Vaccine: 65+ Years (2 of 2 - PCV) 09/07/2006 09/07/2005 Zoster Vaccines (1 of 2) 2006 RSV Immunization Patients 60+ Years Old (1 - Risk 60-74 years 1-dose series) 2016 DTaP,Tdap,and Td Vaccines (2 - Td or Tdap) 02/17/2018 02/18/2008 Abdominal Aortic Aneurysm (AAA) Screen 08/10/2022 Cholesterol Screening (Lipid Panel) 08/10/2022 Colorectal Cancer Screening: Colonoscopy 08/10/2022 Depression Screening 08/10/2022 Falls Risk Assessment 08/10/2022 Hepatitis C Screening 08/10/2022 Social Influencers of Health Screening 08/10/2022 Hypertension/CHF/CAD Annual BMP Blood Test 08/21/2022 COVID-19 Vaccine (2 - season) 2024 11/04/2020 Influenza Vaccine (#1) 2024 5, 05/30/2013, 07/05/2010, Additional history exists HIB Vaccines Aged Out No longer eligi ble based on patient's age to complete this topic HPV Vaccines Aged Out No longer eligi ble based on patient's age to complete this topic Hepatitis A Vaccines Aged Out No long er eligible based on patient's age to complete this topic Hepatitis B Vaccines Aged Out No long er eligible based on patient's age to complete this topic IPV Vaccines Aged Out No longer eligi ble based on patient's age to complete this topic MMR Vaccines Aged Out No longer eligi ble based on patient's age to complete this topic Meningococcal ACWY Vaccine Aged Out N o longer eligible based on patient's age to complete this topic RSV Immunization Patients Under 20 months Aged Out No longer eligible based on patient's age to complete this topic Varicella Vaccines Aged Out No longer eligible based on patient's age to complete this topic Advance Directives Documents on File Type Date Recorded 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
== END 2024-10-03 12:54 | disposition home or self-care (01) ==
PROVIDERS: PCP Family Medicine; Visit Provider Internal Medicine
DX: S83.511D Sprain of anterior cruciate ligament of right knee, subsequent encounter (principal); S83.512D Sprain of anterior cruciate ligament of left knee, subsequent encounter

== ENCOUNTER → 2024-10-03 11:20 | Outpatient (BNVA) | payer MEDICARE, OTHER, SELFPAY | PROVIDERS: PCP Family Medicine; Visit Provider Internal Medicine | DX: S83.512D Sprain of anterior cruciate ligament of left knee, subsequent encounter (principal); S83.522D Sprain of posterior cruciate ligament of left knee, subsequent encounter; R29.898 Other symptoms and signs involving the musculoskeletal system; V00.328D Other snow-ski accident, subsequent encounter; Z87.828 Personal history of other (healed) physical injury and trauma | CPT/HCPCS: 99212 ==

== ENCOUNTER → 2024-10-05 19:13 | Outpatient (BNV) | payer MEDICARE, OTHER, SELFPAY | PROVIDERS: PCP Family Medicine; Visit Provider Radiology Diagnostic Radiology | DX: S83.512A Sprain of anterior cruciate ligament of left knee, initial encounter (principal); S83.522A Sprain of posterior cruciate ligament of left knee, initial encounter; M25.462 Effusion, left knee; M71.22 Synovial cyst of popliteal space [Baker], left knee; M17.12 Unilateral primary osteoarthritis, left knee; S83.511A Sprain of anterior cruciate ligament of right knee, initial encounter; S83.241A Other tear of medial meniscus, current injury, right knee, initial encounter; M25.461 Effusion, right knee; M71.21 Synovial cyst of popliteal space [Baker], right knee | CPT/HCPCS: 73721 ==

== ENCOUNTER 2024-10-05 19:22 | Outpatient (REF) | payer MEDICARE, OTHER, SELFPAY ==
--- NOTE | ~2024-10-05 | MR_ITS ---
CLINICAL HISTORY: S83.429A - Sprain of lateral collateral ligament of unspecified knee, in... , skii ng injury 124. MR right knee without gadolinium Comparison: MR - MR KNEE LT WO CON - 01/09/21 14:18 EDT Findings: No fractures. No pathologic bone lesions. Small knee joint effusion and small Hooks's cyst. High-grade tearing of the anterior cruciate ligament at the femoral insertion site. Posterior cruciate ligament is intact. There is mild T2 signal elevation within the lateral collateral ligament at the femoral origin, which demonstrates moderate surrounding T2 signal elevation. Patellar retinacula and iliotibial band are intact. No tears of the quadriceps, patellar, popliteus, or flexor tendons. There is moderate T2 signal elevation within and surrounding the lateral head of the gastrocnemius. Linear horizontal high T2 signal intensity within the inner, middle, and peripheral thirds of the posterior horn medial meniscus, demonstrating inferior articular surface extension. Lateral meniscus is intact. IMPRESSION: 1. High-grade anterior cruciate ligament tear. 2. Medial meniscal tear. 3. Partial-thickness lateral collateral ligament tear with associated lateral collateral ligament strain. 4. Knee joint effusion and Hooks's cyst. 5. Moderate grade strain of the lateral head of the gastrocnemius. This document has been electronically signed by: Shadia Christine MD on 10/05/2024 20:40:56
--- NOTE | ~2024-10-05 | MR_ITS ---
CLINICAL HISTORY: Z87.828 - Personal history of other (healed) physical injury and trauma skiing inj ury 124.25 MR left knee without gadolinium Comparison: MR - MR KNEE LT WO CON - 01/09/21 14:18 EDT DX - XR KNEE STANDING BI - 12/14/20 10:50 EDT DX - XR KNEE LT 2V - 12/14/20 10:50 EDT Findings: No acute fracture or pathologic bone lesion. There is mild subchondral degenerative marrow edema within the lateral femoral condyle. Severe articular cartilage loss overlying the mid and posterior weight-bearing aspect of the lateral femoral condyle. Moderate knee joint effusion and small Hooks's cyst. Chronic full-thickness tearing of the anterior cruciate ligament graft is present. There is low-grade partial-thickness tearing of the posterior cruciate ligament. Mild T2 signal elevation within the lateral collateral ligament at the femoral origin, consistent with low-grade tearing. Medial collateral ligament is intact. Patellar retinacula and iliotibial band are intact. No tears of the quadriceps, patellar, popliteus, or flexor tendons. Vertically oriented linear high T2 signal intensity traverses the peripheral 3rd of the medial meniscal body, demonstrating superior and inferior articular surface extension, indicating vertical tearing. Linear oblique high T2 signal intensity traverses the inner, middle, and peripheral thirds of the posterior horn medial meniscus, demonstrating inferior articular surface extension, indicating oblique tearing. Vertically oriented linear high T2 signal intensity traverses the superior articular surface of the peripheral 3rd of the posterior horn medial meniscus, demonstrating superior articular surface extension, indicating vertical tearing. Truncation of the middle 3rd of the posterior horn lateral meniscus is present, indicating radial tearing versus postmeniscectomy sequelae. Linear horizontal high T2 signal intensity traverses the inner, middle, and peripheral thirds of the anterior horn lateral meniscus, demonstrating superior articular surface extension, indicating horizontal tearing. IMPRESSION: 1. Full-thickness tearing of the anterior cruciate ligament graft. 2. Low-grade partial-thickness tearing of the posterior cruciate ligament. 3. Medial and lateral meniscal tearing. 4. Knee joint effusion and Hooks's cyst. 5. Low-grade partial-thickness lateral collateral ligament tear. 6. Osteoarthritis with associated articular cartilage loss. This document has been electronically signed by: Shadia Christine MD on 10/05/2024 20:48:05
== END 2024-10-05 19:23 | disposition home or self-care (01) ==
LOC: HO.MRI 19:22
PROVIDERS: PCP Family Medicine; Visit Provider Internal Medicine
DX: S83.421D Sprain of lateral collateral ligament of right knee, subsequent encounter (principal); S83.422D Sprain of lateral collateral ligament of left knee, subsequent encounter; S83.511D Sprain of anterior cruciate ligament of right knee, subsequent encounter; S83.512D Sprain of anterior cruciate ligament of left knee, subsequent encounter; R29.898 Other symptoms and signs involving the musculoskeletal system; Z87.828 Personal history of other (healed) physical injury and trauma; V00.328D Other snow-ski accident, subsequent encounter
CPT/HCPCS: 73721

== ENCOUNTER 2024-10-10 07:43 | Outpatient (REF) | payer MEDICARE, OTHER, SELFPAY ==
--- NOTE | ~2024-10-10 | XR_ITS ---
EXAMINATION: XR KNEE 3 VIEWS RIGHT HISTORY: M25.561 - Pain in right knee COMPARISON: Correlation is made with a standing AP view of the right knee dated 12/24/2020. FINDINGS: Standing AP views of the of both knees and additional lateral and sunrise patellar views of the right knee are submitted. Osseous mineralization is normal. There is no fracture or dislocation. The joint spaces are preserved. There is a mild to moderate joint effusion. XR/XR knee RT 3V IMPRESSION: Small to moderate joint effusion. Otherwise unremarkable examination of the right knee. Electronically signed by: Miky Blankenship MD 10/10/2024 01:31 PM AMBER
--- OUTSIDE RECORDS SUMMARY | 2024-10-10 07:46 | XMS_ITS | Clinical Summary ---
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
== END 2024-10-10 07:44 | disposition home or self-care (01) ==
LOC: HO.HOSX 07:43
PROVIDERS: Visit Provider Orthopaedic Surgery
DX: M25.561 Pain in right knee (principal); S83.511D Sprain of anterior cruciate ligament of right knee, subsequent encounter; S83.512D Sprain of anterior cruciate ligament of left knee, subsequent encounter
CPT/HCPCS: 73562; 99212

== ENCOUNTER 2024-10-10 09:33 | Outpatient (AMB) | payer MEDICARE, OTHER, SELFPAY ==
[2024-10-10 09:50] VITALS: BMI 23.3
--- NOTE | 2024-10-10 09:50 | A.OFFVIS_ITS ---
Vital Signs 10/10/24 09:50 Height 5 ft 9 in Weight 157 lb 8 oz BMI 23.3 Intake Visit Reasons: NewProb-Right knee skii injury, DOI 09/30/24 Intake Note: Leo is a 68 year old male who presents today for evaluation of right knee pain s/p skii injury, DOI 09/30/24. MRI done on 10/05/24. Patient reports right knee swelling has gone down but he continues to have soreness behind the knee and on the medial aspect of the right knee. He is taking Ibuprofen 500 mg for pain with relief. Patient would also like to know if this accident has worsened his prior left ACL tear diagnosed, 2020. Left Knee MRI 10/05/24 IMPRESSION: 1. Full-thickness tearing of the anterior cruciate ligament graft. 2. Low-grade partial-thickness tearing of the posterior cruciate ligament. 3. Medial and lateral meniscal tearing. 4. Knee joint effusion and Hooks's cyst. 5. Low-grade partial-thickness lateral collateral ligament tear. 6. Osteoarthritis with associated articular cartilage loss. Left Knee MRI 01/09/21 IMPRESSION: 1. Complete tear of the ACL graft. 2. Peripheral longitudinal meniscocapsular tear at the posterior horn and body of the medial meniscus, consistent with a ramp lesion. 3. Chronic defect in the posterior horn of the lateral meniscus at the root insertion from a prior partial meniscectomy. Meniscal body is partially extruded. No new tears. 4. Small 4 x 5 mm high-grade chondral defect at the lateral femoral condyle weightbearing surface. Minimal chondral fissuring at the posterior margin of the lateral tibial plateau. 5. Small joint effusion. Allergies Doxycycline Hyclate Allergy (Intermediate, Uncoded 10/10/24 09:50) redness and itching HPI HPI NewProb-Right knee skii injury, DOI 09/30/24: Details: Leo is a 68 year old male who presents today for evaluation of bilateral knee pain, right is worse, s/p skii injury, DOI 09/30/24. MRI done on 10/05/24. Patient reports right knee swelling has gone down but he continues to have soreness behind the knee and on the medial aspect of the right knee. He is taking Ibuprofen 500 mg for pain with relief. Leo underwent a left ACL reconstruction in 2012 and did pretty well until 2020 when he had a skiing accident re-injured his left knee. His left knee never bothered him however and we have been treating it conservatively. His right knee however he is concerned after his recent injury. [facility] Medical History (Reviewed 07/29/23 @ 11:26 by Destinee Palomino [facility]) Bronchiectasis Hypogammaglobulinemia Adrenal insufficiency Transaminitis Asthma-COPD overlap syndrome ABPA (allergic bronchopulmonary aspergillosis) Hypertension Surgical History History of bronchoscopy (~2020) History of repair of anterior cruciate ligament of left knee (~2012) Social History (Updated 10/03/24 @ 11:49 by Demetrice Sotomayor CMA) Household Members: Spouse Housing: House Do you presently have visiting nurse or other home services: Yes Alcohol intake: never Patient Tobacco Use Status: Never used Tobacco e-Cigarette/Vaping Use: Never Used Second Hand Smoke Exposure: No service: No Current occupational status: retired Current occupational exposures/hazards: No Cognitive needs: No Hearing needs: No Vision needs: No Physical Exam Vital Signs: BMI result Body Mass Index 23.3 Extrem Other: 5-130 degrees of motion right knee. Trace effusion. Positive medial Mandy's. Tenderness to palpation over the lateral joint line. Negative dial test while supine. 2+ Priya's bilaterally. Results Reviewed Results Reviewed: I personally reviewed the MR images. Right Knee MRI 10/05/24 IMPRESSION: 1. High-grade anterior cruciate ligament tear. 2. Medial meniscal tear. 3. Partial-thickness lateral collateral ligament tear with associated lateral collateral ligament strain. 4. Knee joint effusion and Hooks's cyst. 5. Moderate grade strain of the lateral head of the gastrocnemius. 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 He has a tear of his right ACL with a medial meniscus tear and a low-grade strain of his LCL. We had a long discussion regarding treatment options. He is super active and aggressively into skiing and wants his ACL reconstructed. I think this is reasonable. We had a very successful reconstruction on his left knee until a injury 10 years later re-injured it and we elected not to fix that but his right knee, he feels strongly that he would like to have this reconstructed. I discussed with him the surgery and the risks and benefits and alternatives. He expressed understanding and all his questions were answered. Is injury was only about 2 weeks ago and so I would like to wait 2-3 weeks prior to surgery. His motion is pretty good but I wanted to be fall and for him to be pain-free by time of surgery. We discussed this and he agrees. Orders: Orders XR knee RT 3V Today M25.561 - Pain in right knee XR knee LT 1V Today M25.569 - Pain in unspecified knee Coding Level of Care Code Est Pt Level 4 (04073) Diagnoses Rupture of anterior cruciate ligament of both knees, subsequent encounter S83.511D; S83.512D Encounter type: subsequent encounter Laterality: bilateral
--- OUTSIDE RECORDS SUMMARY | 2024-10-10 09:57 | XMS_ITS | Clinical Summary ---
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
== END 2024-10-10 11:15 | disposition home or self-care (01) ==
PROVIDERS: PCP Family Medicine; Visit Provider Orthopaedic Surgery
DX: S83.511D Sprain of anterior cruciate ligament of right knee, subsequent encounter (principal); S83.512D Sprain of anterior cruciate ligament of left knee, subsequent encounter
CPT/HCPCS: 99214

== ENCOUNTER → 2024-10-10 09:47 | Outpatient (BNV) | payer MEDICARE, OTHER, SELFPAY | PROVIDERS: Visit Provider Radiology Diagnostic Radiology | DX: M25.461 Effusion, right knee (principal) | CPT/HCPCS: 73562 ==

== ENCOUNTER 2024-10-19 08:15 | Outpatient (REF) | payer MEDICARE, OTHER, SELFPAY ==
--- OUTSIDE RECORDS SUMMARY | 2024-10-19 08:47 | XMS_ITS | Clinical Summary ---
Author Organization [employer] Address [address] [place] [address] Care Team Providers Care Instrument Technician Apprentice Name Role Phone Unavailable Primary Care Provider [...] 2 at age 96; paternal Hypertension Father [place] [phone] Other: Other Maternal Grandfather - age 70; ? 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
[2024-10-19 11:51] LABS: Blood Urea Nitrogen 16 mg/dL (9-16); Estimated Glomerular Filt Rate > 60
[2024-10-19 11:59] LABS: Alanine Aminotransferase 45 U/L (0-40); Alkaline Phosphatase 58 U/L (39-117); Anion Gap 10 (12-20); Aspartate Amino Transferase 44 U/L (5-37); Bilirubin Total 0.5 mg/dL (0.0-1.0); Blood Urea Nitrogen 16 mg/dL (9-16); Calcium 9.2 mg/dL (8.4-10.2); Carbon Dioxide 30 mmol/L (22-29); Chloride 104 mmol/L (96-108); Estimated Glomerular Filt Rate > 60; Glucose Fasting 77 mg/dL (60-99); Sodium 140 mmol/L (135-145); Total Protein 7.3 g/dL (6.5-8.0)
[2024-10-20 08:13] LABS: Immunoglobulin G 1263 mg/dL (600-1540)
== END 2024-10-19 08:16 | disposition home or self-care (01) ==
LOC: HO.WFDLDS 08:15
PROVIDERS: Allergy & Immunology; Visit Provider Family Medicine
DX: Z00.00 Encounter for general adult medical examination without abnormal findings (principal); D80.1 Nonfamilial hypogammaglobulinemia; E87.6 Hypokalemia
CPT/HCPCS: 36415; 80053; 82565; 82784; 84520

== ENCOUNTER → 2024-10-28 12:51 | Outpatient (AMB) | payer MEDICARE, OTHER, SELFPAY ==
--- NOTE | 2024-10-28 13:10 | MHC.PC.OV ---
Vital Signs 10/28/24 13:39 Height 5 ft 9 in Weight 157 lb 6 oz BMI 23.2 BP 130/80 Blood Pressure Location Rt brachial Position Sitting Respiration 12 Pulse 58 Pulse Source Pulse Oximeter Temp 98.2 F Temp Source Oral Pulse Oximetry (%) 99 Oxygen Delivery Method Room Air Intake Visit Reasons: PCP clearance EKG and labs needed fu labs Allergies Doxycycline Hyclate Allergy (Intermediate, Uncoded 10/10/24 09:50) redness and itching Tobacco use date assessed: 10/03/24 Dental Screening Dental Screen Date: 06/03/23 HPI PCP clearance EKG and labs needed fu labs HPI Details Patient?presents?for?preoperative?clearance?prior?to??R ACL?repair?surgery Procedure: R ACL Repair Date: 11/02/2024 Surgeon: Vahid Miller Anesthesia: General Cardiac?Hx: No cardiac disease. HTN Controlled. 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 Very active [facility] Medical History Bronchiectasis Hypogammaglobulinemia Adrenal insufficiency Transaminitis Asthma-COPD overlap syndrome ABPA (allergic bronchopulmonary aspergillosis) Hypertension Surgical History History of bronchoscopy (~2020) History of repair of anterior cruciate ligament of left knee (~2012) Social History (Updated 10/03/24 @ 11:49 by Demetrice Sotomayor CMA) Household Members: Spouse Housing: House Do you presently have visiting nurse or other home services: Yes Alcohol intake: never Patient Tobacco Use Status: Never used Tobacco e-Cigarette/Vaping Use: Never Used Second Hand Smoke Exposure: No service: No Current occupational status: retired Current occupational exposures/hazards: No Cognitive needs: No Hearing needs: No Vision needs: No Questionnaire Thrive Questionnaire Date Thrive assessed: 10/03/24 I am a: Patient What is your living situation today?: I have a steady place to live Within the past 12 months, did the food you bought not last and you didn't have the money to get more?: Often true Within the past 12 months, did you worry whether your food would run out before you got money to buy more?: Often true Do you have trouble paying for medicines?: No Do you have trouble getting transportation to medical appointments?: No Do you have trouble paying your heating and electricity bill?: No Do you have trouble taking care of your child, family member or friend?: No Do you have trouble with day-to-day activities such as bathing, preparing meals, shopping, managing finances, etc.?: No Are you currently unemployed and looking for a job?: No Are you interested in more education?: No Please select the resources that you would like help with: None Currently or been in a relationship where the following occur: No concerns reported THRIVE Score: 2 AUDIT C Alcohol Use Questionnaire (AUDIT-C) 2. How many drinks containing alcohol do you have on a typical day when you are drinking?: 1 or 2 3. How often do you have six or more drinks on one occasion?: Never Total Score: 0 AUSTIN-7 AMB Questionnaire AUSTIN-7 Date AUSTIN - 7 assessed: 06/08/24 Source: Developed by Drs. Miky Puckett, Terrie Dong, Dustin Sherwood and colleagues, with an educational juan manuel from [employer]. Review of Systems Const Denies chills, Denies fatigue, Denies fever(s), Denies headache(s) and Denies weakness ENT Denies dizziness and Denies headache(s) Card Denies chest pain, Denies lightheadedness, Denies dyspnea and Denies other (Palpitations) Resp Denies cough, Denies dyspnea, Denies wheezing and Denies other ( shortness of breath) Musc Denies numbness and Denies tingling Neuro Denies dizziness, Denies headache(s), Denies numbness, Denies tingling, Denies paresthesias and Denies weakness Psych Denies anxiety and Denies depression Endo Denies fatigue Aller/Immun Denies wheezing Physical exam (Primary Care) Vital Signs: Last Vital Signs Temp 98.2 F 10/28/24 13:39 Pulse 58 10/28/24 13:39 Resp 12 10/28/24 13:39 BP 130/80 10/28/24 13:39 Pulse Ox 99 10/28/24 13:39 Oxygen Delivery Method Room Air 10/28/24 13:39 BMI result Body Mass Index 23.2 Tobacco/Smoking Status: Tobacco use Status Tobacco use date assessed 10/03/24 10/28/24 13:11 Patient Tobacco Use Status Never used Tobacco 10/28/24 13:11 e-Cigarette/Vaping Use Never Used 10/28/24 13:11 Thrive Assessment: Date of Thrive Assessment Date Thrive assessed 10/03/24 10/28/24 13:11 Currently or been in a relationship where the following occur: No concerns reported Const General: no acute distress and well developed Nutritional Appearance: well nourished Orientation/consciousness: patient oriented x3 HENMT Head: Yes normocephalic and Yes atraumatic Eyes General: appearance normal, both eyes and all related structures Pupils: Equal, round and reactive pupils present EOM: EOMs intact bilaterally Resp Effort & Inspection: normal respiratory effort Auscultation: clear to auscultation bilaterally Cardio Rate: regular rate Rhythm: regular rhythm Heart sounds: S1 normal heart sound present, S2 normal heart sound present, no gallops, no murmurs and no rubs Neuro General: patient oriented x3 and gait normal Cranial nerves: Yes Equal, round and reactive pupils present Psych Affect: normal affect Coding Level of Care Code Est Pt Level 3 (58502) Diagnoses Pre-operative clearance Z01.818 Assessment & Plan Assessment & Plan (1) Pre-operative clearance: Code(s): Z01.818 - Encounter for other preprocedural examination Category: Medical Plan: 68-year-old?male?presents?for?clearance?for?ACL?repair No?prior?history?of?cardiac?disease.??Blood?pressure?is?controlled. EKG: Sinus?bradycardia?58?do?p.m.,?normal?axis,?normal?intervals,?no?hypertrophy,?no?ST-T-wave?changes. Cardiac?exam?today?reveals?mild?bradycardia,?physiologic. ?Otherwise?within?normal?limits. History?of asthma?and ABPA. ?Followed?by?Pulmonary?Medicine. Pulmonary?exam?reveals that?lungs?are?clear?to?auscultation?and?patient?is?breathing?easily?today. Currently?optimize.??Continue?current?medication?regimen. No?prior surgical?anesthesia problems. No?coagulopathies. Functional?Winston?his?excellent. Low?intermediate?risk?patient?for?intermediate?risk?procedure. Patient?is?currently?optimized ?no?contraindications?to?proceeding?with?proposed procedure
--- OUTSIDE RECORDS SUMMARY | 2024-10-28 13:22 | XMS_ITS | Clinical Summary ---
Author Organization [employer] [facility] Address [address] [place] [address] Care Team Providers Care Drafter Directional Survey Name Role Phone Unavailable Primary Care Provider [...] 2 at age 96; paternal Hypertension Father [place] [phone] Other: Other Maternal Grandfather - age 70; ? cancer type Other: Other Maternal Grandmother at 96 of [place] Other: Suicide Mother 1980; at age 47 [...] patient's age to complete this topic Meningococcal B Vacine Aged Out No lo nger eligible based on patient's age to complete this topic RSV Immunization Patients Under 20 months Aged Out No longer eligible based on patient's age to complete this topic Varicella Vaccines Aged Out No longer eligible based on patient's age to complete this topic Advance Directives Documents on File Type Date Recorded Patient Poker Supervisor Expl anation Health Care Decision (hx) 10/30/2015 AD TIAN DIRECTIVE Health Care Decision (hx) 10/30/2015 AD TIAN DIRECTIVE Health Care Decision (hx) 10/24/2015 AD TIAN DIRECTIVE Health Care Decision (hx) 10/24/2015 AD TIAN DIRECTIVE
[2024-10-28 13:39] VITALS: BP 130/80; PULSE 58; RESP 12; TEMP 36.8; O2SAT 99; BMI 23.2
== END ==
PROVIDERS: PCP Family Medicine; Visit Provider Family Medicine
DX: Z01.818 Encounter for other preprocedural examination (principal)

== ENCOUNTER → 2024-10-28 12:51 | Outpatient (BNVA) | payer MEDICARE, OTHER, SELFPAY | PROVIDERS: PCP Family Medicine; Visit Provider Family Medicine | DX: Z01.818 Encounter for other preprocedural examination (principal) | CPT/HCPCS: 99212 ==

== ENCOUNTER 2024-11-02 09:19 | Day surgery (SDC) | payer MEDICARE, OTHER, SELFPAY ==
[2024-10-31 08:19] VITALS: BMI 23.2
--- NOTE | 2024-11-01 10:12 | P.CONAN_ITS ---
Documented by User: Reena Zelaya NP 11/01/24 10:15 HPI - Anesthesia Eval Consult details Narrative: 69yo M for Right ACL Repair with Allograft, and medial meniscectomy Medically optimized per PCP Pulmo optimized with increased pulmo risk. Follows [facility] [place] [place] pulmo for obstructive airway disease, bronchiectasis, immunodeficiency on chronic prednisone, secondary adrenal insufficiency. 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 (Acute) Tear of LCL (lateral collateral ligament) of knee (Acute) Skiing accident (Acute) Positive anterior drawer test of knee joint (Acute) History of tear of ACL (anterior cruciate ligament) (Acute) ACL tear (Acute) Elevated LDL cholesterol level (Acute) History of squamous cell carcinoma (Acute) Osteopenia (Acute) Tick bite (Acute) Immunization counseling (Acute) Screening for osteoporosis (Acute) Hypertriglyceridemia (Acute) Hypokalemia (Acute) Bronchiectasis (Acute) Pneumonia (Acute) Hypogammaglobulinemia (Acute) Adrenal insufficiency (Acute) Transaminitis (Acute) Acute asthma exacerbation (Acute) Diarrhea (Acute) Screening for prostate cancer (Acute) Screening for colon cancer (Acute) Elevated fasting glucose (Acute) Adult general medical exam (Acute) Essential hypertension (Acute) Allergic bronchopulmonary aspergillosis (Acute) Asthma (Acute) Hypogonadism in male (Acute) Asthma-COPD overlap syndrome (Acute) ABPA (allergic bronchopulmonary aspergillosis) (Acute) Asthma (Acute) Past Medical History Medical History Bilateral cataracts Bronchiectasis Hypogammaglobulinemia Adrenal insufficiency Transaminitis Asthma-COPD overlap syndrome ABPA (allergic bronchopulmonary aspergillosis) Hypertension Family History Family history of problems with anesthesia: No Surgical History Surgical History Hx of tonsillectomy History of bronchoscopy (~2020) History of repair of anterior cruciate ligament of left knee (~2012) History of Problems with Anesthesia: No Social History Social History Household Members: Spouse Housing: House Do you presently have visiting nurse or other home services: Yes Alcohol intake: never Patient Tobacco Use Status: Never used Tobacco e-Cigarette/Vaping Use: Never Used Second Hand Smoke Exposure: No Use of substances other than those prescribed or required for medical reasons: No Are you DNR?: No Advance Directives: No Advance Directives Information Provided: Yes Recently lost weight without trying: No service: No Current occupational status: retired Current occupational exposures/hazards: No Cognitive needs: No Hearing needs: No Vision needs: No Meds Allergies Allergy/AdvReac Type Severity Reaction Status Date / Time Doxycycline Hyclate Allergy Intermediate redness Uncoded 10/10/24 09:50 and itching Home Medications ?Medication ?Instructions ?Recorded ?Confirmed ?Last Taken ?Type fexofenadine 180 mg tablet 180 mg PO DAILY 12/14/20 02/12/23 02/11/23 History immun glob G 8 80 ml subcut Q2W 03/08/21 02/12/23 02/06/23 History gram/40mL(20%)-gly-IgA over 50 mcg/mL subcutaneous soln (Cuvitru) loteprednol etabonate 0.5 % eye 1 drp ophthalmic (eye) BID PRN Dry 08/14/21 02/12/23 Unknown History gel drops Eyes tezepelumab-ekko 210 mg/1.91 mL 210 mg subcut Q4W 08/05/22 02/12/23 01/24/23 History (110 mg/mL) subcutaneous syringe (Tezspire) nebulizers 11/20/22 02/04/23 Unknown History prednisone 1 mg tablet 5 mg PO DAILY 10/03/24 Unknown History Exam Height,Weight and Vital Signs: Height 5 ft 9 in Weight 71.214 kg Pertinent Lab Results Pertinent Lab Results: Laboratory Tests 06/14/24 10/19/24 08:08 08:21 WBC 4.4 L Hgb 14.8 Hct 44.3 Plt Count 200 Sodium 140 Potassium 4.0 D Chloride 104 Carbon Dioxide 30 H BUN 16 Creatinine 1.12 Narrative Narrative: EKG 10/2024: Sinus? bradycardia?58?do?p.m.,?normal?axis,?normal?intervals,?no?hypertrophy,?no?ST-T-w ave?changes. Assessment and Plan Assessment Anesthesia Assessment: Chart Reviewed Final Anesthetic Review Family History of Problems with Anesthesia: No History of Problems with Anesthesia: No Documented by User: Genna Byrd MD 11/02/24 10:21 PMFSH Past Medical History Medical History Bilateral cataracts Bronchiectasis Hypogammaglobulinemia Adrenal insufficiency Transaminitis Asthma-COPD overlap syndrome ABPA (allergic bronchopulmonary aspergillosis) Hypertension Surgical History Surgical History Hx of tonsillectomy History of bronchoscopy (~2020) History of repair of anterior cruciate ligament of left knee (~2012) Social History Social History Household Members: Spouse Housing: House Do you presently have visiting nurse or other home services: Yes Alcohol intake: never Patient Tobacco Use Status: Never used Tobacco e-Cigarette/Vaping Use: Never Used Second Hand Smoke Exposure: No Use of substances other than those prescribed or required for medical reasons: No Are you DNR?: No Advance Directives: No Advance Directives Information Provided: Yes Recently lost weight without trying: No service: No Current occupational status: retired Current occupational exposures/hazards: No Cognitive needs: No Hearing needs: No Vision needs: No Meds Allergies Allergy/AdvReac Type Severity Reaction Status Date / Time Doxycycline Hyclate Allergy Intermediate redness Uncoded 10/10/24 09:50 and itching Home Medications ?Medication ?Instructions ?Recorded ?Confirmed ?Last Taken ?Type fexofenadine 180 mg tablet 180 mg PO DAILY 12/14/20 02/12/23 02/11/23 History immun glob G 8 80 ml subcut Q2W 03/08/21 02/12/23 02/06/23 History gram/40mL(20%)-gly-IgA over 50 mcg/mL subcutaneous soln (Cuvitru) loteprednol etabonate 0.5 % eye 1 drp ophthalmic (eye) BID PRN Dry 08/14/21 02/12/23 Unknown History gel drops Eyes tezepelumab-ekko 210 mg/1.91 mL 210 mg subcut Q4W 08/05/22 02/12/23 01/24/23 History (110 mg/mL) subcutaneous syringe (Tezspire) nebulizers 11/20/22 02/04/23 Unknown History prednisone 1 mg tablet 5 mg PO DAILY 10/03/24 Unknown History Exam Airway Mallampati Class: II TM Dist: >3cm Neck ROM: Full Heart: rrr Lungs: cta Assessment and Plan Assessment Anesthesia Assessment: Anesthesia Plan Discussed Final Anesthetic Review NPO: Yes ASA Class: III Final Preanesthetic Review: No Changes in Pt Med Stat, Meds/Allgs Chart Reviewed, Consent Obtained/Reviewed and Anes Risks/Benef Reviewed Patient Risk: Intermediate Procedure Risk: Intermediate Anesthetic Plan Anesthetic Plan: GA and Regional Block Disposition: Standard PACU
[2024-11-02] VITALS (13 sets, daily range): BP systolic 118–150; BP diastolic 46–82; PULSE 49–61; RESP 12–20; TEMP 36.2; O2SAT 99–100; BMI 23.1
--- NOTE | 2024-11-02 09:57 | MHC.SHP ---
Pre-Procedural Eval Section A - 24 Hr Update-Section A only Date of Service: 11/02/24 The patient is an INPATIENT: No Changes since office visit: No Cold of Flu in the past 2 weeks, No New Medical Problems, No Changes in Medication and No Patient answered all questions The patient has been examined within 24 hours of the surgical procedure. The History & Physical has been completed within 30 days and I have reviewed it.: Yes Section B - Complete if H&P > 30 days Chief Complaint: Other tear of medial meniscus, current injury, rig Allergies: Allergies Allergy/AdvReac Type Severity Reaction Status Date / Time Doxycycline Hyclate Allergy Intermediate redness Uncoded 10/10/24 09:50 and itching Plan I have reviewed the history and physical and performed a pertinent physical examination on my patient. No changes have occurred unless specified. Time Spent With Patient Time: Total time managing care of this patient today ____ minutes.
[2024-11-02] MEDS: Lactated Ringers 1,000 ML 100 ML IVCONT (10:30)
[2024-11-02] MEDS: fentaNYL citrate/PF 100 MCG/2 ML VIAL 25 MCG IVPUSH ×3 (12:53→13:03)
--- NOTE | 2024-11-02 13:03 | P.BOP_ITS ---
Brief Operative Note Date of Service: 11/02/24 Pre-op diagnosis: Right ACL tear and medial meniscus tear Post-op diagnosis: same Procedure: Right ACL reconstruction with allograft and partial medial meniscectomy Implants: Caro and Nephew endobutton, [id number] PEEK interference screw; RTI allograft Surgeon: Vahid Miller MD Anesthesia: GLMA and regional Was an Director Of Curriculum And Instruction used for this Procedure?: Yes Director Of Curriculum And Instruction: Chata Diaz Estimated blood loss (mL): 25 Tourniquet time (min): 55 IV fluids (mL): 800 Pathology: none sent Condition: stable Disposition: PACU
--- NOTE | 2024-11-02 13:05 | W.PM.OPN ---
Operative Note Operative Note Date of Service: 11/02/24 Narrative: Date of Service: 11/02/24 Pre-op diagnosis: Right ACL tear and medial meniscus tear Post-op diagnosis: same Procedure: Right ACL reconstruction with allograft and partial medial meniscectomy Implants: Car[employer]hew endobutton, [id number] PEEK interference screw; RTI allograft Surgeon: Vahid Miller MD Anesthesia: GLMA and regional Was an Resource Recovery Specialist used for this Procedure?: Yes Resource Recovery Specialist: Chata Diaz Estimated blood loss (mL): 25 Tourniquet time (min): 55 IV fluids (mL): 800 Pathology: none sent Condition: stable Disposition: PACU Procedure in detail: Patient was brought to the operating room placed supine on the arthroscopic table and prepped and draped in standard sterile fashion. A time-out was called to identify proper site proper procedure proper surgeon and IV antibiotics per weight were administered. Under anesthesia she had a grossly + pivot shift. I began by exsanguinating the limb and insufflating tourniquet to 300 mm Hg. Then made a standard anterolateral stab incision. The knee was insufflated with water and 30 degree arthroscope was placed. There was grade 1 fibrillations of the patella but overall suprapatellar pouch and the gutters were clean. I descended into the medial compartment where I made my far medial portal under direct visualization. There was a medial meniscus tear in the posterior horn. The root was intact and there were no catilage changes changes of the MFC. I used a small biter and a bullet nosed shaver to debride the meniscus tear down to stable edges. ~20% of the meniscal volume was resected. I then examined the notch where there was a + empty wall sign and an intact PCL. I debrided the stump and acl footprint and performed a limited notchplasty. I then, through a far AM portal and a 7mm behind the back guide, drilled a k-wire through the LFC with the knee in hyper-flexion. I measured the tunnel as a 34 and then after sizing the allograft on the back table drilled a 26 mm tunnel with an 1o mm reamer. The final 8mm was drilled with a 4.5 reamer. I then pulled a suture through the femoral tunnel and turned my attention to the tibia. I did examine the femoral tunnel and was satisfied with the posterior wall and its location low and medial at the anatomic footprint. I placed my tibial drill guide in 55 deg and, through a anteromedial inc just lateral to the tibial tubercle placed a k-wire into the notch exiting just medial to the anterior horn insertion of the lateral meniscus. I then over-reamed with a 10mm reamer. I cleaned the tunnels up with a shaver. On the back table I whip-stitched the allograft to fit through a 10 aperture and attached the femoral button to the looped end. I placed the graft on 15lbs of tension for 10 minutes. I then passed the allograft through the tibial tunnel and femoral tunnel and flipped the button. I cycled the knee about 10-15 cycles and then placed a tibial interference screw with the knee in hyper-extension while holding the graft taught. Once I was satisfied that the interference screw was buried I examined the ACL and the medial meniscus repair. The repair was stable and the ACL was not impinging and there was a negative pivot shift. I then removed all instrumentation and closed the incisions with nylon. Patient was then placed in sterile dressings and a hinged knee brace. She was then extubated brought recovery room stable condition. There were no known complications.
[2024-11-02] MEDS: Ondansetron ODT 4 MG TAB.RAPDIS TRANSLINGU (14:50)
== END 2024-11-02 15:14 | disposition home or self-care (01) ==
LOC: HO.SSS 09:20
PROVIDERS: PCP Family Medicine; Visit Provider Orthopaedic Surgery
PROC: (CPT 27428; principal; 2024-11-02 11:30)
DX: S83.241A Other tear of medial meniscus, current injury, right knee, initial encounter (principal); S83.511A Sprain of anterior cruciate ligament of right knee, initial encounter; M17.11 Unilateral primary osteoarthritis, right knee; M25.561 Pain in right knee; M25.461 Effusion, right knee; M71.21 Synovial cyst of popliteal space [Baker], right knee; X58.XXXA Exposure to other specified factors, initial encounter; Y93.23 Activity, snow (alpine) (downhill) skiing, snowboarding, sledding, tobogganing and snow tubing; Y92.9 Unspecified place or not applicable; Y99.9 Unspecified external cause status; R74.01 Elevation of levels of liver transaminase levels; I10 Essential (primary) hypertension; D80.1 Nonfamilial hypogammaglobulinemia; E27.40 Unspecified adrenocortical insufficiency; J44.9 Chronic obstructive pulmonary disease, unspecified; B44.81 Allergic bronchopulmonary aspergillosis; Z79.1 Long term (current) use of non-steroidal anti-inflammatories (NSAID); Z88.1 Allergy status to other antibiotic agents; Z98.890 Other specified postprocedural states
CPT/HCPCS: 29881; 29888; C1713; C1762; J0131; J0171; J0330; J0665; J0690; J1100; J1720; J1885; J2003; J2250; J2405; J2704; J3010

== ENCOUNTER → 2024-11-02 09:19 | Outpatient (BNV) | payer MEDICARE, OTHER, SELFPAY | PROVIDERS: PCP Family Medicine; Visit Provider Orthopaedic Surgery | DX: S83.511A Sprain of anterior cruciate ligament of right knee, initial encounter (principal); S83.241A Other tear of medial meniscus, current injury, right knee, initial encounter | CPT/HCPCS: 29881; 29888 ==

== ENCOUNTER 2024-11-10 10:52 | Outpatient (REF) | payer MEDICARE, OTHER, SELFPAY ==
--- NOTE | ~2024-11-10 | XR_ITS ---
EXAMINATION: XR KNEE, RIGHT CLINICAL INFORMATION: M25.569 - Pain in unspecified knee COMPARISON: 10/10/2024. TECHNIQUE: AP and lateral views of the right knee. FINDINGS: There is been prior ACL repair. No fracture or malalignment. Joint spaces appear preserved. Alignment is normal. Subtle calcification in the region of Hoffa's fat, suggesting possible CPPD. There is a prominent suprapatellar joint effusion present. There is mild prepatellar soft tissue prominence. This is nonspecific. Soft tissues otherwise normal. XR/XR knee RT 2V IMPRESSION: 1. Prior ACL repair. Normal alignment. No acute bony abnormality. 2. Subtle calcification in the region of Hoffa's fat pad, anterior joint space, suggesting possible CPPD. 3. There is a prominent joint effusion. Electronically signed by: Acosta Meraz MD 11/14/2024 11:50 AM EDT
--- OUTSIDE RECORDS SUMMARY | 2024-11-11 12:25 | XMS_ITS | Clinical Summary ---
Author Organization [employer] [facility] Address [address] [place] [address] Care Team Providers Care Junior Programmer Name Role Phone Unavailable Primary Care Provider [...] 2 at age 96; paternal Hypertension Father [place] [phone] Other: Other Maternal Grandfather - age 70; ? cancer type Other: Other Maternal Grandmother at 96 of [place] Other: Suicide Mother 1980; at age 47 [...] Documents on File Type Date Recorded Patient Senior Information Security Analyst Expl anation Health Care Decision (hx) 10/30/2015 AD TIAN DIRECTIVE Health Care Decision (hx) 10/30/2015 AD TIAN DIRECTIVE Health Care Decision (hx) 10/24/2015 AD TIAN DIRECTIVE Health Care Decision (hx) 10/24/2015 AD TIAN DIRECTIVE
== END 2024-11-10 10:53 | disposition home or self-care (01) ==
LOC: HO.HOSX 10:52
PROVIDERS: Visit Provider Physician Assistant
DX: M25.562 Pain in left knee (principal); Z98.890 Other specified postprocedural states
CPT/HCPCS: 73560; 99212

== ENCOUNTER 2024-11-10 14:05 | Outpatient (AMB) | payer MEDICARE, OTHER, SELFPAY ==
--- NOTE | 2024-11-10 14:23 | A.OFFVIS_ITS ---
Intake Visit Reasons: PO RT ACL reconstruction 11/02/24 NE Intake Note: Leo is a 69 year old male who presents today for a post operative appointment s/p Right ACL reconstruction with allograft and partial medial meniscectomy 11/02/24 NE. Patient is doing well. He is concerned of one suture on the lateral aspect of the knee. Allergies Doxycycline Hyclate Allergy (Intermediate, Uncoded 10/10/24 09:50) redness and itching HPI HPI PO RT ACL reconstruction 11/02/24 NE: Details: Mr. Honeycutt is a 69-year-old who presents the office today status post ACL reconstruction with partial medial meniscectomy on 11/02/[address] Miller. Overall patient is doing very well. He was attending physical therapy this afternoon and has presented 1st postoperative appointment right after. [facility] Medical History Bilateral cataracts Bronchiectasis Hypogammaglobulinemia Adrenal insufficiency Transaminitis Asthma-COPD overlap syndrome ABPA (allergic bronchopulmonary aspergillosis) Hypertension Surgical History Hx of tonsillectomy History of bronchoscopy (~2020) History of repair of anterior cruciate ligament of left knee (~2012) Social History Household Members: Spouse Housing: House Do you presently have visiting nurse or other home services: Yes Alcohol intake: never Patient Tobacco Use Status: Never used Tobacco e-Cigarette/Vaping Use: Never Used Second Hand Smoke Exposure: No service: No Current occupational status: retired Current occupational exposures/hazards: No Cognitive needs: No Hearing needs: No Vision needs: No Review of Systems Const All systems reviewed & are unremarkable except as noted in HPI and below Physical Exam Const General: cooperative, healthy appearing and no acute distress Resp Effort & Inspection: normal respiratory effort and able to speak in complete sentences Cardio Rate: regular rate Peripheral pulses: Peripheral pulses 2+ throughout Skin Lesions: no lesions Rashes: no rashes Extrem Other: Right knee incision sites are clean dry and intact. Sutures are intact. No surrounding erythema or drainage. No signs of infection. NVI. Assessment & Plan Assessment & Plan (1) S/P ACL reconstruction: Code(s): Z98.890 - Other specified postprocedural states Category: Surgical Plan Mr. Honeycutt is a 69-year-old who presents the office today status post ACL reconstruction with partial medial meniscectomy on 11/02/[address] Miller. Overall patient is doing very well. He was attending physical therapy this afternoon and has presented 1st postoperative appointment right after. While the office today, sutures removed and Steri-Strips were applied. He was placed back into the ACL brace locked in extension. He will continue wearing the brace at all times unless he is bathing or performing his physical therapy exercises. Wrist will stay in place for roughly 6 weeks or until quad control allows. He will follow-up in [address] Miller, sooner if needed. X-rays of the right knee which were obtained while in the office today and were reviewed by me, Chata Diaz PA-C, revealed intact ACL Endobutton with satisfactory positioning. Orders: Orders XR knee RT 2V Today M25.569 - Pain in unspecified knee Coding Level of Care Code Global (73828) Diagnoses S/P ACL reconstruction Z98.890
--- OUTSIDE RECORDS SUMMARY | 2024-11-10 17:16 | XMS_ITS | Clinical Summary ---
Author Organization [employer] [facility] Address [address] [place] [address] Care Team Providers Care Financial Aid Manager Name Role Phone Unavailable Primary Care Provider [...] 2 at age 96; paternal Hypertension Father [place] [phone] Other: Other Maternal Grandfather - age 70; ? cancer type Other: Other Maternal Grandmother at 96 of [place] Other: Suicide Mother 1980; at age 47 [...] Documents on File Type Date Recorded Patient Replenishment Specialist Expl anation Health Care Decision (hx) 10/30/2015 AD TIAN DIRECTIVE Health Care Decision (hx) 10/30/2015 AD TIAN DIRECTIVE Health Care Decision (hx) 10/24/2015 AD TIAN DIRECTIVE Health Care Decision (hx) 10/24/2015 AD TIAN DIRECTIVE
== END 2024-11-10 14:55 | disposition home or self-care (01) ==
PROVIDERS: PCP Family Medicine; Visit Provider Physician Assistant
DX: Z98.890 Other specified postprocedural states (principal)
CPT/HCPCS: 99024

== ENCOUNTER → 2024-11-10 14:10 | Outpatient (BNV) | payer MEDICARE, OTHER, SELFPAY | PROVIDERS: Visit Provider Radiology Diagnostic Radiology | DX: M25.561 Pain in right knee (principal) | CPT/HCPCS: 73560 ==

== ENCOUNTER 2024-11-23 09:00 | Outpatient (AMB) | payer MEDICARE, OTHER, SELFPAY ==
--- NOTE | 2024-11-23 09:05 | MHC.OFFVIS ---
Vital Signs 11/23/24 09:06 Height 5 ft 9 in Weight 164 lb 3.91 oz BMI 24.3 BP 122/78 Blood Pressure Location Rt brachial Position Sitting Pulse 65 Pulse Source Pulse Oximeter Pulse Oximetry (%) 99 Oxygen Delivery Method Room Air Intake Visit Reasons: Asthma Allergies Doxycycline Hyclate Allergy (Intermediate, Uncoded 11/23/24 09:09) redness and itching HPI Comments Details: The patient is a 69-year-old gentleman with history severe asthma and allergic bronchopulmonary aspergillosis. Apparently every 6 back in 2004 requiring significant doses of prednisone. Was diagnosed to time. Was in 2014 when he became very sick in the went to [facility] in was admitted to [facility]. At the time was diagnosed with allergic bronchopulmonary aspergillosis and spent prolonged period on prednisone. He was also placed on itraconazole. The patient has now been followed closely at [facility]. He is currently on Dupixent which has appears to be effective for him. He also continues on maintenance therapy. Continues to have shortness of breath. 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 Lately he has been noticing increased chest tightness and coughing. He is trying to avoid prednisone. When he was on prednisone for many years he did develop a lot of the complications from the prednisone and now has been able come off it. Unfortunately, in July 2020 was diagnosed with COVID-19 and since then his respiratory status also been affected adversely. Today in the office he has significant wheezing and rhonchi. Will given 2 DuoNeb treatments. Will try to maximize his respiratory therapy by switching him to nebulized therapy. The patient also needs aggressive chest physical therapy. 10/08/2021 the patient is here for pulmonary follow-up visit. Overall he is doing well. We did review of the microbiology from the bronchoscopy specimens and no evidence of any Aspergillus at this point therefore is reassuring we do not have to treating. The likely mold found is colonizing and likely just from inhaling sports. His other fungal cultures were negative which is reassuring. And also his BAL did not demonstrate any significant inflammatory changes concerning for active inflammation due to ABPM. The patient did start Daliresp. Tolerating it well at 250 mcg. He 1st start with half a dose. Denies any significant GI symptoms. He has been getting a little drowsy. Therefore he started taking the medication at nighttime. He is wondering if the drowsiness could be from the medication. At this point is less likely, but is still needs to be considered. He is going to continue using the 250 mcg dose to get used to it and hopefully he can increase to 500 mcg and 6-8 weeks once he is better. 01/14/2022 the patient is here for a pulmonary follow-up visit. Overall he is doing relatively well. He continues to have coughing episodes specially at nighttime. He did follow up in [place] with his sports marketing specialist. They recommended he have a barium swallow and treat his reflux disease and sleep elevated. I did emphasize that these are very important things. He is going to do the reflux diet sleep elevated. He is going to monitor the symptoms and will hold off on the barium swallow this time. he seems to be tolerating the Daliresp. He does not want to increase the dose because of the risk of the mood disorders. Will continue with the Daliresp to treat the chronic bronchitis and avoid prednisone. He continues on the nebulized therapy. Continues to exercise regularly. While he is running he is able to expectorate a lot of phlegm. Will have the patient undergo blood work at this time to assess his allergy levels. He continues to Dupixent which appears to have been very effective for him. He has tried and failed Xolair in the past. Will still consider the possibility of Trezspire if he continues to be symptomatic. 05/25/2022 the patient is here for a pulmonary follow-up visit. Since we last spoke did have an exacerbation back in January while he was in [place]. He was evaluated at a local hospital where he was diagnosed with a asthma exacerbation and placed on a prednisone taper. His symptoms did improve. He is concerned because he still having significant symptoms in the springtime and now also will have worsening symptoms in the fall. Primarily due to allergies. He is getting allergy shots at this time he is also currently on Dupixent. He has already tried and failed Xolair and now does not appear to be completely responding to the Dupixent. Therefore, the patient would like to go ahead and changes biologic to Tezspire. we have been speaking about this now for about a year. He is ready to make that change since he still having significant symptoms. Since he is already getting allergy shots through [facility] I do believe that the best thing to do was for him to get the TSLP biologic therapy also with [facility]. 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 The patient also has been responding well to the Daliresp. Will go ahead and maximize the FX by increasing to the therapeutic dose of 500 mcg. The patient continues with nebulized therapy. He is still requiring his short-acting beta agonist on a daily basis, however. 08/15/2022 the patient is here for a sick visit. Recently started developing worsening respiratory symptoms chest congestion chest tightness and wheezing. His symptoms were severe decided to go to the ER for further evaluation tear. There he had a chest x-ray demonstrating no acute disease although evidence of bronchitis noted. The patient was started on prednisone 40 mg. although that was not enough and therefore we increasing to 60 mg. 60 mg felt too hard for him to tolerate so therefore he did bring it down quickly. He also completed a course of azithromycin for 5 days. However, he still having some difficulties. Still having shortness of breath and chest congestion. Hard time expectorating. Therefore will go ahead and given Solu-Medrol in the office and increase his antibiotic coverage to Levaquin. He is an avid runner and athlete. Therefore he understands he needs to monitor closely for any evidence of tendinitis. He is also going to start probiotics while on the medication. If the patientis no better he needs to get intouch with our office. 09/19/2022 the patient is here for sick visit. Patient has been feeling awful now for the last several weeks. He went to the ER there he had CT scan of the chest which is reassuring. Does have evidence of bronchitis and calcified pulmonary nodules. He was placed on prednisone in addition to azithromycin and also given a course of levofloxacin. Although his symptoms are only getting worse. He called and we had to increase his prednisone to 60 mg. Continues to have significant wheezing chest tightness. He just does not feel good. The prednisone is making feel worse as well. In the office we did 2 nebulized treatments to DuoNeb. He was able to expectorate some mucus out of the lungs. The mucus since to be darker in color. We did try to get a sputum for culture but it was too much saliva in it. Therefore he will try to bring some mucus soon. The patient does have a history of aspergillosis in addition to chronic airway disease with ABPA. Therefore will start him on voriconazole in addition to that the patient will be started on Bactrim to treat for Staph aureus which is the only organism that he was not treated for. We did given Solu-Medrol in the office in addition to the DuoNebs. We talked about going to the ER but the patient at this point is hemodynamically stable. If he fails the current outpatient regimen that he should go to the ER for failing outpatient therapy. 09/29/2022 she the patient is here for a pulmonary follow-up visit. He finally starting to feel better. He is down to 10 mg of prednisone. He continues on the voriconazole and also continues on the Bactrim. His chest congestion is improving. His mucus is clearing up. He still has some wheezing and rhonchi specially in the right lung so therefore he should continue holding off on allergy shots. He may have to restart his immunotherapy once he is stable to he continues on his biologic therapy. At this point we do not have any sputum cultures available to guide therapy. He did have a CT scan of the chest that we personally reviewed in the office. Appears to have some bronchiectatic changes. Also has some calcified nodular densities in the right middle lobe and also in the left lower lobe consistent with granulomas. He has responded well to the antifungal therapy. He does have a history of ABPA. Will go ahead and treated for total 6-8 weeks son's again tolerated. It also would extend the Bactrim to treat for potential staff for least 3 weeks. Once the patient has also completed with the prednisone he will have blood work including assessing his cortisol level. He is wondering if he should be on low-dose prednisone. That is not unreasonable if she needs it but hopeful that he can come off completely. She the patient also continues with his subcutaneous IgG infusions. He does that every 2 weeks. Will go ahead and check his trough levels to make sure that he is getting adequate therapy. 10/29/2022 the patient is here for a pulmonary follow-up visit. He continues to feel better. He is now off the prednisone. Continues on voriconazole. Continues on his nebulized therapy. He did have blood work done his LFTs were slightly elevated. He denies any significant abdominal discomfort or nausea. Sometimes he does have some transient symptoms but is not sure if it is from the other medications. Will have to monitor closely his LFTs. He will have repeat PFTs in the next few weeks. Will see if he can continue the voriconazole for now. If he develops any worsening GI symptoms he is to stop the medicine and call immediately. His other blood work included a random cortisol level that was low. will go ahead and repeat that also in the coming weeks to see if he has any increased cortisol production. If he continues to be low that he will benefit from an Endocrinology consultation. The patient is also concerned about COVID-19. She has had multiple vaccinations in addition to the most recent booster in May. He does have immune deficiency. Therefore, will check his titers with his next blood work. 11/21/2022 the patient is here for a pulmonary follow-up visit. He continues to feel better. He is now off the prednisone and also will stop the voriconazole. He continues on his respiratory therapy as prescribed. The patient did have blood work which we reviewed. The patient was very stop his with his IgG spike protein titers being so elevated. In addition to this his cortisol level continues to be low however. Clinically he is doing well so therefore will continue to monitor for now. No need for exogenous corticosteroids at this time is as long as he is feels well. He continues on the biologic therapy. He does have follow-up with his axminster rug setter from [facility] in the coming weeks. I will make sure to have all the information available for him. As far as the blood work his LFTs have normalized which is reassuring. His kidney function she has a little bit off but I do believe that he does have some degree of dehydration. I did request that he started drinking more water fluids to try to improve this. 02/09/2023 The patitnt is here for a sick visit. +sick contact. Worsening cough and wheezing. severe. Was seen in the office and started on Prednisone and started on Bactrim. Has not been any better. Having significant weezing. Sputum is yellowish in color. He did bring a sample but is no longer good. We will try to have him bring another sample. In the meantime he is still having significant wheezing. We will have him start IV solumedrol 125mg x 3 days. 02/17/2023 the patient is here for a hospital follow-up visit. He was briefly hospitalized after no improvement after an aggressive outpatient respiratory regimen. The patient went to the hospital was placed on a additional IV steroids and his antibiotics were switched over to Levaquin in the continue Bactrim. Respiratory status improved. One of the blood cultures was positive for aerococcus viridans. This is likely to be an infection. He was starting to feel better although now after being on some motion Solu-Medrol he has a he has washed out. He has had issues with renal insufficiency. Now he is on 20 mg of prednisone. Will try to slowly decrease by 2.5 mg every week untill down to 10 mg by the next time that I see him. He is going to continue with current respiratory therapy. He will have 3 more days of Bactrim. Once he has completed I am hopeful that he can get a sputum culture to make sure that his clear all the infections in his lungs. 04/16/2023 the patient is here for pulmonary follow-up visit. Overall he is doing better. She continues to be on 5 mg of prednisone. I do believe that with his sister adrenal insufficiency this is a good idea. The patient uses [facility] in the past but subsequently retired. 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 Patient has been on chronic steroids for his underlying respiratory disease. He continues on the biologic therapy. Continues with respiratory therapy. I did evaluate his CT scan that he had last demonstrating some bronchiectatic changes. The patient does have significant allergic bronchopulmonary aspergillosis. Therefore will request a percussion vest to better medical records assistant with mucus clearance. He has been using Acapella valve for many years. At this point will go ahead and optimize his bronchopulmonary hygiene. He has been exercising more often able to cycle regularly. 10/12/2023 the patient is here for a pulmonary follow-up visit. He has been doing very well. He is continued on 7.5 mg of prednisone. He had been on 5 mg of prednisone but then he got sick in August did increase it up to 15 mg. on 7.5 mg he seems to be doing well. He continues on the Tezspire and also continues with his nebulized therapy along with his percussion vest has been very effective for him. The patient was evaluated by Endocrinology. They do feel that he has some degree of adrenal insufficiency. In the meantime we have to find the lowest most effective dose prednisone. He did have a bone density test that already demonstrated osteopenia. Therefore did provide him with 1 mg tablets of prednisone is going to start cutting down slowly to hopefully get down to 5 mg daily. Once he if she is the 5 mg dose we can work on decreasing slightly lower down but slowly to avoid any rebound effects. The patient also has been actively exercising and skiing. When dusky he does take 15 mg of prednisone. We did talk about trying to limited to 10 mg of prednisone for those periods of time. He did have an appointment in [place] and has another appointment sometime in December with the pulmonology department there. Therefore will follow-up in April. I did review his last CT scan that he had back in 2022 no evidence of any active disease at that point, Did have some areas of scarring pleural thickening and calcified pulmonary nodules. The patient is already vaccinated with RSV COVID and flu and is up-to-date with his pneumonia vaccine as well. 04/13/2024 the patient is here for a pulmonary follow-up visit. The patient overall has been doing well the summer. Typically the goldberg a good time for him. He usually healthier. He has followed up closely with allergy. He continues on the Tezspire injections with good effect. He has been able to cut down the prednisone down to 4 mg a day. Sometimes if he is going to doing extremely his exercise event or program he may take additional. This will be okay as he is stressing his body. He did have a bone density test showing osteopenia though he is be careful with steroid use. When he does not want have to happen as he does not want to go on high doses of steroids if we can keep him on a small dose. Will try to find the lowest most effective dose, however. Right now his respiratory exam is reassuring with no wheezing. I do believe he can slowly cut down by 0.5 mg of the prednisone to the ideal dose of 2.5 mg daily. The last time he had his cortisol levels that were still low normal so therefore there is some room. The patient will have to go slow to minimize and acclimate to the lower dose. He continues with the other respiratory therapy with good effect. He is biking a lot which is reassuring and is clearing up a lot of mucus when he is biking. Will plan to follow-up in the fall when he typically has a hard time. Will have to adjust the prednisone then. 06/07/2024 the patient is here for a pulmonary follow-up visit. Overall he is doing okay. Since we last spoke did call with worsening chest congestion. We did give him a course of levofloxacin that did help him. He still bringing up some phlegm. He did show me a sample. Appears to be a little bit frothy in nature. I did provide him with a sputum cup in order to be able to give us a sample if it continues to persist if it worsens specially. Right now will keep him off antibiotics. The patient continues be on prednisone 5 mg since he is recovering after his illness. He does not have a rescue inhaler I now. He does not feel like albuterol helps him enough. Therefore I did recommend he can try Combivent see if this provides him additional relief. He can use it as needed and also before exercise. He is already taking a long-acting muscarinic antagonist but will be reasonable just to try and see if this is effective for him. The patient does not have a history of glaucoma. He continues on the test prior injections. The been affecting beneficial. 08/24/2024 the patient is here for a pulmonary follow-up visit. Overall he is doing fairly well. He continues uses respiratory therapy as prescribed. This morning he did not use his nebulizer and he did feel increased chest tightness of his lungs during the day. He will take his nebulizers when he goes home. The patient did see his axminster rug setter in [place] he did recommend he follow-up with endocrinology regarding the adrenal insufficiency. Hard to know exactly what the best doses for him. Currently he is on 4.5 mg prednisone. Sometimes he does stress dose and takes 10 mg specially if he is going to do a intensive exercise routine. He continues on the biologic therapy with good effect. He did not tolerate the Daliresp. Causes GI symptoms. Will go ahead and slowly wean that off. Although because of his underlying severe obstructive lung disease I do believe that adding Ohtuvayre would be a very effective option for him. Will go ahead and submitted to the insurance company for him to start the new nebulized therapy. 11/23/2024 the patient is here for pulmonary follow-up visit. Overall he is doing well after his surgery. He had his ACL repair. He did tolerate the surgery well without any issues. Just some nausea afterwards. Breathing blanco he had been doing well. He has been able to cut down to 4.5 mg in the prednisone he is going to try to cut down further to 4 mg. He will be following closely with endocrinology monitoring cortisol levels to see the the adrenal glands come back as he continues to cut down. The patient did start the Ohtuvayre nebs. He continues use other nebulized therapy and appears to be doing very well on it. His respiratory exam is is reassuring without any significant wheezing. He does have diminished breath sounds which is his baseline. Will have him return in 3 months to reassess his condition. The patient has any issues prior to this he will call for an earlier assessment. We did talk about his vaccines looks like he needs to get his Tdap up-to-date. [facility] Medical History Bilateral cataracts Bronchiectasis Hypogammaglobulinemia Adrenal insufficiency Transaminitis Asthma-COPD overlap syndrome ABPA (allergic bronchopulmonary aspergillosis) Hypertension Surgical History Hx of tonsillectomy History of bronchoscopy (~2020) History of repair of anterior cruciate ligament of left knee (~2012) Social History Household Members: Spouse Housing: House Do you presently have visiting nurse or other home services: Yes Alcohol intake: never Patient Tobacco Use Status: Never used Tobacco e-Cigarette/Vaping Use: Never Used Second Hand Smoke Exposure: No service: No Current occupational status: retired Current occupational exposures/hazards: No Cognitive needs: No Hearing needs: No Vision needs: No Review of Systems Const Denies chills, Denies excessive sweating, Denies fever(s), Denies headache(s) and Denies night sweats Eyes Denies dry eyes, Denies irritation and Denies itchy eyes ENT Reports Normal hearing present, Denies headache(s), Denies nasal congestion, Denies nasal discharge, Denies post nasal drip and Denies sore throat Card Denies chest pain, Denies chest pain at rest, Denies chest pain with activity and Denies leg edema Resp Denies change in phlegm color, Reports cough, Denies excessive phlegm production, Denies pain on inspiration, Denies pain with cough, Denies stridor and Reports wheezing Musc Reports as per HPI, Reports abnormal gait, Reports arthralgias, Reports joint swelling and Reports limited range of motion Neuro Reports Normal hearing present, Reports abnormal gait and Denies headache(s) Endo Denies excessive sweating Pedrito/Lymph Denies lymphadenopathy Aller/Immun Denies itchy eyes, Denies seasonal rhinorrhea and Reports wheezing Physical Exam Vital Signs: Last Vital Signs Pulse 65 11/23/24 09:06 BP 122/78 11/23/24 09:06 Pulse Ox 99 11/23/24 09:06 Oxygen Delivery Method Room Air 11/23/24 09:06 BMI result Body Mass Index 24.3 Const General: alert HEENT General nose exam: Abnormal external nose present and Nasal discharge present Eyes Pupils: Equal, round and reactive pupils present Neck Neck: Yes normal visual inspection, Yes full ROM and Yes no lymphadenopathy Chest Chest palpation & inspection: normal inspection of the chest Resp Effort & Inspection: normal respiratory effort and segmental paradoxical chest wall movement Auscultation: no rhonchi, no wheezes and diminished lung sounds Cardio Rate: regular rate Rhythm: regular rhythm Heart sounds: S1 normal heart sound present and S2 normal heart sound present GI Palpation (GI): Soft to palpation and nontender Auscultation: normal bowel sounds General: Yes no CVA tenderness Back/Spine/Pelvis Back: no CVA tenderness Skin General skin exam: rashes and/or lesions noted Neuro Cranial nerves: Yes Equal, round and reactive pupils present and Yes Normal hearing present Extrem General: No clubbing, No cyanosis and Yes edema Psych Affect: Sad affect present and Anxious affect present Assessment & Plan Assessment & Plan (1) ABPA (allergic bronchopulmonary aspergillosis): Code(s): B44.81 - Allergic bronchopulmonary aspergillosis Category: Medical (2) Asthma-COPD overlap syndrome: Code(s): J44.9 - Chronic obstructive pulmonary disease, unspecified Category: Medical (3) Adrenal insufficiency: Code(s): E27.40 - Unspecified adrenocortical insufficiency Category: Medical (4) Hypogammaglobulinemia: Code(s): D80.1 - Nonfamilial hypogammaglobulinemia Category: Medical (5) Bronchiectasis: Code(s): J47.9 - Bronchiectasis, uncomplicated Category: Medical Qualifiers: Bronchiectasis type: uncomplicated Qualified Code(s): J47.9 - Bronchiectasis, uncomplicated Plan Prednisone 4.5mg daily-->4mg, Follow up with Endocrine Daliresp 500mcg, will wean due to side effects Ohtuvayre nebs continue Tezspire Q4 weeks IVIG with Allergy Continue budesonide 0.5 mg twice a day via nebulizer Continue Brovana via nebulizer twice a day Continue Incruse daily Combivent percussion vest for CPT for for his ABPA and bronchiectasis. Hypertonic saline 3% nebs BID Reflux diet/HOB elevated F/U in 3-4 months Coding Level of Care Code Est Pt Level 4 (34321) Complex EM visit Add On G2211 Diagnoses ABPA (allergic bronchopulmonary aspergillosis) B44.81 Asthma-COPD overlap syndrome J44.9 Adrenal insufficiency E27.40 Hypogammaglobulinemia D80.1 Bronchiectasis without complication J47.9 Bronchiectasis type: uncomplicated Time Spent (min) 17
[2024-11-23 09:06] VITALS: BP 122/78; PULSE 65; O2SAT 99; BMI 24.3
--- OUTSIDE RECORDS SUMMARY | 2024-11-23 09:51 | XMS_ITS | Clinical Summary ---
Author Organization [employer] [facility] Address [address] [place] [address] Care Team Providers Care Director Telehealth Name Role Phone Unavailable Primary Care Provider [...] 2 at age 96; paternal Hypertension Father [place] 201 3 Other: Other Maternal Grandfather - age 70; ? 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
== END 2024-11-23 09:26 | disposition home or self-care (01) ==
PROVIDERS: PCP Family Medicine; Visit Provider Hospitalist
DX: B44.81 Allergic bronchopulmonary aspergillosis (principal); J44.9 Chronic obstructive pulmonary disease, unspecified; E27.40 Unspecified adrenocortical insufficiency; D80.1 Nonfamilial hypogammaglobulinemia; J47.9 Bronchiectasis, uncomplicated
CPT/HCPCS: 99214; G2211

== ENCOUNTER → 2024-11-23 09:00 | Outpatient (BNVA) | payer MEDICARE, OTHER, SELFPAY | PROVIDERS: PCP Family Medicine; Visit Provider Hospitalist | DX: J47.9 Bronchiectasis, uncomplicated (principal); J44.9 Chronic obstructive pulmonary disease, unspecified; B44.81 Allergic bronchopulmonary aspergillosis; D80.1 Nonfamilial hypogammaglobulinemia; E27.40 Unspecified adrenocortical insufficiency; Z79.52 Long term (current) use of systemic steroids | CPT/HCPCS: 99212 ==

== ENCOUNTER 2024-12-09 10:33 | Outpatient (AMB) | payer MEDICARE, OTHER, SELFPAY ==
--- NOTE | 2024-12-09 10:45 | A.OFFVIS_ITS ---
Intake Visit Reasons: PO RT ACL reconstruction 11/02/24 NE Intake Note: Leo is a 69 year old male who presents today for a post operative appointment about 6 weeks s/p Right ACL reconstruction with allograft and partial medial meniscectomy 11/02/24 NE. Patient reports that he is doing well with no current concerns. He continues to work with physical therapy. He would like to know how much longer he should be attending PT. Allergies Doxycycline Hyclate Allergy (Intermediate, Uncoded 11/23/24 09:09) redness and itching HPI HPI PO RT ACL reconstruction 11/02/24 NE: Details: 69-year-old gentleman proximally 6 weeks status post right ACL reconstruction. He has been doing well. He has got no issues. He has been doing his physical therapy. He wants to get back on his road bike as soon as possible. COUNTS INCLUDE 234 BEDS AT THE [facility] Medical History Bilateral cataracts Bronchiectasis Hypogammaglobulinemia Adrenal insufficiency Transaminitis Asthma-COPD overlap syndrome ABPA (allergic bronchopulmonary aspergillosis) Hypertension Surgical History Hx of tonsillectomy History of bronchoscopy (~2020) History of repair of anterior cruciate ligament of left knee (~2012) Social History Household Members: Spouse Housing: House Do you presently have visiting nurse or other home services: Yes Alcohol intake: never Patient Tobacco Use Status: Never used Tobacco e-Cigarette/Vaping Use: Never Used Second Hand Smoke Exposure: No service: No Current occupational status: retired Current occupational exposures/hazards: No Cognitive needs: No Hearing needs: No Vision needs: No Physical Exam Extrem Other: Mild effusion suprapatellar pouch right knee Incision is clean dry and intact Stable Priya's Normal gait Assessment & Plan Assessment & Plan (1) S/P ACL reconstruction: Code(s): Z98.890 - Other specified postprocedural states Category: Surgical Plan: Doing well 6 weeks status post right ACL reconstruction. I recommend continue physical therapy and wean brace as tolerated for gentle activities. Continue biking and closed-chain exercises. Follow up 6 weeks. I will order a functional ACL brace for his right knee. Coding Level of Care Code Global (32029) Diagnoses S/P ACL reconstruction Z98.890
--- OUTSIDE RECORDS SUMMARY | 2024-12-09 12:06 | XMS_ITS | Clinical Summary ---
Author Organization [employer] [facility] Address [address] [place] [address] Care Team Providers Care Machine Operator Hop Picker Name Role Phone Unavailable Primary Care Provider [...] 2 at age 96; paternal Hypertension Father [place] 201 3 Other: Other Maternal Grandfather - age 70; ? cancer type Other: Other Maternal Grandmother at 96 of [place] Other: Suicide Mother 1980; at age 47 [...] Vaccines (1 of 2) 2006 RSV Immunization Adult Patients (1 - Risk 60-74 years 1-dose series) [...] Documents on File Type Date Recorded Patient Global Supply Chain Director Expl anation Health Care Decision (hx) 10/30/2015 AD TIAN DIRECTIVE Health Care Decision (hx) 10/30/2015 AD TIAN DIRECTIVE Health Care Decision (hx) 10/24/2015 AD TIAN DIRECTIVE Health Care Decision (hx) 10/24/2015 AD TIAN DIRECTIVE
== END 2024-12-09 11:14 | disposition home or self-care (01) ==
LOC: HO.HOS 10:34
PROVIDERS: PCP Family Medicine; Visit Provider Orthopaedic Surgery
DX: Z98.890 Other specified postprocedural states (principal)
CPT/HCPCS: 99024

== ENCOUNTER → 2024-12-09 10:33 | Outpatient (BNVA) | payer MEDICARE, OTHER, SELFPAY | PROVIDERS: PCP Family Medicine; Visit Provider Orthopaedic Surgery | DX: Z47.89 Encounter for other orthopedic aftercare (principal); Z98.890 Other specified postprocedural states | CPT/HCPCS: 99212 ==

== ENCOUNTER 2025-01-13 08:00 | Outpatient (REF) | payer MEDICARE, OTHER, SELFPAY ==
--- OUTSIDE RECORDS SUMMARY | 2025-01-13 08:05 | XMS_ITS | Clinical Summary ---
Author Organization [employer] [facility] Address [address] [place] [address] Care Team Providers Care Yard Attendant Name Role Phone Unavailable Primary Care Provider [...] 2 at age 96; paternal Hypertension Father [place] 201 3 Other: Other Maternal Grandfather - age 70; ? cancer type Other: Other Maternal Grandmother at 96 of [place] Other: Suicide Mother 1980; at age 47 [...] BMP Blood Test 08/21/2022 COVID-19 Vaccine ( - season) 2024 11/04/2020 Influenza Vaccine (Season Ended) 2025 05/22/2015, 05/30/2013, 07/05/2010, Additional history exists HIB Vaccines [...] age to complete this topic Meningococcal B Vaccine Aged Out No l onger eligible based on patient's age to complete this topic RSV Immunization Patients Under 20 months Aged Out No longer eligible based on patient's age to complete this topic Varicella Vaccines Aged Out No longer eligible based on patient's age to complete this topic Advance Directives Documents on File Type Date Recorded Patient Customer Sales Representative Expl anation Health Care Decision (hx) 10/30/2015 AD TIAN DIRECTIVE Health Care Decision (hx) 10/30/2015 AD TIAN DIRECTIVE Health Care Decision (hx) 10/24/2015 AD TIAN DIRECTIVE Health Care Decision (hx) 10/24/2015 AD TIAN DIRECTIVE
[2025-01-13 11:30] LABS: Estimated Glomerular Filt Rate 54
[2025-01-13 11:48] LABS: Cortisol Random 9.2 ug/dL
[2025-01-16 15:53] LABS: Immunoglobulin G 1207 mg/dL (600-1540)
== END 2025-01-13 08:01 | disposition home or self-care (01) ==
LOC: HO.WFDLDS 08:00
PROVIDERS: Referring Provider Allergy & Immunology; Visit Provider Internal Medicine Endocrinology, Diabetes & Metabolism
DX: D80.1 Nonfamilial hypogammaglobulinemia (principal)
CPT/HCPCS: 36415; 82533; 82565; 82784

== ENCOUNTER 2025-01-19 09:26 | Outpatient (AMB) | payer MEDICARE, OTHER, SELFPAY ==
[2025-01-19 09:28] VITALS: BMI 24.2
--- NOTE | 2025-01-19 09:28 | A.OFFVIS_ITS ---
Vital Signs 01/19/25 09:28 Height 5 ft 9 in Weight 164 lb BMI 24.2 Intake Visit Reasons: PO RT ACL reconstruction 11/02/24 NE Intake Note: Leo is a 69 year old male who presents today for a post operative appointment about 6 weeks s/p Right ACL reconstruction with allograft and partial medial meniscectomy 11/02/24 NE. Patient reports that he is doing well, he has no concerns. Functional ACL Brace was not ordered at the last visit - will fill out forms today. Allergies Doxycycline Hyclate Allergy (Intermediate, Uncoded 11/23/24 09:09) redness and itching HPI HPI PO RT ACL reconstruction 11/02/24 NE: Details: The patient is a 69-year-old male presenting for postoperative care and rehabilitation following ACL reconstruction. He is three months post-surgery and reports overall improvement. Engaged in physical therapy, he rides a road bike cautiously and avoids standing while biking. He abstains from skiing and technical hiking to avert knee strain. Improvement in motion is noted; however, he prioritizes quad, hamstring, and glute strengthening for stability. He intends to discuss home exercise continuation with his therapist and plans dynamic therapy sessions after six months. [facility] Medical History Bilateral cataracts Bronchiectasis Hypogammaglobulinemia Adrenal insufficiency Transaminitis Asthma-COPD overlap syndrome ABPA (allergic bronchopulmonary aspergillosis) Hypertension Surgical History Hx of tonsillectomy History of bronchoscopy (~2020) History of repair of anterior cruciate ligament of left knee (~2012) Social History Household Members: Spouse Housing: House Do you presently have visiting nurse or other home services: Yes Alcohol intake: never Patient Tobacco Use Status: Never used Tobacco e-Cigarette/Vaping Use: Never Used Second Hand Smoke Exposure: No service: No Current occupational status: retired Current occupational exposures/hazards: No Cognitive needs: No Hearing needs: No Vision needs: No Physical Exam Vital Signs: BMI result Body Mass Index 24.2 Extrem Other: - Musculoskeletal- Range of motion in the knee is full with 1+ stable Priya's/ anterior drawer Stable to v/v stress. No effusion. Inc c/d/i Assessment & Plan Assessment & Plan (1) S/P ACL reconstruction: Code(s): Z98.890 - Other specified postprocedural states Category: Surgical Plan: 1. Status Post Anterior Cruciate Ligament (ACL) Reconstruction The patient is showing progress in rehabilitation post-ACL reconstruction. Current therapy includes supervised physical therapy and road biking. Avoidance of high-risk activities emphasized. Continue home exercises focusing on muscle strengthening. The plan includes an assessment for dynamic therapy integration in three months. Additional imaging is not required at this time. The patient is advised to avoid over exuberant cycling/hiking. Coding Level of Care Code Global (79358) Diagnoses S/P ACL reconstruction Z98.890
--- OUTSIDE RECORDS SUMMARY | 2025-01-19 10:09 | XMS_ITS | Clinical Summary ---
Author Organization [employer] [facility] Address [address] [place] [address] Care Team Providers Care Production Supervisor Off Shift Name Role Phone Unavailable Primary Care Provider [...] 2 at age 96; paternal Hypertension Father [place] 201 3 Other: Other Maternal Grandfather - age 70; ? cancer type Other: Other Maternal Grandmother at 96 of [place] Other: Suicide Mother 1980; at age 47 [...] Documents on File Type Date Recorded Patient Obstetrics Teacher Expl anation Health Care Decision (hx) 10/30/2015 AD TIAN DIRECTIVE Health Care Decision (hx) 10/30/2015 AD TIAN DIRECTIVE Health Care Decision (hx) 10/24/2015 AD TIAN DIRECTIVE Health Care Decision (hx) 10/24/2015 AD TIAN DIRECTIVE
== END 2025-01-19 09:49 | disposition home or self-care (01) ==
LOC: HO.HOS 09:27
PROVIDERS: PCP Family Medicine; Visit Provider Orthopaedic Surgery
DX: Z98.890 Other specified postprocedural states (principal)
CPT/HCPCS: 99024

== ENCOUNTER → 2025-01-19 09:26 | Outpatient (BNVA) | payer MEDICARE, OTHER, SELFPAY | PROVIDERS: PCP Family Medicine; Visit Provider Orthopaedic Surgery | DX: Z47.89 Encounter for other orthopedic aftercare (principal); Z98.890 Other specified postprocedural states | CPT/HCPCS: 99212 ==

== ENCOUNTER 2025-01-25 06:54 | Outpatient (RCR) | payer MEDICARE, OTHER, SELFPAY ==
[2024-11-10 12:43] VITALS: BP 157/79; PULSE 56; O2SAT 97
--- NOTE | 2024-11-11 07:42 | MHC.PT.EP ---
[facility] [place] Office [place] Office [place] Office [address] Milli Borrero [address] [phone] F: [phone] F: [phone] F: [phone] F: [phone] Physical Therapy Plan of Care Date of Evaluation: 11/10/24 Date of Surgery: 11/02/24 Diagnosis: S/P RIGHT ACL RECONSTRUCTION WITH ALLOGRAFT AND PARTIAL MEDIAL MENISCECTOMY Assessment: 69 YO MALE REF TO PT S/P Rt ACL RECONSTRUCTION W ALLOGRAFT AND PARTIAL MEDIAL MENISCECTOMY ON 11/02/[address] RODRIGUEZ. HE RESIDES W HIS - THE Pt IS CURRENTLY IN HIS Rt KNEE BRACE, LOCKED IN EXTENSION AND USING CRUTCHES. HE IS AN AVID SKIER AND CYCLIST-> HE HAS A H/O PREVIOUS ACL RECONSTRUCTION ON HIS LEFT KNEE. OBJECTIVELY, THE Pt HAS POST-OP FINDINGS OF LIMITED ROM Rt KNEE, SLUGGISH QUAD ACTIV Rt, RESIDUAL SWELLING Rt KNEE, HEALING INCISIONS Rt KNEE, ALTERED GAI MECH, AND FLUCTUATING PAIN/ DISCOMFORT IN Rt KNEE. HE IS VERY MOTIVATED FOR HIS PT POST-OP COURSE. Frequency and Duration: The patient will be seen 2x WK x 12 WKS Short Term Goals: OBTAIN FULL Rt KNEE EXTENSION GRADUALLY INCREASE Rt KNEE FLEX DECREASE Rt KNEE PAIN TO 2-3/10 , REDUCE SWELLING, WFL PATELLAR MOB INITIATE HEP School Health Assistant Goals: Pt INDEP HEP Pt ACHIEVE 0*-> 125* IMPROVED Rt LE STRENGTH-> GRAD RESUME REG ADLs Rt LE SLS x 15 SEC IMPROVED LEFI, AT EVAL 7/130 Treatment Plan: Modalities to reduce pain, spasms and effusion. Manual therapy to restore motion and function. Therapeutic exercise to improve strength and flexibility. Neuromuscular re-education for posture and balance. Therapeutic activities to return to functional activities of daily living. Electronically signed by: ZAKIA CORONA,PT Please sign and return to therapist. Thank you for your referral.
--- NOTE | 2025-01-25 08:50 | MHC.PT.DC ---
[facility] [place] [facility] [place] [facility] [place] [facility] [address] Milli Borrero [address] [phone] F: [phone] F: [phone] F: [phone] F: [phone] Physical Therapy Discharge Report Diagnosis: S/P RIGHT ACL RECONSTRUCTION WITH ALLOGRAFT AND PARTIAL MEDIAL MENISCECTOMY [ End ] Date of Surgery: 11/02/24 Date of Evaluation: 11/10/24 Date of Discharge: 01/25/25 Treatments to Date: 19 Cancellations to Date: No Shows to Date: Discharge Status: Achieved Goals Improved Function Independent with HEP Discharge Summary: ANDREA IS VERY MOTIVATED- HE HAS MET HIS GOALS EXCEPT FOR Rt TERMINAL EXTENSION- LACKS 5* AND IS AWARE OF EXER TO CONT ADDRESSING- HE IS VERY CHALLENGED W Rt SLS/ STABILIZATION AND WE DISCUSSED HOW HE CAN IMPROVE THIS FEEDBACK SYSTEM PRIOR TO MORE DYNAMIC TASKS- HIS STRENGTH IS MUCH IMPROVED-> MINIMAL HS DEFICT- HE CAN CURRENTLY SLS Rt x 10 SEC W INCR EFFORT. Pt HAS RESUMED MAJORITY OF ADLs EXCEPT FOR RUNNING / JUMPING AT THIS TIME- D/C CURRENTLY [facility] WILL BE REF FOR JUMPING PGM IF WARRANTED. LEFI AT D/C IS 59/80 AND AT EVAL7/80. Electronically signed by: ZAKIA CORONA,PT Please sign and return to therapist. Thank you for your referral.
== END 2025-01-25 08:52 | disposition home or self-care (01) ==
LOC: HO.PT 06:54
PROVIDERS: PCP Family Medicine; Visit Provider Physician Assistant
DX: Z47.89 Encounter for other orthopedic aftercare (principal)
CPT/HCPCS: 97110; 97112; 97140; 97161; 97530; 97535

== ENCOUNTER 2025-02-15 08:53 | Outpatient (AMB) | payer MEDICARE, OTHER, SELFPAY ==
[2025-02-15 09:02] VITALS: BP 124/67; PULSE 62; O2SAT 98; BMI 23.3
--- NOTE | 2025-02-15 09:02 | A.OFFVIS_ITS ---
Vital Signs 02/15/25 09:02 Height 5 ft 9 in Weight 158 lb BMI 23.3 BP 124/67 Blood Pressure Location Lt brachial Position Sitting Pulse 62 Pulse Source Pulse Oximeter Pulse Oximetry (%) 98 Oxygen Delivery Method Room Air Intake Visit Reasons: Asthma Allergies Doxycycline Hyclate Allergy (Intermediate, Uncoded 11/23/24 09:09) redness and itching HPI Comments Details: The patient is a 69-year-old gentleman with history severe asthma and allergic bronchopulmonary aspergillosis. Apparently every 6 back in 2004 requiring significant doses of prednisone. Was diagnosed to time. Was in 2014 when he became very sick in the went to [facility] in was admitted to [facility]. At the time was diagnosed with allergic bronchopulmonary aspergillosis and spent prolonged period on prednisone. He was also placed on itraconazole. The patient has now been followed closely at [facility]. He is currently on Dupixent which has appears to be effective for him. He also continues on maintenance therapy. Continues to have shortness of breath. 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 Lately he has been noticing increased chest tightness and coughing. He is trying to avoid prednisone. When he was on prednisone for many years he did develop a lot of the complications from the prednisone and now has been able come off it. Unfortunately, in July 2020 was diagnosed with COVID-19 and since then his respiratory status also been affected adversely. Today in the office he has significant wheezing and rhonchi. Will given 2 DuoNeb treatments. Will try to maximize his respiratory therapy by switching him to nebulized therapy. The patient also needs aggressive chest physical therapy. 10/08/2021 the patient is here for pulmonary follow-up visit. Overall he is doing well. We did review of the microbiology from the bronchoscopy specimens and no evidence of any Aspergillus at this point therefore is reassuring we do not have to treating. The likely mold found is colonizing and likely just from inhaling sports. His other fungal cultures were negative which is reassuring. And also his BAL did not demonstrate any significant inflammatory changes concerning for active inflammation due to ABPM. The patient did start Daliresp. Tolerating it well at 250 mcg. He 1st start with half a dose. Denies any significant GI symptoms. He has been getting a little drowsy. Therefore he started taking the medication at nighttime. He is wondering if the drowsiness could be from the medication. At this point is less likely, but is still needs to be considered. He is going to continue using the 250 mcg dose to get used to it and hopefully he can increase to 500 mcg and 6-8 weeks once he is better. 01/14/2022 the patient is here for a pulmonary follow-up visit. Overall he is doing relatively well. He continues to have coughing episodes specially at nighttime. He did follow up in [place] with his commercial sales specialist. They recommended he have a barium swallow and treat his reflux disease and sleep elevated. I did emphasize that these are very important things. He is going to do the reflux diet sleep elevated. He is going to monitor the symptoms and will hold off on the barium swallow this time. he seems to be tolerating the Daliresp. He does not want to increase the dose because of the risk of the mood disorders. Will continue with the Daliresp to treat the chronic bronchitis and avoid prednisone. He continues on the nebulized therapy. Continues to exercise regularly. While he is running he is able to expectorate a lot of phlegm. Will have the patient undergo blood work at this time to assess his allergy levels. He continues to Dupixent which appears to have been very effective for him. He has tried and failed Xolair in the past. Will still consider the possibility of Trezspire if he continues to be symptomatic. 05/25/2022 the patient is here for a pulmonary follow-up visit. Since we last spoke did have an exacerbation back in January while he was in [place]. He was evaluated at a local hospital where he was diagnosed with a asthma exacerbation and placed on a prednisone taper. His symptoms did improve. He is concerned because he still having significant symptoms in the springtime and now also will have worsening symptoms in the fall. Primarily due to allergies. He is getting allergy shots at this time he is also currently on Dupixent. He has already tried and failed Xolair and now does not appear to be completely responding to the Dupixent. Therefore, the patient would like to go ahead and changes biologic to Tezspire. we have been speaking about this now for about a year. He is ready to make that change since he still having significant symptoms. Since he is already getting allergy shots through [facility] I do believe that the best thing to do was for him to get the TSLP biologic therapy also with [facility]. I did give information about the medication and will also will send a message to his computer peripheral equipment operator. The patient also has been responding well to the Daliresp. Will go ahead and maximize the FX by increasing to the therapeutic dose of 500 mcg. The patient continues with nebulized therapy. He is still requiring his short-acting beta agonist on a daily basis, however. 08/15/2022 the patient is here for a sick visit. Recently started developing worsening respiratory symptoms chest congestion chest tightness and wheezing. His symptoms were severe decided to go to the ER for further evaluation tear. There he had a chest x-ray demonstrating no acute disease although evidence of bronchitis noted. The patient was started on prednisone 40 mg. although that was not enough and therefore we increasing to 60 mg. 60 mg felt too hard for him to tolerate so therefore he did bring it down quickly. He also completed a course of azithromycin for 5 days. However, he still having some difficulties. Still having shortness of breath and chest congestion. Hard time expectorating. Therefore will go ahead and given Solu-Medrol in the office and increase his antibiotic coverage to Levaquin. He is an avid runner and athlete. Therefore he understands he needs to monitor closely for any evidence of tendinitis. He is also going to start probiotics while on the medication. If the patientis no better he needs to get intouch with our office. 09/19/2022 the patient is here for sick visit. Patient has been feeling awful now for the last several weeks. He went to the ER there he had CT scan of the chest which is reassuring. Does have evidence of bronchitis and calcified pulmonary nodules. He was placed on prednisone in addition to azithromycin and also given a course of levofloxacin. Although his symptoms are only getting w orse. He called and we had to increase his prednisone to 60 mg. Continues to have significant wheezing chest tightness. He just does not feel good. The prednisone is making feel worse as well. In the office we did 2 nebulized treatments to DuoNeb. He was able to expectorate some mucus out of the lungs. The mucus since to be darker in color. We did try to get a sputum for culture but it was too much saliva in it. Therefore he will try to bring some mucus soon. The patient does have a history of aspergillosis in addition to chronic airway disease with ABPA. Therefore will start him on voriconazole in addition to that the patient will be started on Bactrim to treat for Staph aureus which is the only organism that he was not treated for. We did given Solu-Medrol in the office in addition to the DuoNebs. We talked about going to the ER but the patient at this point is hemodynamically stable. If he fails the current outpatient regimen that he should go to the ER for failing outpatient therapy. 09/29/2022 she the patient is here for a pulmonary follow-up visit. He finally starting to feel better. He is down to 10 mg of prednisone. He continues on the voriconazole and also continues on the Bactrim. His chest congestion is improving. His mucus is clearing up. He still has some wheezing and rhonchi specially in the right lung so therefore he should continue holding off on allergy shots. He may have to restart his immunotherapy once he is stable to he continues on his biologic therapy. At this point we do not have any sputum cultures available to guide therapy. He did have a CT scan of the chest that we personally reviewed in the office. Appears to have some bronchiectatic changes. Also has some calcified nodular densities in the right middle lobe and also in the left lower lobe consistent with granulomas. He has responded well to the antifungal therapy. He does have a history of ABPA. Will go ahead and treated for total 6-8 weeks son's again tolerated. It also would extend the Bactrim to treat for potential staff for least 3 weeks. Once the patient has also completed with the prednisone he will have blood work including assessing his cortisol level. He is wondering if he should be on low-dose prednisone. That is not unreasonable if she needs it but hopeful that he can come off completely. She the patient also continues with his subcutaneous IgG infusions. He does that every 2 weeks. Will go ahead and check his trough levels to make sure that he is getting adequate therapy. 10/29/2022 the patient is here for a pulmonary follow-up visit. He continues to feel better. He is now off the prednisone. Continues on voriconazole. Continues on his nebulized therapy. He did have blood work done his LFTs were slightly elevated. He denies any significant abdominal discomfort or nausea. Sometimes he does have some transient symptoms but is not sure if it is from the other medications. Will have to monitor closely his LFTs. He will have repeat PFTs in the next few weeks. Will see if he can continue the voriconazole for now. If he develops any worsening GI symptoms he is to stop the medicine and call immediately. His other blood work included a random cortisol level that was low. will go ahead and repeat that also in the coming weeks to see if he has any increased cortisol production. If he continues to be low that he will benefit from an Endocrinology consultation. The patient is also concerned about COVID-19. She has had multiple vaccinations in addition to the most recent booster in May. He does have immune deficiency. Therefore, will check his titers with his next blood work. 11/21/2022 the patient is here for a pulmonary follow-up visit. He continues to feel better. He is now off the prednisone and also will stop the voriconazole. He continues on his respiratory therapy as prescribed. The patient did have blood work which we reviewed. The patient was very stop his with his IgG spike protein titers being so elevated. In addition to this his cortisol level continues to be low however. Clinically he is doing well so therefore will continue to monitor for now. No need for exogenous corticosteroids at this time is as long as he is feels well. He continues on the biologic therapy. He does have follow-up with his water project engineer from [facility] in the coming weeks. I will make sure to have all the information available for him. As far as the blood work his LFTs have normalized which is reassuring. His kidney function she has a little bit off but I do believe that he does have some degree of dehydration. I did request that he started drinking more water fluids to try to improve this. 02/09/2023 The patitnt is here for a sick visit. +sick contact. Worsening cough and wheezing. severe. Was seen in the office and started on Prednisone and started on Bactrim. Has not been any better. Having significant weezing. Sputum is yellowish in color. He did bring a sample but is no longer good. We will try to have him bring another sample. In the meantime he is still having significant wheezing. We will have him start IV solumedrol 125mg x 3 days. 02/17/2023 the patient is here for a hospital follow-up visit. He was briefly hospitalized after no improvement after an aggressive outpatient respiratory regimen. The patient went to the hospital was placed on a additional IV steroids and his antibiotics were switched over to Levaquin in the continue Bactrim. Respiratory status improved. One of the blood cultures was positive for aerococcus viridans. This is likely to be an infection. He was starting to feel better although now after being on some motion Solu-Medrol he has a he has washed out. He has had issues with renal insufficiency. Now he is on 20 mg of prednisone. Will try to slowly decrease by 2.5 mg every week untill down to 10 mg by the next time that I see him. He is going to continue with current respiratory therapy. He will have 3 more days of Bactrim. Once he has completed I am hopeful that he can get a sputum culture to make sure that his clear all the infections in his lungs. 04/16/2023 the patient is here for pulmonary follow-up visit. Overall he is doing better. She continues to be on 5 mg of prednisone. I do believe that with his sister adrenal insufficiency this is a good idea. The patient uses [facility] in the past but subsequently retired. Will go ahead and refer him to a different vice president industrial relations. Patient has been on chronic steroids for his underlying respiratory disease. He continues on the biologic therapy. Continues with respiratory therapy. I did evaluate his CT scan that he had last demonstrating some bronchiectatic changes. The patient does have significant allergic bronchopulmonary aspergillosis. Therefore will request a percussion vest to better training and development assistant with mucus clearance. He has been using Acapella valve for many years. At this point will go ahead and optimize his bronchopulmonary hygiene. He has been exercising more often able to cycle regularly. 10/12/2023 the patient is here for a pulmonary follow-up visit. He has been doing very well. He is continued on 7.5 mg of prednisone. He had been on 5 mg of prednisone but then he got sick in August did increase it up to 15 mg. on 7.5 mg he seems to be doing well. He continues on the Tezspire and also continues with his nebulized therapy along with his percussion vest has been very effective for him. The patient was evaluated by Endocrinology. They do feel that he has some degree of adrenal insufficiency. In the meantime we have to find the lowest most effective dose prednisone. He did have a bone density test that already demonstrated osteopenia. Therefore did provide him with 1 mg tablets of prednisone is going to start cutting down slowly to hopefully get down to 5 mg daily. Once he if she is the 5 mg dose we can work on decreasing slightly lower down but slowly to avoid any rebound effects. The patient also has been actively exercising and skiing. When dusky he does take 15 mg of prednisone. We did talk about trying to limited to 10 mg of prednisone for those periods of time. He did have an appointment in [place] and has another appointment sometime in December with the pulmonology department there. Therefore will follow-up in April. I did review his last CT scan that he had back in 2022 no evidence of any active disease at that point, Did have some areas of scarring pleural thickening and calcified pulmonary nodules. The patient is already vaccinated with RSV COVID and flu and is up-to-date with his pneumonia vaccine as well. 04/13/2024 the patient is here for a pulmonary follow-up visit. The patient overall has been doing well the summer. Typically the goldberg a good time for him. He usually healthier. He has followed up closely with allergy. He continues on the Tezspire injections with good effect. He has been able to cut down the prednisone down to 4 mg a day. Sometimes if he is going to doing extremely his exercise event or program he may take additional. This will be okay as he is stressing his body. He did have a bone density test showing osteopenia though he is be careful with steroid use. When he does not want have to happen as he does not want to go on high doses of steroids if we can keep him on a small dose. Will try to find the lowest most effective dose, however. Right now his respiratory exam is reassuring with no wheezing. I do believe he can slowly cut down by 0.5 mg of the prednisone to the ideal dose of 2.5 mg daily. The last time he had his cortisol levels that were still low normal so therefore there is some room. The patient will have to go slow to minimize and acclimate to the lower dose. He continues with the other respiratory therapy with good effect. He is biking a lot which is reassuring and is clearing up a lot of mucus when he is biking. Will plan to follow-up in the fall when he christi khalil has a hard time. Will have to adjust the prednisone then. 06/07/2024 the patient is here for a pulmonary follow-up visit. Overall he is doing okay. Since we last spoke did call with worsening chest congestion. We did give him a course of levofloxacin that did help him. He still bringing up some phlegm. He did show me a sample. Appears to be a little bit frothy in nature. I did provide him with a sputum cup in order to be able to give us a sample if it continues to persist if it worsens specially. Right now will keep him off antibiotics. The patient continues be on prednisone 5 mg since he is recovering after his illness. He does not have a rescue inhaler I now. He does not feel like albuterol helps him enough. Therefore I did recommend he can try Combivent see if this provides him additional relief. He can use it as needed and also before exercise. He is already taking a long-acting muscarinic antagonist but will be reasonable just to try and see if this is effective for him. The patient does not have a history of glaucoma. He continues on the test prior injections. The been affecting beneficial. 08/24/2024 the patient is here for a pulmonary follow-up visit. Overall he is doing fairly well. He continues uses respiratory therapy as prescribed. This morning he did not use his nebulizer and he did feel increased chest tightness of his lungs during the day. He will take his nebulizers when he goes home. The patient did see his water project engineer in [place] he did recommend he follow-up with endocrinology regarding the adrenal insufficiency. Hard to know exactly what the best doses for him. Currently he is on 4.5 mg prednisone. Sometimes he does stress dose and takes 10 mg specially if he is going to do a intensive exercise routine. He continues on the biologic therapy with good effect. He did not tolerate the Daliresp. Causes GI symptoms. Will go ahead and slowly wean that off. Although because of his underlying severe obstructive lung d isease I do believe that adding Ohtuvayre would be a very effective option for him. Will go ahead and submitted to the insurance company for him to start the new nebulized therapy. 11/23/2024 the patient is here for pulmonary follow-up visit. Overall he is doing well after his surgery. He had his ACL repair. He did tolerate the surgery well without any issues. Just some nausea afterwards. Breathing blanco he had been doing well. He has been able to cut down to 4.5 mg in the prednisone he is going to try to cut down further to 4 mg. He will be following closely with endocrinology monitoring cortisol levels to see the the adrenal glands come back as he continues to cut down. The patient did start the Ohtuvayre nebs. He continues use other nebulized therapy and appears to be doing very well on it. His respiratory exam is is reassuring without any significant wheezing. He does have diminished breath sounds which is his baseline. Will have him return in 3 months to reassess his condition. The patient has any issues prior to this he will call for an earlier assessment. We did talk about his vaccines looks like he needs to get his Tdap up-to-date. 02/15/2025 the patient is here for a pulmonary follow-up visit. Overall he is doing well. He has recovered from his surgery very well. He is starting to bike more often. He has been able to cut down the prednisone down to 3 mg daily. The last time he had a cortisol level in the morning was above 9 which is reassuring. He is responding well to the respiratory therapy. He has not had any recent exacerbations which is very good. He is scheduled to see his water project engineer at [facility] in the coming months and he is going to undergo a CT scan of the chest. Continues on the Tezspire injections. Overall the patient is an good state of health. Will plan to follow-up sometime in the fall. If he is ready to cut down on the prednisone to 2.5 he will call to get blood work beforehand to make sure his cortisol levels are adequate in order to do that safely. [facility] Medical History Bilateral cataracts Bronchiectasis Hypogammaglobulinemia Adrenal insufficiency Transaminitis Asthma-COPD overlap syndrome ABPA (allergic bronchopulmonary aspergillosis) Hypertension Surgical History Hx of tonsillectomy History of bronchoscopy (~2020) History of repair of anterior cruciate ligament of left knee (~2012) Social History Household Members: Spouse Housing: House Do you presently have visiting nurse or other home services: Yes Alcohol intake: never Patient Tobacco Use Status: Never used Tobacco e-Cigarette/Vaping Use: Never Used Second Hand Smoke Exposure: No service: No Current occupational status: retired Current occupational exposures/hazards: No Cognitive needs: No Hearing needs: No Vision needs: No Review of Systems Const Denies chills, Denies excessive sweating, Denies fever(s), Denies headache(s) and Denies night sweats Eyes Denies dry eyes, Denies irritation and Denies itchy eyes ENT Reports Normal hearing present, Denies headache(s), Denies nasal congestion, Denies nasal discharge, Denies post nasal drip and Denies sore throat Card Denies chest pain, Denies chest pain at rest, Denies chest pain with activity and Denies leg edema Resp Denies change in phlegm color, Reports cough, Denies excessive phlegm production, Denies pain on inspiration, Denies pain with cough, Denies stridor and Reports wheezing Musc Reports as per HPI, Reports arthralgias and Reports limited range of motion Neuro Reports Normal hearing present and Denies headache(s) Endo Denies excessive sweating Pedrito/Lymph Denies lymphadenopathy Aller/Immun Denies itchy eyes, Denies seasonal rhinorrhea and Reports wheezing Physical Exam Vital Signs: Last Vital Signs Pulse 62 02/15/25 09:02 BP 124/67 02/15/25 09:02 Pulse Ox 98 02/15/25 09:02 Oxygen Delivery Method Room Air 02/15/25 09:02 BMI result Body Mass Index 23.3 Const General: alert HEENT General nose exam: Abnormal external nose present and Nasal discharge present Eyes Pupils: Equal, round and reactive pupils present Neck Neck: Yes normal visual inspection, Yes full ROM and Yes no lymphadenopathy Chest Chest palpation & inspection: normal inspection of the chest Resp Effort & Inspection: normal respiratory effort and segmental paradoxical chest wall movement Auscultation: no rhonchi, no wheezes and diminished lung sounds Cardio Rate: regular rate Rhythm: regular rhythm Heart sounds: S1 normal heart sound present and S2 normal heart sound present GI Palpation (GI): Soft to palpation and nontender Auscultation: normal bowel sounds General: Yes no CVA tenderness Back/Spine/Pelvis Back: no CVA tenderness Skin General skin exam: rashes and/or lesions noted Neuro Cranial nerves: Yes Equal, round and reactive pupils present and Yes Normal hearing present Extrem General: No clubbing, No cyanosis and Yes edema Psych Affect: Sad affect present and Anxious affect present Assessment & Plan Assessment & Plan (1) ABPA (allergic bronchopulmonary aspergillosis): Code(s): B44.81 - Allergic bronchopulmonary aspergillosis Category: Medical (2) Asthma-COPD overlap syndrome: Code(s): J44.9 - Chronic obstructive pulmonary disease, unspecified Category: Medical (3) Adrenal insufficiency: Code(s): E27.40 - Unspecified adrenocortical insufficiency Category: Medical (4) Hypogammaglobulinemia: Code(s): D80.1 - Nonfamilial hypogammaglobulinemia Category: Medical (5) Bronchiectasis: Code(s): J47.9 - Bronchiectasis, uncomplicated Category: Medical Qualifiers: Bronchiectasis type: uncomplicated Qualified Code(s): J47.9 - Bronchiectasis, uncomplicated Plan Prednisone 4.5mg daily-->4mg-->3mg, will call for bloodwork prior to decreasing further. stopped Daliresp 500mcg Ohtuvayre nebs continue Tezspire Q4 weeks IVIG with Allergy Continue budesonide 0.5 mg twice a day via nebulizer Continue Brovana via nebulizer twice a day Continue Incruse daily Combivent percussion vest for CPT for for his ABPA and bronchiectasis. Hypertonic saline 3% nebs BID off Singulair for now Reflux diet/HOB elevated F/U in 3-4 months Medications: Discontinued montelukast Discontinued Reason: Doctor's Order 10 mg PO BEDTIME 90 days 90 tabs 3RF Coding Level of Care Code Est Pt Level 4 (43387) Complex EM visit Add On G2211 Diagnoses ABPA (allergic bronchopulmonary aspergillosis) B44.81 Asthma-COPD overlap syndrome J44.9 Adrenal insufficiency E27.40 Hypogammaglobulinemia D80.1 Bronchiectasis without complication J47.9 Bronchiectasis type: uncomplicated Time Spent (min) 16
--- OUTSIDE RECORDS SUMMARY | 2025-02-15 09:19 | XMS_ITS | Clinical Summary ---
Author Organization [facility] Address [address] [place] [address] Care Team Providers Care Router Machine Operator Name Role Phone Unavailable Primary Care [...] Documents on File Type Date Recorded Patient Office Assistance Expl anation Health Care Decision (hx) 10/30/2015 AD TIAN DIRECTIVE Health Care Decision (hx) 10/30/2015 AD TIAN DIRECTIVE Health Care Decision (hx) 10/24/2015 AD TIAN DIRECTIVE Health Care Decision (hx) 10/24/2015 AD TIAN DIRECTIVE
== END 2025-02-15 09:23 | disposition home or self-care (01) ==
LOC: HO.HPS 08:54
PROVIDERS: PCP Family Medicine; Visit Provider Hospitalist
DX: B44.81 Allergic bronchopulmonary aspergillosis (principal); J44.9 Chronic obstructive pulmonary disease, unspecified; E27.40 Unspecified adrenocortical insufficiency; D80.1 Nonfamilial hypogammaglobulinemia; J47.9 Bronchiectasis, uncomplicated
CPT/HCPCS: 99214; G2211

== ENCOUNTER → 2025-02-15 08:53 | Outpatient (BNVA) | payer MEDICARE, OTHER, SELFPAY | PROVIDERS: PCP Family Medicine; Visit Provider Hospitalist | DX: J44.9 Chronic obstructive pulmonary disease, unspecified (principal); J47.9 Bronchiectasis, uncomplicated; B44.81 Allergic bronchopulmonary aspergillosis; E27.40 Unspecified adrenocortical insufficiency; D80.1 Nonfamilial hypogammaglobulinemia | CPT/HCPCS: 99212 ==

== ENCOUNTER 2025-04-27 08:19 | Outpatient (AMB) | payer MEDICARE, OTHER, SELFPAY ==
--- NOTE | 2025-04-27 08:23 | MHC.OFFVIS ---
Vital Signs 04/27/25 08:24 Height 5 ft 9 in Weight 159 lb BMI 23.5 Intake Visit Reasons: PO RT ACL reconstruction 11/02/24 NE Intake Note: Leo is a 69 year old male who presents today for a follow up appointment appointment s/p Right ACL reconstruction with allograft and partial medial meniscectomy 11/02/24 NE. A custom brace was ordered - he has not received this brace yet as insurance is not covering it at this time. Patient also reports that he has had ongoing left knee pain and instability. When he originally injured his right knee he also injured the left knee, however at that time the primary focus was the right knee. At this time he is not looking to discuss surgical options for the left knee but is looking to discuss conservative treatment measures. Allergies Doxycycline Hyclate Allergy (Intermediate, Uncoded 04/27/25 08:25) redness and itching HPI HPI PO RT ACL reconstruction 11/02/24 NE: Details: Leo is a 69 year old male who presents today for a follow up appointment appointment s/p Right ACL reconstruction with allograft and partial medial meniscectomy 11/02/24 NE. A custom brace was ordered - he has not received this brace yet as insurance is not covering it at this time. His right knee feels well. He has been biking 100s of miles a week and feels great. His left knee does not feel stable and has not since he re-injured it in 2022. [facility] Medical History Bilateral cataracts Bronchiectasis Hypogammaglobulinemia Adrenal insufficiency Transaminitis Asthma-COPD overlap syndrome ABPA (allergic bronchopulmonary aspergillosis) Hypertension Surgical History Hx of tonsillectomy History of bronchoscopy (~2020) History of repair of anterior cruciate ligament of left knee (~2012) Social History Household Members: Spouse Housing: House Do you presently have visiting nurse or other home services: Yes Alcohol intake: never Patient Tobacco Use Status: Never used Tobacco e-Cigarette/Vaping Use: Never Used Second Hand Smoke Exposure: No service: No Current occupational status: retired Current occupational exposures/hazards: No Cognitive needs: No Hearing needs: No Vision needs: No Physical Exam Vital Signs: BMI result Body Mass Index 23.5 Extrem Other: Full range of motion right knee with no effusion. Stable Priya's. Negative pivot shift. No joint line tenderness. Left knee with 2+ Priya's. No effusion. No pain. Assessment & Plan Assessment & Plan (1) S/P ACL reconstruction: Code(s): Z98.890 - Other specified postprocedural states Category: Surgical Plan: This is a 69-year-old with a functional right ACL after reconstruction. He needs to continue his biking and avoid skiing and I will see him in 3 months for this. 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 He understands this and has been using a ACL brace. Continue quad strengthening and biking. He does not want surgery and I do not recommended for the left knee. 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
[2025-04-27 08:24] VITALS: BMI 23.5
--- OUTSIDE RECORDS SUMMARY | 2025-04-27 09:04 | XMS_ITS | Clinical Summary ---
Author Organization [facility] Address [address] [place] [address] Care Team Providers Care Quarryman Name Role Phone Unavailable Primary Care Provider [...] 2 at age 96; paternal Hypertension Father [place] 201 3 Other: Other Maternal Grandfather - age 70; ? cancer type Other: Other Maternal Grandmother at 96 of [place] Other: Suicide Mother 1980; at age 47 [...] Panel) 08/10/2022 Colorectal Cancer Screening: Colonoscopy 08/10/2022 Falls Risk Assessment 08/10/2022 Hepatitis C Screening 08/10/2022 Social Influencers of Health Screening 08/10/2022 Hypertension/CHF/CAD Annual BMP Blood Test 08/21/2022 COVID-19 Vaccine (2 - season) 2024 11/04/2020 Depression Screening 09/07/2024 Influenza Vaccine (#1) 2025 5, 05/30/2013, 07/05/2010, Additional history exists HIB [...] Documents on File Type Date Recorded Patient Insecticide Maker Expl anation Health Care Decision (hx) 10/30/2015 AD TIAN DIRECTIVE Health Care Decision (hx) 10/30/2015 AD TIAN DIRECTIVE Health Care Decision (hx) 10/24/2015 AD TIAN DIRECTIVE Health Care Decision (hx) 10/24/2015 AD TIAN DIRECTIVE
--- OUTSIDE RECORDS SUMMARY | 2025-04-27 09:04 | XMS_ITS | Encounter Summary ---
Author Organization [facility] Address [address] [place] [address] [place] [phone] Phone Care Team Providers Care Painter Ski Edge Name Role Phone Joseph Leslie MD Primary Care Provider Justin Conley MD Unavailable [phone] Encounter Details Date Type Department Care Team (Watson Contact Info) Description 07/26/2024 Procedure Pass [facility] for Outpatient Care - [facility] [address] [facility]th [place] [address] Social History Tobacco Use Types Packs/Day Years [...] Upcoming Encounters Date Type Department Care Team (Watson marrero Contact Info) Description 03/28/2026 10:45 AM EDT Appointment [facility] [address] [facility], [address] [place] [address] Danilo Hancock MD [address] [facility] [address] [place] [address] [email or web address] 03/28/2026 11:00 AM EDT Office Visit [facility] [address] [facility], [address] [place] [address] Danilo Hancock MD [address] [address] [email or web address] documented as of this encounter Visit Diagnoses Not on filedocumented in this encounter Care Teams Painter Ski Edge Relationship Specialty Start Date End Date Joseph Leslie MD [address] [place] [id number] PCP - General 06/10/21 Justin Conley MD [address] [place] [address] [place] [address] [address] Oiler Pulmonary Disease 06/10/21 documented as of this encounter Additional Source Comments The information contained in this document represents components of the legal health record. It is not the complete legal health record.[facility]
== END 2025-04-27 09:13 | disposition home or self-care (01) ==
LOC: HO.HOS 08:20
PROVIDERS: PCP Family Medicine; Visit Provider Orthopaedic Surgery
DX: Z47.89 Encounter for other orthopedic aftercare (principal); S83.511D Sprain of anterior cruciate ligament of right knee, subsequent encounter; M23.8X2 Other internal derangements of left knee
CPT/HCPCS: 99213; G2211

== ENCOUNTER → 2025-04-27 08:19 | Outpatient (BNVA) | payer MEDICARE, OTHER, SELFPAY | PROVIDERS: PCP Family Medicine; Visit Provider Orthopaedic Surgery | DX: M23.8X2 Other internal derangements of left knee (principal); Z98.890 Other specified postprocedural states | CPT/HCPCS: 99212 ==

== ENCOUNTER 2025-06-21 08:56 | Outpatient (AMB) | payer MEDICARE, OTHER, SELFPAY ==
--- OUTSIDE RECORDS SUMMARY | 2011-11-06 01:00 | XMS_ITS | Encounter Summary ---
Author Organization [facility] Address [address] [facility] [address] [place] [address] Phone Care Team Providers Care Top Stop Attacher Name Role Phone Unavailable Primary Care Provider Unavailabl e Encounter Details Date Type Department Care Team (Late st Contact Info) Description 11/06/2011 Hospital Encounter [facility] [address] [place] [address] Danilo Hancock MD 55 [facility] 201 [place] [address] [email or web address] Social History Tobacco Use [...] Info) Description 03/28/2026 10:45 AM EDT Appointment [facility] Pul[facility] Care Unit [address] [facility], 2nd Floor, [address] [place] [address] Danilo Hancock MD 55 [facility] 201 [place] [address] [email or web address] 03/28/2026 11:00 AM EDT Office Visit [facility] [address] [facility], 2nd Floor, [address] [place] [address] Danilo Hancock MD 55 [facility] 201 [place] [address] [email or web address] documented as of this encounter Procedures Procedure Name Priority Date/Time Associated Diagnosis Comments XR CHEST OUTSIDE (NO INTERPRETATION) Routine 11/06/2011 12:00 AM EST documented in this encounter Results * XR Chest Outside (No Interpretation) (11/06/2011 12:00 AM EST) Narrative [facility] IMG INTERFACES - 10/01/2016 9:20 AM EST This study is for PACS storage only and not for interpretation. us Danilo Hancock MD IMG OUTSIDE IMAGING W/OUT INTER PRETATION Final Result [facility] IMG INTERFACES documented in this encounter Visit Diagnoses Not on filedocumented in this encounter Additional Source Comments The information contained in this document represents components of the legal health record. It is not the complete legal health record.[facility]
--- OUTSIDE RECORDS SUMMARY | 2014-10-04 01:00 | XMS_ITS | Encounter Summary ---
Author Organization [facility] Address [address] [facility] [address] [place] [address] Phone Care Team Providers Care Wound Care Physician Name Role Phone Unavailable Primary Care Provider Unavailabl e Encounter Details Date Type Department Care Team (Late st Contact Info) Description 10/04/2014 Hospital Encounter [facility] [address] [place] [address] Danilo Hancock MD 55 [facility] 201 [place] [address] [email or web address] Social History Tobacco Use Types Packs/Day Years [...] Info) Description 03/28/2026 10:45 AM EDT Appointment [facility] Critical [facility] Unit [address] [facility], 2nd Floor, [address] [place] [address] Danilo Hancock MD 55 [facility] 201 [place] [address] IRENE@[email or web address] 03/28/2026 11:00 AM EDT Office Visit [facility] [address] [facility], 2nd Floor, [address] [place] [address] Danilo Hancock MD 55 [facility] 201 [place] [address] IRENE@[email or web address] documented as of this encounter Procedures Procedure Name Priority Date/Time Associated Diagnosis Comments XR CHEST OUTSIDE (NO INTERPRETATION) Routine 10/04/2014 12:00 AM EST documented in this encounter Results * XR Chest Outside (No Interpretation) (10/04/2014 12:00 AM EST) Narrative [facility] IMG INTERFACES - 10/01/2016 9:20 AM EST This study is for PACS storage only and not for interpretation. us Danilo Hancock MD IMG OUTSIDE IMAGING W/OUT INTER PRETATION Final Result [facility] IMG INTERFACES documented in this encounter Visit Diagnoses Not on filedocumented in this encounter Additional Source Comments The information contained in this document represents components of the legal health record. It is not the complete legal health record.[facility]
--- OUTSIDE RECORDS SUMMARY | 2016-09-18 01:00 | XMS_ITS | Encounter Summary ---
Author Organization [facility] Address [address] [facility] [address] [place] [address] Phone Care Team Providers Care Food And Beverage Order Clerk Name Role Phone Unavailable Primary Care Provider Unavailabl e Encounter Details Date Type Department Care Team (Late st Contact Info) Description 09/18/2016 Hospital Encounter [facility] [address] [place] [address] Danilo Hancock MD 55 [facility] 201 [place] [address] [email or web address] Social History Tobacco [...] Info) Description 03/28/2026 10:45 AM EDT Appointment [facility] [address] [facility], 2nd Floor, [address] [place] [address] Danilo Hancock MD 55 [facility] 201 [place] [address] [email or web address] 03/28/2026 11:00 AM EDT Office Visit [facility] [address] [facility], 2nd Floor, [address] [place] [address] Danilo Hancock MD [address] [place] [address] 201 [place] [address] [email or web address] documented as of this encounter Procedures Procedure Name Priority Date/Time Associated Diagnosis Comments XR CHEST OUTSIDE WITH INTERPRETATION OR CONSULT Routine 09/18/2016 12:00 AM EST documented in this encounter Results * XR Chest Outside With Interpretation Or Consult (09/18/2016 12:00 AM EST) 10/01/2016 10:2 0 AM EST Impressions [facility] RAD - 10/01/2016 10:21 AM EST Clear lungs. No evidence of pneumonia or pulmonary edema. This report is limited to the body part and modality requested, regardless of which images were uploaded. If additional reports are required, please contact the appropriate Division of the Radiology Department. Narrative [facility] - 10/01/2016 10:21 AM EST of [...] OUTSIDE IMAGING W/ INTERPRE TATION Final Result [facility] [address] [place] [address] documented in this encounter Visit Diagnoses Not on filedocumented in this encounter Additional Source Comments The information contained in this document represents components of the legal health record. It is not the complete legal health record.[facility]
--- OUTSIDE RECORDS SUMMARY | 2016-09-25 01:00 | XMS_ITS | Encounter Summary ---
Author Organization [facility] Address [address] [facility] [address] [place] [address] Phone Care Team Providers Care Caddy/Caddie Supervisor Name Role Phone Unavailable Primary Care Provider Unavailabl e Reason for Visit * MRI/CAT Scan - Closed Specialty Diagnoses / Procedures Referred By Contac t Referred To Contact Procedures CT Chest Outside (No Interpretation) Danilo Hancock MD [facility] [address] [address] Phone: tel: fax: mailto:[email or web address] Referral ID Status Reason Start Date Expiration Date Visits Re quested Visits Authorized [id number] Closed 06/02/2017 06/02/2018 1 1 Encounter Details Date Type Department Care Team (Late st Contact Info) Description 09/25/2016 Hospital Encounter [facility] Imaging [address] [place] [address] Danilo Hancock MD [facility] [address] [address] IRENE@[email or web address] Social History [...] Info) Description 03/28/2026 10:45 AM EDT Appointment [facility] Pulmonary [facility] Critical Care Unit [address] [facility] Floor, [address] [place] [address] Danilo Hancock MD [address] [place] [address] IRENE@[email or web address] 03/28/2026 11:00 AM EDT Office Visit [facility] [address] [facility], 2nd Floor, [address] [place] [address] Danilo Hancock MD [address] [place] [address] IRENE@[email or web address] documented as of this encounter Procedures Procedure Name Priority Date/Time Associated Diagnosis Comments CT CHEST OUTSIDE (NO INTERPRETATION) Routine 09/25/2016 12:00 AM EST documented in this encounter Results * CT Chest Outside (No Interpretation) (09/25/2016 12:00 AM EST) Narrative [facility] IMG INTERFACES - 06/02/2017 4:42 PM EDT This study is for PACS storage only and not for interpretation. us Danilo ANDRES OUTSIDE IMAGING W/OUT INTER PRETATION Final Result [facility] IMG INTERFACES documented in this encounter Visit Diagnoses Not on filedocumented in this encounter Additional Source Comments The information contained in this document represents components of the legal health record. It is not the complete legal health record.[facility]
--- NOTE | 2025-06-21 08:57 | A.OFFVIS_ITS ---
Vital Signs 06/21/25 08:58 Height 5 ft 9 in Weight 151 lb 0.266 oz BMI 22.3 BP 130/66 Blood Pressure Location Lt brachial Position Sitting Pulse 58 Pulse Source Pulse Oximeter Pulse Oximetry (%) 99 Oxygen Delivery Method Room Air Intake Visit Reasons: Asthma Mold Filler Plastic Dolls Required: No Accompanied by: Self / Same As Patient Allergies Doxycycline Hyclate Allergy (Intermediate, Uncoded 04/27/25 08:25) redness and itching HPI Comments Details: The patient is a 69-year-old gentleman with history severe asthma and allergic bronchopulmonary aspergillosis. Apparently every 6 back in 2004 requiring significant doses of prednisone. Was diagnosed to time. Was in 2014 when he became very sick in the went to [facility] in was admitted to [facility]. At the time was diagnosed with allergic bronchopulmonary aspergillosis and spent prolonged period on prednisone. He was also placed on itraconazole. The patient has now been followed closely at [facility]. He is currently on Dupixent which has appears to be effective for him. He also continues on maintenance therapy. Continues to have shortness of breath. 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 Lately he has been noticing increased chest tightness and coughing. He is trying to avoid prednisone. When he was on prednisone for many years he did develop a lot of the complications from the prednisone and now has been able come off it. Unfortunately, in July 2020 was diagnosed with COVID-19 and since then his respiratory status also been affected adversely. Today in the office he has significant wheezing and rhonchi. Will given 2 DuoNeb treatments. Will try to maximize his respiratory therapy by switching him to nebulized therapy. The patient also needs aggressive chest physical therapy. 10/08/2021 the patient is here for pulmonary follow-up visit. Overall he is doing well. We did review of the microbiology from the bronchoscopy specimens and no evidence of any Aspergillus at this point therefore is reassuring we do not have to treating. The likely mold found is colonizing and likely just from inhaling sports. His other fungal cultures were negative which is reassuring. And also his BAL did not demonstrate any significant inflammatory changes concerning for active inflammation due to ABPM. The patient did start Daliresp. Tolerating it well at 250 mcg. He 1st start with half a dose. Denies any significant GI symptoms. He has been getting a little drowsy. Therefore he started taking the medication at nighttime. He is wondering if the drowsiness could be from the medication. At this point is less likely, but is still needs to be considered. He is going to continue using the 250 mcg dose to get used to it and hopefully he can increase to 500 mcg and 6-8 weeks once he is better. 01/14/2022 the patient is here for a pulmonary follow-up visit. Overall he is doing relatively well. He continues to have coughing episodes specially at nighttime. He did follow up in [place] with his acoustic intelligence specialist. They recommended he have a barium swallow and treat his reflux disease and sleep elevated. I did emphasize that these are very important things. He is going to do the reflux diet sleep elevated. He is going to monitor the symptoms and will hold off on the barium swallow this time. he seems to be tolerating the Daliresp. He does not want to increase the dose because of the risk of the mood disorders. Will continue with the Daliresp to treat the chronic bronchitis and avoid prednisone. He continues on the nebulized therapy. Continues to exercise regularly. While he is running he is able to expectorate a lot of phlegm. Will have the patient undergo blood work at this time to assess his allergy levels. He continues to Dupixent which appears to have been very effective for him. He has tried and failed Xolair in the past. Will still consider the possibility of Trezspire if he continues to be symptomatic. 05/25/2022 the patient is here for a pulmonary follow-up visit. Since we last spoke did have an exacerbation back in January while he was in [place]. He was evaluated at a local hospital where he was diagnosed with a asthma exacerbation and placed on a prednisone taper. His symptoms did improve. He is concerned because he still having significant symptoms in the springtime and now also will have worsening symptoms in the fall. Primarily due to allergies. He is getting allergy shots at this time he is also currently on Dupixent. He has already tried and failed Xolair and now does not appear to be completely responding to the Dupixent. Therefore, the patient would like to go ahead and changes biologic to Tezspire. we have been speaking about this now for about a year. He is ready to make that change since he still having significant symptoms. Since he is already getting allergy shots through [facility] I do believe that the best thing to do was for him to get the TSLP biologic therapy also with [facility]. I did give information about the medication and will also will send a message to his wrapper sheeter. The patient also has been responding well to the Daliresp. Will go ahead and maximize the FX by increasing to the therapeutic dose of 500 mcg. The patient continues with nebulized therapy. He is still requiring his short-acting beta agonist on a daily basis, however. 08/15/2022 the patient is here for a sick visit. Recently started developing worsening respiratory symptoms chest congestion chest tightness and wheezing. His symptoms were severe decided to go to the ER for further evaluation tear. There he had a chest x-ray demonstrating no acute disease although evidence of bronchitis noted. The patient was started on prednisone 40 mg. although that was not enough and therefore we increasing to 60 mg. 60 mg felt too hard for him to tolerate so therefore he did bring it down quickly. He also completed a course of azithromycin for 5 days. However, he still having some difficulties. Still having shortness of breath and chest congestion. Hard time expectorating. Therefore will go ahead and given Solu-Medrol in the office and increase his antibiotic coverage to Levaquin. He is an avid runner and athlete. Therefore he understands he needs to monitor closely for any evidence of tendinitis. He is also going to start probiotics while on the medication. If the patientis no better he needs to get intouch with our office. 09/19/2022 the patient is here for sick visit. Patient has been feeling awful now for the last several weeks. He went to the ER there he had CT scan of the chest which is reassuring. Does have evidence of bronchitis and calcified pulmonary nodules. He was placed on prednisone in addition to azithromycin and also given a course of levofloxacin. Although his symptoms are only getting worse. He called and we had to increase his prednisone to 60 mg. Continues to have significant wheezing chest tightness. He just does not feel good. The prednisone is making feel worse as well. In the office we did 2 nebulized treatments to Ayaan. He was able to expectorate some mucus out of the lungs. The mucus since to be darker in color. We did try to get a sputum for culture but it was too much saliva in it. Therefore he will try to bring some mucus soon. The patient does have a history of aspergillosis in addition to chronic airway disease with ABPA. Therefore will start him on voriconazole in addition to that the patient will be started on Bactrim to treat for Staph aureus which is the only organism that he was not treated for. We did given Solu-Medrol in the office in addition to the DuoNebs. We talked about going to the ER but the patient at this point is hemodynamically stable. If he fails the current outpatient regimen that he should go to the ER for failing outpatient therapy. 09/29/2022 she the patient is here for a pulmonary follow-up visit. He finally starting to feel better. He is down to 10 mg of prednisone. He continues on the voriconazole and also continues on the Bactrim. His chest congestion is improving. His mucus is clearing up. He still has some wheezing and rhonchi specially in the right lung so therefore he should continue holding off on allergy shots. He may have to restart his immunotherapy once he is stable to he continues on his biologic therapy. At this point we do not have any sputum cultures available to guide therapy. He did have a CT scan of the chest that we personally reviewed in the office. Appears to have some bronchiectatic changes. Also has some calcified nodular densities in the right middle lobe and also in the left lower lobe consistent with granulomas. He has responded well to the antifungal therapy. He does have a history of ABPA. Will go ahead and treated for total 6-8 weeks son's again tolerated. It also would extend the Bactrim to treat for potential staff for least 3 weeks. Once the patient has also completed with the prednisone he will have blood work including assessing his cortisol level. He is wondering if he should be on low-dose prednisone. That is not unreasonable if she needs it but hopeful that he can come off completely. She the patient also continues with his subcutaneous IgG infusions. He does that every 2 weeks. Will go ahead and check his trough levels to make sure that he is getting adequate therapy. 10/29/2022 the patient is here for a pulmonary follow-up visit. He continues to feel better. He is now off the prednisone. Continues on voriconazole. Continues on his nebulized therapy. He did have blood work done his LFTs were slightly elevated. He denies any significant abdominal discomfort or nausea. Sometimes he does have some transient symptoms but is not sure if it is from the other medications. Will have to monitor closely his LFTs. He will have repeat PFTs in the next few weeks. Will see if he can continue the voriconazole for now. If he develops any worsening GI symptoms he is to stop the medicine and call immediately. His other blood work included a random cortisol level that was low. will go ahead and repeat that also in the coming weeks to see if he has any increased cortisol production. If he continues to be low that he will benefit from an Endocrinology consultation. The patient is also concerned about COVID-19. She has had multiple vaccinations in addition to the most recent booster in May. He does have immune deficiency. Therefore, will check his titers with his next blood work. 11/21/2022 the patient is here for a pulmonary follow-up visit. He continues to feel better. He is now off the prednisone and also will stop the voriconazole. He continues on his respiratory therapy as prescribed. The patient did have blood work which we reviewed. The patient was very stop his with his IgG spike protein titers being so elevated. In addition to this his cortisol level contin ues to be low however. Clinically he is doing well so therefore will continue to monitor for now. No need for exogenous corticosteroids at this time is as long as he is feels well. He continues on the biologic therapy. He does have follow-up with his rubber engraver from [facility] in the coming weeks. I will make sure to have all the information available for him. As far as the blood work his LFTs have normalized which is reassuring. His kidney function she has a little bit off but I do believe that he does have some degree of dehydration. I did request that he started drinking more water fluids to try to improve this. 02/09/2023 The patitnt is here for a sick visit. +sick contact. Worsening cough and wheezing. severe. Was seen in the office and started on Prednisone and started on Bactrim. Has not been any better. Having significant weezing. Sputum is yellowish in color. He did bring a sample but is no longer good. We will try to have him bring another sample. In the meantime he is still having significant wheezing. We will have him start IV solumedrol 125mg x 3 days. 02/17/2023 the patient is here for a hospital follow-up visit. He was briefly hospitalized after no improvement after an aggressive outpatient respiratory regimen. The patient went to the hospital was placed on a additional IV steroids and his antibiotics were switched over to Levaquin in the continue Bactrim. Respiratory status improved. One of the blood cultures was positive for aerococcus viridans. This is likely to be an infection. He was starting to feel better although now after being on some motion Solu-Medrol he has a he has washed out. He has had issues with renal insufficiency. Now he is on 20 mg of prednisone. Will try to slowly decrease by 2.5 mg every week untill down to 10 mg by the next time that I see him. He is going to continue with current respiratory therapy. He will have 3 more days of Bactrim. Once he has completed I am hopeful that he can get a sputum culture to make sure that his clear all the infections in his lungs. 04/16/2023 the patient is here for pulmonary follow-up visit. Overall he is doing better. She continues to be on 5 mg of prednisone. I do believe that with his sister adrenal insufficiency this is a good idea. The patient uses [facility] in the past but subsequently retired. Will go ahead and refer him to a different chief transfer and pumphouse operator. Patient has been on chronic steroids for his underlying respiratory disease. He continues on the biologic therapy. Continues with respiratory therapy. I did evaluate his CT scan that he had last demonstrating some bronchiectatic changes. The patient does have significant allergic bronchopulmonary aspergillosis. 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 He has been using Acapella valve for many years. At this point will go ahead and optimize his bronchopulmonary hygiene. He has been exercising more often able to cycle regularly. 10/12/2023 the patient is here for a pulmonary follow-up visit. He has been doing very well. He is continued on 7.5 mg of prednisone. He had been on 5 mg of prednisone but then he got sick in August did increase it up to 15 mg. on 7.5 mg he seems to be doing well. He continues on the Tezspire and also continues with his nebulized therapy along with his percussion vest has been very effective for him. The patient was evaluated by Endocrinology. They do feel that he has some degree of adrenal insufficiency. In the meantime we have to find the lowest most effective dose prednisone. He did have a bone density test that already demonstrated osteopenia. Therefore did provide him with 1 mg tablets of prednisone is going to start cutting down slowly to hopefully get down to 5 mg daily. Once he if she is the 5 mg dose we can work on decreasing slightly lower down but slowly to avoid any rebound effects. The patient also has been actively exercising and skiing. When dusky he does take 15 mg of prednisone. We did talk about trying to limited to 10 mg of prednisone for those periods of time. He did have an appointment in [place] and has another appointment sometime in December with the pulmonology department there. Therefore will follow-up in April. I did review his last CT scan that he had back in 2022 no evidence of any active disease at that point, Did have some areas of scarring pleural thickening and calcified pulmonary nodules. The patient is already vaccinated with RSV COVID and flu and is up-to-date with his pneumonia vaccine as well. 04/13/2024 the patient is here for a pulmonary follow-up visit. The patient overall has been doing well the summer. Typically the goldberg a good time for him. He usually healthier. He has followed up closely with allergy. He continues on the Tezspire injections with good effect. He has been able to cut down the prednisone down to 4 mg a day. Sometimes if he is going to doing extremely his exercise event or program he may take additional. This will be okay as he is stressing his body. He did have a bone density test showing osteopenia though he is be careful with steroid use. When he does not want have to happen as he does not want to go on high doses of steroids if we can keep him on a small dose. Will try to find the lowest most effective dose, however. Right now his respiratory exam is reassuring with no wheezing. I do believe he can slowly cut down by 0.5 mg of the prednisone to the ideal dose of 2.5 mg daily. The last time he had his cortisol levels that were still low normal so therefore there is some room. The patient will have to go slow to minimize and acclimate to the lower dose. He continues with the other respiratory therapy with good effect. He is biking a lot which is reassuring and is clearing up a lot of mucus when he is biking. Will plan to follow-up in the fall when he typically has a hard time. Will have to adjust the prednisone then. 06/07/2024 the patient is here for a pulmonary follow-up visit. Overall he is doing okay. Since we last spoke did call with worsening chest congestion. We did give him a course of levofloxacin that did help him. He still bringing up some phlegm. He did show me a sample. Appears to be a little bit frothy in nature. I did provide him with a sputum cup in order to be able to give us a sample if it continues to persist if it worsens specially. Right now will keep him off antibiotics. The patient continues be on prednisone 5 mg since he is recovering after his illness. He does not have a rescue inhaler I now. He does not feel like albuterol helps him enough. Therefore I did recommend he can try Combivent see if this provides him additional relief. He can use it as needed and also before exercise. He is already taking a long-acting muscarinic antagonist but will be reasonable just to try and see if this is effective for him. The patient does not have a history of glaucoma. He continues on the test prior injections. The been affecting beneficial. 08/24/2024 the patient is here for a pulmonary follow-up visit. Overall he is doing fairly well. He continues uses respiratory therapy as prescribed. This morning he did not use his nebulizer and he did feel increased chest tightness of his lungs during the day. He will take his nebulizers when he goes home. The patient did see his rubber engraver in [place] he did recommend he follow-up with endocrinology regarding the adrenal insufficiency. Hard to know exactly what the best doses for him. Currently he is on 4.5 mg prednisone. Sometimes he does stress dose and takes 10 mg specially if he is going to do a intensive exercise routine. He continues on the biologic therapy with good effect. He did not tolerate the Daliresp. Causes GI symptoms. Will go ahead and slowly wean that off. Although because of his underlying severe obstructive lung disease I do believe that adding Ohtuvayre would be a very effective option for him. Will go ahead and submitted to the insurance company for him to start the new nebulized therapy. 11/23/2024 the patient is here for pulmonary follow-up visit. Overall he is doing well after his surgery. He had his ACL repair. He did tolerate the surgery well without any issues. Just some nausea afterwards. Breathing blanco he had been doing well. He has been able to cut down to 4.5 mg in the prednisone he is going to try to cut down further to 4 mg. He will be following closely with endocrinology monitoring cortisol levels to see the the adrenal glands come back as he continues to cut down. The patient did start the Ohtuvayre nebs. He continues use other nebulized therapy and appears to be doing very well on it. His respiratory exam is is reassuring without any significant wheezing. He does have diminished breath sounds which is his baseline. Will have him return in 3 months to reassess his condition. The patient has any issues prior to this he will call for an earlier assessment. We did talk about his vaccines looks like he needs to get his Tdap up-to-date. 02/15/2025 the patient is here for a pulmonary follow-up visit. Overall he is doing well. He has recovered from his surgery very well. He is starting to bike more often. He has been able to cut down the prednisone down to 3 mg daily. The last time he had a cortisol level in the morning was above 9 which is reassuring. He is responding well to the respiratory therapy. He has not had any recent exacerbations which is very good. He is scheduled to see his rubber engraver at [facility] in the coming months and he is going to undergo a CT scan of the chest. Continues on the Tezspire injections. Overall the patient is an good state of health. Will plan to follow-up sometime in the fall. If he is ready to cut down on the prednisone to 2.5 he will call to get blood work beforehand to make sure his cortisol levels are adequate in order to do that safely. 06/21/2025 the patient is here for pulmonary follow-up visit. His asthma has been more active. Typically in the fall it gets a little bit difficult. He has been using all his respiratory therapy. He has had to increase his prednisone sound. Although he does not like to do that specially because it affects his cortisol levels. The patient has been on all his respiratory therapy as prescribed. He has used theophylline in the past. Many years ago. High dosages caused him to have some adverse effects. Therefore will start him on a low dose of 100 mg of the theophylline ER that hopefully can tolerate and hopefully will decrease the need for steroids. In the meantime he will continue with his nebulized therapy continue with the test prior continues with the IgG infusions. Will plan to follow-up in 2-3 months if he has any issues prior to this she can always call. In a few weeks he is going to have blood work to assess his theophylline levels in addition to other levels as well. [facility] Medical History Bilateral cataracts Bronchiectasis Hypogammaglobulinemia Adrenal insufficiency Transaminitis Asthma-COPD overlap syndrome ABPA (allergic bronchopulmonary aspergillosis) Hypertension Surgical History Hx of tonsillectomy History of bronchoscopy (~2020) History of repair of anterior cruciate ligament of left knee (~2012) Social History Household Members: Spouse Housing: House Do you presently have visiting nurse or other home services: Yes Alcohol intake: never Patient Tobacco Use Status: Never used Tobacco e-Cigarette/Vaping Use: Never Used Second Hand Smoke Exposure: No service: No Current occupational status: retired Current occupational exposures/hazards: No Cognitive needs: No Hearing needs: No Vision needs: No Review of Systems Const Denies chills, Denies excessive sweating, Denies fever(s), Denies headache(s) and Denies night sweats Eyes Denies dry eyes, Denies irritation and Denies itchy eyes ENT Reports Normal hearing present, Denies headache(s), Denies nasal congestion, Denies nasal discharge, Denies post nasal drip and Denies sore throat Card Denies chest pain, Denies chest pain at rest, Denies chest pain with activity, Denies leg edema and Reports dyspnea on exertion Resp Denies change in phlegm color, Reports cough, Denies excessive phlegm production, Denies pain on inspiration, Denies pain with cough, Reports dyspnea on exertion, Denies stridor and Reports wheezing Musc Reports as per HPI, Reports arthralgias and Reports limited range of motion Neuro Reports Normal hearing present and Denies headache(s) Endo Denies excessive sweating Pedrito/Lymph Denies lymphadenopathy Aller/Immun Denies itchy eyes, Denies seasonal rhinorrhea and Reports wheezing Physical Exam Vital Signs: Last Vital Signs Pulse 58 06/21/25 08:58 BP 130/66 06/21/25 08:58 Pulse Ox 99 06/21/25 08:58 Oxygen Delivery Method Room Air 06/21/25 08:58 BMI result Body Mass Index 22.3 Const General: alert HEENT General nose exam: Abnormal external nose present and Nasal discharge present Eyes Pupils: Equal, round and reactive pupils present Neck Neck: Yes normal visual inspection, Yes full ROM and Yes no lymphadenopathy Chest Chest palpation & inspection: normal inspection of the chest Resp Effort & Inspection: normal respiratory effort, segmental paradoxical chest wall movement and prolonged expiratory phase Auscultation: no rhonchi, wheezes and diminished lung sounds Cardio Rate: regular rate Rhythm: regular rhythm Heart sounds: S1 normal heart sound present and S2 normal heart sound present GI Palpation (GI): Soft to palpation and nontender Auscultation: normal bowel sounds General: Yes no CVA tenderness Back/Spine/Pelvis Back: no CVA tenderness Skin General skin exam: rashes and/or lesions noted Neuro Cranial nerves: Yes Equal, round and reactive pupils present and Yes Normal hearing present Extrem General: No clubbing, No cyanosis and Yes edema Psych Affect: Sad affect present and Anxious affect present Assessment & Plan Assessment & Plan (1) ABPA (allergic bronchopulmonary aspergillosis): Code(s): B44.81 - Allergic bronchopulmonary aspergillosis Category: Medical (2) Asthma-COPD overlap syndrome: Code(s): J44.9 - Chronic obstructive pulmonary disease, unspecified Category: Medical (3) Adrenal insufficiency: Code(s): E27.40 - Unspecified adrenocortical insufficiency Category: Medical (4) Hypogammaglobulinemia: Code(s): D80.1 - Nonfamilial hypogammaglobulinemia Category: Medical (5) Bronchiectasis: Code(s): J47.9 - Bronchiectasis, uncomplicated Category: Medical Qualifiers: Bronchiectasis type: uncomplicated Qualified Code(s): J47.9 - Bronchiectasis, uncomplicated (6) Asthma: Code(s): J45.909 - Unspecified asthma, uncomplicated Category: Medical Qualifiers: Asthma severity: severe Asthma persistence: persistent Asthma complication type: uncomplicated Qualified Code(s): J45.50 - Severe persistent asthma, uncomplicated Plan start Theophylline, check levels Prednisone 4.5mg daily-->4mg-->3mg, will call for bloodwork prior to decreasing further. Ohtuvayre nebs continue Tezspire Q4 weeks IVIG with Allergy Continue budesonide 0.5 mg twice a day via nebulizer Continue Brovana via nebulizer twice a day Continue Incruse daily Combivent percussion vest for CPT for for his ABPA and bronchiectasis. Hypertonic saline 3% nebs BID STart Theophilline Reflux diet/HOB elevated F/U in 3-4 months Orders: Orders Theophylline Today J45.909 - Unspecified asthma, uncomplicated Immunoglobulin E Today J45.909 - Unspecified asthma, uncomplicated Complete Blood Count Auto Diff Today J45.909 - Unspecified asthma, uncomplicated Basic Metabolic Panel Today J45.909 - Unspecified asthma, uncomplicated Erythrocyte Sedimentation Rate Today J45.909 - Unspecified asthma, uncomplicated Immunoglobulin G Subclasses Today J45.909 - Unspecified asthma, uncomplicated Immunoglobulins,IgG IgA IgM Today J45.909 - Unspecified asthma, uncomplicated Medications: New theophylline ER 100 mg PO Q12H 60 caps 4RF Coding Level of Care Code Est Pt Level 4 (43860) Complex EM visit Add On G2211 Diagnoses ABPA (allergic bronchopulmonary aspergillosis) B44.81 Asthma-COPD overlap syndrome J44.9 Adrenal insufficiency E27.40 Hypogammaglobulinemia D80.1 Bronchiectasis without complication J47.9 Bronchiectasis type: uncomplicated Severe persistent asthma without complication J45.50 Asthma severity: severe Asthma persistence: persistent Asthma complication type: uncomplicated Time Spent (min) 18
[2025-06-21 08:58] VITALS: BP 130/66; PULSE 58; O2SAT 99; BMI 22.3
--- OUTSIDE RECORDS SUMMARY | 2025-06-21 09:36 | XMS_ITS | Clinical Summary ---
Author Organization [employer] [facility] Address [address] [place] [address] Care Team Providers Care Vice Admiral Name Role Phone Unavailable Primary Care Provider [...] 2 at age 96; paternal Hypertension Father [place] [phone] Other: Other Maternal Grandfather - age 70; ? cancer type Other: Other Maternal Grandmother at 96 of [place] Other: Suicide Mother 1980; at age 47 [...] Health Maintenance Due Date Last Done Comments Colorectal Cancer Screening: Colonoscopy 1955 Pneumococcal Vaccine: 50+ Years (2 of 2 - PCV) 09/07/2006 09/07/2005 RSV Immunization Adult Patients (1 - Risk 50-74 years 1-dose series) 2006 Zoster Vaccines (1 of 2) 2006 DTaP,Tdap,and Td Vaccines (2 - Td or Tdap) 02/17/2018 02/18/2008 Abdominal Aortic Aneurysm (AAA) Screen 08/10/2022 Cholesterol Screening (Lipid Panel) 08/10/2022 Falls Risk Assessment 08/10/2022 Hepatitis C Screening 08/10/2022 Social Influencers of Health Screening 08/10/2022 Hypertension/CHF/CAD Annual BMP Blood Test 08/21/2022 Depression Screening 09/07/2024 COVID-19 Vaccine (2 - season) 2025 11/04/2020 Influenza Vaccine (#1) 2025 5, 05/30/2013, 07/05/2010, [...] Documents on File Type Date Recorded Patient Sample Cutter Expl anation Health Care Decision (hx) 10/30/2015 AD TIAN DIRECTIVE Health Care Decision (hx) 10/30/2015 AD TIAN DIRECTIVE Health Care Decision (hx) 10/24/2015 AD TIAN DIRECTIVE Health Care Decision (hx) 10/24/2015 AD TIAN DIRECTIVE
--- OUTSIDE RECORDS SUMMARY | 2025-06-21 09:36 | XMS_ITS | Clinical Summary ---
Author Organization [facility] Address [address] [address] Phone Care Team Providers Care Insurance Verification Rep Name Role Phone Joseph Leslie MD Primary Care Provider Justin Conley MD Unavailable Allergies Active Allergy Reactions Criticality Noted Date Comments Doxycycline Rash High 11/12/2015 Medications albuterol 2.5 mg /3 mL (0.083 %) nebulizer solution Take 3 mL by nebulization every 6 (six) hours as needed. 11/12/19 16 Active calcium carbonate-vitami n D3 1,250 mg (500 mg elemental)-200 units per tablet Take 1 tablet by mouth daily. 11/12/19 16 Active diltiazem (CARDIZEM CD) 180 MG 24 hr capsule Take 1 capsule by mouth daily. 11/12/19 16 Active triamterene-hydr ochlorothiazide (DYAZIDE) 37.5-25 mg per capsule Take 1 capsule by mouth daily. 11/12/19 16 Active custom medication, see admin inst / label comment, FLUNISOLIDE 250 MCG AER W/ADAP Dose: 2 PUFF; Form: Not available; Route: INH; Frequency: Not available; Directions: Not available; Details: Not available; Date: 11/12/2015 11/12/19 16 Active montelukast (SINGULAIR) 10 mg tablet Take 1 tablet by mouth nightly. 11/12/19 16 Active mucus clearing device DeviIndications: Bronchiectasis without complication 1 Dose by Miscellaneous route 3 (three) times a day. Please dispense the Green Acapella, with more resistance than the blue one. 1 Device 1 01/12/20 18 Active arformoterol (BROVANA) 15 mcg/2 mL Nebu Take 15 mcg by nebulization 2 (two) times a day. Active budesonide (PULMICORT) 0.5 mg/2 mL nebulizer solution Take 0.5 mg by nebulization daily. Active pantoprazole (PROTONIX) 40 MG tablet Take 40 mg by mouth daily. Active sodium chloride 3 % nebulizer solution Take by nebulization as needed for other (free text field). Active tezepelumab-ekko (TEZSPIRE) 210 mg/1.91 mL (110 mg/mL) subcutaneous pen injector Inject 210 mg under the skin every 28 days. Active CUVITRU 8 gram/40 mL (20 %) Soln Inject under the skin every 14 (fourteen) days. 08/17/20 23 Active loteprednol (LOTEMAX) 0.5 % ophthalmic suspension INSTILL 1 DROP INTO BOTH EYES TWICE A DAY NEEDED 08/03/20 23 Active predniSONE (DELTASONE) 5 MG tablet Take 4.5 mg by mouth every morning. 08/05/20 23 Active fluticasone propionate (FLONASE) 50 mcg/actuation nasal spray spray 2 sprays into each nostril every day 07/23/20 23 Active roflumilast (DALIRESP) 500 mcg Tab Take 1 tablet by mouth every morning. 08/06/20 23 Active INCRUSE ELLIPTA 62.5 mcg/actuation inhalation Inhale 1 puff into the lungs daily. 07/29/20 23 Active fexofenadine (ADAMS) 180 MG tabletIndication s:Mild intermittent asthma without complication TAKE 1 TABLET BY MOUTH EVERY DAY 90 tablet 3 07/29/20 24 Active ensifentrine 3 mg/2.5 mL NbSp Inhale into the lungs. 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 He has been on omalizumab and prednisone, and IgE and eosinophils are not elevated. 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 It would be reasonable to increase his prednisone dose to 40 mg daily at the onset of this treatment, then taper down, to give him the maximum benefit. His ALT was elevated last time. His situation was reviewed in our clinical case conference, and consensus agreed with diagnosis of ABPA, and favored treatment with itraconazole. The low immunoglobulin levels are likely related to chronic steroid use. Plan: - Prednisone 20 mg daily for two weeks, then gradual taper over 3-6 months. Typical starting dose would be 40 mg daily, but Dr. Vera and I favor a lower dose, given the patient's significant side effects from steroids. - itraconazole 200 mg po TID for 3 days, then 200 mg po BID for 4 months. Take on empty stomach. - Avoid alcohol and other potential hepatotoxins. - monitor LFTs every few weeks. - avoid pantoprazole and other acid suppressive meds that can interfere with itraconazole absorption. - consider measuring itraconazole blood level if there is concern about absorption. 02/19/16: Plan decrease prednisone to 15 mg daily for two weeks, then down to 10 mg daily and stay at that dose until he returns in 6 weeks. 04/01/16 Normally he would complete 16 weeks of itraconazole for ABPA. However, he has been immunocompromised for quite a long time, and his areas of consolidation look like more than just mucous plugging. I'm concerned that he may even have some semi-invasive aspergillosis area did he is understandably quite concerned about relapse of his disease. We agreed to complete 6 months of therapy with itraconazole. I will see him at the end of that with a CT chest. 06/03/16 OK to stop itraconazole at this time. We did discuss the possibility of treating a flare of ABPA in the future if needed. I have asked him to stay at 5 mg prednisone for now, until the endocrine situation is clarified. 08/14/16 He shows me his cortisol levels which he reports were drawn between 8 and 9 in the morning. They are all under 1.0 through 06/28/16. He then had two values 1.7 in July. The most recent one, on 08/09/16 shows 4.3. He also shows me ACTH results (normal 7.2-63.3 pg/mL). This was measured at less than 1.1 on 05/10/16. He then had values of 5.7, 16.1, 6.4 and 13.6 over the last couple of months with the last being done in 08/09/16. He has been on prednisone at 2.5 mg daily. He has been off itraconazole for the last couple months. He has had symptoms of depression without feeling depressed. Fatigue, tired, lack of energy. Also affected by the seasonal darkness and by not exercising. Penny feels that he is depressed. It is unclear to me how much of his lack of energy and overall fatigue are due to adrenal insufficiency and how much to depression. For now, I have asked him to increase prednisone to 5 or 7.5 mg daily. He will address possible depression with his primary care doctor. 12/15/16. In early 09/23 he had outpatient Streptococcal pneumonia, treated with levofloxacin for 10 days. Also prednisone 60 mg for a week, then tapered down over several weeks, then stayed at 10 mg for a while. He was at 5 mg in 10/24. He is being slowly tapered by Dr. Mar. Today is first day at [address] report describes new small anterior medial RUL consolidation. He will send me the disc with images. CXR images from that time reviewed: no new infiltrate. He says sputum grew Streptococcus. Breathing has been prettty good, all right. He has yellowish material on the roof of his mouth in the mornings. He rode 50 miles on his bike yesterday. He doesn't have the energy. He says that it is the journey that is important to him. He wants to build his strength and endurance. His mood is better, as he is exercising again. He reports that his PF is 650. He is doing very well from the respiratory standpoint, back to exercising. He sees allergy for his seasonal allergies. Endocrine is closely managing his adrenal function. His immunoglobulins were a little low 11/12/15. Although he had been on a lot of antibiotics before I met him, he has not had frequent infections in the last year. If he were to develop recurrent infections, then I would consider repeat measurement of immunoglobulins, including IgG subsets. Also consider at that time pneumococcal antibody levels, to see if he might be a candidate for IVIG. We discussed the possibility of slowly tapering his Flovent in the future, perhaps once he is off prednisone. Follow symptoms and PF's. The goal is to have him on the least amount of medication needed to control his symptoms. 06/22/17 Off prednisone as of 04/23. He reports that his am cortisol level was 10.4. He feels like he lives on the nebulizer. Coughing up sputum all the time, especially after exercise. He can bring up shapeless sticky whitish globs of mucus. Some yellow mucus in the mornings for the last six months. He feels like his lungs are more sensitive to sputum since before the ABPA. His energy and endurance are returning. He averages 100-150 miles a week on his bike. He has started running again, two miles at a time. He already had his flu shot. He brings labs of 05/14/17 at [facility]: IgG 533 (700-1600) IgG1 295 (341-894) IgG2 212 (171-632) IgG3 14.1 (18.4-106) IgG4 44 (2.4 - 121) He reports that he had the pneumonia shot a year ago, and that recent titers were low, so he has been advised to get the pneumonia shot again. 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 He notes that this past year, he had been in the floor above. It is likely that his ongoing vigorous aerobic exercise (typically prescribed as part of an airway clearance regimen) has helped to keep his lungs clear of mucus, and avoided more frequent respiratory infection. He feels definitely better than in 12/22. 12/25/17 Now on clomiphene 25 mg TIW to help with testosterone, per Dr. Harman his urologist. He shows me paperwork that lists the following values for his immunoglobulins on 10/01/17 (after immunization): IgG1 275 IgG2 267 IgG3 23.6 IgG4 37.2 He reports that his insurance turned him down for immune globulin replacement therapy. He reports that he continues to cough up thick yellow sputum. He shows me pictures of the moderately yellow opaque globs. He has been taking amoxicillin 500 mg every day for the last month as suppressive therapy. He feels perhaps lightly better. He continues to use his albuterol nebulizer 4 times a day. This does help bring up mucus and open up the constricted lungs. ZPACK and prednisone for recurrent bronchitis 07/07/17. He asks about nebulized antibiotics, such as tobramycin or some of the others. These can sometimes be helpful particularly if pseudomonas has been grown in the sputum. This is not his situation, so far. We discussed potential side effects, including resistance, hearing loss, renal toxicity. 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 He will start using a green Acapella (greater resistance) after each nebulizer treatment in hopes of clearing mucus better. If this is not successful, then we will refer him to physical therapy for help with mucus clearance.. Clear sputum with thick plugs of opaque yellow mucus sent for culture today. We will check Ig's, CBC, IgE, Chem then review with [facility]. My preference would be to avoid chronic antibiotics if possible. If we are able to find an alternative way to treat him, such as with immunoglobulin replacement therapy, then he might not need antibiotics. Consider itraconazole (plus/minus prednisone) if he appears to be having an ABPA flare. 06/28/[address] Mireles in Allergy 01/13/18, no acute pulmonary/allergy issues or interventions; no need for IVIG. Took prednisone for 5 days in February for rash after shingles shot. Started itraconzole 3 1/[address] Morris, for ongoing am mucus production. Somewhat better now. No new chest imaging or sputum cultures. Now on Xolair every two weeks, as opposed to monthly, at a higher dose. Cortisol levels have decreased, so he is now on hydrocortisone [address] Mar. According to UpToDate, <2% of patients may have adrenocortical insufficiency on itraconazole. He is doing OK. Running 3-4 miles routinely. Vigorous mountain biking in the [place] yesterday, felt great. Discolored sputum every morning. PF's 650-690 steadily. Before he got sick in 2014, he was about 700. He has not felt the need for Acapella, since he brings up mucus well in the morning, and with running and biking. He has just resumed using nebulizer for symptoms of congestion or tightness, after not using it for months. We have reviewed again the importance of airway clearance. I have advised him to use the nebulizer at least once every day, followed by Acapella every day. The goal is to keep mucus from accumulating, leading to sensations of tightness, restriction, and congestion. 12/27/18. He continues to be active. Running, cycling. Sick in September with bronchitis and laryngitis. ZPACK and prednisone rapid taper over 7-10 days. He also took amoxicillin 500 mg daily for 3 months. Now on Hizentra for about six weeks. He feels that mucus is less, so he has not been doing nebulizer or Acapella. There is increasing color to the morning mucus the closer he gets to his next biweekly Hizentra dose. He has not been getting tightness/chest congestion. PF's 610-640. Now on Serevent BID. Hydrocortisone is at 5 mg daily. He brings outside labs with immunoglobulin levels, which will be scanned into [employer]. He will discuss with Endocrine the pros/cons of decreasing Flovent 220 from 2 BID to 1 BID. It is possible that he absorbs more inhaled fluticasone than most people do, and that reducing his inhaled steroid dose may result in lower circulating steroid levels. 06/29/19 Did great over the summer. Did not need nebulizer. He could push it on the road and mountain bikes. Prednisone taper starting at 60 mg, ZPACK (didn't help), amoxicillin last month, off for a week to ten days. Wheezy, raspy, PF down to 540's (normal 670). Spiriva changed to Incruse for insurance. Flovent 220 was decreased from 2 BID to 1 BID, and did very well, the best he has felt since 2014. He was able to push it more on the bike. He increased to 2 BID when he got worse in May, and plans to return to 1 BID. He feels less susceptible to infections, on Hizentra. No hydrocortisone over the summer, since levels were high. Levels were low when sick last month, now back on hydrocortisone. He wants to run again. He always does a slow warm up. Asthma/ABPA stable. He has trouble in the Fall and Winter, and would like to be better, to be able to exercise more vigorously again. Try Adams, Claritin, or Zyrtec on a daily basis in allergy season. Sinus irrigation at the first sign of trouble. He will send me disc of CXR last month. We discussed pros/cons of repeat CT. Suspicion is low for any significant pathology, and risk/benefit does not favor CT at this time. He continues with Xolair since 2016, every two weeks. He still has a lot of symptoms in the Fall and Winter. If these can be controlled with Adams or another antihistamine, that would be ideal. If not, consider another biologic agent such as dupilumab. On the other hand, if he is doing well with the Adams, one could consider whether he still needs the Xolair. 12/10/20 Now on dupilumab, which he likes better than omalizumab. Sometimes feels less well by the end of the two weeks. Mountain and road biking aggressively, doing some downhill skiing. Some wheezing and chest discomfort on a hard ride in cold weather. Taking fexofenadine every day, all year. Incruse daily. Flovent 220 two puffs BID. Foradil changed to Serevent last year. Hizentra changed to Cuvatru. Nebulizer. COVID diagnosis 07/17/20. Symptoms were wheezing, raspy. Serevent, prednisone. No monoclonal antibody. Whole family had COVID. No pneumonia on CXR at [facility] twice. No other prednisone in the last year. He shows me allergy blood work of 10/05/20, with positive Aspergillus titer. Reflux under control with pantoprazole. He has had both COVID shots. He is doing very well. Mildly increased symptoms now. Potential contributing factors include cold weather, sinus congestion, some GERD. He could resume sinus irrigation. He will aim for taking fexofenadine just in allergy season. 06/10/21 Breathing is generally good, with some ups and downs. Reportedly had audible mucus on exam (none today) at visit with Dr. Conley, who started arfomoterol (Brovana) and budesonide nebs twice daily. The patient feels that these have helped. No Flovent or Serevent. Taking montelukast. Albuterol nebs once every day as needed. He doesn't use albuterol inhaler. Incruse once daily is his only inhaler. He is on dupilumab and subcutaneous immunoglobulins. Averaging 200 miles a week on his bike, half of it mountain biking. He has done 25 100-mile rides this year, much of it climbing hills. He feels good when he rides. He hurt his knee when skiing, now can't run. Paraphrased highlights from Notes from Dr. Conley (most recent note included with bronch report; previous notes on patient's phone) 06/18/2021 sed rate 77 white count 3.9 08/14/2021 ongoing issues with wheezing and mucous plugs. On Brovana, budesonide, and 3% saline. The patient notes that he has not been able to get the 3% saline for several months. They discussed new biologic therapies not yet on the market, including TSLP antibody (tezepelumab). 08/28/2021 BAL showed lymphocytes and neutrophils without eosinophils. Cultures were positive only for filamentous fungus. Increasing chest tightness and wheezing. Treated with prednisone taper. Started Daliresp for frequent exacerbations of chronic bronchitis, in hopes of minimizing the use of prednisone 10/08/2021 bronchoscopy and BAL showed no Aspergillus. 12/09/[address] Conley in Pulmonary at [facility]. Now off Flovent and Spiriva, started nebulizer equivalents. Also started Daliresp 250. He had bronchoscopy 08/22/21. The report (under Media tab) describes secretions, including RLL mucoid impaction. BAL done in lingula. He showed me a culture report with Paecilomyces. He tells me that there were no other positive results. He felt better after the bronchoscopy. Starts coughing more, with thick heavy mucus in the am, closer to the next Dupixent dose. Albuterol nebulizer and then the other nebs helps. He reports 2005 hospitalization for severe acid burning. Goes to bed 9-10 pm. Last food or drink by 7 pm. If he forgets his pantoprazole. Last testing was 2005. No choking. No lisinopril. Spring and Fall allergies. Mold is the biggest thing. He has several potential contributors to his asthma, mucus, and cough. In addition to environmental allergies and underlying ABPA, I wonder if his reflux could play a role. This might help explain the morning cough and sputum. We reviewed antireflux measures at length. I have asked him to elevate HOB on blocks. Consider testing for reflux, such as barium swallow, pH probe, manometry, if it would alter management. He feels that his cough performs the useful function of clearing secretions. 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 Continue current asthma care as directed by Dr. Conley. 12/08/22 Doing a lot of downhill skiing, very ca. No running because of L ACL. He is doing better with not eating late, now with less heartburn. He had one episode of nocturnal reflux after having pasta sauce at 7 pm. Doing really well, with no ED visits in several years, until he got sick in Jan, 2022, and was seen in [place], [place] ED. Treated with dexamethasone. Fine in the summer. He was sick in August and September, with multiple ED visits. High doses of prednisone, IV solumedrol or dexamethasone, IM dexamethasone. He couldn't get rid of the rhonchi. Hadn't been this sick in a long time. By second week in October, he started feeling better. CT chest reportedly suggested ABPA. Took voriconazole for a couple of months, taken off recently because of elevated LFT's. Multiple courses of antibiotics, most helpful being detention TMP/SMX (for Staph), along with voriconazole. No bronchoscopy. Dupixent changed to Tezpire since the Fall. Taking Cuvitru every two weeks. Now he feels fine. Off prednisone for about 6 weeks, after having been on it for months. He wonders if he needs the Daliresp. He will discuss with Dr. Conley. He shows me normal LFT's, ESR, eo's, IgE on 11/13/22. I don't know what they were when he was sick. He is now feeling much better after several months of illness, and treatment with Dr. Conley. We reviewed approach to management of asthma and reflux in general terms. He will continue his treatment as guided by Dr. Conley. 06/22/23 He was hospitalized in February with pneumonia. Taking prednisone 5-10 mg since then. He'd rather do that than get hospitalized and need high doses of prednisone. He gained about 14 lbs of fluid in the hospital while getting Solumedrol. Recovered quickly, shed the fluid weight, now back to riding 200 miles on the bike this past week. He shows me a blood culture report x 1 of Aerococcus viridans, of unclear clinical significance. He now uses Smart Vest for bronchiectasis twice daily, with his headline writer Dr. Conley. He feels that this helps bring up the mucus. His mucus is discolored. He gets more mucus when he rides a lot. He describes what sounds like escalating [place] protocol for the Vest. He has been doing the short protocol. Went on prednisone at end of January/early February. Gets tight despite the nebulizer. It sounds like he may have impacted mucus plugs when he is feeling tight, then starts to feel better as the mucus mobilizes, then finally breathes better when he has cleared the mucus. Discharge papers from [facility] 02/12/23 indicate that he was discharged on Levoflox 750 daily and a prednisone taper, decreasing by 10 mg every 3rd day from 40 mg. He was on cefpodoxime and TMP/SMX prior to admission. He doesn't know results of sputum cultures. He had bone density last week with primary care. He has recovered from his apparent asthma flare with mucus plugging (ABPA?) during the summer. I am hopeful that regular airway clearance will prevent another such flare, and will minimize his need for prednisone. If there is evidence for ABPA flare, antifungals could be considered. We will request images and discharge summary from [facility], and most recent notes from Dr. Conley at [facility]. He has not been doing albuterol nebulizer before the Vest. He will try it, plus/minus 3% saline. He will try the longer Vest protocol to see if that helps more. 01/07/24 He reports that his Cuvitru dose was increased from 16 to 18 every two weeks. His airway clearance routine: Morning: Albuterol at least four times a week, mixed with 3% saline, then Vest, then arformoterol, then budesonide. Late afternoon: arformoterol and budesonide, plus albuterol/saline if needed (not recently). Intermittent Vest. Prednisone is 3 mg or 5 mg daily, depending on how he feels. Higher dose if he has more mucus. He took 8 mg the other day, before his 80 mile ride. He would take 10 mg when he was skiing over the winter. He worries about his breathing in the Spring, with his allergies. If he pushes too hard, he gets wheezing, tightness, mucus, needs nebulizer. 07/26/24 Combivent prn in the last few months. Biking daily in the last 11 weeks, both road and bike. He biked 50 miles yesterday, and 18 this morning. Waking up coughing an wheezing perhaps a few times a month, not as much this year as last year. He continues on prednisone 5 mg since February of 2023. He brings up more yellow mucus if he tries to decrease prednisone. He has not been using the Vest. He feels that his lungs have been clear. Morning: albuterol neb, arformoterol, budesonide. Sputum is yellow, which he attributes to biking outside. He continues with Tezspire, montelukast, and Incruse, and Cuvitru. Spirometry today unchanged. Saw Dr. Conley, discussed gradual prednisone taper by 0.5 mg. He reports that random am cortisol level was low, about 5. We discussed cortrosyn stim test. He reports that bone density showed osteopenia. He hit elbow and hip when he fell off his bike, no fracture or limitation. Asthma stable at this time, although he is reluctant to further decrease prednisone for fear of increased mucus production, increased malaise, and worsening of asthma. In addition, he is likely to be adrenally suppressed. We discussed at length. - Follow up with Endocrine regarding steroid taper, bone health. Might he be a candidate for medication for his osteopenia, or repeat bone density? - Resume Vest every day. After a month, then consider decreasing prednisone to 4.5 mg daily. He will be seeing Dr. Wade regularly to monitor the prednisone taper. 03/28/25 Asthma stable. Continue care as outlined by his doctors closer to home. He brings vaccine records, which we will scan in. Return one year with PFTs Assessment & Plan (07/26/2024 10:01 PM EST): 12/18/15: He has longstanding asthma, now worse in the last year, with dense infiltrates and mucus plugging, as well as Aspergillus in the sputum. He has been on omalizumab and prednisone, and IgE and eosinophils are not elevated. 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 It would be reasonable to increase his prednisone dose to 40 mg daily at the onset of this treatment, then taper down, to give him the maximum benefit. His ALT was elevated last time. His situation was reviewed in our clinical case conference, and consensus agreed with diagnosis of ABPA, and favored treatment with itraconazole. The low immunoglobulin levels are likely related to chronic steroid use. Plan: - Prednisone 20 mg daily for two weeks, then gradual taper over 3-6 months. Typical starting dose would be 40 mg daily, but Dr. Vera and I favor a lower dose, given the patient's significant side effects from steroids. - itraconazole 200 mg po TID for 3 days, then 200 mg po BID for 4 months. Take on empty stomach. - Avoid alcohol and other potential hepatotoxins. - monitor LFTs every few weeks. - avoid pantoprazole and other acid suppressive meds that can interfere with itraconazole absorption. - consider measuring itraconazole blood level if there is concern about absorption. 02/19/16: Plan decrease prednisone to 15 mg daily for two weeks, then down to 10 mg daily and stay at that dose until he returns in 6 weeks. 04/01/16 Normally he would complete 16 weeks of itraconazole for ABPA. However, he has been immunocompromised for quite a long time, and his areas of consolidation look like more than just mucous plugging. I'm concerned that he may even have some semi-invasive aspergillosis area did he is understandably quite concerned about relapse of his disease. We agreed to complete 6 months of therapy with itraconazole. I will see him at the end of that with a CT chest. 06/03/16 OK to stop itraconazole at this time. We did discuss the possibility of treating a flare of ABPA in the future if needed. I have asked him to stay at 5 mg prednisone for now, until the endocrine situation is clarified. 08/14/16 He shows me his cortisol levels which he reports were drawn between 8 and 9 in the morning. They are all under 1.0 through 06/28/16. He then had two values 1.7 in July. The most recent one, on 08/09/16 shows 4.3. He also shows me ACTH results (normal 7.2-63.3 pg/mL). This was measured at less than 1.1 on 05/10/16. He then had values of 5.7, 16.1, 6.4 and 13.6 over the last couple of months with the last being done in 08/09/16. He has been on prednisone at 2.5 mg daily. He has been off itraconazole for the last couple months. He has had symptoms of depression without feeling depressed. Fatigue, tired, lack of energy. Also affected by the seasonal darkness and by not exercising. Penny feels that he is depressed. It is unclear to me how much of his lack of energy and overall fatigue are due to adrenal insufficiency and how much to depression. For now, I have asked him to increase prednisone to 5 or 7.5 mg daily. He will address possible depression with his primary care doctor. 12/15/16. In early 09/23 he had outpatient Streptococcal pneumonia, treated with levofloxacin for 10 days. Also prednisone 60 mg for a week, then tapered down over several weeks, then stayed at 10 mg for a while. He was at 5 mg in 10/24. He is being slowly tapered by Dr. Mar. Today is first day at [address] report describes new small anterior medial RUL consolidation. He will send me the disc with images. CXR images from that time reviewed: no new infiltrate. He says sputum grew Streptococcus. Breathing has been prettty good, all right. He has yellowish material on the roof of his mouth in the mornings. He rode 50 miles on his bike yesterday. He doesn't have the energy. He says that it is the journey that is important to him. He wants to build his strength and endurance. His mood is better, as he is exercising again. He reports that his PF is 650. He is doing very well from the respiratory standpoint, back to exercising. He sees allergy for his seasonal allergies. Endocrine is closely managing his adrenal function. His immunoglobulins were a little low 11/12/15. Although he had been on a lot of antibiotics before I met him, he has not had frequent infections in the last year. If he were to develop recurrent infections, then I would consider repeat measurement of immunoglobulins, including IgG subsets. Also consider at that time pneumococcal antibody levels, to see if he might be a candidate for IVIG. We discussed the possibility of slowly tapering his Flovent in the future, perhaps once he is off prednisone. Follow symptoms and PF's. The goal is to have him on the least amount of medication needed to control his symptoms. 06/22/17 Off prednisone as of 04/23. He reports that his am cortisol level was 10.4. He feels like he lives on the nebulizer. Coughing up sputum all the time, especially after exercise. He can bring up shapeless sticky whitish globs of mucus. Some yellow mucus in the mornings for the last six months. He feels like his lungs are more sensitive to sputum since before the ABPA. His energy and endurance are returning. He averages 100-150 miles a week on his bike. He has started running again, two miles at a time. He already had his flu shot. He brings labs of 05/14/17 at [facility]: IgG 533 (700-1600) IgG1 295 (341-894) IgG2 212 (171-632) IgG3 14.1 (18.4-106) IgG4 44 (2.4 - 121) He reports that he had the pneumonia shot a year ago, and that recent titers were low, so he has been advised to get the pneumonia shot again. 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 He notes that this past year, he had been in the floor above. It is likely that his ongoing vigorous aerobic exercise (typically prescribed as part of an airway clearance regimen) has helped to keep his lungs clear of mucus, and avoided more frequent respiratory infection. He feels definitely better than in 12/22. 12/25/17 Now on clomiphene 25 mg TIW to help with testosterone, per Dr. Harman his urologist. He shows me paperwork that lists the following values for his immunoglobulins on 10/01/17 (after immunization): IgG1 275 IgG2 267 IgG3 23.6 IgG4 37.2 He reports that his insurance turned him down for immune globulin replacement therapy. He reports that he continues to cough up thick yellow sputum. He shows me pictures of the moderately yellow opaque globs. He has been taking amoxicillin 500 mg every day for the last month as suppressive therapy. He feels perhaps lightly better. He continues to use his albuterol nebulizer 4 times a day. This does help bring up mucus and open up the constricted lungs. ZPACK and prednisone for recurrent bronchitis 07/07/17. He asks about nebulized antibiotics, such as tobramycin or some of the others. These can sometimes be helpful particularly if pseudomonas has been grown in the sputum. This is not his situation, so far. We discussed potential side effects, including resistance, hearing loss, renal toxicity. 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 He will start using a green Acapella (greater resistance) after each nebulizer treatment in hopes of clearing mucus better. If this is not successful, then we will refer him to physical therapy for help with mucus clearance.. Clear sputum with thick plugs of opaque yellow mucus sent for culture today. We will check Ig's, CBC, IgE, Chem then review with [facility]. My preference would be to avoid chronic antibiotics if possible. If we are able to find an alternative way to treat him, such as with immunoglobulin replacement therapy, then he might not need antibiotics. Consider itraconazole (plus/minus prednisone) if he appears to be having an ABPA flare. 06/28/[address] Mireles in Allergy 01/13/18, no acute pulmonary/allergy issues or interventions; no need for IVIG. Took prednisone for 5 days in February for rash after shingles shot. Started itraconzole 3 1/[address] Morris, for ongoing am mucus production. Somewhat better now. No new chest imaging or sputum cultures. Now on Xolair every two weeks, as opposed to monthly, at a higher dose. Cortisol levels have decreased, so he is now on hydrocortisone [address] Mar. According to UpToDate, <2% of patients may have adrenocortical insufficiency on itraconazole. He is doing OK. Running 3-4 miles routinely. Vigorous mountain biking in the [place] yesterday, felt great. Discolored sputum every morning. PF's 650-690 steadily. Before he got sick in 2014, he was about 700. He has not felt the need for Acapella, since he brings up mucus well in the morning, and with running and biking. He has just resumed using nebulizer for symptoms of congestion or tightness, after not using it for months. We have reviewed again the importance of airway clearance. I have advised him to use the nebulizer at least once every day, followed by Acapella every day. The goal is to keep mucus from accumulating, leading to sensations of tightness, restriction, and congestion. 12/27/18. He continues to be active. Running, cycling. Sick in September with bronchitis and laryngitis. ZPACK and prednisone rapid taper over 7-10 days. He also took amoxicillin 500 mg daily for 3 months. Now on Hizentra for about six weeks. He feels that mucus is less, so he has not been doing nebulizer or Acapella. There is increasing color to the morning mucus the closer he gets to his next biweekly Hizentra dose. He has not been getting tightness/chest congestion. PF's 610-640. Now on Serevent BID. Hydrocortisone is at 5 mg daily. He brings outside labs with immunoglobulin levels, which will be scanned into [employer]. He will discuss with Endocrine the pros/cons of decreasing Flovent 220 from 2 BID to 1 BID. It is possible that he absorbs more inhaled fluticasone than most people do, and that reducing his inhaled steroid dose may result in lower circulating steroid levels. 06/29/19 Did great over the summer. Did not need nebulizer. He could push it on the road and mountain bikes. Prednisone taper starting at 60 mg, ZPACK (didn't help), amoxicillin last month, off for a week to ten days. Wheezy, raspy, PF down to 540's (normal 670). Spiriva changed to Incruse for insurance. Flovent 220 was decreased from 2 BID to 1 BID, and did very well, the best he has felt since 2014. He was able to push it more on the bike. He increased to 2 BID when he got worse in May, and plans to return to 1 BID. He feels less susceptible to infections, on Hizentra. No hydrocortisone over the summer, since levels were high. Levels were low when sick last month, now back on hydrocortisone. He wants to run again. He always does a slow warm up. Asthma/ABPA stable. He has trouble in the Fall and Winter, and would like to be better, to be able to exercise more vigorously again. Try Adams, Claritin, or Zyrtec on a daily basis in allergy season. Sinus irrigation at the first sign of trouble. He will send me disc of CXR last month. We discussed pros/cons of repeat CT. Suspicion is low for any significant pathology, and risk/benefit does not favor CT at this time. He continues with Xolair since 2016, every two weeks. He still has a lot of symptoms in the Fall and Winter. If these can be controlled with Adams or another antihistamine, that would be ideal. If not, consider another biologic agent such as dupilumab. On the other hand, if he is doing well with the Adams, one could consider whether he still needs the Xolair. 12/10/20 Now on dupilumab, which he likes better than omalizumab. Sometimes feels less well by the end of the two weeks. Mountain and road biking aggressively, doing some downhill skiing. Some wheezing and chest discomfort on a hard ride in cold weather. Taking fexofenadine every day, all year. Incruse daily. Flovent 220 two puffs BID. Foradil changed to Serevent last year. Hizentra changed to Cuvatru. Nebulizer. COVID diagnosis 07/17/20. Symptoms were wheezing, raspy. Serevent, prednisone. No monoclonal antibody. Whole family had COVID. No pneumonia on CXR at [facility] twice. No other prednisone in the last year. He shows me allergy blood work of 10/05/20, with positive Aspergillus titer. Reflux under control with pantoprazole. He has had both COVID shots. He is doing very well. Mildly increased symptoms now. Potential contributing factors include cold weather, sinus congestion, some GERD. He could resume sinus irrigation. He will aim for taking fexofenadine just in allergy season. 06/10/21 Breathing is generally good, with some ups and downs. Reportedly had audible mucus on exam (none today) at visit with Dr. Conley, who started arfomoterol (Brovana) and budesonide nebs twice daily. The patient feels that these have helped. No Flovent or Serevent. Taking montelukast. Albuterol nebs once every day as needed. He doesn't use albuterol inhaler. Incruse once daily is his only inhaler. He is on dupilumab and subcutaneous immunoglobulins. Averaging 200 miles a week on his bike, half of it mountain biking. He has done 25 100-mile rides this year, much of it climbing hills. He feels good when he rides. He hurt his knee when skiing, now can't run. Paraphrased highlights from Notes from Dr. Conley (most recent note included with bronch report; previous notes on patient's phone) 06/18/2021 sed rate 77 white count 3.9 08/14/2021 ongoing issues with wheezing and mucous plugs. On Brovana, budesonide, and 3% saline. The patient notes that he has not been able to get the 3% saline for several months. They discussed new biologic therapies not yet on the market, including TSLP antibody (tezepelumab). 08/28/2021 BAL showed lymphocytes and neutrophils without eosinophils. Cultures were positive only for filamentous fungus. Increasing chest tightness and wheezing. Treated with prednisone taper. Started Daliresp for frequent exacerbations of chronic bronchitis, in hopes of minimizing the use of prednisone 10/08/2021 bronchoscopy and BAL showed no Aspergillus. 12/09/[address] Conley in Pulmonary at [facility]. Now off Flovent and Spiriva, started nebulizer equivalents. Also started Daliresp 250. He had bronchoscopy 08/22/21. The report (under Media tab) describes secretions, including RLL mucoid impaction. BAL done in lingula. He showed me a culture report with Paecilomyces. He tells me that there were no other positive results. He felt better after the bronchoscopy. Starts coughing more, with thick heavy mucus in the am, closer to the next Dupixent dose. Albuterol nebulizer and then the other nebs helps. He reports 2005 hospitalization for severe acid burning. Goes to bed 9-10 pm. Last food or drink by 7 pm. If he forgets his pantoprazole. Last testing was 2005. No choking. No lisinopril. Spring and Fall allergies. Mold is the biggest thing. He has several potential contributors to his asthma, mucus, and cough. In addition to environmental allergies and underlying ABPA, I wonder if his reflux could play a role. This might help explain the morning cough and sputum. We reviewed antireflux measures at length. I have asked him to elevate HOB on blocks. Consider testing for reflux, such as barium swallow, pH probe, manometry, if it would alter management. He feels that his cough performs the useful function of clearing secretions. 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 Continue current asthma care as directed by Dr. Conley. 12/08/22 Doing a lot of downhill skiing, very ca. No running because of L ACL. He is doing better with not eating late, now with less heartburn. He had one episode of nocturnal reflux after having pasta sauce at 7 pm. Doing really well, with no ED visits in several years, until he got sick in Jan, 2022, and was seen in [place], [place] ED. Treated with dexamethasone. Fine in the summer. He was sick in August and September, with multiple ED visits. High doses of prednisone, IV solumedrol or dexamethasone, IM dexamethasone. He couldn't get rid of the rhonchi. Hadn't been this sick in a long time. By second week in October, he started feeling better. CT chest reportedly suggested ABPA. Took voriconazole for a couple of months, taken off recently because of elevated LFT's. Multiple courses of antibiotics, most helpful being detention TMP/SMX (for Staph), along with voriconazole. No bronchoscopy. Dupixent changed to Tezpire since the Fall. Taking Cuvitru every two weeks. Now he feels fine. Off prednisone for about 6 weeks, after having been on it for months. He wonders if he needs the Daliresp. He will discuss with Dr. Conley. He shows me normal LFT's, ESR, eo's, IgE on 11/13/22. I don't know what they were when he was sick. He is now feeling much better after several months of illness, and treatment with Dr. Conley. We reviewed approach to management of asthma and reflux in general terms. He will continue his treatment as guided by Dr. Conley. 06/22/23 He was hospitalized in February with pneumonia. Taking prednisone 5-10 mg since then. He'd rather do that than get hospitalized and need high doses of prednisone. He gained about 14 lbs of fluid in the hospital while getting Solumedrol. Recovered quickly, shed the fluid weight, now back to riding 200 miles on the bike this past week. He shows me a blood culture report x 1 of Aerococcus viridans, of unclear clinical significance. He now uses Smart Vest for bronchiectasis twice daily, with his headline writer Dr. Conley. He feels that this helps bring up the mucus. His mucus is discolored. He gets more mucus when he rides a lot. He describes what sounds like escalating [place] protocol for the Vest. He has been doing the short protocol. Went on prednisone at end of January/early February. Gets tight despite the nebulizer. It sounds like he may have impacted mucus plugs when he is feeling tight, then starts to feel better as the mucus mobilizes, then finally breathes better when he has cleared the mucus. Discharge papers from [facility] 02/12/23 indicate that he was discharged on Levoflox 750 daily and a prednisone taper, decreasing by 10 mg every 3rd day from 40 mg. He was on cefpodoxime and TMP/SMX prior to admission. He doesn't know results of sputum cultures. He had bone density last week with primary care. He has recovered from his apparent asthma flare with mucus plugging (ABPA?) during the summer. I am hopeful that regular airway clearance will prevent another such flare, and will minimize his need for prednisone. If there is evidence for ABPA flare, antifungals could be considered. We will request images and discharge summary from [facility], and most recent notes from Dr. Conley at [facility]. He has not been doing albuterol nebulizer before the Vest. He will try it, plus/minus 3% saline. He will try the longer Vest protocol to see if that helps more. 01/07/24 He reports that his Cuvitru dose was increased from 16 to 18 every two weeks. His airway clearance routine: Morning: Albuterol at least four times a week, mixed with 3% saline, then Vest, then arformoterol, then budesonide. Late afternoon: arformoterol and budesonide, plus albuterol/saline if needed (not recently). Intermittent Vest. Prednisone is 3 mg or 5 mg daily, depending on how he feels. Higher dose if he has more mucus. He took 8 mg the other day, before his 80 mile ride. He would take 10 mg when he was skiing over the winter. He worries about his breathing in the Spring, with his allergies. If he pushes too hard, he gets wheezing, tightness, mucus, needs nebulizer. He skied a lot this winter, goes all day. Asthma stable. Continue current care, being managed by his doctors closer to home. I am available as needed. 07/26/24 Asthma stable at this time, although he is reluctant to further decrease prednisone for fear of increased mucus production, increased malaise, and worsening of asthma. In addition, he is likely to be adrenally suppressed. We discussed at length. - Follow up with Endocrine regarding steroid taper, bone health. Might he be a candidate for medication for his osteopenia, or repeat bone density? - Resume Vest every day. After a month, then consider decreasing prednisone to 4.5 mg daily. He will be seeing Dr. Wade regularly to monitor the prednisone taper. - Return 6 months with PFT's and CT chest, to follow up inflammatory-appearing findings seen on CT chest several years ago. Hope to maximize airway clearance prior to having CT chest done. Assessment & Plan (02/01/2024 3:43 PM EDT): 12/18/15: He has longstanding asthma, now worse in the last year, with dense infiltrates and mucus plugging, as well as Aspergillus in the sputum. He has been on omalizumab and prednisone, and IgE and eosinophils are not elevated. 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 It would be reasonable to increase his prednisone dose to 40 mg daily at the onset of this treatment, then taper down, to give him the maximum benefit. His ALT was elevated last time. His situation was reviewed in our clinical case conference, and consensus agreed with diagnosis of ABPA, and favored treatment with itraconazole. The low immunoglobulin levels are likely related to chronic steroid use. Plan: - Prednisone 20 mg daily for two weeks, then gradual taper over 3-6 months. Typical starting dose would be 40 mg daily, but Dr. Vera and I favor a lower dose, given the patient's significant side effects from steroids. - itraconazole 200 mg po TID for 3 days, then 200 mg po BID for 4 months. Take on empty stomach. - Avoid alcohol and other potential hepatotoxins. - monitor LFTs every few weeks. - avoid pantoprazole and other acid suppressive meds that can interfere with itraconazole absorption. - consider measuring itraconazole blood level if there is concern about absorption. 02/19/16: Plan decrease prednisone to 15 mg daily for two weeks, then down to 10 mg daily and stay at that dose until he returns in 6 weeks. 04/01/16 Normally he would complete 16 weeks of itraconazole for ABPA. However, he has been immunocompromised for quite a long time, and his areas of consolidation look like more than just mucous plugging. I'm concerned that he may even have some semi-invasive aspergillosis area did he is understandably quite concerned about relapse of his disease. We agreed to complete 6 months of therapy with itraconazole. I will see him at the end of that with a CT chest. 06/03/16 OK to stop itraconazole at this time. We did discuss the possibility of treating a flare of ABPA in the future if needed. I have asked him to stay at 5 mg prednisone for now, until the endocrine situation is clarified. 08/14/16 He shows me his cortisol levels which he reports were drawn between 8 and 9 in the morning. They are all under 1.0 through 06/28/16. He then had two values 1.7 in July. The most recent one, on 08/09/16 shows 4.3. He also shows me ACTH results (normal 7.2-63.3 pg/mL). This was measured at less than 1.1 on 05/10/16. He then had values of 5.7, 16.1, 6.4 and 13.6 over the last couple of months with the last being done in 08/09/16. He has been on prednisone at 2.5 mg daily. He has been off itraconazole for the last couple months. He has had symptoms of depression without feeling depressed. Fatigue, tired, lack of energy. Also affected by the seasonal darkness and by not exercising. Penny feels that he is depressed. It is unclear to me how much of his lack of energy and overall fatigue are due to adrenal insufficiency and how much to depression. For now, I have asked him to increase prednisone to 5 or 7.5 mg daily. He will address possible depression with his primary care doctor. 12/15/16. In early 09/23 he had outpatient Streptococcal pneumonia, treated with levofloxacin for 10 days. Also prednisone 60 mg for a week, then tapered down over several weeks, then stayed at 10 mg for a while. He was at 5 mg in 10/24. He is being slowly tapered by Dr. Mar. Today is first day at [address] report describes new small anterior medial RUL consolidation. He will send me the disc with images. CXR images from that time reviewed: no new infiltrate. He says sputum grew Streptococcus. Breathing has been prettty good, all right. He has yellowish material on the roof of his mouth in the mornings. He rode 50 miles on his bike yesterday. He doesn't have the energy. He says that it is the journey that is important to him. He wants to build his strength and endurance. His mood is better, as he is exercising again. He reports that his PF is 650. He is doing very well from the respiratory standpoint, back to exercising. He sees allergy for his seasonal allergies. Endocrine is closely managing his adrenal function. His immunoglobulins were a little low 11/12/15. Although he had been on a lot of antibiotics before I met him, he has not had frequent infections in the last year. If he were to develop recurrent infections, then I would consider repeat measurement of immunoglobulins, including IgG subsets. Also consider at that time pneumococcal antibody levels, to see if he might be a candidate for IVIG. We discussed the possibility of slowly tapering his Flovent in the future, perhaps once he is off prednisone. Follow symptoms and PF's. The goal is to have him on the least amount of medication needed to control his symptoms. 06/22/17 Off prednisone as of 04/23. He reports that his am cortisol level was 10.4. He feels like he lives on the nebulizer. Coughing up sputum all the time, especially after exercise. He can bring up shapeless sticky whitish globs of mucus. Some yellow mucus in the mornings for the last six months. He feels like his lungs are more sensitive to sputum since before the ABPA. His energy and endurance are returning. He averages 100-150 miles a week on his bike. He has started running again, two miles at a time. He already had his flu shot. He brings labs of 05/14/17 at [facility]: IgG 533 (700-1600) IgG1 295 (341-894) IgG2 212 (171-632) IgG3 14.1 (18.4-106) IgG4 44 (2.4 - 121) He reports that he had the pneumonia shot a year ago, and that recent titers were low, so he has been advised to get the pneumonia shot again. 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 He notes that this past year, he had been in the floor above. It is likely that his ongoing vigorous aerobic exercise (typically prescribed as part of an airway clearance regimen) has helped to keep his lungs clear of mucus, and avoided more frequent respiratory infection. He feels definitely better than in 12/22. 12/25/17 Now on clomiphene 25 mg TIW to help with testosterone, per Dr. Harman his urologist. He shows me paperwork that lists the following values for his immunoglobulins on 10/01/17 (after immunization): IgG1 275 IgG2 267 IgG3 23.6 IgG4 37.2 He reports that his insurance turned him down for immune globulin replacement therapy. He reports that he continues to cough up thick yellow sputum. He shows me pictures of the moderately yellow opaque globs. He has been taking amoxicillin 500 mg every day for the last month as suppressive therapy. He feels perhaps lightly better. He continues to use his albuterol nebulizer 4 times a day. This does help bring up mucus and open up the constricted lungs. ZPACK and prednisone for recurrent bronchitis 07/07/17. He asks about nebulized antibiotics, such as tobramycin or some of the others. These can sometimes be helpful particularly if pseudomonas has been grown in the sputum. This is not his situation, so far. We discussed potential side effects, including resistance, hearing loss, renal toxicity. 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 He will start using a green Acapella (greater resistance) after each nebulizer treatment in hopes of clearing mucus better. If this is not successful, then we will refer him to physical therapy for help with mucus clearance.. Clear sputum with thick plugs of opaque yellow mucus sent for culture today. We will check Ig's, CBC, IgE, Chem then review with [facility]. My preference would be to avoid chronic antibiotics if possible. If we are able to find an alternative way to treat him, such as with immunoglobulin replacement therapy, then he might not need antibiotics. Consider itraconazole (plus/minus prednisone) if he appears to be having an ABPA flare. 06/28/[address] Mireles in Allergy 01/13/18, no acute pulmonary/allergy issues or interventions; no need for IVIG. Took prednisone for 5 days in February for rash after shingles shot. Started itraconzole 3 1/[address] Morris, for ongoing am mucus production. Somewhat better now. No new chest imaging or sputum cultures. Now on Xolair every two weeks, as opposed to monthly, at a higher dose. Cortisol levels have decreased, so he is now on hydrocortisone [address] Mar. According to UpToDate, <2% of patients may have adrenocortical insufficiency on itraconazole. He is doing OK. Running 3-4 miles routinely. Vigorous mountain biking in the [employer] yesterday, felt great. Discolored sputum every morning. PF's 650-690 steadily. Before he got sick in 2014, he was about 700. He has not felt the need for Acapella, since he brings up mucus well in the morning, and with running and biking. He has just resumed using nebulizer for symptoms of congestion or tightness, after not using it for months. We have reviewed again the importance of airway clearance. I have advised him to use the nebulizer at least once every day, followed by Acapella every day. The goal is to keep mucus from accumulating, leading to sensations of tightness, restriction, and congestion. 12/27/18. He continues to be active. Running, cycling. Sick in September with bronchitis and laryngitis. ZPACK and prednisone rapid taper over 7-10 days. He also took amoxicillin 500 mg daily for 3 months. Now on Hizentra for about six weeks. He feels that mucus is less, so he has not been doing nebulizer or Acapella. There is increasing color to the morning mucus the closer he gets to his next biweekly Hizentra dose. He has not been getting tightness/chest congestion. PF's 610-640. Now on Serevent BID. Hydrocortisone is at 5 mg daily. He brings outside labs with immunoglobulin levels, which will be scanned into [employer]. He will discuss with Endocrine the pros/cons of decreasing Flovent 220 from 2 BID to 1 BID. It is possible that he absorbs more inhaled fluticasone than most people do, and that reducing his inhaled steroid dose may result in lower circulating steroid levels. 06/29/19 Did great over the summer. Did not need nebulizer. He could push it on the road and mountain bikes. Prednisone taper starting at 60 mg, ZPACK (didn't help), amoxicillin last month, off for a week to ten days. Wheezy, raspy, PF down to 540's (normal 670). Spiriva changed to Incruse for insurance. Flovent 220 was decreased from 2 BID to 1 BID, and did very well, the best he has felt since 2014. He was able to push it more on the bike. He increased to 2 BID when he got worse in May, and plans to return to 1 BID. He feels less susceptible to infections, on Hizentra. No hydrocortisone over the summer, since levels were high. Levels were low when sick last month, now back on hydrocortisone. He wants to run again. He always does a slow warm up. Asthma/ABPA stable. He has trouble in the Fall and Winter, and would like to be better, to be able to exercise more vigorously again. Try Adams, Claritin, or Zyrtec on a daily basis in allergy season. Sinus irrigation at the first sign of trouble. He will send me disc of CXR last month. We discussed pros/cons of repeat CT. Suspicion is low for any significant pathology, and risk/benefit does not favor CT at this time. He continues with Xolair since 2016, every two weeks. He still has a lot of symptoms in the Fall and Winter. If these can be controlled with Adams or another antihistamine, that would be ideal. If not, consider another biologic agent such as dupilumab. On the other hand, if he is doing well with the Adams, one could consider whether he still needs the Xolair. 12/10/20 Now on dupilumab, which he likes better than omalizumab. Sometimes feels less well by the end of the two weeks. Mountain and road biking aggressively, doing some downhill skiing. Some wheezing and chest discomfort on a hard ride in cold weather. Taking fexofenadine every day, all year. Incruse daily. Flovent 220 two puffs BID. Foradil changed to Serevent last year. Hizentra changed to Cuvatru. Nebulizer. COVID diagnosis 07/17/20. Symptoms were wheezing, raspy. Serevent, prednisone. No monoclonal antibody. Whole family had COVID. No pneumonia on CXR at [facility] twice. No other prednisone in the last year. He shows me allergy blood work of 10/05/20, with positive Aspergillus titer. Reflux under control with pantoprazole. He has had both COVID shots. He is doing very well. Mildly increased symptoms now. Potential contributing factors include cold weather, sinus congestion, some GERD. He could resume sinus irrigation. He will aim for taking fexofenadine just in allergy season. 06/10/21 Breathing is generally good, with some ups and downs. Reportedly had audible mucus on exam (none today) at visit with Dr. Conley, who started arfomoterol (Brovana) and budesonide nebs twice daily. The patient feels that these have helped. No Flovent or Serevent. Taking montelukast. Albuterol nebs once every day as needed. He doesn't use albuterol inhaler. Incruse once daily is his only inhaler. He is on dupilumab and subcutaneous immunoglobulins. Averaging 200 miles a week on his bike, half of it mountain biking. He has done 25 100-mile rides this year, much of it climbing hills. He feels good when he rides. He hurt his knee when skiing, now can't run. Paraphrased highlights from Notes from Dr. Conley (most recent note included with bronch report; previous notes on patient's phone) 06/18/2021 sed rate 77 white count 3.9 08/14/2021 ongoing issues with wheezing and mucous plugs. On Brovana, budesonide, and 3% saline. The patient notes that he has not been able to get the 3% saline for several months. They discussed new biologic therapies not yet on the market, including TSLP antibody (tezepelumab). 08/28/2021 BAL showed lymphocytes and neutrophils without eosinophils. Cultures were positive only for filamentous fungus. Increasing chest tightness and wheezing. Treated with prednisone taper. Started Daliresp for frequent exacerbations of chronic bronchitis, in hopes of minimizing the use of prednisone 10/08/2021 bronchoscopy and BAL showed no Aspergillus. 12/09/[address] Conley in Pulmonary at [facility]. Now off Flovent and Spiriva, started nebulizer equivalents. Also started Daliresp 250. He had bronchoscopy 08/22/21. The report (under Media tab) describes secretions, including RLL mucoid impaction. BAL done in lingula. He showed me a culture report with Paecilomyces. He tells me that there were no other positive results. He felt better after the bronchoscopy. Starts coughing more, with thick heavy mucus in the am, closer to the next Dupixent dose. Albuterol nebulizer and then the other nebs helps. He reports 2005 hospitalization for severe acid burning. Goes to bed 9-10 pm. Last food or drink by 7 pm. If he forgets his pantoprazole. Last testing was 2005. No choking. No lisinopril. Spring and Fall allergies. Mold is the biggest thing. He has several potential contributors to his asthma, mucus, and cough. In addition to environmental allergies and underlying ABPA, I wonder if his reflux could play a role. This might help explain the morning cough and sputum. We reviewed antireflux measures at length. I have asked him to elevate HOB on blocks. Consider testing for reflux, such as barium swallow, pH probe, manometry, if it would alter management. He feels that his cough performs the useful function of clearing secretions. 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 Continue current asthma care as directed by Dr. Conley. 12/08/22 Doing a lot of downhill skiing, very ca. No running because of L ACL. He is doing better with not eating late, now with less heartburn. He had one episode of nocturnal reflux after having pasta sauce at 7 pm. Doing really well, with no ED visits in several years, until he got sick in Jan, 2022, and was seen in [place], [place] ED. Treated with dexamethasone. Fine in the summer. He was sick in August and September, with multiple ED visits. High doses of prednisone, IV solumedrol or dexamethasone, IM dexamethasone. He couldn't get rid of the rhonchi. Hadn't been this sick in a long time. By second week in October, he started feeling better. CT chest reportedly suggested ABPA. Took voriconazole for a couple of months, taken off recently because of elevated LFT's. Multiple courses of antibiotics, most helpful being detention TMP/SMX (for Staph), along with voriconazole. No bronchoscopy. Dupixent changed to Tezpire since the Fall. Taking Cuvitru every two weeks. Now he feels fine. Off prednisone for about 6 weeks, after having been on it for months. He wonders if he needs the Daliresp. He will discuss with Dr. Conley. He shows me normal LFT's, ESR, eo's, IgE on 11/13/22. I don't know what they were when he was sick. He is now feeling much better after several months of illness, and treatment with Dr. Conley. We reviewed approach to management of asthma and reflux in general terms. He will continue his treatment as guided by Dr. Conley. 06/22/23 He was hospitalized in February with pneumonia. Taking prednisone 5-10 mg since then. He'd rather do that than get hospitalized and need high doses of prednisone. He gained about 14 lbs of fluid in the hospital while getting Solumedrol. Recovered quickly, shed the fluid weight, now back to riding 200 miles on the bike this past week. He shows me a blood culture report x 1 of Aerococcus viridans, of unclear clinical significance. He now uses Smart Vest for bronchiectasis twice daily, with his headline writer Dr. Conley. He feels that this helps bring up the mucus. His mucus is discolored. He gets more mucus when he rides a lot. He describes what sounds like escalating [place] protocol for the Vest. He has been doing the short protocol. Went on prednisone at end of January/early February. Gets tight despite the nebulizer. It sounds like he may have impacted mucus plugs when he is feeling tight, then starts to feel better as the mucus mobilizes, then finally breathes better when he has cleared the mucus. Discharge papers from [facility] 02/12/23 indicate that he was discharged on Levoflox 750 daily and a prednisone taper, decreasing by 10 mg every 3rd day from 40 mg. He was on cefpodoxime and TMP/SMX prior to admission. He doesn't know results of sputum cultures. He had bone density last week with primary care. He has recovered from his apparent asthma flare with mucus plugging (ABPA?) during the summer. I am hopeful that regular airway clearance will prevent another such flare, and will minimize his need for prednisone. If there is evidence for ABPA flare, antifungals could be considered. We will request images and discharge summary from [facility], and most recent notes from Dr. Conley at [facility]. He wonders if his Cuvitru does is correct, since he has had pneumonia. He reports that immunoglobulins are in the normal range. He will review with his biomedical specialist. He has not been doing albuterol nebulizer before the Vest. He will try it, plus/minus 3% saline. He will try the longer Vest protocol to see if that helps more. 01/07/24 Asthma stable. Continue current care, being managed by his doctors closer to home. I am available as needed. We will request images from [facility] in February,. Return 6 months. Assessment & Plan (06/22/2023 3:47 PM EDT): 12/18/15: He has longstanding asthma, now worse in the last year, with dense infiltrates and mucus plugging, as well as Aspergillus in the sputum. He has been on omalizumab and prednisone, and IgE and eosinophils are not elevated. 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 It would be reasonable to increase his prednisone dose to 40 mg daily at the onset of this treatment, then taper down, to give him the maximum benefit. His ALT was elevated last time. His situation was reviewed in our clinical case conference, and consensus agreed with diagnosis of ABPA, and favored treatment with itraconazole. The low immunoglobulin levels are likely related to chronic steroid use. Plan: - Prednisone 20 mg daily for two weeks, then gradual taper over 3-6 months. Typical starting dose would be 40 mg daily, but Dr. Vera and I favor a lower dose, given the patient's significant side effects from steroids. - itraconazole 200 mg po TID for 3 days, then 200 mg po BID for 4 months. Take on empty stomach. - Avoid alcohol and other potential hepatotoxins. - monitor LFTs every few weeks. - avoid pantoprazole and other acid suppressive meds that can interfere with itraconazole absorption. - consider measuring itraconazole blood level if there is concern about absorption. 02/19/16: Plan decrease prednisone to 15 mg daily for two weeks, then down to 10 mg daily and stay at that dose until he returns in 6 weeks. 04/01/16 Normally he would complete 16 weeks of itraconazole for ABPA. However, he has been immunocompromised for quite a long time, and his areas of consolidation look like more than just mucous plugging. I'm concerned that he may even have some semi-invasive aspergillosis area did he is understandably quite concerned about relapse of his disease. We agreed to complete 6 months of therapy with itraconazole. I will see him at the end of that with a CT chest. 06/03/16 OK to stop itraconazole at this time. We did discuss the possibility of treating a flare of ABPA in the future if needed. I have asked him to stay at 5 mg prednisone for now, until the endocrine situation is clarified. 08/14/16 He shows me his cortisol levels which he reports were drawn between 8 and 9 in the morning. They are all under 1.0 through 06/28/16. He then had two values 1.7 in July. The most recent one, on 08/09/16 shows 4.3. He also shows me ACTH results (normal 7.2-63.3 pg/mL). This was measured at less than 1.1 on 05/10/16. He then had values of 5.7, 16.1, 6.4 and 13.6 over the last couple of months with the last being done in 08/09/16. He has been on prednisone at 2.5 mg daily. He has been off itraconazole for the last couple months. He has had symptoms of depression without feeling depressed. Fatigue, tired, lack of energy. Also affected by the seasonal darkness and by not exercising. Penny feels that he is depressed. It is unclear to me how much of his lack of energy and overall fatigue are due to adrenal insufficiency and how much to depression. For now, I have asked him to increase prednisone to 5 or 7.5 mg daily. He will address possible depression with his primary care doctor. 12/15/16. In early 09/23 he had outpatient Streptococcal pneumonia, treated with levofloxacin for 10 days. Also prednisone 60 mg for a week, then tapered down over several weeks, then stayed at 10 mg for a while. He was at 5 mg in 10/24. He is being slowly tapered by Dr. Mar. Today is first day at [address] report describes new small anterior medial RUL consolidation. He will send me the disc with images. CXR images from that time reviewed: no new infiltrate. He says sputum grew Streptococcus. Breathing has been prettty good, all right. He has yellowish material on the roof of his mouth in the mornings. He rode 50 miles on his bike yesterday. He doesn't have the energy. He says that it is the journey that is important to him. He wants to build his strength and endurance. His mood is better, as he is exercising again. He reports that his PF is 650. He is doing very well from the respiratory standpoint, back to exercising. He sees allergy for his seasonal allergies. Endocrine is closely managing his adrenal function. His immunoglobulins were a little low 11/12/15. Although he had been on a lot of antibiotics before I met him, he has not had frequent infections in the last year. If he were to develop recurrent infections, then I would consider repeat measurement of immunoglobulins, including IgG subsets. Also consider at that time pneumococcal antibody levels, to see if he might be a candidate for IVIG. We discussed the possibility of slowly tapering his Flovent in the future, perhaps once he is off prednisone. Follow symptoms and PF's. The goal is to have him on the least amount of medication needed to control his symptoms. 06/22/17 Off prednisone as of 04/23. He reports that his am cortisol level was 10.4. He feels like he lives on the nebulizer. Coughing up sputum all the time, especially after exercise. He can bring up shapeless sticky whitish globs of mucus. Some yellow mucus in the mornings for the last six months. He feels like his lungs are more sensitive to sputum since before the ABPA. His energy and endurance are returning. He averages 100-150 miles a week on his bike. He has started running again, two miles at a time. He already had his flu shot. He brings labs of 05/14/17 at [facility]: IgG 533 (700-1600) IgG1 295 (341-894) IgG2 212 (171-632) IgG3 14.1 (18.4-106) IgG4 44 (2.4 - 121) He reports that he had the pneumonia shot a year ago, and that recent titers were low, so he has been advised to get the pneumonia shot again. 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 He notes that this past year, he had been in the floor above. It is likely that his ongoing vigorous aerobic exercise (typically prescribed as part of an airway clearance regimen) has helped to keep his lungs clear of mucus, and avoided more frequent respiratory infection. He feels definitely better than in 12/22. 12/25/17 Now on clomiphene 25 mg TIW to help with testosterone, per Dr. Harman his urologist. He shows me paperwork that lists the following values for his immunoglobulins on 10/01/17 (after immunization): IgG1 275 IgG2 267 IgG3 23.6 IgG4 37.2 He reports that his insurance turned him down for immune globulin replacement therapy. He reports that he continues to cough up thick yellow sputum. He shows me pictures of the moderately yellow opaque globs. He has been taking amoxicillin 500 mg every day for the last month as suppressive therapy. He feels perhaps lightly better. He continues to use his albuterol nebulizer 4 times a day. This does help bring up mucus and open up the constricted lungs. ZPACK and prednisone for recurrent bronchitis 07/07/17. He asks about nebulized antibiotics, such as tobramycin or some of the others. These can sometimes be helpful particularly if pseudomonas has been grown in the sputum. This is not his situation, so far. We discussed potential side effects, including resistance, hearing loss, renal toxicity. 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 He will start using a green Acapella (greater resistance) after each nebulizer treatment in hopes of clearing mucus better. If this is not successful, then we will refer him to physical therapy for help with mucus clearance.. Clear sputum with thick plugs of opaque yellow mucus sent for culture today. We will check Ig's, CBC, IgE, Chem then review with [facility]. My preference would be to avoid chronic antibiotics if possible. If we are able to find an alternative way to treat him, such as with immunoglobulin replacement therapy, then he might not need antibiotics. Consider itraconazole (plus/minus prednisone) if he appears to be having an ABPA flare. 06/28/[address] Mireles in Allergy 01/13/18, no acute pulmonary/allergy issues or interventions; no need for IVIG. Took prednisone for 5 days in February for rash after shingles shot. Started itraconzole 3 1/[address] Morris, for ongoing am mucus production. Somewhat better now. No new chest imaging or sputum cultures. Now on Xolair every two weeks, as opposed to monthly, at a higher dose. Cortisol levels have decreased, so he is now on hydrocortisone [address] Mar. According to UpToDate, <2% of patients may have adrenocortical insufficiency on itraconazole. He is doing OK. Running 3-4 miles routinely. Vigorous mountain biking in the [place] yesterday, felt great. Discolored sputum every morning. PF's 650-690 steadily. Before he got sick in 2014, he was about 700. He has not felt the need for Acapella, since he brings up mucus well in the morning, and with running and biking. He has just resumed using nebulizer for symptoms of congestion or tightness, after not using it for months. We have reviewed again the importance of airway clearance. I have advised him to use the nebulizer at least once every day, followed by Acapella every day. The goal is to keep mucus from accumulating, leading to sensations of tightness, restriction, and congestion. 12/27/18. He continues to be active. Running, cycling. Sick in September with bronchitis and laryngitis. ZPACK and prednisone rapid taper over 7-10 days. He also took amoxicillin 500 mg daily for 3 months. Now on Hizentra for about six weeks. He feels that mucus is less, so he has not been doing nebulizer or Acapella. There is increasing color to the morning mucus the closer he gets to his next biweekly Hizentra dose. He has not been getting tightness/chest congestion. PF's 610-640. Now on Serevent BID. Hydrocortisone is at 5 mg daily. He brings outside labs with immunoglobulin levels, which will be scanned into [employer]. He will discuss with Endocrine the pros/cons of decreasing Flovent 220 from 2 BID to 1 BID. It is possible that he absorbs more inhaled fluticasone than most people do, and that reducing his inhaled steroid dose may result in lower circulating steroid levels. 06/29/19 Did great over the summer. Did not need nebulizer. He could push it on the road and mountain bikes. Prednisone taper starting at 60 mg, ZPACK (didn't help), amoxicillin last month, off for a week to ten days. Wheezy, raspy, PF down to 540's (normal 670). Spiriva changed to Incruse for insurance. Flovent 220 was decreased from 2 BID to 1 BID, and did very well, the best he has felt since 2014. He was able to push it more on the bike. He increased to 2 BID when he got worse in May, and plans to return to 1 BID. He feels less susceptible to infections, on Hizentra. No hydrocortisone over the summer, since levels were high. Levels were low when sick last month, now back on hydrocortisone. He wants to run again. He always does a slow warm up. Asthma/ABPA stable. He has trouble in the Fall and Winter, and would like to be better, to be able to exercise more vigorously again. Try Adams, Claritin, or Zyrtec on a daily basis in allergy season. Sinus irrigation at the first sign of trouble. He will send me disc of CXR last month. We discussed pros/cons of repeat CT. Suspicion is low for any significant pathology, and risk/benefit does not favor CT at this time. He continues with Xolair since 2016, every two weeks. He still has a lot of symptoms in the Fall and Winter. If these can be controlled with Adams or another antihistamine, that would be ideal. If not, consider another biologic agent such as dupilumab. On the other hand, if he is doing well with the Adams, one could consider whether he still needs the Xolair. 12/10/20 Now on dupilumab, which he likes better than omalizumab. Sometimes feels less well by the end of the two weeks. Mountain and road biking aggressively, doing some downhill skiing. Some wheezing and chest discomfort on a hard ride in cold weather. Taking fexofenadine every day, all year. Incruse daily. Flovent 220 two puffs BID. Foradil changed to Serevent last year. Hizentra changed to Cuvatru. Nebulizer. COVID diagnosis 07/17/20. Symptoms were wheezing, raspy. Serevent, prednisone. No monoclonal antibody. Whole family had COVID. No pneumonia on CXR at [facility] twice. No other prednisone in the last year. He shows me allergy blood work of 10/05/20, with positive Aspergillus titer. Reflux under control with pantoprazole. He has had both COVID shots. He is doing very well. Mildly increased symptoms now. Potential contributing factors include cold weather, sinus congestion, some GERD. He could resume sinus irrigation. He will aim for taking fexofenadine just in allergy season. 06/10/21 Breathing is generally good, with some ups and downs. Reportedly had audible mucus on exam (none today) at visit with Dr. Conley, who started arfomoterol (Brovana) and budesonide nebs twice daily. The patient feels that these have helped. No Flovent or Serevent. Taking montelukast. Albuterol nebs once every day as needed. He doesn't use albuterol inhaler. Incruse once daily is his only inhaler. He is on dupilumab and subcutaneous immunoglobulins. Averaging 200 miles a week on his bike, half of it mountain biking. He has done 25 100-mile rides this year, much of it climbing hills. He feels good when he rides. He hurt his knee when skiing, now can't run. Paraphrased highlights from Notes from Dr. Conley (most recent note included with bronch report; previous notes on patient's phone) 06/18/2021 sed rate 77 white count 3.9 08/14/2021 ongoing issues with wheezing and mucous plugs. On Brovana, budesonide, and 3% saline. The patient notes that he has not been able to get the 3% saline for several months. They discussed new biologic therapies not yet on the market, including TSLP antibody (tezepelumab). 08/28/2021 BAL showed lymphocytes and neutrophils without eosinophils. Cultures were positive only for filamentous fungus. Increasing chest tightness and wheezing. Treated with prednisone taper. Started Daliresp for frequent exacerbations of chronic bronchitis, in hopes of minimizing the use of prednisone 10/08/2021 bronchoscopy and BAL showed no Aspergillus. 12/09/[address] Conley in Pulmonary at [facility]. Now off Flovent and Spiriva, started nebulizer equivalents. Also started Daliresp 250. He had bronchoscopy 08/22/21. The report (under Media tab) describes secretions, including RLL mucoid impaction. BAL done in lingula. He showed me a culture report with Paecilomyces. He tells me that there were no other positive results. He felt better after the bronchoscopy. Starts coughing more, with thick heavy mucus in the am, closer to the next Dupixent dose. Albuterol nebulizer and then the other nebs helps. He reports 2005 hospitalization for severe acid burning. Goes to bed 9-10 pm. Last food or drink by 7 pm. If he forgets his pantoprazole. Last testing was 2005. No choking. No lisinopril. Spring and Fall allergies. Mold is the biggest thing. He has several potential contributors to his asthma, mucus, and cough. In addition to environmental allergies and underlying ABPA, I wonder if his reflux could play a role. This might help explain the morning cough and sputum. We reviewed antireflux measures at length. I have asked him to elevate HOB on blocks. Consider testing for reflux, such as barium swallow, pH probe, manometry, if it would alter management. He feels that his cough performs the useful function of clearing secretions. 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 Continue current asthma care as directed by Dr. Conley. 12/08/22 Doing a lot of downhill skiing, very ca. No running because of L ACL. He is doing better with not eating late, now with less heartburn. He had one episode of nocturnal reflux after having pasta sauce at 7 pm. Doing really well, with no ED visits in several years, until he got sick in Jan, 2022, and was seen in [place], [place] ED. Treated with dexamethasone. Fine in the summer. He was sick in August and September, with multiple ED visits. High doses of prednisone, IV solumedrol or dexamethasone, IM dexamethasone. He couldn't get rid of the rhonchi. Hadn't been this sick in a long time. By second week in October, he started feeling better. CT chest reportedly suggested ABPA. Took voriconazole for a couple of months, taken off recently because of elevated LFT's. Multiple courses of antibiotics, most helpful being detention TMP/SMX (for Staph), along with voriconazole. No bronchoscopy. Dupixent changed to Tezpire since the Fall. Taking Cuvitru every two weeks. Now he feels fine. Off prednisone for about 6 weeks, after having been on it for months. He wonders if he needs the Daliresp. He will discuss with Dr. Conley. He shows me normal LFT's, ESR, eo's, IgE on 11/13/22. I don't know what they were when he was sick. He is now feeling much better after several months of illness, and treatment with Dr. Conley. We reviewed approach to management of asthma and reflux in general terms. He will continue his treatment as guided by Dr. Conley. We will request images of CXR's and chest CT scans at [facility] in the last two years, as well as respiratory culture results. He would like to continue to check in here periodically. I look forward to seeing him again in 6 months with PFT's. 06/22/23 He has recovered from his apparent asthma flare with mucus plugging (ABPA?) during the summer. I am hopeful that regular airway clearance will prevent another such flare, and will minimize his need for prednisone. If there is evidence for ABPA flare, antifungals could be considered. We will request images and discharge summary from [facility], and most recent notes from Dr. Conley at [facility]. He wonders if his Cuvitru does is correct, since he has had pneumonia. He reports that immunoglobulins are in the normal range. He will review with his biomedical specialist. He has not been doing albuterol nebulizer before the Vest. He will try it, plus/minus 3% saline. He will try the longer Vest protocol to see if that helps more. Retur 6 months with PFT's. Flu shot today. Assessment & Plan (12/28/2022 7:35 PM EDT): 12/18/15: He has longstanding asthma, now worse in the last year, with dense infiltrates and mucus plugging, as well as Aspergillus in the sputum. He has been on omalizumab and prednisone, and IgE and eosinophils are not elevated. 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 It would be reasonable to increase his prednisone dose to 40 mg daily at the onset of this treatment, then taper down, to give him the maximum benefit. His ALT was elevated last time. His situation was reviewed in our clinical case conference, and consensus agreed with diagnosis of ABPA, and favored treatment with itraconazole. The low immunoglobulin levels are likely related to chronic steroid use. Plan: - Prednisone 20 mg daily for two weeks, then gradual taper over 3-6 months. Typical starting dose would be 40 mg daily, but Dr. Vera and I favor a lower dose, given the patient's significant side effects from steroids. - itraconazole 200 mg po TID for 3 days, then 200 mg po BID for 4 months. Take on empty stomach. - Avoid alcohol and other potential hepatotoxins. - monitor LFTs every few weeks. - avoid pantoprazole and other acid suppressive meds that can interfere with itraconazole absorption. - consider measuring itraconazole blood level if there is concern about absorption. 02/19/16: Plan decrease prednisone to 15 mg daily for two weeks, then down to 10 mg daily and stay at that dose until he returns in 6 weeks. 04/01/16 Normally he would complete 16 weeks of itraconazole for ABPA. However, he has been immunocompromised for quite a long time, and his areas of consolidation look like more than just mucous plugging. I'm concerned that he may even have some semi-invasive aspergillosis area did he is understandably quite concerned about relapse of his disease. We agreed to complete 6 months of therapy with itraconazole. I will see him at the end of that with a CT chest. 06/03/16 OK to stop itraconazole at this time. We did discuss the possibility of treating a flare of ABPA in the future if needed. I have asked him to stay at 5 mg prednisone for now, until the endocrine situation is clarified. 08/14/16 He shows me his cortisol levels which he reports were drawn between 8 and 9 in the morning. They are all under 1.0 through 06/28/16. He then had two values 1.7 in July. The most recent one, on 08/09/16 shows 4.3. He also shows me ACTH results (normal 7.2-63.3 pg/mL). This was measured at less than 1.1 on 05/10/16. He then had values of 5.7, 16.1, 6.4 and 13.6 over the last couple of months with the last being done in 08/09/16. He has been on prednisone at 2.5 mg daily. He has been off itraconazole for the last couple months. He has had symptoms of depression without feeling depressed. Fatigue, tired, lack of energy. Also affected by the seasonal darkness and by not exercising. Penny feels that he is depressed. It is unclear to me how much of his lack of energy and overall fatigue are due to adrenal insufficiency and how much to depression. For now, I have asked him to increase prednisone to 5 or 7.5 mg daily. He will address possible depression with his primary care doctor. 12/15/16. In early 09/23 he had outpatient Streptococcal pneumonia, treated with levofloxacin for 10 days. Also prednisone 60 mg for a week, then tapered down over several weeks, then stayed at 10 mg for a while. He was at 5 mg in 10/24. He is being slowly tapered by Dr. Mar. Today is first day at [address] report describes new small anterior medial RUL consolidation. He will send me the disc with images. CXR images from that time reviewed: no new infiltrate. He says sputum grew Streptococcus. Breathing has been prettty good, all right. He has yellowish material on the roof of his mouth in the mornings. He rode 50 miles on his bike yesterday. He doesn't have the energy. He says that it is the journey that is important to him. He wants to build his strength and endurance. His mood is better, as he is exercising again. He reports that his PF is 650. He is doing very well from the respiratory standpoint, back to exercising. He sees allergy for his seasonal allergies. Endocrine is closely managing his adrenal function. His immunoglobulins were a little low 11/12/15. Although he had been on a lot of antibiotics before I met him, he has not had frequent infections in the last year. If he were to develop recurrent infections, then I would consider repeat measurement of immunoglobulins, including IgG subsets. Also consider at that time pneumococcal antibody levels, to see if he might be a candidate for IVIG. We discussed the possibility of slowly tapering his Flovent in the future, perhaps once he is off prednisone. Follow symptoms and PF's. The goal is to have him on the least amount of medication needed to control his symptoms. 06/22/17 Off prednisone as of 04/23. He reports that his am cortisol level was 10.4. He feels like he lives on the nebulizer. Coughing up sputum all the time, especially after exercise. He can bring up shapeless sticky whitish globs of mucus. Some yellow mucus in the mornings for the last six months. He feels like his lungs are more sensitive to sputum since before the ABPA. His energy and endurance are returning. He averages 100-150 miles a week on his bike. He has started running again, two miles at a time. He already had his flu shot. He brings labs of 05/14/17 at [facility]: IgG 533 (700-1600) IgG1 295 (341-894) IgG2 212 (171-632) IgG3 14.1 (18.4-106) IgG4 44 (2.4 - 121) He reports that he had the pneumonia shot a year ago, and that recent titers were low, so he has been advised to get the pneumonia shot again. 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 He notes that this past year, he had been in the floor above. It is likely that his ongoing vigorous aerobic exercise (typically prescribed as part of an airway clearance regimen) has helped to keep his lungs clear of mucus, and avoided more frequent respiratory infection. He feels definitely better than in 12/22. 12/25/17 Now on clomiphene 25 mg TIW to help with testosterone, per Dr. Harman his urologist. He shows me paperwork that lists the following values for his immunoglobulins on 10/01/17 (after immunization): IgG1 275 IgG2 267 IgG3 23.6 IgG4 37.2 He reports that his insurance turned him down for immune globulin replacement therapy. He reports that he continues to cough up thick yellow sputum. He shows me pictures of the moderately yellow opaque globs. He has been taking amoxicillin 500 mg every day for the last month as suppressive therapy. He feels perhaps lightly better. He continues to use his albuterol nebulizer 4 times a day. This does help bring up mucus and open up the constricted lungs. ZPACK and prednisone for recurrent bronchitis 07/07/17. He asks about nebulized antibiotics, such as tobramycin or some of the others. These can sometimes be helpful particularly if pseudomonas has been grown in the sputum. This is not his situation, so far. We discussed potential side effects, including resistance, hearing loss, renal toxicity. 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 He will start using a green Acapella (greater resistance) after each nebulizer treatment in hopes of clearing mucus better. If this is not successful, then we will refer him to physical therapy for help with mucus clearance.. Clear sputum with thick plugs of opaque yellow mucus sent for culture today. We will check Ig's, CBC, IgE, Chem then review with [facility]. My preference would be to avoid chronic antibiotics if possible. If we are able to find an alternative way to treat him, such as with immunoglobulin replacement therapy, then he might not need antibiotics. Consider itraconazole (plus/minus prednisone) if he appears to be having an ABPA flare. 06/28/[address] Mireles in Allergy 01/13/18, no acute pulmonary/allergy issues or interventions; no need for IVIG. Took prednisone for 5 days in February for rash after shingles shot. Started itraconzole 3 1/[address] Morris, for ongoing am mucus production. Somewhat better now. No new chest imaging or sputum cultures. Now on Xolair every two weeks, as opposed to monthly, at a higher dose. Cortisol levels have decreased, so he is now on hydrocortisone [address] Mar. According to UpToDate, <2% of patients may have adrenocortical insufficiency on itraconazole. He is doing OK. Running 3-4 miles routinely. Vigorous mountain biking in the [place] yesterday, felt great. Discolored sputum every morning. PF's 650-690 steadily. Before he got sick in 2014, he was about 700. He has not felt the need for Acapella, since he brings up mucus well in the morning, and with running and biking. He has just resumed using nebulizer for symptoms of congestion or tightness, after not using it for months. We have reviewed again the importance of airway clearance. I have advised him to use the nebulizer at least once every day, followed by Acapella every day. The goal is to keep mucus from accumulating, leading to sensations of tightness, restriction, and congestion. 12/27/18. He continues to be active. Running, cycling. Sick in September with bronchitis and laryngitis. ZPACK and prednisone rapid taper over 7-10 days. He also took amoxicillin 500 mg daily for 3 months. Now on Hizentra for about six weeks. He feels that mucus is less, so he has not been doing nebulizer or Acapella. There is increasing color to the morning mucus the closer he gets to his next biweekly Hizentra dose. He has not been getting tightness/chest congestion. PF's 610-640. Now on Serevent BID. Hydrocortisone is at 5 mg daily. He brings outside labs with immunoglobulin levels, which will be scanned into [employer]. He will discuss with Endocrine the pros/cons of decreasing Flovent 220 from 2 BID to 1 BID. It is possible that he absorbs more inhaled fluticasone than most people do, and that reducing his inhaled steroid dose may result in lower circulating steroid levels. 06/29/19 Did great over the summer. Did not need nebulizer. He could push it on the road and mountain bikes. Prednisone taper starting at 60 mg, ZPACK (didn't help), amoxicillin last month, off for a week to ten days. Wheezy, raspy, PF down to 540's (normal 670). Spiriva changed to Incruse for insurance. Flovent 220 was decreased from 2 BID to 1 BID, and did very well, the best he has felt since 2014. He was able to push it more on the bike. He increased to 2 BID when he got worse in May, and plans to return to 1 BID. He feels less susceptible to infections, on Hizentra. No hydrocortisone over the summer, since levels were high. Levels were low when sick last month, now back on hydrocortisone. He wants to run again. He always does a slow warm up. Asthma/ABPA stable. He has trouble in the Fall and Winter, and would like to be better, to be able to exercise more vigorously again. Try Adams, Claritin, or Zyrtec on a daily basis in allergy season. Sinus irrigation at the first sign of trouble. He will send me disc of CXR last month. We discussed pros/cons of repeat CT. Suspicion is low for any significant pathology, and risk/benefit does not favor CT at this time. He continues with Xolair since 2015, every two weeks. He still has a lot of symptoms in the Fall and Winter. If these can be controlled with Adams or another antihistamine, that would be ideal. If not, consider another biologic agent such as dupilumab. On the other hand, if he is doing well with the Adams, one could consider whether he still needs the Xolair. 12/10/20 Now on dupilumab, which he likes better than omalizumab. Sometimes feels less well by the end of the two weeks. Mountain and road biking aggressively, doing some downhill skiing. Some wheezing and chest discomfort on a hard ride in cold weather. Taking fexofenadine every day, all year. Incruse daily. Flovent 220 two puffs BID. Foradil changed to Serevent last year. Hizentra changed to Cuvatru. Nebulizer. COVID diagnosis 07/17/20. Symptoms were wheezing, raspy. Serevent, prednisone. No monoclonal antibody. Whole family had COVID. No pneumonia on CXR at [facility] twice. No other prednisone in the last year. He shows me allergy blood work of 10/05/20, with positive Aspergillus titer. Reflux under control with pantoprazole. He has had both COVID shots. He is doing very well. Mildly increased symptoms now. Potential contributing factors include cold weather, sinus congestion, some GERD. He could resume sinus irrigation. He will aim for taking fexofenadine just in allergy season. 06/10/21 Breathing is generally good, with some ups and downs. Reportedly had audible mucus on exam (none today) at visit with Dr. Conley, who started arfomoterol (Brovana) and budesonide nebs twice daily. The patient feels that these have helped. No Flovent or Serevent. Taking montelukast. Albuterol nebs once every day as needed. He doesn't use albuterol inhaler. Incruse once daily is his only inhaler. He is on dupilumab and subcutaneous immunoglobulins. Averaging 200 miles a week on his bike, half of it mountain biking. He has done 25 100-mile rides this year, much of it climbing hills. He feels good when he rides. He hurt his knee when skiing, now can't run. Paraphrased highlights from Notes from Dr. Conley (most recent note included with bronch report; previous notes on patient's phone) 06/18/2021 sed rate 77 white count 3.9 08/14/2021 ongoing issues with wheezing and mucous plugs. On Brovana, budesonide, and 3% saline. The patient notes that he has not been able to get the 3% saline for several months. They discussed new biologic therapies not yet on the market, including TSLP antibody (tezepelumab). 08/28/2021 BAL showed lymphocytes and neutrophils without eosinophils. Cultures were positive only for filamentous fungus. Increasing chest tightness and wheezing. Treated with prednisone taper. Started Daliresp for frequent exacerbations of chronic bronchitis, in hopes of minimizing the use of prednisone 10/08/2021 bronchoscopy and BAL showed no Aspergillus. 12/09/[address] Conley in Pulmonary at [facility]. Now off Flovent and Spiriva, started nebulizer equivalents. Also started Daliresp 250. He had bronchoscopy 08/22/21. The report (under Media tab) describes secretions, including RLL mucoid impaction. BAL done in lingula. He showed me a culture report with Paecilomyces. He tells me that there were no other positive results. He felt better after the bronchoscopy. Starts coughing more, with thick heavy mucus in the am, closer to the next Dupixent dose. Albuterol nebulizer and then the other nebs helps. He reports 2005 hospitalization for severe acid burning. Goes to bed 9-10 pm. Last food or drink by 7 pm. If he forgets his pantoprazole. Last testing was 2005. No choking. No lisinopril. Spring and Fall allergies. Mold is the biggest thing. He has several potential contributors to his asthma, mucus, and cough. In addition to environmental allergies and underlying ABPA, I wonder if his reflux could play a role. This might help explain the morning cough and sputum. We reviewed antireflux measures at length. I have asked him to elevate HOB on blocks. Consider testing for reflux, such as barium swallow, pH probe, manometry, if it would alter management. He feels that his cough performs the useful function of clearing secretions. 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 Continue current asthma care as directed by Dr. Conley. 12/08/22 He is now feeling much better after several months of illness, and treatment with Dr. Conley. We reviewed approach to management of asthma and reflux in general terms. He will continue his treatment as guided by Dr. Conley. We will request images of CXR's and chest CT scans at [facility] in the last two years, as well as respiratory culture results. He would like to continue to check in here periodically. I look forward to seeing him again in 6 months with PFT's. Assessment & Plan (12/09/2021 3:57 PM EDT): 12/18/15: He has longstanding asthma, now worse in the last year, with dense infiltrates and mucus plugging, as well as Aspergillus in the sputum. He has been on omalizumab and prednisone, and IgE and eosinophils are not elevated. 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 It would be reasonable to increase his prednisone dose to 40 mg daily at the onset of this treatment, then taper down, to give him the maximum benefit. His ALT was elevated last time. His situation was reviewed in our clinical case conference, and consensus agreed with diagnosis of ABPA, and favored treatment with itraconazole. The low immunoglobulin levels are likely related to chronic steroid use. Plan: - Prednisone 20 mg daily for two weeks, then gradual taper over 3-6 months. Typical starting dose would be 40 mg daily, but Dr. Vera and I favor a lower dose, given the patient's significant side effects from steroids. - itraconazole 200 mg po TID for 3 days, then 200 mg po BID for 4 months. Take on empty stomach. - Avoid alcohol and other potential hepatotoxins. - monitor LFTs every few weeks. - avoid pantoprazole and other acid suppressive meds that can interfere with itraconazole absorption. - consider measuring itraconazole blood level if there is concern about absorption. 02/19/16: Plan decrease prednisone to 15 mg daily for two weeks, then down to 10 mg daily and stay at that dose until he returns in 6 weeks. 04/01/16 Normally he would complete 16 weeks of itraconazole for ABPA. However, he has been immunocompromised for quite a long time, and his areas of consolidation look like more than just mucous plugging. I'm concerned that he may even have some semi-invasive aspergillosis area did he is understandably quite concerned about relapse of his disease. We agreed to complete 6 months of therapy with itraconazole. I will see him at the end of that with a CT chest. 06/03/16 OK to stop itraconazole at this time. We did discuss the possibility of treating a flare of ABPA in the future if needed. I have asked him to stay at 5 mg prednisone for now, until the endocrine situation is clarified. 08/14/16 He shows me his cortisol levels which he reports were drawn between 8 and 9 in the morning. They are all under 1.0 through 06/28/16. He then had two values 1.7 in July. The most recent one, on 08/09/16 shows 4.3. He also shows me ACTH results (normal 7.2-63.3 pg/mL). This was measured at less than 1.1 on 05/10/16. He then had values of 5.7, 16.1, 6.4 and 13.6 over the last couple of months with the last being done in 08/09/16. He has been on prednisone at 2.5 mg daily. He has been off itraconazole for the last couple months. He has had symptoms of depression without feeling depressed. Fatigue, tired, lack of energy. Also affected by the seasonal darkness and by not exercising. Penny feels that he is depressed. It is unclear to me how much of his lack of energy and overall fatigue are due to adrenal insufficiency and how much to depression. For now, I have asked him to increase prednisone to 5 or 7.5 mg daily. He will address possible depression with his primary care doctor. 12/15/16. In early 09/23 he had outpatient Streptococcal pneumonia, treated with levofloxacin for 10 days. Also prednisone 60 mg for a week, then tapered down over several weeks, then stayed at 10 mg for a while. He was at 5 mg in 10/24. He is being slowly tapered by Dr. Mar. Today is first day at [address] report describes new small anterior medial RUL consolidation. He will send me the disc with images. CXR images from that time reviewed: no new infiltrate. He says sputum grew Streptococcus. Breathing has been prettty good, all right. He has yellowish material on the roof of his mouth in the mornings. He rode 50 miles on his bike yesterday. He doesn't have the energy. He says that it is the journey that is important to him. He wants to build his strength and endurance. His mood is better, as he is exercising again. He reports that his PF is 650. He is doing very well from the respiratory standpoint, back to exercising. He sees allergy for his seasonal allergies. Endocrine is closely managing his adrenal function. His immunoglobulins were a little low 11/12/15. Although he had been on a lot of antibiotics before I met him, he has not had frequent infections in the last year. If he were to develop recurrent infections, then I would consider repeat measurement of immunoglobulins, including IgG subsets. Also consider at that time pneumococcal antibody levels, to see if he might be a candidate for IVIG. We discussed the possibility of slowly tapering his Flovent in the future, perhaps once he is off prednisone. Follow symptoms and PF's. The goal is to have him on the least amount of medication needed to control his symptoms. 06/22/17 Off prednisone as of 04/23. He reports that his am cortisol level was 10.4. He feels like he lives on the nebulizer. Coughing up sputum all the time, especially after exercise. He can bring up shapeless sticky whitish globs of mucus. Some yellow mucus in the mornings for the last six months. He feels like his lungs are more sensitive to sputum since before the ABPA. His energy and endurance are returning. He averages 100-150 miles a week on his bike. He has started running again, two miles at a time. He already had his flu shot. He brings labs of 05/14/17 at [facility]: IgG 533 (700-1600) IgG1 295 (341-894) IgG2 212 (171-632) IgG3 14.1 (18.4-106) IgG4 44 (2.4 - 121) He reports that he had the pneumonia shot a year ago, and that recent titers were low, so he has been advised to get the pneumonia shot again. 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 He notes that this past year, he had been in the floor above. It is likely that his ongoing vigorous aerobic exercise (typically prescribed as part of an airway clearance regimen) has helped to keep his lungs clear of mucus, and avoided more frequent respiratory infection. He feels definitely better than in 12/22. 12/25/17 Now on clomiphene 25 mg TIW to help with testosterone, per Dr. Harman his urologist. He shows me paperwork that lists the following values for his immunoglobulins on 10/01/17 (after immunization): IgG1 275 IgG2 267 IgG3 23.6 IgG4 37.2 He reports that his insurance turned him down for immune globulin replacement therapy. He reports that he continues to cough up thick yellow sputum. He shows me pictures of the moderately yellow opaque globs. He has been taking amoxicillin 500 mg every day for the last month as suppressive therapy. He feels perhaps lightly better. He continues to use his albuterol nebulizer 4 times a day. This does help bring up mucus and open up the constricted lungs. ZPACK and prednisone for recurrent bronchitis 07/07/17. He asks about nebulized antibiotics, such as tobramycin or some of the others. These can sometimes be helpful particularly if pseudomonas has been grown in the sputum. This is not his situation, so far. We discussed potential side effects, including resistance, hearing loss, renal toxicity. 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 He will start using a green Acapella (greater resistance) after each nebulizer treatment in hopes of clearing mucus better. If this is not successful, then we will refer him to physical therapy for help with mucus clearance.. Clear sputum with thick plugs of opaque yellow mucus sent for culture today. We will check Ig's, CBC, IgE, Chem then review with [facility]. My preference would be to avoid chronic antibiotics if possible. If we are able to find an alternative way to treat him, such as with immunoglobulin replacement therapy, then he might not need antibiotics. Consider itraconazole (plus/minus prednisone) if he appears to be having an ABPA flare. 06/28/[address] Mireles in Allergy 01/13/18, no acute pulmonary/allergy issues or interventions; no need for IVIG. Took prednisone for 5 days in February for rash after shingles shot. Started itraconzole 3 1/[address] Morris, for ongoing am mucus production. Somewhat better now. No new chest imaging or sputum cultures. Now on Xolair every two weeks, as opposed to monthly, at a higher dose. Cortisol levels have decreased, so he is now on hydrocortisone [address] Mar. According to [employer], <2% of patients may have adrenocortical insufficiency on itraconazole. He is doing OK. Running 3-4 miles routinely. Vigorous mountain biking in the [place] yesterday, felt great. Discolored sputum every morning. PF's 650-690 steadily. Before he got sick in 2014, he was about 700. He has not felt the need for Acapella, since he brings up mucus well in the morning, and with running and biking. He has just resumed using nebulizer for symptoms of congestion or tightness, after not using it for months. We have reviewed again the importance of airway clearance. I have advised him to use the nebulizer at least once every day, followed by Acapella every day. The goal is to keep mucus from accumulating, leading to sensations of tightness, restriction, and congestion. 12/27/18. He continues to be active. Running, cycling. Sick in September with bronchitis and laryngitis. ZPACK and prednisone rapid taper over 7-10 days. He also took amoxicillin 500 mg daily for 3 months. Now on Hizentra for about six weeks. He feels that mucus is less, so he has not been doing nebulizer or Acapella. There is increasing color to the morning mucus the closer he gets to his next biweekly Hizentra dose. He has not been getting tightness/chest congestion. PF's 610-640. Now on Serevent BID. Hydrocortisone is at 5 mg daily. He brings outside labs with immunoglobulin levels, which will be scanned into [employer]. He will discuss with Endocrine the pros/cons of decreasing Flovent 220 from 2 BID to 1 BID. It is possible that he absorbs more inhaled fluticasone than most people do, and that reducing his inhaled steroid dose may result in lower circulating steroid levels. 06/29/19 Did great over the summer. Did not need nebulizer. He could push it on the road and mountain bikes. Prednisone taper starting at 60 mg, ZPACK (didn't help), amoxicillin last month, off for a week to ten days. Wheezy, raspy, PF down to 540's (normal 670). Spiriva changed to Incruse for insurance. Flovent 220 was decreased from 2 BID to 1 BID, and did very well, the best he has felt since 2014. He was able to push it more on the bike. He increased to 2 BID when he got worse in May, and plans to return to 1 BID. He feels less susceptible to infections, on Hizentra. No hydrocortisone over the summer, since levels were high. Levels were low when sick last month, now back on hydrocortisone. He wants to run again. He always does a slow warm up. Asthma/ABPA stable. He has trouble in the Fall and Winter, and would like to be better, to be able to exercise more vigorously again. Try Adams, Claritin, or Zyrtec on a daily basis in allergy season. Sinus irrigation at the first sign of trouble. He will send me disc of CXR last month. We discussed pros/cons of repeat CT. Suspicion is low for any significant pathology, and risk/benefit does not favor CT at this time. He continues with Xolair since 2016, every two weeks. He still has a lot of symptoms in the Fall and Winter. If these can be controlled with Adams or another antihistamine, that would be ideal. If not, consider another biologic agent such as dupilumab. On the other hand, if he is doing well with the Adams, one could consider whether he still needs the Xolair. 12/10/20 Now on dupilumab, which he likes better than omalizumab. Sometimes feels less well by the end of the two weeks. Mountain and road biking aggressively, doing some downhill skiing. Some wheezing and chest discomfort on a hard ride in cold weather. Taking fexofenadine every day, all year. Incruse daily. Flovent 220 two puffs BID. Foradil changed to Serevent last year. Hizentra changed to Cuvatru. Nebulizer. COVID diagnosis 07/17/20. Symptoms were wheezing, raspy. Serevent, prednisone. No monoclonal antibody. Whole family had COVID. No pneumonia on CXR at [facility] twice. No other prednisone in the last year. He shows me allergy blood work of 10/05/20, with positive Aspergillus titer. Reflux under control with pantoprazole. He has had both COVID shots. He is doing very well. Mildly increased symptoms now. Potential contributing factors include cold weather, sinus congestion, some GERD. He could resume sinus irrigation. He will aim for taking fexofenadine just in allergy season. 06/10/21 Breathing is generally good, with some ups and downs. Reportedly had audible mucus on exam (none today) at visit with Dr. Conley, who started arfomoterol (Brovana) and budesonide nebs twice daily. The patient feels that these have helped. No Flovent or Serevent. Taking montelukast. Albuterol nebs once every day as needed. He doesn't use albuterol inhaler. Incruse once daily is his only inhaler. He is on dupilumab and subcutaneous immunoglobulins. Averaging 200 miles a week on his bike, half of it mountain biking. He has done 25 100-mile rides this year, much of it climbing hills. He feels good when he rides. He hurt his knee when skiing, now can't run. 12/09/21 He has several potential contributors to his asthma, mucus, and cough. In addition to environmental allergies and underlying ABPA, I wonder if his reflux could play a role. This might help explain the morning cough and sputum. We reviewed antireflux measures at length. I have asked him to elevate HOB on blocks. Consider testing for reflux, such as barium swallow, pH probe, manometry, if it would alter management. He feels that his cough performs the useful function of clearing secretions. 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 Continue current asthma care as directed by Dr. Conley. Return 6 months w PFT's. Assessment & Plan (06/10/2021 3:21 PM EDT): 12/18/15: He has longstanding asthma, now worse in the last year, with dense infiltrates and mucus plugging, as well as Aspergillus in the sputum. He has been on omalizumab and prednisone, and IgE and eosinophils are not elevated. 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 It would be reasonable to increase his prednisone dose to 40 mg daily at the onset of this treatment, then taper down, to give him the maximum benefit. His ALT was elevated last time. His situation was reviewed in our clinical case conference, and consensus agreed with diagnosis of ABPA, and favored treatment with itraconazole. The low immunoglobulin levels are likely related to chronic steroid use. Plan: - Prednisone 20 mg daily for two weeks, then gradual taper over 3-6 months. Typical starting dose would be 40 mg daily, but Dr. Vera and I favor a lower dose, given the patient's significant side effects from steroids. - itraconazole 200 mg po TID for 3 days, then 200 mg po BID for 4 months. Take on empty stomach. - Avoid alcohol and other potential hepatotoxins. - monitor LFTs every few weeks. - avoid pantoprazole and other acid suppressive meds that can interfere with itraconazole absorption. - consider measuring itraconazole blood level if there is concern about absorption. 02/19/16: Plan decrease prednisone to 15 mg daily for two weeks, then down to 10 mg daily and stay at that dose until he returns in 6 weeks. 04/01/16 Normally he would complete 16 weeks of itraconazole for ABPA. However, he has been immunocompromised for quite a long time, and his areas of consolidation look like more than just mucous plugging. I'm concerned that he may even have some semi-invasive aspergillosis area did he is understandably quite concerned about relapse of his disease. We agreed to complete 6 months of therapy with itraconazole. I will see him at the end of that with a CT chest. 06/03/16 OK to stop itraconazole at this time. We did discuss the possibility of treating a flare of ABPA in the future if needed. I have asked him to stay at 5 mg prednisone for now, until the endocrine situation is clarified. 08/14/16 He shows me his cortisol levels which he reports were drawn between 8 and 9 in the morning. They are all under 1.0 through 06/28/16. He then had two values 1.7 in July. The most recent one, on 08/09/16 shows 4.3. He also shows me ACTH results (normal 7.2-63.3 pg/mL). This was measured at less than 1.1 on 05/10/16. He then had values of 5.7, 16.1, 6.4 and 13.6 over the last couple of months with the last being done in 08/09/16. He has been on prednisone at 2.5 mg daily. He has been off itraconazole for the last couple months. He has had symptoms of depression without feeling depressed. Fatigue, tired, lack of energy. Also affected by the seasonal darkness and by not exercising. Penny feels that he is depressed. It is unclear to me how much of his lack of energy and overall fatigue are due to adrenal insufficiency and how much to depression. For now, I have asked him to increase prednisone to 5 or 7.5 mg daily. He will address possible depression with his primary care doctor. 12/15/16. In early 09/23 he had outpatient Streptococcal pneumonia, treated with levofloxacin for 10 days. Also prednisone 60 mg for a week, then tapered down over several weeks, then stayed at 10 mg for a while. He was at 5 mg in 10/24. He is being slowly tapered by Dr. Mar. Today is first day at [address] report describes new small anterior medial RUL consolidation. He will send me the disc with images. CXR images from that time reviewed: no new infiltrate. He says sputum grew Streptococcus. Breathing has been prettty good, all right. He has yellowish material on the roof of his mouth in the mornings. He rode 50 miles on his bike yesterday. He doesn't have the energy. He says that it is the journey that is important to him. He wants to build his strength and endurance. His mood is better, as he is exercising again. He reports that his PF is 650. He is doing very well from the respiratory standpoint, back to exercising. He sees allergy for his seasonal allergies. Endocrine is closely managing his adrenal function. His immunoglobulins were a little low 11/12/15. Although he had been on a lot of antibiotics before I met him, he has not had frequent infections in the last year. If he were to develop recurrent infections, then I would consider repeat measurement of immunoglobulins, including IgG subsets. Also consider at that time pneumococcal antibody levels, to see if he might be a candidate for IVIG. We discussed the possibility of slowly tapering his Flovent in the future, perhaps once he is off prednisone. Follow symptoms and PF's. The goal is to have him on the least amount of medication needed to control his symptoms. 06/22/17 Off prednisone as of 04/23. He reports that his am cortisol level was 10.4. He feels like he lives on the nebulizer. Coughing up sputum all the time, especially after exercise. He can bring up shapeless sticky whitish globs of mucus. Some yellow mucus in the mornings for the last six months. He feels like his lungs are more sensitive to sputum since before the ABPA. His energy and endurance are returning. He averages 100-150 miles a week on his bike. He has started running again, two miles at a time. He already had his flu shot. He brings labs of 05/14/17 at [facility]: IgG 533 (700-1600) IgG1 295 (341-894) IgG2 212 (171-632) IgG3 14.1 (18.4-106) IgG4 44 (2.4 - 121) He reports that he had the pneumonia shot a year ago, and that recent titers were low, so he has been advised to get the pneumonia shot again. 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 He notes that this past year, he had been in the floor above. It is likely that his ongoing vigorous aerobic exercise (typically prescribed as part of an airway clearance regimen) has helped to keep his lungs clear of mucus, and avoided more frequent respiratory infection. He feels definitely better than in 12/22. 12/25/17 Now on clomiphene 25 mg TIW to help with testosterone, per Dr. Harman his urologist. He shows me paperwork that lists the following values for his immunoglobulins on 10/01/17 (after immunization): IgG1 275 IgG2 267 IgG3 23.6 IgG4 37.2 He reports that his insurance turned him down for immune globulin replacement therapy. He reports that he continues to cough up thick yellow sputum. He shows me pictures of the moderately yellow opaque globs. He has been taking amoxicillin 500 mg every day for the last month as suppressive therapy. He feels perhaps lightly better. He continues to use his albuterol nebulizer 4 times a day. This does help bring up mucus and open up the constricted lungs. OkPACK and prednisone for recurrent bronchitis 07/07/17. He asks about nebulized antibiotics, such as tobramycin or some of the others. These can sometimes be helpful particularly if pseudomonas has been grown in the sputum. This is not his situation, so far. We discussed potential side effects, including resistance, hearing loss, renal toxicity. 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 He will start using a green Acapella (greater resistance) after each nebulizer treatment in hopes of clearing mucus better. If this is not successful, then we will refer him to physical therapy for help with mucus clearance.. Clear sputum with thick plugs of opaque yellow mucus sent for culture today. We will check Ig's, CBC, IgE, Chem then review with [facility]. My preference would be to avoid chronic antibiotics if possible. If we are able to find an alternative way to treat him, such as with immunoglobulin replacement therapy, then he might not need antibiotics. Consider itraconazole (plus/minus prednisone) if he appears to be having an ABPA flare. 06/28/[address] Mireles in Allergy 01/13/18, no acute pulmonary/allergy issues or interventions; no need for IVIG. Took prednisone for 5 days in February for rash after shingles shot. Started itraconzole 3 1/[address] Morris, for ongoing am mucus production. Somewhat better now. No new chest imaging or sputum cultures. Now on Xolair every two weeks, as opposed to monthly, at a higher dose. Cortisol levels have decreased, so he is now on hydrocortisone [address] Mar. According to UpToDate, <2% of patients may have adrenocortical insufficiency on itraconazole. He is doing OK. Running 3-4 miles routinely. Vigorous mountain biking in the [place] yesterday, felt great. Discolored sputum every morning. PF's 650-690 steadily. Before he got sick in 2014, he was about 700. He has not felt the need for Acapella, since he brings up mucus well in the morning, and with running and biking. He has just resumed using nebulizer for symptoms of congestion or tightness, after not using it for months. We have reviewed again the importance of airway clearance. I have advised him to use the nebulizer at least once every day, followed by Acapella every day. The goal is to keep mucus from accumulating, leading to sensations of tightness, restriction, and congestion. 12/27/18. He continues to be active. Running, cycling. Sick in September with bronchitis and laryngitis. ZPACK and prednisone rapid taper over 7-10 days. He also took amoxicillin 500 mg daily for 3 months. Now on Hizentra for about six weeks. He feels that mucus is less, so he has not been doing nebulizer or Acapella. There is increasing color to the morning mucus the closer he gets to his next biweekly Hizentra dose. He has not been getting tightness/chest congestion. PF's 610-640. Now on Serevent BID. Hydrocortisone is at 5 mg daily. He brings outside labs with immunoglobulin levels, which will be scanned into [employer]. He will discuss with Endocrine the pros/cons of decreasing Flovent 220 from 2 BID to 1 BID. It is possible that he absorbs more inhaled fluticasone than most people do, and that reducing his inhaled steroid dose may result in lower circulating steroid levels. 06/29/19 Did great over the summer. Did not need nebulizer. He could push it on the road and mountain bikes. Prednisone taper starting at 60 mg, ZPACK (didn't help), amoxicillin last month, off for a week to ten days. Wheezy, raspy, PF down to 540's (normal 670). Spiriva changed to Incruse for insurance. Flovent 220 was decreased from 2 BID to 1 BID, and did very well, the best he has felt since 2014. He was able to push it more on the bike. He increased to 2 BID when he got worse in May, and plans to return to 1 BID. He feels less susceptible to infections, on Hizentra. No hydrocortisone over the summer, since levels were high. Levels were low when sick last month, now back on hydrocortisone. He wants to run again. He always does a slow warm up. Asthma/ABPA stable. He has trouble in the Fall and Winter, and would like to be better, to be able to exercise more vigorously again. Try Adams, Claritin, or Zyrtec on a daily basis in allergy season. Sinus irrigation at the first sign of trouble. He will send me disc of CXR last month. We discussed pros/cons of repeat CT. Suspicion is low for any significant pathology, and risk/benefit does not favor CT at this time. He continues with Xolair since 2016, every two weeks. He still has a lot of symptoms in the Fall and Winter. If these can be controlled with Adams or another antihistamine, that would be ideal. If not, consider another biologic agent such as dupilumab. On the other hand, if he is doing well with the Adams, one could consider whether he still needs the Xolair. 12/10/20 Now on dupilumab, which he likes better than omalizumab. Sometimes feels less well by the end of the two weeks. Mountain and road biking aggressively, doing some downhill skiing. Some wheezing and chest discomfort on a hard ride in cold weather. Taking fexofenadine every day, all year. Incruse daily. Flovent 220 two puffs BID. Foradil changed to Serevent last year. Hizentra changed to Cuvatru. Nebulizer. COVID diagnosis 07/17/20. Symptoms were wheezing, raspy. Serevent, prednisone. No monoclonal antibody. Whole family had COVID. No pneumonia on CXR at [facility] twice. No other prednisone in the last year. He shows me allergy blood work of 10/05/20, with positive Aspergillus titer. Reflux under control with pantoprazole. He has had both COVID shots. He is doing very well. Mildly increased symptoms now. Potential contributing factors include cold weather, sinus congestion, some GERD. He could resume sinus irrigation. He will aim for taking fexofenadine just in allergy season. 06/10/21 Doing very well. Continue current care. 6 months with PFT's. Assessment & Plan (12/10/2020 4:42 PM EDT): 12/18/15: He has longstanding asthma, now worse in the last year, with dense infiltrates and mucus plugging, as well as Aspergillus in the sputum. He has been on omalizumab and prednisone, and IgE and eosinophils are not elevated. 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 It would be reasonable to increase his prednisone dose to 40 mg daily at the onset of this treatment, then taper down, to give him the maximum benefit. His ALT was elevated last time. His situation was reviewed in our clinical case conference, and consensus agreed with diagnosis of ABPA, and favored treatment with itraconazole. The low immunoglobulin levels are likely related to chronic steroid use. Plan: - Prednisone 20 mg daily for two weeks, then gradual taper over 3-6 months. Typical starting dose would be 40 mg daily, but Dr. Vera and I favor a lower dose, given the patient's significant side effects from steroids. - itraconazole 200 mg po TID for 3 days, then 200 mg po BID for 4 months. Take on empty stomach. - Avoid alcohol and other potential hepatotoxins. - monitor LFTs every few weeks. - avoid pantoprazole and other acid suppressive meds that can interfere with itraconazole absorption. - consider measuring itraconazole blood level if there is concern about absorption. 02/19/16: Plan decrease prednisone to 15 mg daily for two weeks, then down to 10 mg daily and stay at that dose until he returns in 6 weeks. 04/01/16 Normally he would complete 16 weeks of itraconazole for ABPA. However, he has been immunocompromised for quite a long time, and his areas of consolidation look like more than just mucous plugging. I'm concerned that he may even have some semi-invasive aspergillosis area did he is understandably quite concerned about relapse of his disease. We agreed to complete 6 months of therapy with itraconazole. I will see him at the end of that with a CT chest. 06/03/16 OK to stop itraconazole at this time. We did discuss the possibility of treating a flare of ABPA in the future if needed. I have asked him to stay at 5 mg prednisone for now, until the endocrine situation is clarified. 08/14/16 He shows me his cortisol levels which he reports were drawn between 8 and 9 in the morning. They are all under 1.0 through 06/28/16. He then had two values 1.7 in July. The most recent one, on 08/09/16 shows 4.3. He also shows me ACTH results (normal 7.2-63.3 pg/mL). This was measured at less than 1.1 on 05/10/16. He then had values of 5.7, 16.1, 6.4 and 13.6 over the last couple of months with the last being done in 08/09/16. He has been on prednisone at 2.5 mg daily. He has been off itraconazole for the last couple months. He has had symptoms of depression without feeling depressed. Fatigue, tired, lack of energy. Also affected by the seasonal darkness and by not exercising. Penny feels that he is depressed. It is unclear to me how much of his lack of energy and overall fatigue are due to adrenal insufficiency and how much to depression. For now, I have asked him to increase prednisone to 5 or 7.5 mg daily. He will address possible depression with his primary care doctor. 12/15/16. In early 09/23 he had outpatient Streptococcal pneumonia, treated with levofloxacin for 10 days. Also prednisone 60 mg for a week, then tapered down over several weeks, then stayed at 10 mg for a while. He was at 5 mg in 10/24. He is being slowly tapered by Dr. Mar. Today is first day at [address] report describes new small anterior medial RUL consolidation. He will send me the disc with images. CXR images from that time reviewed: no new infiltrate. He says sputum grew Streptococcus. Breathing has been prettty good, all right. He has yellowish material on the roof of his mouth in the mornings. He rode 50 miles on his bike yesterday. He doesn't have the energy. He says that it is the journey that is important to him. He wants to build his strength and endurance. His mood is better, as he is exercising again. He reports that his PF is 650. He is doing very well from the respiratory standpoint, back to exercising. He sees allergy for his seasonal allergies. Endocrine is closely managing his adrenal function. His immunoglobulins were a little low 11/12/15. Although he had been on a lot of antibiotics before I met him, he has not had frequent infections in the last year. If he were to develop recurrent infections, then I would consider repeat measurement of immunoglobulins, including IgG subsets. Also consider at that time pneumococcal antibody levels, to see if he might be a candidate for IVIG. We discussed the possibility of slowly tapering his Flovent in the future, perhaps once he is off prednisone. Follow symptoms and PF's. The goal is to have him on the least amount of medication needed to control his symptoms. 06/22/17 Off prednisone as of 04/23. He reports that his am cortisol level was 10.4. He feels like he lives on the nebulizer. Coughing up sputum all the time, especially after exercise. He can bring up shapeless sticky whitish globs of mucus. Some yellow mucus in the mornings for the last six months. He feels like his lungs are more sensitive to sputum since before the ABPA. His energy and endurance are returning. He averages 100-150 miles a week on his bike. He has started running again, two miles at a time. He already had his flu shot. He brings labs of 05/14/17 at [facility]: IgG 533 (700-1600) IgG1 295 (341-894) IgG2 212 (171-632) IgG3 14.1 (18.4-106) IgG4 44 (2.4 - 121) He reports that he had the pneumonia shot a year ago, and that recent titers were low, so he has been advised to get the pneumonia shot again. 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 He notes that this past year, he had been in the floor above. It is likely that his ongoing vigorous aerobic exercise (typically prescribed as part of an airway clearance regimen) has helped to keep his lungs clear of mucus, and avoided more frequent respiratory infection. He feels definitely better than in 12/22. 12/25/17 Now on clomiphene 25 mg TIW to help with testosterone, per Dr. Harman his urologist. He shows me paperwork that lists the following values for his immunoglobulins on 10/01/17 (after immunization): IgG1 275 IgG2 267 IgG3 23.6 IgG4 37.2 He reports that his insurance turned him down for immune globulin replacement therapy. He reports that he continues to cough up thick yellow sputum. He shows me pictures of the moderately yellow opaque globs. He has been taking amoxicillin 500 mg every day for the last month as suppressive therapy. He feels perhaps lightly better. He continues to use his albuterol nebulizer 4 times a day. This does help bring up mucus and open up the constricted lungs. OkPACK and prednisone for recurrent bronchitis 07/07/17. He asks about nebulized antibiotics, such as tobramycin or some of the others. These can sometimes be helpful particularly if pseudomonas has been grown in the sputum. This is not his situation, so far. We discussed potential side effects, including resistance, hearing loss, renal toxicity. 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 He will start using a green Acapella (greater resistance) after each nebulizer treatment in hopes of clearing mucus better. If this is not successful, then we will refer him to physical therapy for help with mucus clearance.. Clear sputum with thick plugs of opaque yellow mucus sent for culture today. We will check Ig's, CBC, IgE, Chem then review with [facility]. My preference would be to avoid chronic antibiotics if possible. If we are able to find an alternative way to treat him, such as with immunoglobulin replacement therapy, then he might not need antibiotics. Consider itraconazole (plus/minus prednisone) if he appears to be having an ABPA flare. 06/28/[address] Mireles in Allergy 01/13/18, no acute pulmonary/allergy issues or interventions; no need for IVIG. Took prednisone for 5 days in February for rash after shingles shot. Started itraconzole 3 1/[address] Morris, for ongoing am mucus production. Somewhat better now. No new chest imaging or sputum cultures. Now on Xolair every two weeks, as opposed to monthly, at a higher dose. Cortisol levels have decreased, so he is now on hydrocortisone [address] Mar. According to UpToDate, <2% of patients may have adrenocortical insufficiency on itraconazole. He is doing OK. Running 3-4 miles routinely. Vigorous mountain biking in the [employer] yesterday, felt great. Discolored sputum every morning. PF's 650-690 steadily. Before he got sick in 2014, he was about 700. He has not felt the need for Acapella, since he brings up mucus well in the morning, and with running and biking. He has just resumed using nebulizer for symptoms of congestion or tightness, after not using it for months. We have reviewed again the importance of airway clearance. I have advised him to use the nebulizer at least once every day, followed by Acapella every day. The goal is to keep mucus from accumulating, leading to sensations of tightness, restriction, and congestion. 12/27/18. He continues to be active. Running, cycling. Sick in September with bronchitis and laryngitis. ZPACK and prednisone rapid taper over 7-10 days. He also took amoxicillin 500 mg daily for 3 months. Now on Hizentra for about six weeks. He feels that mucus is less, so he has not been doing nebulizer or Acapella. There is increasing color to the morning mucus the closer he gets to his next biweekly Hizentra dose. He has not been getting tightness/chest congestion. PF's 610-640. Now on Serevent BID. Hydrocortisone is at 5 mg daily. He brings outside labs with immunoglobulin levels, which will be scanned into [employer]. He will discuss with Endocrine the pros/cons of decreasing Flovent 220 from 2 BID to 1 BID. It is possible that he absorbs more inhaled fluticasone than most people do, and that reducing his inhaled steroid dose may result in lower circulating steroid levels. 06/29/19 Did great over the summer. Did not need nebulizer. He could push it on the road and mountain bikes. Prednisone taper starting at 60 mg, ZPACK (didn't help), amoxicillin last month, off for a week to ten days. Wheezy, raspy, PF down to 540's (normal 670). Spiriva changed to Incruse for insurance. Flovent 220 was decreased from 2 BID to 1 BID, and did very well, the best he has felt since 2014. He was able to push it more on the bike. He increased to 2 BID when he got worse in May, and plans to return to 1 BID. He feels less susceptible to infections, on Hizentra. No hydrocortisone over the summer, since levels were high. Levels were low when sick last month, now back on hydrocortisone. He wants to run again. He always does a slow warm up. Asthma/ABPA stable. He has trouble in the Fall and Winter, and would like to be better, to be able to exercise more vigorously again. Try Adams, Claritin, or Zyrtec on a daily basis in allergy season. Sinus irrigation at the first sign of trouble. He will send me disc of CXR last month. We discussed pros/cons of repeat CT. Suspicion is low for any significant pathology, and risk/benefit does not favor CT at this time. He continues with Xolair since 2016, every two weeks. He still has a lot of symptoms in the Fall and Winter. If these can be controlled with Adams or another antihistamine, that would be ideal. If not, consider another biologic agent such as dupilumab. On the other hand, if he is doing well with the Adams, one could consider whether he still needs the Xolair. 12/10/20 He is doing very well. Mildly increased symptoms now. Potential contributing factors include cold weather, sinus congestion, some GERD. He could resume sinus irrigation. He will aim for taking fexofenadine just in allergy season. We will request outside imaging. Return in 6 months with PFT's. Assessment & Plan (06/29/2019 12:46 PM EDT): 12/18/15: He has longstanding asthma, now worse in the last year, with dense infiltrates and mucus plugging, as well as Aspergillus in the sputum. He has been on omalizumab and prednisone, and IgE and eosinophils are not elevated. 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 It would be reasonable to increase his prednisone dose to 40 mg daily at the onset of this treatment, then taper down, to give him the maximum benefit. His ALT was elevated last time. His situation was reviewed in our clinical case conference, and consensus agreed with diagnosis of ABPA, and favored treatment with itraconazole. The low immunoglobulin levels are likely related to chronic steroid use. Plan: - Prednisone 20 mg daily for two weeks, then gradual taper over 3-6 months. Typical starting dose would be 40 mg daily, but Dr. Vera and I favor a lower dose, given the patient's significant side effects from steroids. - itraconazole 200 mg po TID for 3 days, then 200 mg po BID for 4 months. Take on empty stomach. - Avoid alcohol and other potential hepatotoxins. - monitor LFTs every few weeks. - avoid pantoprazole and other acid suppressive meds that can interfere with itraconazole absorption. - consider measuring itraconazole blood level if there is concern about absorption. 02/19/16: Plan decrease prednisone to 15 mg daily for two weeks, then down to 10 mg daily and stay at that dose until he returns in 6 weeks. 04/01/16 Normally he would complete 16 weeks of itraconazole for ABPA. However, he has been immunocompromised for quite a long time, and his areas of consolidation look like more than just mucous plugging. I'm concerned that he may even have some semi-invasive aspergillosis area did he is understandably quite concerned about relapse of his disease. We agreed to complete 6 months of therapy with itraconazole. I will see him at the end of that with a CT chest. 06/03/16 OK to stop itraconazole at this time. We did discuss the possibility of treating a flare of ABPA in the future if needed. I have asked him to stay at 5 mg prednisone for now, until the endocrine situation is clarified. 08/14/16 He shows me his cortisol levels which he reports were drawn between 8 and 9 in the morning. They are all under 1.0 through 06/28/16. He then had two values 1.7 in July. The most recent one, on 08/09/16 shows 4.3. He also shows me ACTH results (normal 7.2-63.3 pg/mL). This was measured at less than 1.1 on 05/10/16. He then had values of 5.7, 16.1, 6.4 and 13.6 over the last couple of months with the last being done in 08/09/16. He has been on prednisone at 2.5 mg daily. He has been off itraconazole for the last couple months. He has had symptoms of depression without feeling depressed. Fatigue, tired, lack of energy. Also affected by the seasonal darkness and by not exercising. Penny feels that he is depressed. It is unclear to me how much of his lack of energy and overall fatigue are due to adrenal insufficiency and how much to depression. For now, I have asked him to increase prednisone to 5 or 7.5 mg daily. He will address possible depression with his primary care doctor. 12/15/16. In early 09/23 he had outpatient Streptococcal pneumonia, treated with levofloxacin for 10 days. Also prednisone 60 mg for a week, then tapered down over several weeks, then stayed at 10 mg for a while. He was at 5 mg in 10/24. He is being slowly tapered by Dr. Mar. Today is first day at [address] report describes new small anterior medial RUL consolidation. He will send me the disc with images. CXR images from that time reviewed: no new infiltrate. He says sputum grew Streptococcus. Breathing has been prettty good, all right. He has yellowish material on the roof of his mouth in the mornings. He rode 50 miles on his bike yesterday. He doesn't have the energy. He says that it is the journey that is important to him. He wants to build his strength and endurance. His mood is better, as he is exercising again. He reports that his PF is 650. He is doing very well from the respiratory standpoint, back to exercising. He sees allergy for his seasonal allergies. Endocrine is closely managing his adrenal function. His immunoglobulins were a little low 11/12/15. Although he had been on a lot of antibiotics before I met him, he has not had frequent infections in the last year. If he were to develop recurrent infections, then I would consider repeat measurement of immunoglobulins, including IgG subsets. Also consider at that time pneumococcal antibody levels, to see if he might be a candidate for IVIG. We discussed the possibility of slowly tapering his Flovent in the future, perhaps once he is off prednisone. Follow symptoms and PF's. The goal is to have him on the least amount of medication needed to control his symptoms. 06/22/17 Off prednisone as of 04/23. He reports that his am cortisol level was 10.4. He feels like he lives on the nebulizer. Coughing up sputum all the time, especially after exercise. He can bring up shapeless sticky whitish globs of mucus. Some yellow mucus in the mornings for the last six months. He feels like his lungs are more sensitive to sputum since before the ABPA. His energy and endurance are returning. He averages 100-150 miles a week on his bike. He has started running again, two miles at a time. He already had his flu shot. He brings labs of 05/14/17 at [facility]: IgG 533 (700-1600) IgG1 295 (341-894) IgG2 212 (171-632) IgG3 14.1 (18.4-106) IgG4 44 (2.4 - 121) He reports that he had the pneumonia shot a year ago, and that recent titers were low, so he has been advised to get the pneumonia shot again. 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 He notes that this past year, he had been in the floor above. It is likely that his ongoing vigorous aerobic exercise (typically prescribed as part of an airway clearance regimen) has helped to keep his lungs clear of mucus, and avoided more frequent respiratory infection. He feels definitely better than in 12/22. 12/25/17 Now on clomiphene 25 mg TIW to help with testosterone, per Dr. Harman his urologist. He shows me paperwork that lists the following values for his immunoglobulins on 10/01/17 (after immunization): IgG1 275 IgG2 267 IgG3 23.6 IgG4 37.2 He reports that his insurance turned him down for immune globulin replacement therapy. He reports that he continues to cough up thick yellow sputum. He shows me pictures of the moderately yellow opaque globs. He has been taking amoxicillin 500 mg every day for the last month as suppressive therapy. He feels perhaps lightly better. He continues to use his albuterol nebulizer 4 times a day. This does help bring up mucus and open up the constricted lungs. ZPACK and prednisone for recurrent bronchitis 07/07/17. He asks about nebulized antibiotics, such as tobramycin or some of the others. These can sometimes be helpful particularly if pseudomonas has been grown in the sputum. This is not his situation, so far. We discussed potential side effects, including resistance, hearing loss, renal toxicity. 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 He will start using a green Acapella (greater resistance) after each nebulizer treatment in hopes of clearing mucus better. If this is not successful, then we will refer him to physical therapy for help with mucus clearance.. Clear sputum with thick plugs of opaque yellow mucus sent for culture today. We will check Ig's, CBC, IgE, Chem then review with [facility]. My preference would be to avoid chronic antibiotics if possible. If we are able to find an alternative way to treat him, such as with immunoglobulin replacement therapy, then he might not need antibiotics. Consider itraconazole (plus/minus prednisone) if he appears to be having an ABPA flare. 06/28/[address] Mireles in Allergy 01/13/18, no acute pulmonary/allergy issues or interventions; no need for IVIG. Took prednisone for 5 days in February for rash after shingles shot. Started itraconzole 3 1/[address] Morris, for ongoing am mucus production. Somewhat better now. No new chest imaging or sputum cultures. Now on Xolair every two weeks, as opposed to monthly, at a higher dose. Cortisol levels have decreased, so he is now on hydrocortisone [address] Mar. According to UpToDate, <2% of patients may have adrenocortical insufficiency on itraconazole. He is doing OK. Running 3-4 miles routinely. Vigorous mountain biking in the [place] yesterday, felt great. Discolored sputum every morning. PF's 650-690 steadily. Before he got sick in 2014, he was about 700. He has not felt the need for Acapella, since he brings up mucus well in the morning, and with running and biking. He has just resumed using nebulizer for symptoms of congestion or tightness, after not using it for months. We have reviewed again the importance of airway clearance. I have advised him to use the nebulizer at least once every day, followed by Acapella every day. The goal is to keep mucus from accumulating, leading to sensations of tightness, restriction, and congestion. 12/27/18. He continues to be active. Running, cycling. Sick in September with bronchitis and laryngitis. ZPACK and prednisone rapid taper over 7-10 days. He also took amoxicillin 500 mg daily for 3 months. Now on Hizentra for about six weeks. He feels that mucus is less, so he has not been doing nebulizer or Acapella. There is increasing color to the morning mucus the closer he gets to his next biweekly Hizentra dose. He has not been getting tightness/chest congestion. PF's 610-640. Now on Serevent BID. Hydrocortisone is at 5 mg daily. He brings outside labs with immunoglobulin levels, which will be scanned into [facility] [employer]. He will discuss with Endocrine the pros/cons of decreasing Flovent 220 from 2 BID to 1 BID. It is possible that he absorbs more inhaled fluticasone than most people do, and that reducing his inhaled steroid dose may result in lower circulating steroid levels. 06/29/19 Asthma/ABPA stable. He has trouble in the Fall and Winter, and would like to be better, to be able to exercise more vigorously again. Continue current care. Try Adams, Claritin, or Zyrtec on a daily basis in allergy season. Sinus irrigation at the first sign of trouble. He will send me disc of CXR last month. We discussed pros/cons of repeat CT. Suspicion is low for any significant pathology, and risk/benefit does not favor CT at this time. He continues with Xolair since 2016, every two weeks. He still has a lot of symptoms in the Fall and Winter. If these can be controlled with Adams or another antihistamine, that would be ideal. If not, consider another biologic agent such as dupilumab. On the other hand, if he is doing well with the Adams, one could consider whether he still needs the Xolair. He will discuss with Dr. Morris. Return in 6 months with PFT's. Assessment & Plan (12/27/2018 12:57 PM EDT): 12/18/15: He has longstanding asthma, now worse in the last year, with dense infiltrates and mucus plugging, as well as Aspergillus in the sputum. He has been on omalizumab and prednisone, and IgE and eosinophils are not elevated. 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 It would be reasonable to increase his prednisone dose to 40 mg daily at the onset of this treatment, then taper down, to give him the maximum benefit. His ALT was elevated last time. His situation was reviewed in our clinical case conference, and consensus agreed with diagnosis of ABPA, and favored treatment with itraconazole. The low immunoglobulin levels are likely related to chronic steroid use. Plan: - Prednisone 20 mg daily for two weeks, then gradual taper over 3-6 months. Typical starting dose would be 40 mg daily, but Dr. Vera and I favor a lower dose, given the patient's significant side effects from steroids. - itraconazole 200 mg po TID for 3 days, then 200 mg po BID for 4 months. Take on empty stomach. - Avoid alcohol and other potential hepatotoxins. - monitor LFTs every few weeks. - avoid pantoprazole and other acid suppressive meds that can interfere with itraconazole absorption. - consider measuring itraconazole blood level if there is concern about absorption. 02/19/16: Plan decrease prednisone to 15 mg daily for two weeks, then down to 10 mg daily and stay at that dose until he returns in 6 weeks. 04/01/16 Normally he would complete 16 weeks of itraconazole for ABPA. However, he has been immunocompromised for quite a long time, and his areas of consolidation look like more than just mucous plugging. I'm concerned that he may even have some semi-invasive aspergillosis area did he is understandably quite concerned about relapse of his disease. We agreed to complete 6 months of therapy with itraconazole. I will see him at the end of that with a CT chest. 06/03/16 OK to stop itraconazole at this time. We did discuss the possibility of treating a flare of ABPA in the future if needed. I have asked him to stay at 5 mg prednisone for now, until the endocrine situation is clarified. 08/14/16 He shows me his cortisol levels which he reports were drawn between 8 and 9 in the morning. They are all under 1.0 through 06/28/16. He then had two values 1.7 in July. The most recent one, on 08/09/16 shows 4.3. He also shows me ACTH results (normal 7.2-63.3 pg/mL). This was measured at less than 1.1 on 05/10/16. He then had values of 5.7, 16.1, 6.4 and 13.6 over the last couple of months with the last being done in 08/09/16. He has been on prednisone at 2.5 mg daily. He has been off itraconazole for the last couple months. He has had symptoms of depression without feeling depressed. Fatigue, tired, lack of energy. Also affected by the seasonal darkness and by not exercising. Penny feels that he is depressed. It is unclear to me how much of his lack of energy and overall fatigue are due to adrenal insufficiency and how much to depression. For now, I have asked him to increase prednisone to 5 or 7.5 mg daily. He will address possible depression with his primary care doctor. 12/15/16. In early 09/23 he had outpatient Streptococcal pneumonia, treated with levofloxacin for 10 days. Also prednisone 60 mg for a week, then tapered down over several weeks, then stayed at 10 mg for a while. He was at 5 mg in 10/24. He is being slowly tapered by Dr. Mar. Today is first day at [address] report describes new small anterior medial RUL consolidation. He will send me the disc with images. CXR images from that time reviewed: no new infiltrate. He says sputum grew Streptococcus. Breathing has been prettty good, all right. He has yellowish material on the roof of his mouth in the mornings. He rode 50 miles on his bike yesterday. He doesn't have the energy. He says that it is the journey that is important to him. He wants to build his strength and endurance. His mood is better, as he is exercising again. He reports that his PF is 650. He is doing very well from the respiratory standpoint, back to exercising. He sees allergy for his seasonal allergies. Endocrine is closely managing his adrenal function. His immunoglobulins were a little low 11/12/15. Although he had been on a lot of antibiotics before I met him, he has not had frequent infections in the last year. If he were to develop recurrent infections, then I would consider repeat measurement of immunoglobulins, including IgG subsets. Also consider at that time pneumococcal antibody levels, to see if he might be a candidate for IVIG. We discussed the possibility of slowly tapering his Flovent in the future, perhaps once he is off prednisone. Follow symptoms and PF's. The goal is to have him on the least amount of medication needed to control his symptoms. 06/22/17 Off prednisone as of 04/23. He reports that his am cortisol level was 10.4. He feels like he lives on the nebulizer. Coughing up sputum all the time, especially after exercise. He can bring up shapeless sticky whitish globs of mucus. Some yellow mucus in the mornings for the last six months. He feels like his lungs are more sensitive to sputum since before the ABPA. His energy and endurance are returning. He averages 100-150 miles a week on his bike. He has started running again, two miles at a time. He already had his flu shot. He brings labs of 05/14/17 at [facility]: IgG 533 (700-1600) IgG1 295 (341-894) IgG2 212 (171-632) IgG3 14.1 (18.4-106) IgG4 44 (2.4 - 121) He reports that he had the pneumonia shot a year ago, and that recent titers were low, so he has been advised to get the pneumonia shot again. 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 He notes that this past year, he had been in the floor above. It is likely that his ongoing vigorous aerobic exercise (typically prescribed as part of an airway clearance regimen) has helped to keep his lungs clear of mucus, and avoided more frequent respiratory infection. He feels definitely better than in 12/22. 12/25/17 Now on clomiphene 25 mg TIW to help with testosterone, per Dr. Harman his urologist. He shows me paperwork that lists the following values for his immunoglobulins on 10/01/17 (after immunization): IgG1 275 IgG2 267 IgG3 23.6 IgG4 37.2 He reports that his insurance turned him down for immune globulin replacement therapy. He reports that he continues to cough up thick yellow sputum. He shows me pictures of the moderately yellow opaque globs. He has been taking amoxicillin 500 mg every day for the last month as suppressive therapy. He feels perhaps lightly better. He continues to use his albuterol nebulizer 4 times a day. This does help bring up mucus and open up the constricted lungs. ZPACK and prednisone for recurrent bronchitis 07/07/17. He asks about nebulized antibiotics, such as tobramycin or some of the others. These can sometimes be helpful particularly if pseudomonas has been grown in the sputum. This is not his situation, so far. We discussed potential side effects, including resistance, hearing loss, renal toxicity. 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 He will start using a green Acapella (greater resistance) after each nebulizer treatment in hopes of clearing mucus better. If this is not successful, then we will refer him to physical therapy for help with mucus clearance.. Clear sputum with thick plugs of opaque yellow mucus sent for culture today. We will check Ig's, CBC, IgE, Chem then review with [facility]. My preference would be to avoid chronic antibiotics if possible. If we are able to find an alternative way to treat him, such as with immunoglobulin replacement therapy, then he might not need antibiotics. Consider itraconazole (plus/minus prednisone) if he appears to be having an ABPA flare. 06/28/[address] Mireles in Allergy 01/13/18, no acute pulmonary/allergy issues or interventions; no need for IVIG. Took prednisone for 5 days in February for rash after shingles shot. Started itraconzole 3 1/[address] Morris, for ongoing am mucus production. Somewhat better now. No new chest imaging or sputum cultures. Now on Xolair every two weeks, as opposed to monthly, at a higher dose. Cortisol levels have decreased, so he is now on hydrocortisone [address] Mar. According to UpToDate, <2% of patients may have adrenocortical insufficiency on itraconazole. He is doing OK. Running 3-4 miles routinely. Vigorous mountain biking in the [place] yesterday, felt great. Discolored sputum every morning. PF's 650-690 steadily. Before he got sick in 2014, he was about 700. He has not felt the need for Acapella, since he brings up mucus well in the morning, and with running and biking. He has just resumed using nebulizer for symptoms of congestion or tightness, after not using it for months. We have reviewed again the importance of airway clearance. I have advised him to use the nebulizer at least once every day, followed by Acapella every day. The goal is to keep mucus from accumulating, leading to sensations of tightness, restriction, and congestion. 12/27/18 He will discuss with Endocrine the pros/cons of decreasing Flovent 220 from 2 BID to 1 BID. It is possible that he absorbs more inhaled fluticasone than most people do, and that reducing his inhaled steroid dose may result in lower circulating steroid levels. He is interested in genetic testing for CF and for alpha-one antitrypsin, as potential uncommon explanations for his bronchiectasis. We will do this. We will also schedule sweat test. Return 6 months with PFT's. Assessment & Plan (06/28/2018 1:38 PM EDT): 12/18/15: He has longstanding asthma, now worse in the last year, with dense infiltrates and mucus plugging, as well as Aspergillus in the sputum. He has been on omalizumab and prednisone, and IgE and eosinophils are not elevated. 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 It would be reasonable to increase his prednisone dose to 40 mg daily at the onset of this treatment, then taper down, to give him the maximum benefit. His ALT was elevated last time. His situation was reviewed in our clinical case conference, and consensus agreed with diagnosis of ABPA, and favored treatment with itraconazole. The low immunoglobulin levels are likely related to chronic steroid use. Plan: - Prednisone 20 mg daily for two weeks, then gradual taper over 3-6 months. Typical starting dose would be 40 mg daily, but Dr. Vera and I favor a lower dose, given the patient's significant side effects from steroids. - itraconazole 200 mg po TID for 3 days, then 200 mg po BID for 4 months. Take on empty stomach. - Avoid alcohol and other potential hepatotoxins. - monitor LFTs every few weeks. - avoid pantoprazole and other acid suppressive meds that can interfere with itraconazole absorption. - consider measuring itraconazole blood level if there is concern about absorption. 02/19/16: Plan decrease prednisone to 15 mg daily for two weeks, then down to 10 mg daily and stay at that dose until he returns in 6 weeks. 04/01/16 Normally he would complete 16 weeks of itraconazole for ABPA. However, he has been immunocompromised for quite a long time, and his areas of consolidation look like more than just mucous plugging. I'm concerned that he may even have some semi-invasive aspergillosis area did he is understandably quite concerned about relapse of his disease. We agreed to complete 6 months of therapy with itraconazole. I will see him at the end of that with a CT chest. 06/03/16 OK to stop itraconazole at this time. We did discuss the possibility of treating a flare of ABPA in the future if needed. I have asked him to stay at 5 mg prednisone for now, until the endocrine situation is clarified. 08/14/16 He shows me his cortisol levels which he reports were drawn between 8 and 9 in the morning. They are all under 1.0 through 06/28/16. He then had two values 1.7 in July. The most recent one, on 08/09/16 shows 4.3. He also shows me ACTH results (normal 7.2-63.3 pg/mL). This was measured at less than 1.1 on 05/10/16. He then had values of 5.7, 16.1, 6.4 and 13.6 over the last couple of months with the last being done in 08/09/16. He has been on prednisone at 2.5 mg daily. He has been off itraconazole for the last couple months. He has had symptoms of depression without feeling depressed. Fatigue, tired, lack of energy. Also affected by the seasonal darkness and by not exercising. Penny feels that he is depressed. It is unclear to me how much of his lack of energy and overall fatigue are due to adrenal insufficiency and how much to depression. For now, I have asked him to increase prednisone to 5 or 7.5 mg daily. He will address possible depression with his primary care doctor. 12/15/16. In early 09/23 he had outpatient Streptococcal pneumonia, treated with levofloxacin for 10 days. Also prednisone 60 mg for a week, then tapered down over several weeks, then stayed at 10 mg for a while. He was at 5 mg in 10/24. He is being slowly tapered by Dr. Mar. Today is first day at [address] report describes new small anterior medial RUL consolidation. He will send me the disc with images. CXR images from that time reviewed: no new infiltrate. He says sputum grew Streptococcus. Breathing has been prettty good, all right. He has yellowish material on the roof of his mouth in the mornings. He rode 50 miles on his bike yesterday. He doesn't have the energy. He says that it is the journey that is important to him. He wants to build his strength and endurance. His mood is better, as he is exercising again. He reports that his PF is 650. He is doing very well from the respiratory standpoint, back to exercising. He sees allergy for his seasonal allergies. Endocrine is closely managing his adrenal function. His immunoglobulins were a little low 11/12/15. Although he had been on a lot of antibiotics before I met him, he has not had frequent infections in the last year. If he were to develop recurrent infections, then I would consider repeat measurement of immunoglobulins, including IgG subsets. Also consider at that time pneumococcal antibody levels, to see if he might be a candidate for IVIG. We discussed the possibility of slowly tapering his Flovent in the future, perhaps once he is off prednisone. Follow symptoms and PF's. The goal is to have him on the least amount of medication needed to control his symptoms. 06/22/17 Off prednisone as of 04/23. He reports that his am cortisol level was 10.4. He feels like he lives on the nebulizer. Coughing up sputum all the time, especially after exercise. He can bring up shapeless sticky whitish globs of mucus. Some yellow mucus in the mornings for the last six months. He feels like his lungs are more sensitive to sputum since before the ABPA. His energy and endurance are returning. He averages 100-150 miles a week on his bike. He has started running again, two miles at a time. He already had his flu shot. He brings labs of 05/14/17 at [facility]: IgG 533 (700-1600) IgG1 295 (341-894) IgG2 212 (171-632) IgG3 14.1 (18.4-106) IgG4 44 (2.4 - 121) He reports that he had the pneumonia shot a year ago, and that recent titers were low, so he has been advised to get the pneumonia shot again. 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 He notes that this past year, he had been in the floor above. It is likely that his ongoing vigorous aerobic exercise (typically prescribed as part of an airway clearance regimen) has helped to keep his lungs clear of mucus, and avoided more frequent respiratory infection. He feels definitely better than in 12/22. 12/25/17 Now on clomiphene 25 mg TIW to help with testosterone, per Dr. Harman his urologist. He shows me paperwork that lists the following values for his immunoglobulins on 10/01/17 (after immunization): IgG1 275 IgG2 267 IgG3 23.6 IgG4 37.2 He reports that his insurance turned him down for immune globulin replacement therapy. He reports that he continues to cough up thick yellow sputum. He shows me pictures of the moderately yellow opaque globs. He has been taking amoxicillin 500 mg every day for the last month as suppressive therapy. He feels perhaps lightly better. He continues to use his albuterol nebulizer 4 times a day. This does help bring up mucus and open up the constricted lungs. ZPACK and prednisone for recurrent bronchitis 07/07/17. He asks about nebulized antibiotics, such as tobramycin or some of the others. These can sometimes be helpful particularly if pseudomonas has been grown in the sputum. This is not his situation, so far. We discussed potential side effects, including resistance, hearing loss, renal toxicity. 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 He will start using a green Acapella (greater resistance) after each nebulizer treatment in hopes of clearing mucus better. If this is not successful, then we will refer him to physical therapy for help with mucus clearance.. Clear sputum with thick plugs of opaque yellow mucus sent for culture today. We will check Ig's, CBC, IgE, Chem then review with [facility]. My preference would be to avoid chronic antibiotics if possible. If we are able to find an alternative way to treat him, such as with immunoglobulin replacement therapy, then he might not need antibiotics. Consider itraconazole (plus/minus prednisone) if he appears to be having an ABPA flare. 06/28/18 We have reviewed again the importance of airway clearance. I have advised him to use the nebulizer at least once every day, followed by Acapella every day. The goal is to keep mucus from accumulating, leading to sensations of tightness, restriction, and congestion. He had his flu shot. 6 months with spirometry. Assessment & Plan (12/25/2017 3:00 PM EDT): 12/18/15: He has longstanding asthma, now worse in the last year, with dense infiltrates and mucus plugging, as well as Aspergillus in the sputum. He has been on omalizumab and prednisone, and IgE and eosinophils are not elevated. 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 It would be reasonable to increase his prednisone dose to 40 mg daily at the onset of this treatment, then taper down, to give him the maximum benefit. His ALT was elevated last time. His situation was reviewed in our clinical case conference, and consensus agreed with diagnosis of ABPA, and favored treatment with itraconazole. The low immunoglobulin levels are likely related to chronic steroid use. Plan: - Prednisone 20 mg daily for two weeks, then gradual taper over 3-6 months. Typical starting dose would be 40 mg daily, but Dr. Vera and I favor a lower dose, given the patient's significant side effects from steroids. - itraconazole 200 mg po TID for 3 days, then 200 mg po BID for 4 months. Take on empty stomach. - Avoid alcohol and other potential hepatotoxins. - monitor LFTs every few weeks. - avoid pantoprazole and other acid suppressive meds that can interfere with itraconazole absorption. - consider measuring itraconazole blood level if there is concern about absorption. 02/19/16: Plan decrease prednisone to 15 mg daily for two weeks, then down to 10 mg daily and stay at that dose until he returns in 6 weeks. 04/01/16 Normally he would complete 16 weeks of itraconazole for ABPA. However, he has been immunocompromised for quite a long time, and his areas of consolidation look like more than just mucous plugging. I'm concerned that he may even have some semi-invasive aspergillosis area did he is understandably quite concerned about relapse of his disease. We agreed to complete 6 months of therapy with itraconazole. I will see him at the end of that with a CT chest. 06/03/16 OK to stop itraconazole at this time. We did discuss the possibility of treating a flare of ABPA in the future if needed. I have asked him to stay at 5 mg prednisone for now, until the endocrine situation is clarified. 08/14/16 He shows me his cortisol levels which he reports were drawn between 8 and 9 in the morning. They are all under 1.0 through 06/28/16. He then had two values 1.7 in July. The most recent one, on 08/09/16 shows 4.3. He also shows me ACTH results (normal 7.2-63.3 pg/mL). This was measured at less than 1.1 on 05/10/16. He then had values of 5.7,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 then taper down, to give him the maximum benefit. His ALT was elevated last time. We will check this again. I will discuss with Dr. Vera. He will need to have periodic testing of his LFT's. Diastolic dysfunction 12/18/2015 Environmental allergies 12/18/2015 Gastroesophageal reflux disease 12/18/2015 Overview (12/18/2015): esophageal dysmotility Hypertension 12/18/2015 Muscle weakness of lower extremity 12/18/2015 S/P ACL repair 12/18/2015 Overview (12/18/2015): L 2012 Bronchiectasis without complication Iatrogenic adrenal insufficiency Assessment & Plan (08/29/2024 5:55 PM EST): 68 y.o. man with hx of AI following 2+ yrs of glucocorticoids for asthma/ABPA ~ , with need for somewhat prolonged taper/delayed recovery of HPA axis. He has been back on steroids continuously for ~ 18 months so would assume he is again adrenally insufficient. Do not think he needs any testing currently. Would do fairly gradual taper should his pulmonary issues permit. Advised him to have 8-9 am cortisol test done fasting, prior to morning prednisone dose, once he has been on 4 mg dose for ~ 1 month. In the meantime, would continue to advise stress dosing for acute illnesses (pulmonary or otherwise). He is wearing medic alert ID. Assessment & Plan (08/18/2023 3:30 PM EST): 67 y.o. man with hx of AI following 2+ yrs of glucocorticoids for asthma/ABPA ~ 2014/2015, with need for somewhat prolonged taper/delayed recovery of HPA axis. He has been back on steroids continuously for ~ 6 months so would assume he is again adrenally insufficient. Do not think he needs any testing currently. Would do fairly gradual taper should his pulmonary issues permit. I would be happy to assist in evaluating recovery of his HPA axis if needed while he is being tapered. In the meantime, would advise stress dosing for acute illnesses (pulmonary or otherwise) & have advised him to again wear medic alert ID stating he is steroid dependent/has AI. Also of note, he was on insulin in the past when on high dose steroids. His fasting glucose has been ok. Would advise including an HbA1c with future labs as likely if his glucose is running high it would be mid-day/late afternoon & not fasting given he is taking rx in the morning. Osteopenia Assessment & Plan (08/29/2024 5:53 PM EST): Will call for bone density & determine need for/timing of follow up. Has been on steroids for ~ 1.5 yrs but currently tapering down as pulmonary status allows. Provided w/ link to UptoDate information on calcium/vitamin D. To check amount in supplement & adjust supplement to target ~ 1144-1462 mg/day total. Continues to be very active. Encounters Date Type Department Care Team Description 03/28/2025 2:00 PM EDT Office Visit [facility] [address], [address], [address] [place] [address] Danilo Hancock MD Mild intermittent asthma without complication (Primary Dx) 03/28/2025 1:10 PM EDT - 03/28/2025 11:59 PM EDT Hospital Encounter [facility] [address], [address], [address] [place] [address] Danilo Hancock MD Discharge Disposition: Home or Self Care 03/28/2025 11:56 AM EDT - 03/28/2025 1:09 PM EDT Hospital Encounter [facility] - [place] [address] [facility] [place] [address] Danilo Hancock MD Discharge Disposition: Home or Self Care 03/28/2025 Ancillary Orders [facility] [address] [place] [address] Danilo Hancock MD 07/26/2024 Procedure Pass [facility] - [facility] [address] [facility] [place] [address] from Last 3 Months Immunizations Immunization Administration Dates Next Due Flu H1n1 Tiv Preservative Free 08/09/2009 INFLUENZA, SPLIT VIRUS, TRIV ALENT W/ PRESERVATIVE IM 05/22/2015,05/30/2013,07/05/2010,06/01,06/17/2008,07/01/2007,08/19/2006 ,07/07/2005 Influenza High-Dose Quadriva lent Preservative Free IM 06/22/2023 Influenza Quadrivalent Adjuv anted Preservative Free IM 05/17/2022 Influenza Quadrivalent Prese rvative Free IM 06/06/2021,05/25/2018,06/03/2016 PPD Test 12/16/2004 Pneumococcal conjugate PCV13 11/14/2021 Pneumococcal polysaccharide PPSV23 09/07/2005 Tdap 02/18/2008 Zoster recombinant 05/25/2018,03/08/2018 Family History Medical History Relation Comments Asthma Father Allergic rhinitis Mother Relation Status Comments Father Mother Social History Tobacco Use Types Packs/Day Years Used Date Smoking Tobacco: Never Smokeless Tobacco: Never Tobacco Cessation:Counseling Given: Not Answered Alcohol Use Standard Drinks/Week Comments Yes 0 [...] Orientation Straight 12/13/2021 9: 34 AM EDT Last Filed Vital Signs Vital Sign Reading Time Taken Comments Blood Pressure 104/65 03/28/2025 2:07 PM EDT Pulse 47 03/28/2025 2:07 PM EDT Temperature 36.4 C (97.5 F) 03/28/2025 2:07 PM EDT Respiratory Rate 16 03/28/2025 2:07 PM EDT Oxygen Saturation 99% 03/28/2025 2:07 PM EDT Inhaled Oxygen Concentration - - Weight 70.3 kg (155 lb) 03/28/2025 2:07 PM EDT Height 172.7 cm (5' 8 ) 03/28/2025 2:07 PM EDT Body Mass Index 23.57 03/28/2025 2:07 PM EDT Plan of Treatment Upcoming Encounters Date Type Department Care Team (Late st Contact Info) Description 03/28/2026 10:45 AM EDT Appointment [facility] [address], [address] [place] [address] Danilo Hancock MD [address] [place] [id number] [email or web address] 03/28/2026 11:00 AM EDT Office Visit [facility] [address], [address], [address] [place] [address] Danilo Hancock MD [address] [place] [address] [email or web address] Maintenance Due Date Last Done Comments LIPID PANEL 1956 DEPRESSION SCREENING 1968 HEPATITIS C SCREENING 1974 COLOGUARD 2001 COLONOSCOPY 2001 COLORECTAL CANCER SCREENING 2001 FIT TEST 2001 FOBT 2001 SIGMOIDOSCOPY 2001 VIRTUAL COLONOSCOPY 2001 POTASSIUM LEVEL 12/25/2018 12/25/2017, 11/12/2015 PNEUMOCOCCAL VACCINES (50+ years) (3 of 3 - PPSV23, PCV20 or PCV21) 01/09/2022 11/14/2021, 09/07/2005 INFLUENZA VACCINE (#1) 2025 , 06/22/2023, 05/17/2022, Additional history exists COVID-19 VACCINE ( season) 2025 06/02/2024, 06/26/2023, 01/04/2023, Additional history exists BLOOD PRESSURE 09/28/2025 03/28/2025 Adult Td,Tdap Booster 11/28/2034 11/28/2024, 008 ZOSTER VACCINES Completed 05/25/2018, 03/08/2018 RSV VACCINE Completed 06/26/2023 SMOKING STATUS SCREENING (Once After 26 Yrs) Completed 08/18/2023 HEPATITIS A VACCINES Aged Out No long er eligible based on patient's age to complete this topic HIB VACCINES Aged Out No longer eligi ble based on patient's age to complete this topic MENINGOCOCCAL VACCINES (ACWY) Aged Out No longer eligible based on patient's age to complete this topic MENINGOCOCCAL VACCINES (B) Aged Out N o longer eligible based on patient's age to complete this topic Medical Devices Not on file Procedures Procedure Name Priority Date/Time Associated Diagnosis Comments HC RESPIRATORY FLOW VOLUME LOOP Routine 03/28/2025 1:48 PM EDT Mild intermittent asthma without complication CT CHEST (INCIDENTAL FOLLOW-UP) WITHOUT CONTRAST Routine 03/28/2025 12:03 PM EDT Mild intermittent asthma without complication COMPREHENSIVE METABOLIC PANEL Routine 12/25/2017 12:08 PM EDT Mild intermittent asthma without complication from Last 3 Months or Most Recently Relevant to Health Maintenance Results * Pulmonary Function Test Reason for Exam: Asthma; Type of PFT Test: Spirometry with bronchodilator; Performing Location: [facility] (03/28/2025 1:48 PM EDT) Anatomical Region Laterality Modality Other 03/28/2025 1:48 PM EDT us Danilo Hancock MD PFT ORDERABLES Final Result * CT CHEST (INCIDENTAL FOLLOW-UP) WITHOUT CONTRAST (03/28/2025 12:03 PM EDT) Anatomical Region Laterality Modality Chest Computed Tomogra phy 03/28/2025 1:56 PM EDT Impressions 03/28/2025 2:06 PM EDT 1. Since , evolution of prior multifocal bronchopneumonia in the setting of allergic bronchopulmonary aspergillosis (ABPA) with residual inspissated and calcified mucous plugs. 2. No new or increased airway involvement. Narrative 03/28/2025 2:[address] CHEST (INCIDENTAL FOLLOW-UP) WITHOUT CONTRAST Referring clinician's provided indication for this examination in [facility]: Pulmonary Nodules; ABPA TECHNIQUE: Low dose multidetector CT of the chest was performed without intravenous contrast using tailored dose modulation techniques. COMPARISON: CT CHEST OUTSIDE (NO INTERPRETATION) FINDINGS: Devices/tubes/lines: None. Lungs/airways: Patent central airways with minimal cylindrical dependent atelectasis in the lower lobes. Prior subpleural anterior segment right upper lobe consolidation has now calcified with downstream atelectasis (301:150). Other scattered calcifications distributed along previous sites of bronchopneumonia, for example left lower lobe (301:241). Scattered noncalcified peripheral mucous plugs, such as clustered left upper lobe (301:135). No new or increased airway involvement. Pleura: No pleural effusions or pneumothoraces. Mediastinum: No actionable thyroid nodules. Nonenlarged cardiac chambers and great vessels. No pericardial effusion. Mild coronary artery calcifications. Lymph nodes: No supraclavicular, axillary, mediastinal, or hilar lymphadenopathy. Upper abdomen: No suspicious upper abdominal abnormalities noting decreased sensitivity of low-dose technique. Chest wall: No chest wall masses. Bones: Healed remote bilateral rib fracture deformities. No suspicious bone lesions. Procedure Note Sadiq Sutton MD, PhD - 03/28/2025 CT CHEST (INCIDENTAL FOLLOW-UP) WITHOUT CONTRAST Referring clinician's provided indication for this examination in [facility]:Pulmonary Nodules; ABPA TECHNIQUE: Low dose multidetector CT of the chest was performed withoutintravenous contrast using tailored dose modulation techniques. COMPARISON: CT CHEST OUTSIDE (NO INTERPRETATION) FINDINGS: Devices/tubes/lines: None. Lungs/airways: Patent central airways with minimal cylindrical dependentatelectasis in the lower lobes. Prior subpleural anterior segment right upper lobe consolidation has nowcalcified with downstream atelectasis (301:150). Other scattered calcifications distributed along previous sites ofbronchopneumonia, for example left lower lobe (301:241). Scatterednoncalcified peripheral mucous plugs, such as clustered left upper lobe(301:135). No new or increased airway involvement. Pleura: No pleural effusions or pneumothoraces. Mediastinum: No actionable thyroid nodules. Nonenlarged cardiac chambersand great vessels. No pericardial effusion. Mild coronary artery calcifications. Lymph nodes: No supraclavicular, axillary, mediastinal, or hilarlymphadenopathy. Upper abdomen: No suspicious upper abdominal abnormalities notingdecreased sensitivity of low-dose technique. Chest wall: No chest wall masses. Bones: Healed remote bilateral rib fracture deformities. No suspiciousbone lesions. IMPRESSION: 1. Since , evolution of prior multifocal bronchopneumonia inthe setting of allergic bronchopulmonary aspergillosis (ABPA) withresidual inspissated and calcified mucous plugs. 2. No new or increased airway involvement. Danilo Hancock MD [facility] [place] [place] CT CHEST Final Result * Comprehensive metabolic panel (12/25/2017 12:08 PM EDT) SODIUM 143 135 - 145 mmol/L [facility] POTASSIUM 4.2 3.4 - 5.0 mmol/L [facility] CHLORIDE 100 98 - 108 mmol/L [facility] CO2 27 23 - 32 mmol/L [facility] BUN 22 8 - 25 mg/dL [facility] CREATININE 1.26 0.60 - 1.50 mg/dL [facility] GLUCOSE 79 70 - 110 mg/dL [facility] ALBUMIN 4.2 3.3 - 5.0 g/dL [facility] TOTAL PROTEIN 6.9 6.0 - 8.3 g/dL [facility] CALCIUM 9.8 8.5 - 10.5 mg/dL [facility] ALKALINE PHOSPHATASE 73 45 - 115 U/L [facility] TOTAL BILIRUBIN 0.3 0.0 - 1.0 mg/dL [facility] AST 32 10 - 40 U/L [facility] ALT 25 10 - 55 U/L [facility] GLOBULIN 2.7 1.9 - 4.1 g/dL [facility] EGFR 61 >59 mL/min/1. 73m2 [facility] Comment:If patient is black, multiply result by 1.159. Estimated glomerular filtration rate calculated using the CKD-EPI equation. ANION GAP 16 3 - 17 mmol/L [facility] 12/25/2017 12:0 8 PM EDT 12/25/2017 5:26 PM EDT us Danilo Hancock MD LAB BLOOD ORDERABLES Final Resu lt [address] [id number] from Last 3 Months or Most Recently Relevant to Health Maintenance Insurance Financial [employer] [facility] [employer] MEDICARE SUPPLEMENT [place] [id number] MEDICARE SUPPLEMENT MEDICARE PART A & B MEDICARE SUPPLEMENT MEDICARE PART A & B [employer] MEDICARE SUPPLEMENT MEDICARE PART A & B [address] [place], [place] [id number] Environmental Services [facility] [employer] MEDICARE SUPPLEMENT MEDICARE PART A & B [employer] EXTENSION MEDICARE SUPPLEMENT MEDICARE PART A & B [employer] EXTENSION MEDICARE SUPPLEMENT MEDICARE PART A & B EX[employer]ION MEDICARE SUPPLEMENT MEDICARE PART A & [place] [address] [address] [place] [address] EXTENSION MEDICARE SUPPLEMENT MEDICARE PART A & B Care Teams Insurance Verification Rep Relationship Specialty Start Date End Date Joseph Leslie MD [address] [place] [id number] PCP - General 06/10/21 Justin Conley MD [address] [place] [address] [place] [id number] [employer] Pulmonary Disease 06/10/21 Additional Source Comments The information contained in this document represents components of the legal health record. It is not the complete legal health record.[facility]
--- OUTSIDE RECORDS SUMMARY | 2025-06-21 09:36 | XMS_ITS | Encounter Summary ---
Author Organization [facility] Address [address] [place] [address] [place] [phone] Phone Care Team Providers Care Fine Arts Instructor Name Role Phone Joseph Leslie MD Primary Care Provider Justin Conley MD Unavailable [phone] Encounter Details Date Type Department Care Team (Watson Contact Info) Description 07/26/2024 Procedure Pass [facility] - [place] [address] [facility] 6th [place] [address] Social History Tobacco Use Types Packs/Day Years [...] Info) Description 03/28/2026 10:45 AM EDT Appointment [facility] [address] [facility], [address], [address] [place] [address] Danilo Hancock MD [address] [facility] [address] [place] [address] [email or web address] 03/28/2026 11:00 AM EDT Office Visit [facility] [address] [facility], [address], [address] [place] [address] Danilo Hancock MD [address] [address] [email or web address] documented as of this encounter Visit Diagnoses Not on filedocumented in this encounter Care Teams Fine Arts Instructor Relationship Specialty Start Date End Date Joseph Leslie MD [address] [place] [id number] PCP - General 06/10/21 Justin Conley MD [address] [place] [address] [place] [id number] Transfusion Nurse Pulmonary Disease 06/10/21 documented as of this encounter Additional Source Comments The information contained in this document represents components of the legal health record. It is not the complete legal health record.[facility]
--- OUTSIDE RECORDS SUMMARY | 2025-06-21 09:37 | XMS_ITS | Encounter Summary ---
Author Organization [facility] Address [address] [facility] [address] [place] [address] Phone Care Team Providers Care Director Of Medicare Name Role Phone Joseph Leslie MD Primary Care Provider Justin Conley MD Unavailable [phone] Encounter Details Date Type Department Care Team (Late st Contact Info) Description 06/02/2017 Procedure Pass [facility] [address] [place] [address] Social History Tobacco Use Types Packs/Day Years Used Date Smoking Tobacco: Never Smokeless Tobacco: Never Alcohol Use Standard Drinks/Week Comments Yes 0 (1 standard drink = 0.6 oz pur e alcohol) 6 beers a year Sex and Gender Information Value Date Recorded Sex Assigned at Male 12/13/2021 9:34 AM EDT Legal Sex Male 8:04 PM EST Gender Identity Male 12/13/2021 9:34 AM EDT Sexual Orientation Straight 12/13/2021 9: 34 AM EDT documented as of this encounter Plan of Treatment Upcoming Encounters Date Type Department Care Team (Late st Contact Info) Description 03/28/2026 10:45 AM EDT Appointment [facility] [address] [facility], [address], [address] [place] [address] Danilo Hancock MD [address] [address] [email or web address] 03/28/2026 11:00 AM EDT Office Visit [facility] [address] [facility], [address] [place] [address] Danilo Hancock MD [address] [facility] [address] [place] [address] [email or web address] documented as of this encounter Visit Diagnoses Not on filedocumented in this encounter Care Teams Director Of Medicare Relationship Specialty Start Date End Date Joseph Leslie MD [address] [place] [id number] PCP - General 06/10/21 Justin Conley MD [address] [place] [address] [place] [address] In Flight Refueling Manager Pulmonary Disease 06/10/21 documented as of this encounter Additional Source Comments The information contained in this document represents components of the legal health record. It is not the complete legal health record.[facility]
== END 2025-06-21 09:26 | disposition home or self-care (01) ==
LOC: HO.HPS 08:57
PROVIDERS: PCP Family Medicine; Visit Provider Hospitalist
DX: B44.81 Allergic bronchopulmonary aspergillosis (principal); J44.9 Chronic obstructive pulmonary disease, unspecified; E27.40 Unspecified adrenocortical insufficiency; D80.1 Nonfamilial hypogammaglobulinemia; J47.9 Bronchiectasis, uncomplicated; J45.50 Severe persistent asthma, uncomplicated
CPT/HCPCS: 99214; G2211

== ENCOUNTER → 2025-06-21 08:56 | Outpatient (BNVA) | payer MEDICARE, OTHER, SELFPAY | PROVIDERS: PCP Family Medicine; Visit Provider Hospitalist | DX: B44.81 Allergic bronchopulmonary aspergillosis (principal); J47.9 Bronchiectasis, uncomplicated; J44.9 Chronic obstructive pulmonary disease, unspecified; D80.1 Nonfamilial hypogammaglobulinemia; E27.40 Unspecified adrenocortical insufficiency; J45.50 Severe persistent asthma, uncomplicated | CPT/HCPCS: 99212 ==

== ENCOUNTER 2025-07-13 10:14 | Outpatient (REF) | payer MEDICARE, OTHER, SELFPAY ==
--- OUTSIDE RECORDS SUMMARY | 2011-11-06 | XMS_ITS | Encounter Summary ---
Author Organization [facility] Address [address] [facility] [address] [place] [address] Phone Care Team Providers Care Busher Helper Name Role Phone Unavailable Primary Care Provider Unavailabl e Encounter Details Date Type Department Care Team (Late st Contact Info) Description 11/06/2011 Hospital Encounter [facility] [address] [place] [address] Danilo Hancock MD [address] [facility] [address] [place] [address] [email or web address] Social History Tobacco Use Types Packs/Day Years Used Date Smoking Tobacco: Never Smokeless Tobacco: Never Alcohol Use Standard Drinks/Week Comments Yes 0 (1 standard drink = 0.6 oz pur e alcohol) 6 beers a year Education Answer Date Recorded Are you interested in more education? Not on alo e 01/01/2023 Are you concerned about learning? Not on file 01/01/2023 No 01/01/2023 No 01/01/2023 Digital Access Answer Date Recorded No 02/02/2023 No 02/02/2023 Reliable internet access at home? Not on file 02/02/2023 Device with a working camera? Not on file Sex and Gender Information Value Date Recorded Sex Assigned at Male 12/13/2021 9:34 AM EDT Legal Sex Male 8:04 PM EST Gender Identity Male 12/13/2021 9:34 AM EDT Sexual Orientation Straight 12/13/2021 9: 34 AM EDT documented as of this encounter Plan of Treatment Upcoming Encounters Date Type Department Care Team (Late st Contact Info) Description 03/28/2026 10:45 AM EDT Appointment [facility] [address] [facility], 2nd Floor, [address] [place] [address] Danilo Hancock MD [address] [facility] [address] [place] [address] [email or web address] 03/28/2026 11:00 AM EDT Office Visit [facility] [address] [facility], 2nd Floor, [address] [place] [address] Danilo Hancock MD [address] [facility] [address] [place] [address] [email or web address] documented as of this encounter Procedures Procedure Name Priority Date/Time Associated Diagnosis Comments XR CHEST OUTSIDE (NO INTERPRETATION) Routine 11/06/2011 12:00 AM EST documented in this encounter Results * XR Chest Outside (No Interpretation) (11/06/2011 12:00 AM EST) Narrative [facility] IMG INTERFACES - 10/01/2016 9:20 AM EST This study is for PACS storage only and not for interpretation. us Danilo Hancock MD IMG OUTSIDE IMAGING W/OUT INTER PRETATION Final Result [facility]G INTERFACES documented in this encounter Visit Diagnoses Not on filedocumented in this encounter Additional Source Comments The information contained in this document represents components of the legal health record. It is not the complete legal health record.[facility]
--- OUTSIDE RECORDS SUMMARY | 2014-10-04 | XMS_ITS | Encounter Summary ---
Author Organization [facility] Address [address] [facility] [address] [place] [address] Phone Care Team Providers Care Dye Can Operator Name Role Phone Unavailable Primary Care Provider Unavailabl e Encounter Details Date Type Department Care Team (Late st Contact Info) Description 10/04/2014 Hospital Encounter [facility] [address] [place] [address] Danilo Hancock MD 55 [facility] 201 [place] [address] [email or web address] Social History Tobacco Use Types Packs/Day Years [...] Info) Description 03/28/2026 10:45 AM EDT Appointment [facility] Pulmonary and Critical Care Unit [address] [facility], 2nd Floor, [address] [place] [address] Danilo Hancock MD 55 [facility] [address] [place] [address] [email or web address]@[email or web address] 03/28/2026 11:00 AM EDT Office Visit [facility] [address] [facility], 2nd Floor, [address] [place] [address] Danilo Hancock MD 55 [facility] [address] [place] [address] [email or web address] documented as of this encounter Procedures Procedure Name Priority Date/Time Associated Diagnosis Comments XR CHEST OUTSIDE (NO INTERPRETATION) Routine 10/04/2014 12:00 AM EST documented in this encounter Results * XR Chest Outside (No Interpretation) (10/04/2014 12:00 AM EST) Narrative [facility] IMG INTERFACES - 10/01/2016 9:20 AM EST This study is for PACS storage only and not for interpretation. us Danilo Hancock MD IMG OUTSIDE IMAGING W/OUT INTER PRETATION Final Result [facility] IMG INTERFACES documented in this encounter Visit Diagnoses Not on filedocumented in this encounter Additional Source Comments The information contained in this document represents components of the legal health record. It is not the complete legal health record.[facility]
--- OUTSIDE RECORDS SUMMARY | 2016-09-18 | XMS_ITS | Encounter Summary ---
Author Organization [facility] Address [address] [facility] [address] [place] [address] Phone Care Team Providers Care Physical Therapy Aides Teacher Name Role Phone Unavailable Primary Care Provider Unavailabl e Encounter Details Date Type Department Care Team (Late st Contact Info) Description 09/18/2016 Hospital Encounter [facility] [address] [place] [address] Dnailo Hancock MD [address] [facility] 201 [place] [address] [email or web address] Social History Tobacco Use Types [...] Info) Description 03/28/2026 10:45 AM EDT Appointment [facility] [address] [facility], 2nd Floor, [address] [place] [address] Danilo Hancock MD 55 [facility] 201 [place] [address] IRENE@[email or web address] 03/28/2026 11:00 AM EDT Office Visit [facility] [address] [facility], 2nd Floor, [address] [place] [address] Danilo Hancock MD [address] [place] [address] [address] [place] [address] IRENE@[email or web address] documented as of this encounter Procedures Procedure Name Priority Date/Time Associated Diagnosis Comments XR CHEST OUTSIDE WITH INTERPRETATION OR CONSULT Routine 09/18/2016 12:00 AM EST documented in this encounter Results * XR Chest Outside With Interpretation Or Consult (09/18/2016 12:00 AM EST) 10/01/2016 10:2 0 AM EST Impressions [facility] RAD - 10/01/2016 10:21 AM EST Clear lungs. No evidence of pneumonia or pulmonary edema. This report is limited to the body part and modality requested, regardless of which images were uploaded. If additional reports are required, please contact the appropriate Division of the Radiology Department. Narrative [facility] RAD - 10/01/2016 10:21 AM EST of the CHEST - Interpretation of Outside Imaging COMPARISON: XR CHEST PA AND LATERAL 2 VIEWS 02/19/2016. FINDINGS: Lungs: The lungs are well inflated and clear. There is no evidence of pneumonia or pulmonary edema. Pleura: There is no pleural effusion or pneumothorax. Heart and mediastinum: The heart and the mediastinum are normal. Bones: The thoracic skeleton is unremarkable. Procedure Note Fred Cunningham MD - 10/01/2016 of the CHEST - Interpretation of Outside Imaging COMPARISON: XR CHEST PA AND LATERAL 2 VIEWS 02/19/2016. FINDINGS: Lungs: The lungs are well inflated and clear. There is no evidence ofpneumonia or pulmonary edema. Pleura: There is no pleural effusion or pneumothorax. Heart and mediastinum: The heart and the mediastinum are normal. Bones: The thoracic skeleton is unremarkable. IMPRESSION: Clear lungs. No evidence of pneumonia or pulmonary edema. This report is limited to the body part and modality requested, regardlessof which images were uploaded. If additional reports are required, pleasecontact the appropriate Division of the Radiology Department. us Danilo Hancock MD IMG OUTSIDE IMAGING W/ INTERPRE TATION Final Result [facility] [address] [facility] [place] [address] documented in this encounter Visit Diagnoses Not on filedocumented in this encounter Additional Source Comments The information contained in this document represents components of the legal health record. It is not the complete legal health record.[facility]
--- OUTSIDE RECORDS SUMMARY | 2016-09-25 | XMS_ITS | Encounter Summary ---
Author Organization [facility] Address [address] [facility] [address] [place] [address] Phone Care Team Providers Care Tripe Washer Name Role Phone Unavailable Primary Care Provider Unavailabl e Reason for Visit * MRI/CAT Scan - Closed Specialty Diagnoses / Procedures Referred By Contac t Referred To Contact Procedures CT Chest Outside (No Interpretation) Danilo Hancock MD [employer] [address] [address] Phone: tel: fax: mailto:[email or web address] Referral ID Status Reason Start Date Expiration Date Visits Re quested Visits Authorized [id number] Closed 06/02/2017 06/02/2018 1 1 Encounter Details Date Type Department Care Team (Late st Contact Info) Description 09/25/2016 Hospital Encounter [facility] General Imaging [address] [place] [address] Danilo Hancock MD [employer] [address] [address] [email or web address] Social History Tobacco Use Types Packs/Day Years [...] Info) Description 03/28/2026 10:45 AM EDT Appointment [facility] Pul[facility] and Critical Care Unit [address] [facility] Floor, [address] [place] [address] Danilo Hancock MD [address] [place] [id number] [email or web address] 03/28/2026 11:00 AM EDT Office Visit [facility] [address] [facility], 2nd Floor, [address] [place] [address] Danilo Hancock MD [address] [place] [id number] [email or web address] documented as of this encounter Procedures Procedure Name Priority Date/Time Associated Diagnosis Comments CT CHEST OUTSIDE (NO INTERPRETATION) Routine 09/25/2016 12:00 AM EST documented in this encounter Results * CT Chest Outside (No Interpretation) (09/25/2016 12:00 AM EST) Narrative [facility] IMG INTERFACES - 06/02/2017 4:42 PM EDT This study is for PACS storage only and not for interpretation. us Danilo ANDRES OUTSIDE IMAGING W/OUT INTER PRETATION Final Result [facility] IMG INTERFACES documented in this encounter Visit Diagnoses Not on filedocumented in this encounter Additional Source Comments The information contained in this document represents components of the legal health record. It is not the complete legal health record.[facility]
[2025-07-13 10:33] LABS: MANUAL DIFF FLAG NO
[2025-07-13 11:40] LABS: Hematocrit 48.0 % (42.0-52.0); Hemoglobin 15.9 g/dl (14.0-18.0); Imm Gran Abs Auto 0.02 X10*3/uL (0.00-0.03); Imm Gran Pct Auto 0.3 % (0.0-0.4); Lymphocytes Absolute Auto 0.6 X10*3/uL (1.2-4.9); Mean Corpuscular HGB Conc 33.1 g/dl (31.0-36.0); Mean Corpuscular Hemoglobin 31.4 pg (27.0-33.0); Mean Corpuscular Volume 94.7 fL (80.0-98.0); NRBC Pct Auto 0.0 /100WBC (0.0-0.2); Platelet Count 209 X10*3/uL (160-400); Red Blood Count 5.07 X10*6/uL (4.60-5.80); White Blood Count 6.4 X10*3/uL (4.8-10.8)
[2025-07-13 11:41] LABS: NRBC Abs Auto 0.000 X10*3/uL (0.0-0.012)
--- OUTSIDE RECORDS SUMMARY | 2025-07-13 11:56 | XMS_ITS | Encounter Summary ---
Author Organization [facility] Address [address] [place] [address] [place] [address] Phone Care Team Providers Care Wrapper Counter Name Role Phone Joseph Leslie MD Primary Care Provider Justin Conley MD Unavailable [phone] Encounter Details Date Type Department Care Team (Watson Contact Info) Description 07/26/2024 Procedure Pass [facility] - CT [address] [facility], 6th [place] [address] Social History Tobacco Use Types Packs/Day Years [...] Info) Description 03/28/2026 10:45 AM EDT Appointment [facility] [address] [facility], [address] [place] [address] Danilo Hancock MD [address] [facility] [address] [place] [address] [email or web address] 03/28/2026 11:00 AM EDT Office [facility] [address] [facility], [address] [place] [address] Danilo Hancock MD [address] [address] [email or web address] documented as of this encounter Visit Diagnoses Not on filedocumented in this encounter Care Teams Wrapper Counter Relationship Specialty Start Date End Date Joseph Leslie MD PCP - General 06/10/21 Justin Conley MD [address] [place] [address] [place] [address] Mule Rider Pulmonary Disease 06/10/21 documented as of this encounter Additional Source Comments The information contained in this document represents components of the legal health record. It is not the complete legal health record.[facility]
--- OUTSIDE RECORDS SUMMARY | 2025-07-13 11:56 | XMS_ITS | Clinical Summary ---
Author Organization [facility] Address [address] [address] Phone Care Team Providers Care Wound Care Nurse Name Role Phone Joseph Leslie MD Primary Care Provider Justin Conley MD Unavailable [phone] Allergies Active Allergy Reactions Criticality Noted Date Comments Doxycycline Rash High 11/12/2015 Medications albuterol 2.5 mg /3 mL (0.083 %) nebulizer solution Take 3 mL by nebulization every 6 (six) hours as needed. Active calcium carbonate-vitam in D3 1,250 mg (500 mg elemental)-200 units per tablet Take 1 tablet by mouth daily. Active diltiazem (CARDIZEM CD) 180 MG 24 hr capsule Take 1 capsule by mouth daily. Active triamterene-hyd rochlorothiazid e (DYAZIDE) 37.5-25 mg per capsule Take 1 capsule by mouth daily. Active custom medication, see admin inst / label comment, FLUNISOLIDE 250 MCG AER W/ADAP Dose: 2 PUFF; Form: Not available; Route: INH; Frequency: Not available; Directions: Not available; Details: Not available; Date: 11/12/2015 Active montelukast (SINGULAIR) 10 mg tablet Take 1 tablet by mouth nightly. Active mucus clearing device DeviIndications :Bronchiectasis without complication 1 Dose by Miscellaneous route 3 (three) times a day. Please dispense the Green Acapella, with more resistance than the blue one. 1 Device 1 018 Active arformoterol (BROVANA) 15 mcg/2 mL Nebu Take 15 mcg by nebulization 2 (two) times a day. Active budesonide (PULMICORT) 0.5 mg/2 mL nebulizer solution Take 0.5 mg by nebulization daily. Active pantoprazole (PROTONIX) 40 MG tablet Take 40 mg by mouth daily. Active sodium chloride 3 % nebulizer solution Take by nebulization as needed for other (free text field). Active tezepelumab-ekk o (TEZSPIRE) 210 mg/1.91 mL (110 mg/mL) subcutaneous pen injector Inject 210 mg under the skin every 28 days. Active CUVITRU 8 gram/40 mL (20 %) Soln Inject under the skin every 14 (fourteen) days. 023 Active loteprednol (LOTEMAX) 0.5 % ophthalmic suspension INSTILL 1 DROP INTO BOTH EYES TWICE A DAY NEEDED Active predniSONE (DELTASONE) 5 MG tablet Take 4.5 mg by mouth every morning. 023 Active fluticasone propionate (FLONASE) 50 mcg/actuation nasal spray spray 2 sprays into each nostril every day Active roflumilast (DALIRESP) 500 mcg Tab Take 1 tablet by mouth every morning. 023 Active INCRUSE ELLIPTA 62.5 mcg/actuation inhalation Inhale 1 puff into the lungs daily. 023 Active ensifentrine 3 mg/2.5 mL NbSp Inhale into the lungs. Active fexofenadine (ADAMS) 180 MG tabletIndicatio ns:Mild intermittent asthma without complication TAKE 1 TABLET BY MOUTH EVERY DAY 90 tablet 3 025 Active fexofenadine (ADAMS) 180 MG tabletIndicatio ns:Mild intermittent asthma without complication TAKE 1 TABLET BY MOUTH EVERY DAY 90 tablet 3 024 2024 Discontinued Active Problems Problem Noted Date Diagnosed Date [...] now, until the endocrine situation is clarified. 12/8/16 He shows me his cortisol levels which [...] shot. He brings labs of 05/14/17 at [facility]: IgG 533 (700-1600) IgG1 295 (341-894) [...] Chem then review with [facility] All[facility]. My preference would be [...] miles routinely. Vigorous mountain biking in the [employer] yesterday, felt great. Discolored sputum every morning. [...] immunoglobulin levels, which will be scanned into [employer]. He will discuss with Endocrine the pros/cons [...] had COVID. No pneumonia on CXR at [facility] twice. No other prednisone in the last [...] 12/09/[address] Conley in Pulmonary at [facility]. Now off Flovent and Spiriva, started nebulizer [...] then the other nebs helps. He reports 2006 hospitalization for severe acid burning. Goes to [...] secretions. He is not inclined to pursue IRONER evaluation for reducing cough symptoms at this [...] in Jan, 2022, and was seen in [place], [place] ED. Treated with dexamethasone. Fine in [...] Multiple courses of antibiotics, most helpful being buttermaker helper TMP/SMX (for Staph), along with voriconazole. No [...] Vest for bronchiectasis twice daily, with his wincher Dr. Conley. He feels that this helps bring up the mucus. His mucus is discolored. He gets more mucus when he rides a lot. He describes what sounds like escalating [place] protocol for the Vest. He has been doing the short protocol. Went on prednisone at end of January/early February. Gets tight despite the nebulizer. It sounds like he may have impacted mucus plugs when he is feeling tight, then starts to feel better as the mucus mobilizes, then finally breathes better when he has cleared the mucus. Discharge papers from [place] 02/12/23 indicate that he was discharged on [...] will request images and discharge summary from [facility], and most recent notes from Dr. Conley at [facility]. He has not been doing albuterol nebulizer [...] shot. He brings labs of 05/14/17 at [facility]: IgG 533 (700-1600) IgG1 295 (341-894) [...] Chem then review with [facility] Allergy. My preference would be [...] miles routinely. Vigorous mountain biking in the [facility] yesterday, felt great. Discolored sputum every morning. [...] immunoglobulin levels, which will be scanned into [employer]. He will discuss with Endocrine the pros/cons [...] had COVID. No pneumonia on CXR at [facility] twice. No other prednisone in the last [...] 12/09/[address] Conley in Pulmonary at [facility]. Now off Flovent and Spiriva, started nebulizer [...] secretions. He is not inclined to pursue IRONER evaluation for reducing cough symptoms at this [...] in Jan, 2022, and was seen in [place], [place] ED. Treated with dexamethasone. Fine in [...] Multiple courses of antibiotics, most helpful being buttermaker helper TMP/SMX (for Staph), along with voriconazole. No [...] Vest for bronchiectasis twice daily, with his wincher Dr. Conley. He feels that this helps [...] has cleared the mucus. Discharge papers from [place] 02/12/23 indicate that he was discharged on [...] will request images and discharge summary from [facility], and most recent notes from Dr. Conley at [facility]. He has not been doing albuterol nebulizer [...] shot. He brings labs of 05/14/17 at [facility]: IgG 533 (700-1600) IgG1 295 (341-894) [...] Chem then review with [facility] All[facility]. My preference would be [...] immunoglobulin levels, which will be scanned into [employer]. He will discuss with Endocrine the pros/cons [...] had COVID. No pneumonia on CXR at [facility] twice. No other prednisone in the last [...] 12/09/[address] Conley in Pulmonary at [facility]. Now off Flovent and Spiriva, started nebulizer [...] secretions. He is not inclined to pursue IRONER evaluation for reducing cough symptoms at this [...] in Jan, 2022, and was seen in [place], [place] ED. Treated with dexamethasone. Fine in [...] Multiple courses of antibiotics, most helpful being buttermaker helper TMP/SMX (for Staph), along with voriconazole. No [...] Vest for bronchiectasis twice daily, with his wincher Dr. Conley. He feels that this helps bring up the mucus. His mucus is discolored. He gets more mucus when he rides a lot. He describes what sounds like escalating [place] protocol for the Vest. He has been doing the short protocol. Went on prednisone at end of January/early February. Gets tight despite the nebulizer. It sounds like he may have impacted mucus plugs when he is feeling tight, then starts to feel better as the mucus mobilizes, then finally breathes better when he has cleared the mucus. Discharge papers from [place] 02/12/23 indicate that he was discharged on [...] will request images and discharge summary from [facility], and most recent notes from Dr. Conley at [facility]. He wonders if his Cuvitru does is correct, since he has had pneumonia. He reports that immunoglobulins are in the normal range. He will review with his ship cleaner. He has not been doing albuterol nebulizer before the Vest. He will try it, plus/minus 3% saline. He will try the longer Vest protocol to see if that helps more. 01/07/24 Asthma stable. Continue current care, being managed by his doctors closer to home. I am available as needed. We will request images from [facility] in February,. Return 6 months. Assessment & [...] shot. He brings labs of 05/14/17 at [facility]: IgG 533 (700-1600) IgG1 295 (341-894) [...] Chem then review with [facility] All[facility]. My preference would be [...] miles routinely. Vigorous mountain biking in the [employer] yesterday, felt great. Discolored sputum every morning. PF's 650-690 steadily. Before he got sick in 2015, he was about 700. He has not [...] immunoglobulin levels, which will be scanned into [employer]. He will discuss with Endocrine the pros/cons [...] had COVID. No pneumonia on CXR at [facility] twice. No other prednisone in the last [...] 12/09/[address] Conley in Pulmonary at [facility]. Now off Flovent and Spiriva, started nebulizer [...] secretions. He is not inclined to pursue IRONER evaluation for reducing cough symptoms at this [...] in Jan, 2022, and was seen in [place], [place] ED. Treated with dexamethasone. Fine in [...] Multiple courses of antibiotics, most helpful being mcfp TMP/SMX (for Staph), along with voriconazole. No [...] of CXR's and chest CT scans at [facility] in the last two years, as [...] will request images and discharge summary from [facility], and most recent notes from Dr. Conley at [facility]. He wonders if his Cuvitru does is correct, since he has had pneumonia. He reports that immunoglobulins are in the normal range. He will review with his ship cleaner. He has not been doing albuterol nebulizer [...] shot. He brings labs of 05/14/17 at [facility]: IgG 533 (700-1600) IgG1 295 (341-894) [...] Chem then review with [facility] All[facility]. My preference would be [...] miles routinely. Vigorous mountain biking in the [employer] yesterday, felt great. Discolored sputum every morning. [...] immunoglobulin levels, which will be scanned into [employer]. He will discuss with Endocrine the pros/cons [...] had COVID. No pneumonia on CXR at [facility] twice. No other prednisone in the last [...] 12/09/[address] Conley in Pulmonary at [facility]. Now off Flovent and Spiriva, started nebulizer equivalents. Also started Daliresp 250. He had bronchoscopy 12/16/21. The report (under Media tab) describes secretions, [...] secretions. He is not inclined to pursue IRONER evaluation for reducing cough symptoms at this [...] of CXR's and chest CT scans at [facility] in the last two years, as [...] shot. He brings labs of 05/14/17 at [facility]: IgG 533 (700-1600) IgG1 295 (341-894) [...] Chem then review with [facility] All[facility]. My preference would be [...] miles routinely. Vigorous mountain biking in the [employer] yesterday, felt great. Discolored sputum every morning. [...] immunoglobulin levels, which will be scanned into [employer]. He will discuss with Endocrine the pros/cons [...] had COVID. No pneumonia on CXR at [facility] twice. No other prednisone in the last [...] secretions. He is not inclined to pursue IRONER evaluation for reducing cough symptoms at this [...] shot. He brings labs of 05/14/17 at [facility]: IgG 533 (700-1600) IgG1 295 (341-894) [...] Chem then review with [facility] All[facility]. My preference would be [...] miles routinely. Vigorous mountain biking in the [employer] yesterday, felt great. Discolored sputum every morning. [...] immunoglobulin levels, which will be scanned into [employer]. He will discuss with Endocrine the pros/cons [...] had COVID. No pneumonia on CXR at [facility] twice. No other prednisone in the last [...] shot. He brings labs of 05/14/17 at [facility]: IgG 533 (700-1600) IgG1 295 (341-894) [...] Chem then review with [facility]. My preference would be to avoid chronic antibiotics if possible. If we are able to find an alternative way to treat him, such as with immunoglobulin replacement therapy, then he might not need antibiotics. Consider itraconazole (plus/minus prednisone) if he appears to be having an ABPA flare. 10/22/[address] Mireles in Allergy 01/13/18, [...] miles routinely. Vigorous mountain biking in the [employer] yesterday, felt great. Discolored sputum every morning. [...] immunoglobulin levels, which will be scanned into [employer]. He will discuss with Endocrine the pros/cons [...] shot. He brings labs of 05/14/17 at [facility]: IgG 533 (700-1600) IgG1 295 (341-894) [...] Chem then review with [facility]. My preference would be [...] immunoglobulin levels, which will be scanned into [employer]. He will discuss with Endocrine the pros/cons [...] would be 40 mg daily, but Dr. eVra and I favor a lower dose, given [...] shot. He brings labs of 05/14/17 at [facility]: IgG 533 (700-1600) IgG1 295 (341-894) [...] Chem then review with [facility]. My preference would be [...] shot. He brings labs of 05/14/17 at [facility]: IgG 533 (700-1600) IgG1 295 (341-894) [...] Chem then review with [facility]. My preference would be [...] shot. He brings labs of 05/14/17 at [facility]: IgG 533 (700-1600) IgG1 295 (341-894) [...] Chem then review with [facility]. My preference would be [...] I will discuss with [facility] Endocrine and also with patient's [...] I will discuss with [facility] Endocrine and also with patient's [...] dose of prednisone. He also sees his Bakery Demonstrator and will discuss this with him. We discussed adrenal insufficiency natural history and symptoms, as well as the potential need for stress dose steroids in the setting of physiologic stress such as severe illness. He will review this also with his hot mill observer, particularly as it might pertain to his [...] dose of prednisone. He also sees his Bakery Demonstrator and will discuss this with him. We discussed adrenal insufficiency natural history and symptoms, as well as the potential need for stress dose steroids in the setting of physiologic stress such as severe illness. He will review this also with his hot mill observer, particularly as it might pertain to his [...] supplement & adjust supplement to target ~ 9369-1686 mg/day total. Continues to be very active. Encounters Date Type Department Care Team Description 06/27/2025 Refill [facility] [address] [place] [address], 2nd Floor, [address] [place] [address] Kate Sanchez CNP Medication Refill from Last 3 Months Immunizations Immunization Administration [...] 10:45 AM EDT Appointment [facility] [address] [facility], [address]nd Floor, [address] [place] [address] Danilo Hancock MD [address] [address] [email or web address] 03/28/2026 11:00 AM EDT Office Visit [facility] [address] [facility], [address] Floor, [address] [place] [address] Danilo Hancock MD [address] [address] [email or web address] Health Maintenance Due Date Last Done Comments [...] 06/22/2023, 05/17/2022, Additional history exists COVID-19 VACCINE (2024- season) 2025 06/02/2024, 06/26/2023, 01/04/2023, Additional history [...] Procedure Name Priority Date/Time Associated Diagnosis Comments COMPREHENSIVE METABOLIC PANEL (CMP) Routine 12/25/2017 12:08 PM EDT Mild intermittent asthma without complication from Last 3 Months or Most Recently Relevant to Health Maintenance Results * Comprehensive metabolic panel (12/25/2017 12:08 PM EDT) SODIUM 143 135 - 145 mmol/L [facility] POTASSIUM 4.2 3.4 - 5.0 mmol/L [facility] CHLORIDE 100 98 - 108 mmol/L [facility] CO2 27 23 - 32 mmol/L [facility] BUN 22 8 - 25 mg/dL [facility] CREATININE 1.26 0.60 - 1.50 mg/dL [facility] GLUCOSE 79 70 - 110 mg/dL [facility] ALBUMIN 4.2 3.3 - 5.0 g/dL [facility] TOTAL PROTEIN 6.9 6.0 - 8.3 g/dL [facility] CALCIUM 9.8 8.5 - 10.5 mg/dL [facility] ALKALINE PHOSPHATASE 73 45 - 115 U/L [facility] TOTAL BILIRUBIN 0.3 0.0 - 1.0 mg/dL [facility] AST 32 10 - 40 U/L [facility] ALT 25 10 - 55 U/L [facility] GLOBULIN 2.7 1.9 - 4.1 g/dL [facility] EGFR 61 >59 mL/min/1. 73m2 [facility] Comment:If patient is black, multiply result by 1.159. Estimated glomerular filtration rate calculated using the CKD-EPI equation. ANION GAP 16 3 - 17 mmol/L [facility] 12/25/2017 12:0 8 PM EDT 12/25/2017 5:26 PM EDT us Danilo Hancock MD LAB BLOOD BKR ORDERABLES Final Result [address] [address] from Last 3 Months or Most Recently Relevant to Health Maintenance Insurance [employer] MEDICARE SUPPLEMENT MEDICARE PART A & B [employer] MEDICARE SUPPLEMENT MEDICARE PART A & B [employer] MEDICARE SUPPLEMENT MEDICARE PART A & B [employer] MEDICARE SUPPLEMENT MEDICARE PART A & B MEDICARE SUPPLEMENT MEDICARE PART A & [place] [address] [place] [address] [employer] MEDICARE SUPPLEMENT MEDICARE PART A & B Member Subscriber Plan / Payer (Ef fective 2021-Present) Name:SamharshadDesireLeo Member ID:[id number] Relation to Subscriber:Self Name:Leo Honeycutt Subscriber ID:[id number] Payer ID:[id number] Group ID:Not on file Type:Medicare Address: [facility] [address] MEDICARE SUPPLEMENT MEDICARE PART A & B [employer] MEDICARE SUPPLEMENT MEDICARE PART A & B [address] [place], [place] [address] [facility] [employer] MEDICARE SUPPLEMENT MEDICARE PART A & B Care Teams Wound Care Nurse Relationship Specialty Start Date End Date Joseph Leslie MD PCP - General 06/10/21 Justin Conley MD [address] [place] [address] [place] [address] Bailiff Pulmonary Disease 06/10/21 Additional Source Comments The information contained in this document represents components of the legal health record. It is not the complete legal health record.[facility]
--- OUTSIDE RECORDS SUMMARY | 2025-07-13 11:56 | XMS_ITS | Clinical Summary ---
Author Organization [facility] Address [address] [place] [address] Care Team Providers Care Pt Sitter Name Role Phone Unavailable Primary Care Provider [...] 2 at age 96; paternal Hypertension Father [place] [phone] Other: Other Maternal Grandfather - age 70; ? cancer type Other: Other Maternal Grandmother at 96 of [place] Other: Suicide Mother 1980; at age 47 [...] Documents on File Type Date Recorded Patient Vacuum Caster Expl anation Health Care Decision (hx) 10/30/2015 AD TIAN DIRECTIVE Health Care Decision (hx) 10/30/2015 AD TIAN DIRECTIVE Health Care Decision (hx) 10/24/2015 AD TIAN DIRECTIVE Health Care Decision (hx) 10/24/2015 AD TIAN DIRECTIVE
--- OUTSIDE RECORDS SUMMARY | 2025-07-13 11:57 | XMS_ITS | Encounter Summary ---
Author Organization [facility] Address [address] [facility] [address] [place] [id number] Phone Care Team Providers Care Stenotype Operator Name Role Phone Joseph Leslie MD Primary Care Provider Justin Conley MD Unavailable [phone] Encounter Details Date Type Department Care Team (Late st Contact Info) Description 06/02/2017 Procedure Pass [facility] [address] [place] [address] Social History Tobacco Use Types Packs/Day Years [...] 10:45 AM EDT Appointment [facility] [address] [facility], [address]nd Floor, [address] [place] [address] Danilo Hancock MD [address] [address] [email or web address] 03/28/2026 11:00 AM EDT Office Visit [facility] [address] [facility], [address] Floor, [address] [place] [address] Danilo Hancock MD 55 [facility] [address] [place] [address] [email or web address] documented as of this encounter Visit Diagnoses Not on filedocumented in this encounter Care Teams Stenotype Operator Relationship Specialty Start Date End Date Joseph Leslie MD PCP - General 06/10/21 Justin Conley MD [address] [place] [address] [place] [address] Paper Counter Pulmonary Disease 06/10/21 documented as of this encounter Additional Source Comments The information contained in this document represents components of the legal health record. It is not the complete legal health record.[facility]
[2025-07-13 12:13] LABS: Anion Gap 13 (12-20); Blood Urea Nitrogen 22 mg/dL (9-16); Calcium 9.7 mg/dL (8.4-10.2); Carbon Dioxide 32 mmol/L (22-29); Chloride 103 mmol/L (96-108); Estimated Glomerular Filt Rate > 60; Potassium 3.7 mmol/L (3.3-5.1); Sodium 144 mmol/L (135-145)
[2025-07-14 12:33] LABS: Immunoglobulin G Subclass 1 529 mg/dL (382-929); Immunoglobulin G Subclass 2 387 mg/dL (241-700); Immunoglobulin G Subclass 3 26 mg/dL (22-178); Immunoglobulin G Subclass 4 29.9 mg/dL (4-86); Immunoglobulin G Total 965 mg/dL (600-1540)
== END 2025-07-13 10:15 | disposition home or self-care (01) ==
LOC: HO.LAB 10:14
PROVIDERS: PCP Family Medicine; Visit Provider Hospitalist
DX: J45.909 Unspecified asthma, uncomplicated (principal)
CPT/HCPCS: 36415; 80048; 80198; 82784; 82785; 85025; 85652

== ENCOUNTER 2025-07-27 08:29 | Outpatient (AMB) | payer MEDICARE, OTHER, SELFPAY ==
[2025-07-27 08:32] VITALS: BMI 22.3
--- NOTE | 2025-07-27 08:32 | A.OFFVIS_ITS ---
Vital Signs 07/27/25 08:32 Height 5 ft 9 in Weight 151 lb BMI 22.3 Intake Visit Reasons: OV- RT ACL reconstruction 11/02/24 NE Intake Note: Leo is a 69 year old male who presents today for a follow up of his Right Knee about 9 months s/p Right ACL Reconstruction w/ allograft & partial medial menisectomy 11/02/2024. Patient reports that he is doing well, no current co ncerns. He is hoping to go skiing in the next few weeks. He does have the bilateral ACL braces to wear with this activity, but is asking about how well these will prevent re-tear/reinjury. He explains that the left knee continues to be bothersome, history of ACL Repair and retear - this knee feels rather unstable and is giving out on him frequently Allergies Doxycycline Hyclate Allergy (Intermediate, Uncoded 07/27/25 08:37) redness and itching HPI HPI OV- RT ACL reconstruction 11/02/24 NE: Details: Leo is a 69 year old male who presents today for a follow up of his Right Knee about 9 months s/p Right ACL Reconstruction w/ allograft & partial medial menisectomy 11/02/2024. Patient reports that he is doing well, no current concerns. He is hoping to go skiing in the next few weeks. He does have the bilateral ACL braces to wear with this activity, but is asking about how well these will prevent re-tear/reinjury. He explains that the left knee continues to be bothersome, history of ACL Repair and retear - this knee feels rather unstable and is giving out on him frequently PFSH Medical History Bilateral cataracts Bronchiectasis Hypogammaglobulinemia Adrenal insufficiency Transaminitis Asthma-COPD overlap syndrome ABPA (allergic bronchopulmonary aspergillosis) Hypertension Surgical History Hx of tonsillectomy History of bronchoscopy (~2020) History of repair of anterior cruciate ligament of left knee (~2012) Social History Household Members: Spouse Housing: House Do you presently have visiting nurse or other home services: Yes Alcohol intake: never Patient Tobacco Use Status: Never used Tobacco e-Cigarette/Vaping Use: Never Used Second Hand Smoke Exposure: No service: No Current occupational status: retired Current occupational exposures/hazards: No Cognitive needs: No Hearing needs: No Vision needs: No Physical Exam Exam Exam: Left knee with 2+ Priya's/anterior drawer and trace effusion with full range of motion no joint line pain. Right knee with 1+ Priya's stable endpoint. No effusion. Good quad control. Full range of motion. 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 He is not sure he will be able to skin it for ever but wants to ski this winter. He has been skiing on it before. I he has not ACL brace and he can skate his own risk on the left. (2) S/P ACL reconstruction: Code(s): Z98.890 - Other specified postprocedural states Category: Surgical Plan: His right knee is doing well. Wants to return to skiing. I think it is premature. He is pretty adamant good skier but he has injured his knee several times both sides and I think if he stays on the groomed begin her slopes there is less risk but it is risky regardless. I wrote him a prescription for PT for some dynamic strengthening. He is doing exceptionally well extremely motivated but I still think skiing is a risk. He should avoid any black Mandy's or heavy/difficult terrain. Follow up in 2 months. 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
== END 2025-07-27 09:16 | disposition home or self-care (01) ==
LOC: HO.HOS 08:30
PROVIDERS: PCP Family Medicine; Visit Provider Orthopaedic Surgery
DX: M23.8X2 Other internal derangements of left knee (principal); Z98.890 Other specified postprocedural states
CPT/HCPCS: 99213

== ENCOUNTER → 2025-07-27 08:29 | Outpatient (BNVA) | payer MEDICARE, OTHER, SELFPAY | PROVIDERS: PCP Family Medicine; Visit Provider Orthopaedic Surgery | DX: M23.612 Other spontaneous disruption of anterior cruciate ligament of left knee (principal); M23.8X2 Other internal derangements of left knee; Z98.890 Other specified postprocedural states | CPT/HCPCS: 99212 ==

== ENCOUNTER 2025-08-14 09:35 | Outpatient (REF) | payer MEDICARE, OTHER, SELFPAY ==
[2025-08-14 11:40] LABS: MANUAL DIFF FLAG NO
[2025-08-14 11:50] LABS: Hematocrit 46.7 % (42.0-52.0); Hemoglobin 15.3 g/dl (14.0-18.0); Imm Gran Abs Auto 0.01 X10*3/uL (0.00-0.03); Imm Gran Pct Auto 0.3 % (0.0-0.4); Lymphocytes Absolute Auto 0.7 X10*3/uL (1.2-4.9); Mean Corpuscular HGB Conc 32.8 g/dl (31.0-36.0); Mean Corpuscular Hemoglobin 30.6 pg (27.0-33.0); Mean Corpuscular Volume 93.4 fL (80.0-98.0); NRBC Abs Auto 0.000 X10*3/uL (0.0-0.012); NRBC Pct Auto 0.0 /100WBC (0.0-0.2); Platelet Count 192 X10*3/uL (160-400); Red Blood Count 5.00 X10*6/uL (4.60-5.80); White Blood Count 3.8 X10*3/uL (4.8-10.8)
[2025-08-14 12:18] LABS: Alanine Aminotransferase 34 U/L (0-40); Albumin Level 4.2 g/dL (3.5-5.0); Alkaline Phosphatase 70 U/L (39-117); Anion Gap 10 (12-20); Aspartate Amino Transferase 46 U/L (5-37); Blood Urea Nitrogen 19 mg/dL (9-16); Calcium 9.5 mg/dL (8.4-10.2); Carbon Dioxide 31 mmol/L (22-29); Chloride 103 mmol/L (96-108); Estimated Glomerular Filt Rate > 60; Potassium 3.8 mmol/L (3.3-5.1); Sodium 140 mmol/L (135-145); Total Protein 6.9 g/dL (6.5-8.0)
[2025-08-15 06:59] LABS: Immunoglobulin A 171 mg/dL (70-320); Immunoglobulin G 1112 mg/dL (600-1540); Immunoglobulin M 91 mg/dL (50-300)
[2025-08-17 23:03] LABS: Prot Elec - Albumin 3.9 g/dL (3.8-4.8); Prot Elec - Alpha1 0.2 g/dL (0.2-0.3); Prot Elec - Alpha2 0.7 g/dL (0.5-0.9); Prot Elec - Beta 1 0.5 g/dL (0.4-0.6); Prot Elec - Beta 2 0.3 g/dL (0.2-0.5); Prot Elec - Gamma 1.0 g/dL (0.8-1.7); Prot Elec - Total Protein 6.6 g/dL (6.1-8.1)
== END 2025-08-14 09:36 | disposition home or self-care (01) ==
LOC: HO.WFDLDS 09:35
PROVIDERS: Visit Provider Allergy & Immunology
DX: Z01.84 Encounter for antibody response examination (principal); D50.1 Sideropenic dysphagia
CPT/HCPCS: 36415; 80053; 82784; 82785; 84165; 85025